=== PATIENT | female | born 1955 | race Hispanic/Latino ===

== ENCOUNTER 2017-07-15 12:34 | Emergency (ER) | payer MEDICARE ==
[~2017-07-15] VITALS: Ht 165.1 cm; Wt 73.5 kg
[~2017-07-15 12:34] MED LIST: ASPIR 8181 MG PO; CARVEDILOL12.5 MG PO; CARVEDILOL25 MG PO; CLINDAMYCIN HC150 MG; CLOPIDOGREL75 MG PO; GABAPENTIN300 MG PO; HYDRALAZINE HCL10 MG PO; LOSARTAN POTASS50 MG; NOVOLIN 70100 UNITS/; PRINIVIL20 MG PEG; PROMETHAZINE HC25 M1 PO; SYNTHROID100 MCG PO; TYLENOL WITH C1 EACH PO
--- OUTSIDE RECORDS SUMMARY | 2017-07-15 12:37 | XMS REPORT | Clinical Summary ---
Author Author JONATAN [facility] Address Unknown Phone Unavailable Care Team Providers Care Commission Sales Associate Name Role Phone PCP Unavailable Allergies Active Allergy Reactions Severity Noted Date Comments Atorvastatin 02/16/2017 Current Medications Not on file Active Problems Not on file Encounters Date Type Specialty Care Team Description 05/27/2017 Documentation Transplant Gela Rinaldi RN 04/26/2017 Telephone Transplant Lilian Ward Appointment 04/21/2017 Telephone Transplant Vandana Felton Appointment 02/16/2017 Orders Only Transplant Hepatology Brian Paulino MD ESRD (end stage renal disease) (HCC);Anemia of renal disease;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);Essential hypertension, malignant;Abnormal blood chemistry;Pre-operative cardiovascular examination;Breast cancer screening;Pure hypercholesterolemia;Athe rosclerosis of [place] coronary artery of [place] heart without angina pectoris;Impending cerebrovascular accident (HCC) 02/16/2017 Office Visit Transplant Brian Paulino MD ESRD ( end stage renal Marilou Huitron RN disease) (HCC) (Primary Dx);Anemia of renal disease;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);Essential hypertension, malignant;Abnormal blood chemistry;Pre-operative cardiovascular examination;Breast cancer screening;Pure hypercholesterolemia;Athe rosclerosis of [place] coronary artery of [place] heart without angina pectoris;Impending cerebrovascular accident (HCC) 02/16/2017 Orders Only Transplant Hepatology Sridhar Chan ESRD (end stage renal disease) (HCC);Anemia of renal disease;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);Essential hypertension, malignant;Abnormal blood chemistry;Pre-operative cardiovascular examination;Breast cancer screening;Pure hypercholesterolemia;Athe rosclerosis of [place] coronary artery of [place] heart without angina pectoris;Impending cerebrovascular accident (HCC) 01/12/2017 Telephone Transplant Sandie Charles [facility] Transplant Pre-evaluation 01/08/2017 Abstract Transplant Sandie Charles 01/04/2017 Abstract Transplant Sandie Charles after 07/14/2016 Social History Tobacco Use Types Packs/Day Years Used Date Never Assessed Sex Assigned at Date Recorded Not on file Last Filed Vital Signs Not on file Plan of Treatment Health Maintenance Due Date Last Done Comments INFLUENZA VACCINE 01/03/2018 Results * TRANSFUSION SERVICE REPORT - SCAN (02/17/2017 5:56 PM) * Type and Screen, Automated (02/16/2017 11:52 AM) Component Value Ref Range ABO/RH AUTOMATED (BEAKER) O POSITIVE Ab Scrn NEGATIVE Specimen Performing Laboratory Blood [facility] [address] [address] after 07/14/2016
[2017-07-15] MEDS ORDERED: ONDANSETRON HCL 4 MG ORAL DISINTEGRATING TAB PO ONE (13:30)
[2017-07-15] MEDS ORDERED: ONDANSETRON HCL 4 MG ORAL DISINTEGRATING TAB ONE (13:49)
== END 2017-07-15 14:05 | disposition home or self-care (01) ==
LOC: ER 12:34
DX: J02.9 Acute pharyngitis, unspecified (principal); H92.03 Otalgia, bilateral; I12.0 Hypertensive chronic kidney disease with stage 5 chronic kidney disease or end stage renal disease; N18.6 End stage renal disease; Z99.2 Dependence on renal dialysis; E78.5 Hyperlipidemia, unspecified
CPT/HCPCS: 99281

== ENCOUNTER → 2018-12-01 | Outpatient (CLI) | payer MEDICARE, OTHER ==
--- NOTE | 2018-12-01 16:22 | Diagnostic Imaging Report ---
Bone density study Clinical History: Osteoporosis Bone mineral density measurement Lumbar spine 1.061 gm/cm2 Femoral neck 0.759 gm/cm2 Standard deviation from young adult population (T-score) Lumbar spine 0.1 Femoral neck -1.0 Standard deviation for age adjusted population (Z-score) Lumbar spine 1.8 Femoral neck -0.2 Comments: The alignment of lumbar spine and femoral necks are satisfactory. There is osteopenia of the left femoral neck. No osteoporosis or osteopenia of the lumbar spine. Complete computer analysis will be sent shortly. Diagnostic criteria for osteoporosis BMD: Bone mineral density Normal: BMD measurement less than one standard deviation from young adult population Osteopenia: BMD measurement between 1 and 2.5 standard deviations Osteoporosis: BMD measurement greater than 2.5 standard deviations Severe osteoporosis: Osteoporosis and one or more fragility fractures Signed by: Dr. Donta Pratt MD on 12/01/2018 4:19 PM
--- NOTE | 2018-12-06 09:29 | Diagnostic Imaging Report ---
#[id number] - MGSCRBIL #BILATERAL DIGITAL SCREENING MAMMOGRAM WITH CAD: 12/01/2018 CLINICAL: Routine screening. Comparison is made to exam dated: 10/13/2016 mammogram - [facility]. Current study contains 4 films. There are scattered fibroglandular elements in both breasts. Current study was also evaluated with a Computer Aided Detection (CAD) system. There are benign vascular calcifications in both breasts. Benign appearing calcifications are noted bilaterally. No significant masses, calcifications, or other findings are seen in either breast. IMPRESSION: BENIGN There is no mammographic evidence of malignancy. A 1 year screening mammogram is recommended. The patient will be notified by letter of the results. LISSETTE GRIMM M.D. ct/penrad:12/02/2018 17:39:16 Cloud Engagement Partner: Mikayla SNYDER)(Margarita), [facility] letter sent: Normal Exam Mammogram BI-RADS: 2 Benign
== END ==
LOC: MAMMO 14:31
PROVIDERS: ATTEND Internal Medicine
DX: Z12.31 Encounter for screening mammogram for malignant neoplasm of breast (principal); M89.9 Disorder of bone, unspecified
CPT/HCPCS: 77067; 77080

== ENCOUNTER 2020-01-11 17:15 | Inpatient (IN) | payer MEDICARE, OTHER ==
[~2020-01-11] VITALS: Ht 165.1 cm; Wt 76.4 kg
[2020-01-11] MEDS ORDERED: ALBUTEROL/IPRATROPIUM 3 ML NEB NEB ONE (17:30)
[2020-01-11] MEDS ORDERED: ALBUTEROL/IPRATROPIUM 3 ML NEB ONE (17:38)
--- NOTE | 2020-01-11 18:01 | Diagnostic Imaging Report ---
EXAMINATION: CXR 1 VEW - HOPD INDICATION: Dyspnea. COMPARISON: None FINDINGS: TUBES and LINES: None. LUNGS: Normal lung volumes. There are prominent interstitial lung markings and hazy opacification of bilateral lung bases. No consolidations. PLEURA: No pleural effusion or pneumothorax. HEART AND MEDIASTINUM: The cardiomediastinal silhouette is mildly enlarged with atherosclerotic calcification of the thoracic aortic knob. BONES AND SOFT TISSUES: No acute osseous lesion. Soft tissues are unremarkable. UPPER ABDOMEN: No free air under the diaphragm. IMPRESSION: 1. Mild cardiomegaly with interstitial pulmonary edema. 2. Hazy opacification of the bilateral lung bases may represent atelectasis and/or multifocal pneumonia in the proper clinical context. Signed by: Baldev Hendrix MD on 01/11/2020 5:58 PM
--- OUTSIDE RECORDS SUMMARY | 2020-01-11 18:31 | XMS REPORT | Clinical Summary ---
Author Author JONATAN [facility] Address Unknown Phone Unavailable Care Team Providers [employer] Official Name Role Phone Sharpless PCP Allergies No Active Allergies Medications End Date Status Medication Sig Dispensed Refills Start Date Active gabapentin (NEURONTIN) 300 mg 3 0 300 MG capsule (three) times daily. Active lisinopril 40 mg 2 (two) 0 (PRINIVIL,ZESTRIL) 40 MG times daily. tablet Active levothyroxine (SYNTHROID, 100 mcg 0 11/04 LEVOTHROID) 100 MCG daily. 9 tablet Active atorvastatin (LIPITOR) 40 40 mg daily. 0 11/04 MG tablet 9 Active carvedilol (COREG) 25 MG 25 mg 2 (two) 0 tablet times daily. Active clopidogrel (PLAVIX) 75 75 mg daily. 0 mg tablet Active hydrALAZINE (APRESOLINE) 100 mg 2 0 11/24 100 MG tablet (two) times 9 daily. Active HUMULIN N NPH U-100 25 units in 3 INSULIN 100 unit/mL am and 15 9 injection units in pm. Active SORILUX 0.005 % Foam APPLY TO 5 AFFECTED AREA 9 DAILY FOR PSORIASIS. Active clobetasol (TEMOVATE) APPLY TO 2 11/25/19 1 0.05 % external solution AFFECTED AREA 9 2 TIMES A DAY TO RASH IN SCALP. Active DUOBRII 0.01-0.045 % Lotn APPLY TO 2 11/04 AFFECTED AREA 9 DAILY FOR PSORIASIS ON ARMS, LEGS AND BODY. Active lidocaine-prilocaine APPLY SMALL 6 (EMLA) 2.5-2.5 % cream AMOUNT TO 9 ACCESS SITE (AVF) 3 TIMES A WEEK 1 HOUR BEFORE DIALYSIS. COVER WITH OCCLUSIVE DRESSING (SARAN WRAP) Active Problems Not on file Encounters Care Team Description Date Type Specialty Star Cheryl 07/12/2019 Documentation Transplant CabralesAdriana morel Aston 07/10/2019 Documentation Transplant ProviderFidencio MD 02/10/2019 Orders Only Transplant Lilian Ward Follow-up 02/09/2019 Telephone Transplant Lilian Ward Follow-up 02/08/2019 Telephone Transplant Kianna Mi MD Finch, Jennifer L., MD Pre-transplant evaluation for chronic ki dney disease (Primary Dx) 02/02/2019 Evaluation Transplant Kianna Mi MD 02/02/2019 Evaluation Transplant Kianna Mi MD 02/02/2019 Hospital Radiology Encounter Kianna Mi MD ESRD (end stage renal disease) on dialys is (HCC); Pre-transplant evaluation for chronic kidney disease; 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, 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 residential insulin use (HCC); Abnormal laboratory test 02/02/2019 Hospital Radiology Encounter Kianna Mi MD ESRD (end stage renal disease) on dialys is (HCC); Pre-transplant evaluation for chronic kidney disease; 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, 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 long term acute care registered nurse insulin use (HCC); Abnormal laboratory test 02/02/2019 Hospital Cardiology Encounter Kianna Mi MD ESRD (end stage renal disease) on dialys is (HCC); Pre-transplant evaluation for chronic kidney disease; 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, 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 residential insulin use (HCC); Abnormal laboratory test 02/02/2019 Hospital Cardiology Encounter Kianna Mi MD ESRD (end stage renal disease) on dialys is (HCC); Pre-transplant evaluation for chronic kidney disease; 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, 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 long term acute care registered nurse insulin use (HCC); Abnormal laboratory test 02/02/2019 Orders Only Lab Kianna Mi MD ESRD (end stage renal disease) on dialys is (HCC); Pre-transplant evaluation for chronic kidney disease; 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, 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 long term acute care registered nurse insulin use (HCC); Abnormal laboratory test 02/02/2019 Orders Only Transplant after 01/10/2019 Family History Medical History Relation Name Comments Diabetes Brother Diabetes Brother Coronary artery disease Father Diabetes Father Alzheimer's disease Mother Coronary artery disease Mother Diabetes Mother Diabetes Sister Diabetes Sister Diabetes Sister Heart attack Sister age 39 Relation Name Status Comments Brother Brother Father Mother Sister Sister Sister Sister Social History Date Tobacco Use Types Packs/Day Years Used Never Assessed Sex Assigned at Date Recorded Not on file Industry Job Start Date Occupation Not on file Not on file Not on file Travel End Travel History Travel Start No recent travel history available. Last Filed Vital Signs Time Taken Vital Sign Reading 02/02/2019 2:15 PM CDT Blood Pressure 136/69 02/02/2019 2:15 PM CDT Pulse 73 02/02/2019 2:15 PM CDT Temperature 36.4 C (97.5 F) 02/02/2019 2:15 PM CDT Respiratory Rate 20 02/02/2019 9:00 AM CDT Oxygen Saturation 98% - Inhaled Oxygen - Concentration 02/02/2019 2:15 PM CDT Weight 85.7 kg (189 lb) 02/02/2019 2:15 PM CDT Height 165.1 cm (5' 5") 02/02/2019 2:15 PM CDT Body Mass Index 31.45 Plan of Treatment Health Maintenance Due Date Last Done Comments COLON CANCER SCREENING 1957 COLONOSCOPY PNEUMOCOCCAL VACCINE 2-64 12/30/1963 YEARS AT RISK (1 of 1 - PPSV23) DIABETIC EYE EXAM 12/30/1967 DIABETIC FOOT EXAM 12/30/1967 URINE MICROALBUMIN 12/30/1967 CERVICAL CANCER SCREENING 1978 PAP ONLY (Age 21-65) MEDICARE ANNUAL WELLNESS 01/15/2018 (YEAR 2 or FIRST YEAR if no IPPE) HEMOGLOBIN A1C 08/03/2019 02/02/2019 INFLUENZA VACCINE (#1) 2019 BREAST CANCER SCREENING 12/01/2020 12/01/2018 LIPID PANEL 02/02/2022 02/02/2019 Procedures Comments Procedure Name Priority Date/Time Associated Diag nosis TRANSFUSION SERVICE 02/03/2019 REPORT - SCAN 6:04 PM CDT ECHOCARDIOGRAM REPORT - 02/02/2019 SCAN 9:24 PM CDT PERIPHERAL VASCULAR 02/02/2019 REPORT - SCAN 9:23 PM CDT US ABDOMEN COMPLETE Routine 02/02/2019 ESRD (end stage renal 12:04 PM CDT disease) on dialysis ([facility]) Pre-transplant evaluation for chronic kidney disease 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, 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 residential insulin use ([facility]) Abnormal laboratory test XR CHEST 2 VIEWS Routine 02/02/2019 11:10 AM CDT STRESS ECHO Routine 02/02/2019 ESRD (end stage renal 9:01 AM CDT disease) on dialysis ([facility]) Pre-transplant evaluation for chronic kidney disease 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, 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 long term acute care registered nurse insulin use ([facility]) Abnormal laboratory test 2D ECHO W/ DOPPLER Routine 02/02/2019 ESRD (end s tage renal (CW/PW/COLOR) 8:16 AM CDT disease) on dialysi s ([facility]) Pre-transplant evaluation for chronic kidney disease 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, 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 residential insulin use ([facility]) Abnormal laboratory test ECG 12-LEAD Routine 02/02/2019 7:43 AM CDT Procedure Note - Interface, External Ris In - 02/02/2019 12:54 PM CDT Ventricula r Rate 70 BPM Atrial Rate 70 BPM P-R Interval 160 ms QRS Duration 88 ms Q-T Interval 434 ms QTC Calculatio n(Bazett) 468 ms P Vincent 69 degrees R Vincent 21 degrees T Vincent 101 degrees Normal sinus rhythm Nonspecifi c T wave abnormalit y Abnormal ECG No previous ECGs available ECG 12-LEAD Routine 02/02/2019 ESRD (end stage renal 7:43 AM CDT disease) on dialysis ([facility]) Pre-transplant evaluation for chronic kidney disease 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, 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 long term acute care registered nurse insulin use ([facility]) Abnormal laboratory test CBC W/PLT COUNT & AUTO Routine 02/02/2019 ESRD (e nd stage renal DIFFERENTIAL 7:04 AM CDT disease) on dialysi s ([facility]) Pre-transplant evaluation for chronic kidney disease 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, 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 long term acute care registered nurse insulin use ([facility]) Abnormal laboratory test AB SPECIFICITY CLASS I Routine 02/02/2019 ESRD (e nd stage renal 7:04 AM CDT disease) on dialysis ([facility]) Pre-transplant evaluation for chronic kidney disease 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, 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 long term acute care registered nurse insulin use ([facility]) Abnormal laboratory test FLOW PRA CLASS II WITH Routine 02/02/2019 ESRD (e nd stage renal REFLEX TO ANTIBODY 7:04 AM CDT disease) on dialys is SPECIFICITY ([facility]) Pre-transplant evaluation for chronic kidney disease 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, 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 residential insulin use ([facility]) Abnormal laboratory test FLOW PRA CLASS I WITH Routine 02/02/2019 ESRD (en d stage renal REFLEX TO ANTIBODY 7:04 AM CDT disease) on dialys is SPECIFICITY ([facility]) Pre-transplant evaluation for chronic kidney disease 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, 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 residential insulin use ([facility]) Abnormal laboratory test HEMOGLOBIN A1C Routine 02/02/2019 ESRD (end stage renal 7:04 AM CDT disease) on dialysis ([facility]) Pre-transplant evaluation for chronic kidney disease 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, 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 long term acute care registered nurse insulin use ([facility]) Abnormal laboratory test RPR Routine 02/02/2019 ESRD (end stage renal 7:04 AM CDT disease) on dialysis ([facility]) Pre-transplant evaluation for chronic kidney disease 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, 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 residential insulin use ([facility]) Abnormal laboratory test PT/APTT Routine 02/02/2019 ESRD (end stage renal 7:04 AM CDT disease) on dialysis ([facility]) Pre-transplant evaluation for chronic kidney disease 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, 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 long term acute care registered nurse insulin use ([facility]) Abnormal laboratory test EBV ANTIBODY, IGM Routine 02/02/2019 ESRD (end st age renal 7:04 AM CDT disease) on dialysis ([facility]) Pre-transplant evaluation for chronic kidney disease 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, 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 residential insulin use ([facility]) Abnormal laboratory test EBV ANTIBODY, IGG Routine 02/02/2019 ESRD (end st age renal 7:04 AM CDT disease) on dialysis ([facility]) Pre-transplant evaluation for chronic kidney disease 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, 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 residential insulin use ([facility]) Abnormal laboratory test CYTOMEGALOVIRUS ANTIBODY, Routine 02/02/2019 ESRD (end stage renal IGM 7:04 AM CDT disease) on dialysi s ([facility]) Pre-transplant evaluation for chronic kidney disease 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, 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 residential insulin use ([facility]) Abnormal laboratory test CYTOMEGALOVIRUS ANTIBODY, Routine 02/02/2019 ESRD (end stage renal IGG 7:04 AM CDT disease) on dialysi s ([facility]) Pre-transplant evaluation for chronic kidney disease 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, 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 residential insulin use ([facility]) Abnormal laboratory test CBC W/PLT COUNT & AUTO Routine 02/02/2019 ESRD (e nd stage renal DIFFERENTIAL 7:04 AM CDT disease) on dialysi s ([facility]) Pre-transplant evaluation for chronic kidney disease 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, 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 long term acute care registered nurse insulin use ([facility]) Abnormal laboratory test HLA TYPING CII Routine 02/02/2019 ESRD (end stage renal 7:03 AM CDT disease) on dialysis ([facility]) Pre-transplant evaluation for chronic kidney disease 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, 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 long term acute care registered nurse insulin use ([facility]) Abnormal laboratory test HLA TYPING CI Routine 02/02/2019 ESRD (end stage renal 7:03 AM CDT disease) on dialysis ([facility]) Pre-transplant evaluation for chronic kidney disease 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, 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 long term acute care registered nurse insulin use ([facility]) Abnormal laboratory test LIPID PANEL Routine 02/02/2019 ESRD (end stage renal 7:03 AM CDT disease) on dialysis ([facility]) Pre-transplant evaluation for chronic kidney disease 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, 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 long term acute care registered nurse insulin use ([facility]) Abnormal laboratory test VARICELLA ZOSTER Routine 02/02/2019 ESRD (end sta ge renal ANTIBODY, IGG 7:03 AM CDT disease) on dialysi s ([facility]) Pre-transplant evaluation for chronic kidney disease 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, 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 residential insulin use ([facility]) Abnormal laboratory test URIC ACID Routine 02/02/2019 ESRD (end stage renal 7:03 AM CDT disease) on dialysis ([facility]) Pre-transplant evaluation for chronic kidney disease 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, 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 long term acute care registered nurse insulin use ([facility]) Abnormal laboratory test T SPOT TB Routine 02/02/2019 ESRD (end stage renal 7:03 AM CDT disease) on dialysis ([facility]) Pre-transplant evaluation for chronic kidney disease 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, 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 long term acute care registered nurse insulin use ([facility]) Abnormal laboratory test PTH, INTACT Routine 02/02/2019 ESRD (end stage renal 7:03 AM CDT disease) on dialysis ([facility]) Pre-transplant evaluation for chronic kidney disease 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, 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 residential insulin use ([facility]) Abnormal laboratory test PHOSPHORUS Routine 02/02/2019 ESRD (end stage renal 7:03 AM CDT disease) on dialysis ([facility]) Pre-transplant evaluation for chronic kidney disease 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, 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 long term acute care registered nurse insulin use ([facility]) Abnormal laboratory test LACTATE DEHYDROGENASE Routine 02/02/2019 ESRD (en d stage renal (LDH) 7:03 AM CDT disease) on dialysi s ([facility]) Pre-transplant evaluation for chronic kidney disease 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, 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 long term acute care registered nurse insulin use ([facility]) Abnormal laboratory test HIV-1 ANTIGEN WITH Routine 02/02/2019 ESRD (end s tage renal HIV-1/2 ANTIBODY 7:03 AM CDT disease) on dialysi s (HCC) Pre-transplant evaluation for chronic kidney disease 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, 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 long term acute care registered nurse insulin use (HCC) Abnormal laboratory test HEPATITIS C ANTIBODY Routine 02/02/2019 ESRD (end stage renal 7:03 AM CDT disease) on dialysis (HCC) Pre-transplant evaluation for chronic kidney disease 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, 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 long term acute care registered nurse insulin use (HCC) Abnormal laboratory test HEPATITIS B CORE Routine 02/02/2019 ESRD (end sta ge renal ANTIBODY, IGM 7:03 AM CDT disease) on dialysi s (HCC) Pre-transplant evaluation for chronic kidney disease 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, 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 long term acute care registered nurse insulin use (HCC) Abnormal laboratory test HEPATITIS B SURFACE Routine 02/02/2019 ESRD (end stage renal ANTIGEN 7:03 AM CDT disease) on dialysi s (HCC) Pre-transplant evaluation for chronic kidney disease 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, 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 long term acute care registered nurse insulin use (HCC) Abnormal laboratory test HEPATITIS B SURFACE Routine 02/02/2019 ESRD (end stage renal ANTIBODY 7:03 AM CDT disease) on dialysi s (HCC) Pre-transplant evaluation for chronic kidney disease 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, 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 residential insulin use (HCC) Abnormal laboratory test GAMMA GLUTAMYL Routine 02/02/2019 ESRD (end stage renal TRANSFERASE (GGT) 7:03 AM CDT disease) on dialysi s (HCC) Pre-transplant evaluation for chronic kidney disease 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, 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 long term acute care registered nurse insulin use (HCC) Abnormal laboratory test COMPREHENSIVE METABOLIC Routine 02/02/2019 ESRD ( end stage renal PANEL 7:03 AM CDT disease) on dialysi s (HCC) Pre-transplant evaluation for chronic kidney disease 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, 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 long term acute care registered nurse insulin use (HCC) Abnormal laboratory test DIRECT AHG (PARAG)/DIRECT Routine 02/02/2019 ESRD ( end stage renal LUNA 7:00 AM CDT disease) on dialysi s (HCC) Pre-transplant evaluation for chronic kidney disease 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 * ECHOCARDIOGRAM REPORT - SCAN (02/02/2019 9:24 PM CDT) Narrative Performed At This result has an attachment that is n ot available. * PERIPHERAL VASCULAR REPORT - SCAN (02/02/2019 9:23 PM CDT) Narrative Performed At This result has an attachment that is n ot available. * US abdomen complete (02/02/2019 12:04 PM CDT) Specimen Narrative Performed At FINAL REPORT [employer] TECHNIQUE: Grayscale ultrasound of the abdomen. INDICATION: Kidney transplant evaluatio n; comment on number of renal cysts on each side to meet criteria for Acquired Cystic Kidney Disease. COMPARISON: None. FINDINGS: MIDLINE VASCULATURE: The visualized inf erior vena cava is unremarkable. Portal vein is patent. Th e maximum visualized aortic diameter is 1.9 cm. LIVER: Smooth liver contour. No focal l esions. The main portal vein measures 1.2 cm. BILIARY: Gallbladder: Multiple mobile structures in the gallbladder most consistent with stones and sludge. No g allbladder wall thickening, pericholecystic fluid, or distention. N egative sonographic Streeter sign. Common bile duct measures 0.4 cm, withi n normal limits. No intrahepatic biliary ductal dilatation. PANCREAS: Incompletely visualized due t o overlying bowel gas. Partially visualized pancreas body is u nremarkable. SPLEEN: No splenomegaly. The spleen alicia sures 10.3 cm. PERITONEUM: No free fluid. KIDNEYS: The kidneys are small with hyp erechoic cortices. No hydronephrosis. No sonographically evid ent solid mass lesion. Calcifications in the right upper pole are shadowing and measure 0.5 cm and 1.1 cm, most consistent with sto rayne. IMPRESSION: 1.Findings of chronic medical renal dis ease without renal cysts. 2.Stones and sludge in the gallbladder without acute cholecystitis. 3.Right upper pole renal stones measure up to 1.1 cm. Signed: Yuri Al MD Report Verified Date/Time: 17:13:31 Reading Location: [address] Radiolo gy Reading Room Procedure Note Interface, External Ris In - 02/02/2019 5:15 PM CDT FINAL REPORT TECHNIQUE: Grayscale ultrasound of the abdomen. INDICATION: Kidney transplant evaluation; comment on number of renal cysts on each side to meet criteria for Acquired Cystic Kidney Disease. COMPARISON: None. FINDINGS: MIDLINE VASCULATURE: The visualized inferior vena cava is unremarkable. Portal vein is patent. The maximum visualized aortic diameter is 1.9 cm. LIVER: Smooth liver contour. No focal lesions. The main portal vein measures 1.2 cm. BILIARY: Gallbladder: Multiple mobile structures in the gallbladder most consistent with stones and sludge. No gallbladder wall thickening, pericholecystic fluid, or distention. Negative sonographic Streeter sign. Common bile duct measures 0.4 cm, within normal limits. No intrahepatic biliary ductal dilatation. PANCREAS: Incompletely visualized due to overlying bowel gas. Partially visualized pancreas body is unremarkable. SPLEEN: No splenomegaly. The spleen measures 10.3 cm. PERITONEUM: No free fluid. KIDNEYS: The kidneys are small with hyperechoic cortices. No hydronephrosis. No sonographically evident solid mass lesion. Calcifications in the right upper pole are shadowing and measure 0.5 cm and 1.1 cm, most consistent with stones. IMPRESSION: 1.Findings of chronic medical renal dise ase without renal cysts. 2.Stones and sludge in the gallbladder w ithout acute cholecystitis. 3.Right upper pole renal stones measure up to 1.1 cm. Signed: Yuri Al MD Report Verified Date/Time: 02/02/2019 17:13:31 Reading Location: [address] Radiology Reading Room Performing Organization Address City/State/Zipcode Ph one Number [facility] * XR chest 2 views (02/02/2019 11:10 AM CDT) Specimen Narrative Performed At FINAL REPORT [facility] INDICATION: ESRD COMPARISON: None TECHNIQUE: Frontal and lateral views of the chest. FINDINGS: Lungs and pleura: Clear lungs. No effus ion. Heart and mediastinum: Normal heart siz e. Unremarkable mediastinal contours. Osseous structures: No acute abnormalit y. Additional findings: None. IMPRESSION: No acute intrathoracic abnormality. Signed: Karrie Lucas MD Report Verified Date/Time: 11:27:11 Reading Location: [facility] Radiolo gy Reading Room Procedure Note Interface, External Ris In - 02/02/2019 11:31 AM CDT FINAL REPORT INDICATION: ESRD COMPARISON: None TECHNIQUE: Frontal and lateral views of the chest. FINDINGS: Lungs and pleura: Clear lungs. No effusion. Heart and mediastinum: Normal heart size. Unremarkable mediastinal contours. Osseous structures: No acute abnormality. Additional findings: None. IMPRESSION: No acute intrathoracic abnormality. Signed: Karrie Lucas MD Report Verified Date/Time: 02/02/2019 11:27:11 Reading Location: [facility] Radiology Reading Room Performing Organization Address City/State/Zipcode Ph one Number GE RIS * Stress Echo With Tracing (02/02/2019 9:01 AM CDT) Ejection Fraction [facility]CHO [facility] Specimen Narrative Performed At Stress Echocardiography Report [facility]CHO [facility] Demographics [facility] Patient Name ANDIE BARTLETT Date of Study 02/02/2019 [place] [id number] GenderFemal e Visit Number [id number] RaceUnk nown [id number] Room Number OP Number Date of Birth1955 Referring Physician Kianna augustin Age63 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 Clinical History ESRD, DM, HTN, HLD HGB 12.1 HCT 38.1 % Contrast Medium: Definity. Height: 65 inches Weight: 86.18 kg (190 lbs) BSA: 1.94 m^2 BMI: 31.62 kg/m^2 HR: 65 bpm BP: 179/70 mmHg Rest ECG Stress echo indication: Pre-operative e valuation for organ transplant. Dobutamine stress peak infusion rate 20 mcg/kg/min. Atropine 0 mg IV. Hydralazine 20mg IV. Baseline ECG findings: Rhythm: regular sinus rhythm, with baseline non-specific ST segment and T-wave abno rmalities Stress Stress Type: Pharmacologic Peak HR: 110 bpm HR Response: Abnormal Peak BP: 252/88 mmHg BP Response: Normal Predicted HR: 159 bpm HR BP Product: 18943 % of predicted HR: 69 Max Infusion: 20 mcg/kg/min Test Duration: 32:00 min Reason for Termination: Hypertension Stress Interpretation Resting segmental wall motion analysis: all segments contract normally . Low dose Segmental wall motion analysis : augmented contractility, all segments . High dose and recovery phase not acquir ed due to premature termination of test. Results Global LVEF (rest): Normal (LVEF >50%) ECG 1mm flat-sloping ST segment depressions in inferolateral leads which improve in recovery. Arrhythmias Frequent PVCs, with intermittent bigemi ny and rare trigeminy during stress which resolve in recovery. Symptoms No symptoms during stress test. Summary This is a non-diagnostic stress test du e to early termination for severe and refractory hypertensive response to dobutamine, despite anti-hypertensive medication use. 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 Clinical History ESRD, DM, HTN, HLD HGB 12.1 HCT 38.1 % Contrast Medium: Definity. Height: 65 inches Weight: 86.18 kg (190 lbs) BSA: 1.94 m^2 BMI: 31.62 kg/m^2 HR: 65 bpm BP: 179/70 mmHg Rest ECG Stress echo indication: Pre-operative evaluation for organ transplant. Dobutamine stress peak infusion rate 20 mcg/kg/min. Atropine 0 mg IV. Hydralazine 20mg IV. Baseline ECG findings: Rhythm: regular sinus rhythm, with baseline non-specific ST segment and T-wave abnormalities Stress Stress Type: Pharmacologic Peak HR: 110 bpm HR Response: Abnormal Peak BP: 252/88 mmHg BP Response: Normal Predicted HR: 159 bpm HR BP Product: 34287 % of predicted HR: 69 Max Infusion: 20 mcg/kg/min Test Duration: 32:00 min Reason for Termination: Hypertension Stress Interpretation Resting segmental wall motion analysis: all segments contract normally . Low dose Segmental wall motion analysis: augmented contractility, all segments . High dose and recovery phase not acquired due to premature termination of test. Results Global LVEF (rest): Normal (LVEF >50%) ECG 1mm flat-sloping ST segment depressions in inferolateral leads which improve in recovery. Arrhythmias Frequent PVCs, with intermittent bigeminy and rare trigeminy during stress which resolve in recovery. Symptoms No symptoms during stress test. Summary This is a non-diagnostic stress test due to early termination for severe and refractory hypertensive response to dobutamine, despite anti-hypertensive medication use. Signature Performing Organization Address City/State/[facility] one Number [facility] ECHO HEARTLAB [employer] [facility] * 2D Echo W/Doppler(CW/PW/Color) (02/02/2019 8:16 AM CDT) Ejection Fraction [facility] ECHO HEART[facility] [employer] [facility] Specimen Narrative Performed At Transthoracic Echocardiography Report (TTE) [facility] ECH O HEARTLAB Demographics [employer] [facility] Patient Name ANDIE BARTLETT Date of Study 02/02/2019 [place] [id number] GenderFemal e Visit Number [id number] Maribel key [id number] Room Number OP Number Date of Birth1955 Referring Physician Kianna Mi Age63 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 Clinical History ESRD, DM, HLD, HTN HGB 12.1 HCT 38.1 % Contrast Medium: Definity. Height: 65 inches Weight: 86.18 kg (190 lbs) BSA: 1.94 m^2 BMI: 31.62 kg/m^2 HR: 65 bpm BP: 179/70 mmHg Summary 1. The left ventricle is chamber size ( by vol index) is normal. No evidence of LVH. All of the LV segments contract normally . LVEF by Perez's method of disk assessment is normal (55-60%). Grade 2 diastolic dysfunction (moderately increased LA pr essure). LA size is severely enlarged (>48 ml/m2). 2. The right ventricular chamber size a nd systolic function are within normal limits. RA size is normal. Estim ated peak systolic PA pressure is 45-50 mmHg. 3. Mild to moderate posterior mitral an nular calcification. Trace mitral regurgitation. 4. Mild tricuspid regurgitation. Previous Study No prior exam available for comparison. Signature Findings Rhythm/BPRe gular sinus rhythm during the exam. Left Ventricle The LV e ndocardium is adequately visualized. The left ventricle is chamber size (by vol index) is normal (female - LVED vol - 29-61ml/m2). No evidence of LVH. All of the LV segments contract normally . LVEF by Perez's method of disk assessment is normal (55-60%). Grade 2 diastolic dysfunction (moderately increased LA pressure). Left AtriumLA i s well visualized. LA size is severely enlarged (>48 ml/m2) . Right VentricleThe righ t ventricular chamber size and systolic function are within normal limits. Right Atrium RA siz e is normal. Atrial SeptumNormal interatrial septum by available views. Aortic Valve Normal AoV structure. There is no aortic stenosis. There is trace aortic regurgitation. Mitral Valve Mild-t o-moderate MV leaflet thickening. Mild thickening of the subvalvular apparatus of the mitral valve is visualized. Mild to moderate posterior mitral annular calcification. Trace mitral regurgitation. Tricuspid ValveTV struc ture is normal. Mild tricuspid regurgitation. Estimated peak systolic PA pressure is 45-50 mmHg . Pulmonic Valve Normal P V structure. A trace of pulmonary regurgitation. Aorta Aortic root size (SInus of Valsalva diameter) is normal . Aortic sinotubular junction normal . Proximal ascending aorta size is normal . PericardiumNo p ericardial effusion is visualized. IVC/SVC/PA/PV/PleuralThe inferior v eva cava size is normal and fully collapses with inspiration. The estimated RA pressure by IVC dynamics 0-5mmHg . Chambers/Structures Left Atrium LA Volume: 103.82 ml LA Area: 28.33 cm^2 LA Vol. Index: 54 ml/m^2 Left Ventricle LVIDd: 4.46 cm LVEDV:101.58 ml LVIDs: 3.21 cm LV Septum Diastolic: 1.02 cm LV PW Diastolic: 0.9 cm LV Length: 7.88 cm LVEDV Perez's:102.19 ml LV FS: 28 % LVESV Perez's:45.36 ml LVEF Perez's: 55.6 % LVEDVI: 53 ml/m^2 LVESVI: 23 ml/m^2 LVOT Diameter: 1.91 cm Right Atrium RA Area: 1 7.63 cm^2 Right Ventricle RV Diast Dim.: 3.45 cm TAPSE: 2.66 cm RVOT VTI: 19.97 cm Aorta Ao Root S of Mackenzie.: 3.13 cm Ascending Aorta: 2.[address] Junction: 2.43 cm Doppler/Quantitative Measurements Mitral Valve MV Peak E-Wave: 1.21 m/s MV Peak A-Wave: 0.88 m/s E/A Ratio: 1.38 Peak Gradient: 5.88 mmHg Deceleration Time: 201.1 msec MV Laron. Peak: Tissue Doppler E' Septal Velocity: 0.06 m/s E/E': 20.51 E' Lateral Velocity: 0.06 m/s Aortic Valve Peak Velocity: 1.32 m/s Mean Velocity: 0.99 m/s Peak Gradient: 7.02 mmHg Mean Gradient: 4.25 mmHg AV Area (continuity): 2.32 cm^2 AV VTI: 36.04 cm AV DVI: 0.81 LVOT Peak Velocity: 1.04 m/s Peak Gradient: 4.29 mmHg Mean Velocity: 0.73 m/s Mean Gradient: 2.41 mmHg LVOT Diameter: 1.91 cm LVOT VTI: 29.19 cm LVOT Area: 2.87 cm^2 LVOT SV:83.59 ml LVOT CO: 5.43 l/min LVOT CI: 2.8 l/min/m^2 Tricuspid Valve TR Velocity: 3.3 m/s TR Gradient: 43.65 mmHg Procedure Note Interface, External Ris In - 02/02/2019 11:25 AM CDT Transthoracic Echocardiography Report (TTE) Demographics Patient Name ANDIE BARTLETT Date of Study 02/02/2019 [place] Gender Female Visit Number [id number] Race Unknown Room Number OP Number Date of 1955 Referring Physician Kianna Mi 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 Clinical History ESRD, DM, HLD, HTN HGB 12.1 HCT 38.1 % Contrast Medium: Definity. Height: 65 inches Weight: 86.18 kg (190 lbs) BSA: 1.94 m^2 BMI: 31.62 kg/m^2 HR: 65 bpm BP: 179/70 mmHg Summary 1. The left ventricle is chamber size (by vol index) is normal. No evidence of LVH. All of the LV segments contract normally . LVEF by Perez's method of disk assessment is normal (55-60%). Grade 2 diastolic dysfunction (moderately increased LA pressure). LA size is severely enlarged (>48 ml/m2). 2. The right ventricular chamber size and systolic function are within normal limits. RA size is normal. Estimated peak systolic PA pressure is 45-50 mmHg. 3. Mild to moderate posterior mitral annular calcification. Trace mitral regurgitation. 4. Mild tricuspid regurgitation. Previous Study No prior exam available for comparison. Signature Findings Rhythm/BP Regular sinus rhythm during the exam. Left Ventricle The LV endocardium is adequately visualized. The left ventricle is chamber size (by vol index) is normal (female - LVED vol - 29-61ml/m2). No evidence of LVH. All of the LV segments contract normally . LVEF by Perez's method of disk assessment is normal (55-60%). Grade 2 diastolic dysfunction (moderately increased LA pressure). Left Atrium LA is well visualized. LA size is severely enlarged (>48 ml/m2) . Right Ventricle The right ventricular chamber size and systolic function are within normal limits. Right Atrium RA size is normal. Atrial Septum Normal interatrial septum by available views. Aortic Valve Normal AoV structure. There is no aortic stenosis. There is trace aortic regurgitation. Mitral Valve Qerr-ie-zwapxsom MV leaflet thickening. Mild thickening of the subvalvular apparatus of the mitral valve is visualized. Mild to moderate posterior mitral annular calcification. Trace mitral regurgitation. Tricuspid Valve TV structure is normal. Mild tricuspid regurgitation. Estimated peak systolic PA pressure is 45-50 mmHg . Pulmonic Valve Normal PV structure. A trace of pulmonary regurgitation. Aorta Aortic root size (SInus of Valsalva diameter) is normal . Aortic sinotubular junction normal . Proximal ascending aorta size is normal . Pericardium No pericardial effusion is visualized. IVC/SVC/PA/PV/Pleural The inferior vena cava size is normal and fully collapses with inspiration. The estimated RA pressure by IVC dynamics 0-5mmHg . Chambers/Structures Left Atrium LA Volume: 103.82 ml LA Area: 28.33 cm^2 LA Vol. Index: 54 ml/m^2 Left Ventricle LVIDd: 4.46 cm LVEDV:101.58 ml LVIDs: 3.21 cm LV Septum Diastolic: 1.02 cm LV PW Diastolic: 0.9 cm LV Length: 7.88 cm LVEDV Perez's:102.19 ml LV FS: 28 % LVESV Perez's:45.36 ml LVEF Perez's: 55.6 % LVEDVI: 53 ml/m^2 LVESVI: 23 ml/m^2 LVOT Diameter: 1.91 cm Right Atrium RA Area: 17.63 cm^2 Right Ventricle RV Diast Dim.: 3.45 cm TAPSE: 2.66 cm RVOT VTI: 19.97 cm Aorta Ao Root S of Mackenzie.: 3.13 cm Ascending Aorta: 2.[address] Junction: 2.43 cm Doppler/Quantitative Measurements Mitral Valve MV Peak E-Wave: 1.21 m/s MV Peak A-Wave: 0.88 m/s E/A Ratio: 1.38 Peak Gradient: 5.88 mmHg Deceleration Time: 201.1 msec MV Laron. Peak: Tissue Doppler E' Septal Velocity: 0.06 m/s E/E': 20.51 E' Lateral Velocity: 0.06 m/s Aortic Valve Peak Velocity: 1.32 m/s Mean Velocity: 0.99 m/s Peak Gradient: 7.02 mmHg Mean Gradient: 4.25 mmHg AV Area (continuity): 2.32 cm^2 AV VTI: 36.04 cm AV DVI: 0.81 LVOT Peak Velocity: 1.04 m/s Peak Gradient: 4.29 mmHg Mean Velocity: 0.73 m/s Mean Gradient: 2.41 mmHg LVOT Diameter: 1.91 cm LVOT VTI: 29.19 cm LVOT Area: 2.87 cm^2 LVOT SV:83.59 ml LVOT CO: 5.43 l/min LVOT CI: 2.8 l/min/m^2 Tricuspid Valve TR Velocity: 3.3 m/s TR Gradient: 43.65 mmHg Performing Organization Address City/[place]/[facility] Ph one Number [facility] ECHO [facility]ART[facility] [employer] [facility] * ECG 12 lead (02/02/2019 7:43 AM CDT) Specimen Narrative Performed At Ventricular Rate 70 BPM GE MUSE Atrial Rate 70 BPM P-R Interval 160 ms QRS Duration 88 ms Q-T Interval 434 ms QTC Calculation(Bazett) 468 ms P Vincent 69 degrees R Vincent 21 degrees T Vincent 101 degrees Normal sinus rhythm Nonspecific T wave abnormality Abnormal ECG No previous ECGs available Confirmed by MD Hankins Roberto ([id number]) on 02/02/2019 2:20:01 PM Procedure Note Interface, External Ris In - 02/02/2019 2:20 PM CDT Ventricular Rate 70 BPM Atrial Rate 70 BPM P-R Interval 160 ms QRS Duration 88 ms Q-T Interval 434 ms QTC Calculation(Bazett) 468 ms P Vincent 69 degrees R Vincent 21 degrees T Vincent 101 degrees Normal sinus rhythm Nonspecific T wave abnormality Abnormal ECG No previous ECGs available Confirmed by MD Hankins Roberto ([id number]) on 02/02/2019 2:20:01 PM Performing Organization Address [facility] one Number GE MUSE * FLOW PRA CLASS II WITH REFLEX TO ANTIBODY SPECIFICITY (02/02/2019 7:04 AM CDT) Flow Class II Percent 0 [facility] HLA TESTI NG Positive Specimen Blood Narrative Performed At Disclaimer: [facility] TEST[facility] This test was developed and its perform ance characteristics determined by the [facility]. It has not been cleared or approved by the U.S. Food and Drug Administration. The FDA has determined that such clearance or approval is not necessary. This test is used for clinic al purposes. It should not be regarded as investigational or for research. This l aboratory is certified under the Clinical Laboratory Improvement Amendments of 19 88 (CLIA-88) as qualified to perform high complexity clinical laboratory testing. Performing Organization Address [facility] one Number [facility] HLA TESTING ONE Joey Shira, MS: [id number], [place] [address] CLIA#[id number] CAP#[id number] UNOS#[id number] * FLOW PRA CLASS I WITH REFLEX TO ANTIBODY SPECIFICITY (02/02/2019 7:04 AM CDT) Flow Class I Percent 13 [facility] HLA TESTIN G Positive Specimen Blood Narrative Performed At Disclaimer: [facility] TEST[facility] This test was developed and its perform ance characteristics determined by the [facility]. It has not been cleared or approved by the U.S. Food and Drug Administration. The FDA has determined that such clearance or approval is not necessary. This test is used for clinic al purposes. It should not be regarded as investigational or for research. This l aboratory is certified under the Clinical Laboratory Improvement Amendments of 19 88 (CLIA-88) as qualified to perform high complexity clinical laboratory testing. Performing Organization Address [facility] one Number [facility] HLA TESTING ONE Joey Silva, MS: [id number], [place] [address] CLIA#[id number] CAP#[id number] UNOS#[id number] * AB SPECIFICITY CLASS I (02/02/2019 7:04 AM CDT) AB Specificity Class I NO CLASS I ANTIBODY DETECTED [facility] HLA TESTING WITH MFIs > 4000 Specimen Blood Narrative Performed At Disclaimer: [facility] TEST[facility] This test was developed and its perform ance characteristics determined by the [facility]. It has not been cleared or approved by the U.S. Food and Drug Administration. The FDA has determined that such clearance or approval is not necessary. This test is used for clinic al purposes. It should not be regarded as investigational or for research. This l aboratory is certified under the Clinical Laboratory Improvement Amendments of 19 88 (CLIA-88) as qualified to perform high complexity clinical laboratory testing. Performing Organization Address City/[facility] Ph one Number [facility] HLA TESTING ONE Joey Silva, MS: [id number], [place] [id number] CLIA#[id number] CAP#[id number] UNOS#[id number] * PT/aPTT (02/02/2019 7:04 AM CDT) Protime 13.4 11.9 - 14.2 seconds [facility] INR 1.1 <=5.9 [facility] PTT 37.7 (H) 22.5 - 36.0 seconds [facility] Specimen Blood Narrative Performed At Effective 08/31/2018: PT Reference Range Change [facility] New: 11.9-14.2Previous: 11.7-14.7 [facility] NTER RECOMMENDED COUMADIN/WARFARIN INR THERA PY RANGES STANDARD DOSE: 2.0-3.0Includes: PRO PHYLAXIS for venous thrombosis, systemic embolization; TREATMENT for venous thro mbosis and/or pulmonary embolus. HIGH RISK: Target INR is 2.5-3.5 for pa tients wiht mechanical heart valves. Performing Organization Address City/[facility] Ph one Number [address] [facility] * CBC with platelet count + automated diff (02/02/2019 7:04 AM CDT) WBC 7.1 3.5 - 10.5 K/L [facility] RBC 3.89 (L) 3.93 - 5.22 M/L [facility] Hemoglobin 12.1 11.2 - 15.7 GM/DL [facility] Hematocrit 38.3 34.1 - 44.9 % [facility] MCV 98.5 (H) 79.4 - 94.8 fL [facility] MCH 31.1 25.6 - 32.2 pg [facility] MCHC 31.6 (L) 32.2 - 35.5 GM/DL [facility] RDW 14.1 11.7 - 14.4 % [facility] Platelets 192 150 - 450 K/CU MM [facility] MPV 10.1 9.4 - 12.3 fL [facility] nRBC 0 0 - 0 /100 WBC [facility] % Neutros 64 % [facility] % Lymphs 25 % [facility] % Monos 9 % [facility] % Eos 2 % [facility] % Baso 1 % [facility] # Neutros 4.54 1.56 - 6.13 K/L [facility] # Lymphs 1.73 1.18 - 3.74 K/L [facility] # Monos 0.60 (H) 0.24 - 0.36 K/L [facility] # Eos 0.14 0.04 - 0.36 K/L [facility] # Baso 0.04 0.01 - 0.08 K/L [facility] Immature 0 0 - 1 % [facility] Granulocytes-Relative [facility] Specimen Blood Performing Organization Address City/[facility] Ph one Number [place] [phone] [place] [address] * Cytomegalovirus antibody, IgM (02/02/2019 7:04 AM CDT) CMV IGM Negative Negative, Equivocal [facility] Specimen Blood Narrative Performed At CMV IgM Result Interpretation: [facility] </= 0.8 Al Negative [facility] 0.9-1.0 Al Equivocal >/= 1.1 Al Positive Performing Organization Address [facility] one Number [place] [phone] [place] [address] * EBV-VCA antibody, IgM (02/02/2019 7:04 AM CDT) PILAR DICKENS VIRAL CAPSID Negative Negative, Equivocal [facility] ANTIGEN IGM [facility] Specimen Blood Narrative Performed At Pilar Dickens Viral Capsid Antigen IgM Result Interpre tation: [facility] </= 0.8 Al Negative [facility] 0.9-1.0 Al Equivocal >/= 1.1 Al Positive Performing Organization Address City/[facility] one Number [place] [phone] [place] [address] * EBV-VCA antibody, IgG (02/02/2019 7:04 AM CDT) PILAR DICKENS VIRAL CAPSID Positive (A) Negative, Equivocal [facility] ANTIGEN IGG [facility] Specimen Blood Narrative Performed At Pilar Dickens Viral Capsid Antigen IgG Result Interpre tation: [facility] </= 0.8 Al Negative [facility] 0.9-1.0 Al Equivocal >/= 1.1 Al Positive Performing Organization Address City/[facility] one Number [place] [address] [facility] * RPR (02/02/2019 7:04 AM CDT) RPR Nonreactive Nonreactive [facility] Specimen Blood Performing Organization Address [facility] Ph one Number [address] 0 [phone] [place] [address] * Cytomegalovirus antibody, IgG (02/02/2019 7:04 AM CDT) CYTOMEGALOVIRUS, IGG Positive (A) Negative, Equivocal [facility] Specimen Blood Narrative Performed At CMV IgG Result Interpretation: [facility] </= 0.8 Al Negative [facility] 0.9-1.0 Al Equivocal >/=1.1 AlPositive Performing Organization Address [facility] one Number [address] 0 [phone] [place] [address] * Hemoglobin A1c (02/02/2019 7:04 AM CDT) Hemoglobin A1C 6.7 (H) 4.3 - 6.1 % [facility] Specimen Blood Performing Organization Address City/[facility] Ph one Number [address] [facility] * HLA TYPING CII (02/02/2019 7:03 AM CDT) HLA-DR AG1 14 [facility] HLA TESTING HLA-DR AG2 8 [facility] HLA-DR AG3-1 52 [facility] HLA-DQA1 AG 1-1 05 [facility] TEST[facility] HLA-DQA1 AG 1-2 04 [facility] TEST[facility] HLA-DQB1 AG 1-1 7 [facility] HLA TEST[facility] HLA-DQB1 AG 1-2 4 [facility] TEST[facility] HLA-DPA1 AG 1-1 01 [facility] TEST[facility] HLA-DPA1 AG 1-2 01 [facility] TEST[facility] HLA-DPB1 AG 1-1 04:02 [facility] HLA-DPB1 AG 1-2 03:01 [facility] Specimen Blood Narrative Performed At Disclaimer: [facility] TEST[facility] This test was developed and its perform ance characteristics determined by the [facility]. It has not been cleared or approved by the U.S. Food and Drug Administration. The FDA has determined that such clearance or approval is not necessary. This test is used for clinic al purposes. It should not be regarded as investigational or for research. This l aboratory is certified under the Clinical Laboratory Improvement Amendments of 19 88 (CLIA-88) as qualified to perform high complexity clinical laboratory testing. Performing Organization Address City/State/[facility] Ph one Number [facility] HLA TESTING ONE Joey Silva, MS: [id number], [place] [address] CLIA#[id number] CAP#[id number] UNOS#[id number] * HLA TYPING CI (02/02/2019 7:03 AM CDT) HLA-A AG1 2 [facility] TEST[facility] HLA-A AG2 2 [facility] TEST[facility] HLA-B AG1 52 [facility] HLA TESTING HLA-B AG2 61 [facility] HLA TESTING HLA-C AG1 9 [facility] HLA TESTING HLA-C AG2 10 [facility] HLA TESTING HLA-B BW1 4 [facility] HLA TESTING HLA-B BW2 6 [facility] Specimen Blood Narrative Performed At Disclaimer: [facility] HLA TESTING This test was developed and its perform ance characteristics determined by the [facility]. It has not been cleared or approved by the U.S. Food and Drug Administration. The FDA has determined that such clearance or approval is not necessary. This test is used for clinic al purposes. It should not be regarded as investigational or for research. This l aboratory is certified under the Clinical Laboratory Improvement Amendments of 19 88 (CLIA-88) as qualified to perform high complexity clinical laboratory testing. Performing Organization Address City/[facility] Ph one Number [facility] HLA TESTING ONE Joey Silva, MS: [id number], [place] [address] CLIA#[id number] CAP#[id number] UNOS#[id number] * T Spot TB (02/02/2019 7:03 AM CDT) T-Spot TB Negative [facility] Neg Ctrl Spot Count 0 [facility] Panel A Spot 0 [facility] Panel B Spot 0 [facility] Pos Ctrl Spot Ct 0 [facility] Scan Result [facility] Specimen Blood Narrative Performed At This result has an attachment that is n ot available. Performing Organization Address City/State/[facility] Ph one Number [facility], [address] * HIV-1 Antigen with HIV-1/2 Antibody (02/02/2019 7:03 AM CDT) HIV-1 Antigen with HIV Nonreactive Nonreactive [facility] 1&2 Antibody [facility] Specimen Blood Performing Organization Address City/[facility] Ph one [address] [facility] * Hepatitis C Antibody (02/02/2019 7:03 AM CDT) Hepatitis C Ab Nonreactive Nonreactive [facility] Specimen Blood Performing Organization Address [facility] Ph one [address] [facility] * Hepatitis B core antibody, IgM (02/02/2019 7:03 AM CDT) Hep B C IgM Nonreactive Nonreactive [facility] Specimen Blood Performing Organization Address [facility] Ph one [address] [facility] * Hepatitis B surface antibody (02/02/2019 7:03 AM CDT) Hep B S Ab 31.7 (H) <8.0 mIU/mL [facility] Specimen Blood Performing Organization Address City/[facility] Ph one [address] [facility] * Hepatitis B surface antigen (02/02/2019 7:03 AM CDT) HBsAg Screen Nonreactive Nonreactive [facility] Specimen Blood Performing Organization Address [facility] Ph one [address] [facility] * Varicella Zoster Antibody, IgG (02/02/2019 7:03 AM CDT) Varicella IgG 4.0 [facility] Specimen Blood Narrative Performed At VARICELLA ZOSTER RESULT INTERPRETATIONS: [facility] <=0.8 AlNo nreactive:Presumed non-immune to VZV [facility] 0.9-1.0 AlEqui vocal >=1.1 AlRe active:Presumed immune to VZV Performing Organization Address [facility] one Number [address] [facility] * Uric Acid (02/02/2019 7:03 AM CDT) Uric Acid 3.1 2.6 - 7.2 mg/dL [facility] Specimen Blood Performing Organization Address [facility] one Number [address] [facility] * Phosphorus (02/02/2019 7:03 AM CDT) Phosphorus 4.8 (H) 2.3 - 4.7 mg/dL [facility] Specimen Blood Performing Organization Address [facility] one Number [address] [facility] * PTH, Intact (02/02/2019 7:03 AM CDT) PTH 422.7 (H) 8.5 - 72.5 pg/mL [facility] Specimen Blood Performing Organization Address [facility] one Number [address] [facility] * Lactate Dehydrogenase (LDH) (02/02/2019 7:03 AM CDT) LDH 237 (H) 125 - 220 U/L [facility] Specimen Blood Performing Organization Address [facility] one Number [address] [facility] * Gamma Glutamyl Transferase (GGT) (02/02/2019 7:03 AM CDT) GGT 19 9 - 64 U/L [facility] Specimen Blood Performing Organization Address [facility] one Number [address] 0 [phone] [place] [address] * Lipid panel (02/02/2019 7:03 AM CDT) Triglycerides 68 mg/dL [facility] Cholesterol 143 mg/dL [facility] HDL 51 mg/dL [facility] LDL Calculated 78 mg/dL [facility] Specimen Blood Narrative Performed At Triglyceride Reference Range: [facility] Low Risk <150 [facility] [id number] High Risk 200-499 Very High Risk>=500 Cholesterol Reference Range: Low Risk <200 [id number] High Risk>240 HDL Cholesterol Reference Range: Low Risk >=60 High Risk <40 LDL Cholesterol Reference Range: Optimal<100 Near [id number] Very High >=190 Performing Organization Address [facility] one Number [place] [address] [address] [phone] [place] [address] * Comprehensive metabolic panel (02/02/2019 7:03 AM CDT) Protein, Total 7.4 6.0 - 8.3 gm/dL [facility] Albumin 4.0 3.5 - 5.0 g/dL [facility] Alkaline Phosphatase 78 40 - 150 U/L [facility] Total Bilirubin 0.5 0.2 - 1.2 mg/dL [facility] Sodium 135 (L) 136 - 145 meq/L [facility] Potassium 4.1 3.5 - 5.1 meq/L [facility] Chloride 95 (L) 98 - 107 meq/L [facility] CO2 34 (H) 22 - 29 meq/L [facility] BUN 23 (H) 7 - 21 mg/dL [facility] Creatinine 4.25 (H) 0.57 - 1.25 mg/dL [facility] Glucose 148 (H) 70 - 105 mg/dL [facility] Calcium 9.4 8.4 - 10.2 mg/dL [facility] AST 14 5 - 34 U/L [facility] ALT 12 6 - 55 U/L [facility] EGFR 11Comment: ESTIMATED GFR IS mL/min/1.73 sq m [facility] NOT ACCURATE CREATININE [facility] CLEARANCE IN PREDICTING GLOMERULAR FILTRATION RATE. ESTIMATED GFR IS NOT APPLICABLE FOR DIALYSIS PATIENTS. Specimen Blood Performing Organization Address [facility] one [address] [facility] * Direct AHG (PARAG)/Direct Luna (02/02/2019 7:00 AM CDT) Direct AHG-IGG NEGATIVEComment: saline [facility] control-negative [facility] Direct AHG-C3B, C3D NEGATVIE [facility] Specimen Blood Performing Organization Address [facility] one [address] [address] [facility] * Blood typing, automated (02/02/2019 6:35 AM CDT) ABO/RH AUTOMATED (BEAKER) O POSITIVE [facility] Specimen Blood Performing Organization Address [facility] one [address] [address] [facility] after 01/10/2019 Insurance Payer Benefit Subscriber ID Type Phone Address Plan / Group [employer] [facility] xxxxxxxxx [facility] [place] RESOURCES [employer] xxxxxxxxx Trans plant MEDICARE MGD CARE [facility] ONLY [facility] REPL MEDICAID [place]ICAID xxxxxxxxx [place] [id number]
--- OUTSIDE RECORDS SUMMARY | 2020-01-11 18:31 | XMS REPORT | Clinical Summary ---
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 Hyperlipidemia Active ASPIRIN EC (ASPIR-LOW) 81 Take 1 tablet 30 tablet 6 mg delayed release by mouth 3 tabletIndications: daily. Diabetes mellitus type II Active mupirocin (BACTROBAN) 2 % Apply a small 66 g 0 ointmentIndications: amount to 5 Diabetic Foot Ulcers wound daily and cover with gauze, needs appointment prior to next refill. Active triamcinolone (KENALOG) Apply to 454 g 2 0.025 % topical affected 5 creamIndications: areas on body Psoriasis, only 2 times Lipodermatosclerosis a day; not for face, axillae, groin. Active albuterol (PROVENTIL HFA) Inhale 2 6.7 g 0 90 mcg/actuation Puffs by 5 inhalerIndications: mouth 4 times Community acquired daily as pneumonia needed for Wheezing. Active ergocalciferol (VITAMIN Take 1 8 capsule 0 D2) 50,000 unit capsule by 5 capsuleIndications: mouth weekly. Vitamin D deficiency Active Wheel Chair by 1 Device 0 DeviIndications: Pain in Misc.(Non-Dany 6 both lower extremities g; Combo Route) route. Active atorvastatin (LIPITOR) 40 Take 1 tablet 90 tablet 1 mg tabletIndications: PVD by mouth at 6 (peripheral vascular bedtime disease) nightly. Active clopidogrel (PLAVIX) 75 Take 1 tablet 90 tablet 1 mg tabletIndications: PVD by mouth 6 (peripheral vascular daily. disease) Active gabapentin (NEURONTIN) Take 1 30 capsule 1 300 mg capsule by 6 capsuleIndications: mouth every Polyneuropathy in other day At diabetes(357.2), Leg bedtime. pain, bilateral Active carvedilol (COREG) 25 mg Take 1 tablet 180 tablet 1 tabletIndications: by mouth 2 6 Essential hypertension, times daily benign (with meals). Active blood glucose (PRECISION Use as 100 Each 6 0 XTRA TEST STRIPS) test directed to 6 stripsIndications: Type 2 check blood diabetes mellitus with sugars 2 complication times daily.. Active levothyroxine (SYNTHROID) Take 1 tablet 90 tablet 1 100 mcg by mouth 6 tabletIndications: every morning Hypothyroidism (before breakfast). Active zinc oxide 20 % Apply to 56.7 g ointmentIndications: affected area 6 Sacral ulcer, with see unspecified severity administratio n instruction. Active insulin NPH (NOVOLIN N) Inject 25 40 mL 100 unit/mL injection units under 6 the skin every morning and 15 units every evening. Active hydrALAZINE (APRESOLINE) Take 1 tablet 270 tablet 1 10 mg tabletIndications: by mouth 3 6 Essential hypertension, times daily. benign Active acetaminophen-codeine Take 1 tablet 90 tablet 1 (TYLENOL/CODEINE #3) by mouth 3 6 300-30 mg per times daily tabletIndications: as needed for Chronic pain of both Pain. lower extremities Active ammonium lactate (AL12) Apply to 225 mL 12 % lotionIndications: affected area 6 Xerosis cutis 2 times daily. Active INSULIN SYRINGE 0.5mL Use to inject 100 Each 30GX5/16" (ULTRA COMFORT) medication 2 6 syringe-needleIndications times a day. : Type II diabetes Use a new mellitus syringe each time. Active lancets 28 Check blood 100 Each 0 gaugeIndications: sugar 3 times 6 Diabetes mellitus a day. Active ammonium lactate Apply to 225 g 2 (LAC-HYDRIN) 12 % lotion affected area 6 2 times daily. Active clobetasol propionate Apply to 120 g 5 10/ (TEMOVATE E) 0.05 % areas of 6 emollient psoriasis creamIndications: only, not Psoriasis normal skin, 2 times per day Wednesday through Wednesday. Do not apply to face, underarms, or groin.. Active fluocinonide (LIDEX) 0.05 Apply to 60 mL 5 % external scalp 2 times 6 solutionIndications: a day; do not Psoriasis apply to face, axillae, groin. Active hydrocortisone 2.5 % Apply to 80 g 5 01/23 topical creamIndications: face, 6 Psoriasis axillae, groin 2 times a day as needed. Active calcipotriene (DOVONEX) Apply to 120 g 5 0.005 % topical psoriasis 6 creamIndications: twice daily Psoriasis Wednesday and Wednesday.. Active ketoconazole (NIZORAL) 2 Wash scalp 120 mL 5 1 % shampooIndications: 3times per 6 Psoriasis week; leave on 5 minutes before rinsing. Active adalimumab (HUMIRA PEN) Day 1: inject 4 Each 1 40 mg/0.8 mL pen kit 2 syringes 6 injectionIndications: (80mg). Day Psoriasis vulgaris 8: Then 1 syringe (40mg) SC q2wk. inshannonet sent to 03/03/16 for fcc (dermatology) Active Problems Problem Noted Date Osteomyelitis of right foot 12/03/2015 Psoriasis 12/03/2015 Sacral ulcer 07/26/2015 ESRD (end stage renal disease) on dialysis - Mo/We/Fr i 07/02/2015 Hypotension, unspecified 06/18/2015 CAD in red devil artery- s/p PCI and LUIS CARLOS to LAD 05/21 ba yshore 06/03/2015 PVD (peripheral vascular disease)- right SFA athrecto myand angioplasty and 06/03/2015 stent placment Overview: Aly Anemia of chronic kidney failure 01/29/2015 Diabetes mellitus- nephropathy; neuropathy, prof diab retinopathy, NPH 25 02/09/2013 units bid Statin myopathy- restarted lipitor 40mg as pt had cad and s/p PCI 04/24/2012 Overview: On lipitor and fenofibrate at the time of myopathy Diabetic foot ulcer 10/17/2010 Diabetic neuropathy- gabapentin 10/17/2010 Hyperlipidemia Microalbuminuria Hypothyroidism- synthroid 100mcg Vitamin D insufficiency Immunizations Name Administration Dates Next Due Lidocaine 1% 5ml Inj 10/25/2013 ARANESP 60 MCG/0.3 ML INJ 04/08/2015, 03/11/2015, Influenza Vaccine 01/09/2015, 01/09/2014, 10/2012, 03/03/2012, 01/02/2011, 01/10/2010 PPV 23 Pneumococcal 11/26/2009 Polysaccaride Tdap Tetanus, diphtheria, 11/25/2009 acellular pertussis Vaccine Tropicamide 0.5% Eye-Jane 08/15/2015 15ml Family History Medical History Relation Name Comments Heart Mother PR Glaucoma Sister Relation Name Status Comments Mother Sister Social History Date Tobacco Use Types Packs/Day Years Used Never Smoker Smokeless Tobacco: Never Used Tobacco Cessation: Counseling Given: No Comments: Non Smoker Drinks/Week oz/Week Comments Alcohol Use No Sex Assigned at Date Recorded Not on file Industry Job Start Date Occupation Not on file Not on file Not on file Travel End Travel History Travel Start No recent travel history available. Last Filed Vital Signs Not on file Plan of Treatment Health Maintenance Due Date Last Done Comments DM Foot Exam (Yearly) 02/09/2014 02/09/2013, 12/08/2011, 04/14/2011 Colorectal Cancer Scrn 12/09/2015 12/08/2014 Annual (FIT/FOBT) Age 50 to 75 DM HGBA1C (Yearly) 06/24/2016 06/25/2015, 12/12/2014, 06/27/2014, Additional history exists Breast Cancer Scrn 08/13/2016 08/14/2015, (Yearly) 01/12/2014, 05/27/2012, Additional history exists DM Retinal Exam (Yearly) 11/21/2016 11/22/2015, 08/15/2015, 01/24/2014, Additional history exists DM Microalbumin Urine 04/16/2017 04/16/2016, Scrn (Yearly) 01/24/2016, 01/24/2016, Additional history exists Results Not on fileafter 01/10/2019 Insurance Type Payer Benefit Subscriber ID Effective Phone Address Plan / Dates Group [facility] xxxxxxxxx 2015-P [phone] [address] MEDICARE MEDICARE resent [id number] [place] [address] [facility] xxxxxxxxx 2015-P [phone] [address] [employer] resent [id number] [place] [address] Advance Directives Date Inactivated Comments Code Status Date Activated 07/26/2015 6:21 PM Full Code 07/24/2015 4:56 PM 06/16/2012 5:12 PM Full Code 06/13/2012 10:31 PM
--- OUTSIDE RECORDS SUMMARY | 2020-01-11 18:32 | XMS REPORT | Continuity of Care Document ---
Author Author [facility] t Organization [facility] Address [address] [place] [address] Phone Unavailable Care Team Providers Care Calculation Reviewer Name Role Phone EVELYN CRUZ MD PCP SERINA MCKINNON Attphys Unavailable Cheryl Graves Attphys Unavailable Aston Cabrales Attphys Unavailable Provider , Fidencio Attphys Clarence Ward Attphys Unavailable Terence Mi MD Attphys Annie Ren MD Attphys Terence MI Attphys Unavailable EVELYN CRUZ Attphyjoey Unavailable Payers Payer Name Policy Type Policy Number Effective Date Expiration Date S ourjp [facility] - [facility] CAREUNITED HEALTHCARExxxxxxxxx xxx xxxxxx [facility] UNITED RESOURCES NETWK - MEDICARE MGD [place] REOPTUM UNITED ONLY MCR REPLxxxxxxxxxTransplants xxxxxxxxx [facility] MED[place]icaid xxxxxxxxx [facility] Care Improvement Plus [id number] 2016 00:00:00 [facility] [id number] 2015 00:00 :00 [facility] [id number] [facility] Problems Condition Name Condition Details Condition Category Status Onset Date Resolution Date Last Treatment Date Treating Clinician Comments Source Osteomyelitis of right foot Osteomyelitis of right foot Disease Active 2015-12-03 00:00:00 [facility] Psoriasis Psoriasis Disease Active 2015-12-03 00:00:00 [facility] End-stage renal disease on hemodialysis ESRD on hemodialysis Proble m Active 2015-09-10 00:00:00 [facility] Local infection of wound Infected wound Problem Active 2015-09-10 00:00 :00 [facility] Screening for diabetes mellitus DM (diabetes mellitus screen) Probl em Active 2015-09-10 00:00:00 [facility] Sacral ulcer Sacral ulcer Disease Active 2015-07-26 00:00:00 [facility] ESRD (end stage renal disease) on dialysis - Mo/We/Fri ESRD (end stage renal disease) on dialysis - Mo/We/Fri Disease Active 2015-07-02 00:00:00 [facility] Hypotension, unspecified Hypotension, unspecified Disease Acti ve 2015-06-18 00:00:00 [facility] CAD in [place] artery- s/p PCI and LUIS CARLOS to LAD 05/21 shell CAD in [place] artery- s/p PCI and LUIS CARLOS to LAD 05/21 care [facility] at [facility] Disease Active 2015-06-03 00:00:00 [facility] PVD (peripheral vascular disease)- right SFA athrectomyand angioplasty and stent placment PVD (peripheral vascular disease)- right SFA athrectomyand angioplasty and stent placment Disease Active 2015-06-03 00:00:00 [place]: [facility] Anemia of chronic kidney failure Anemia of chronic kidney failur e Disease Active 2015-01-29 [facility] Diabetes mellitus- nephropathy; neuropat hy, prof diab retinopathy, NPH 25 units bid Diabetes mellitus- nephropathy; neuropat hy, prof diab retinopathy, NPH 25 units bid Disease Active 2013-02-09 00:00:00 [facility] Statin myopathy- restarted lipitor 40mg as pt had cad and s/p PCI Statin myopathy- restarted lipitor 40mg as pt had cad and s/p PCI Disease Active 2012-04-24 00:00:00 Overview: On lipitor and fenofibrate at the time of myopathy [facility] Diabetic foot ulcer Diabetic foot ulcer Disease Active 2010-10-17 00:00 :00 [facility] Diabetic neuropathy- gabapentin Diabetic neuropathy- gabapentin Di sease Active 2010-10-17 00:00:00 [facility] Hyperlipidemia Hyperlipidemia Disease Active [facility] Microalbuminuria Microalbuminuria Disease Active [facility] Hypothyroidism- synthroid 100mcg Hypothyroidism- synthroid 100mc g Disease Active [facility] Vitamin D insufficiency Vitamin D insufficiency Disease Active [facility] Allergies, Adverse Reactions, Alerts Allergy Name Allergy Type Status Severity Reaction(s) Onset Date Inacti ve Date Treating Clinician Comments Source atorvastatin DA Active 2019-04-27 00:00:00 [facility] atorvastatin DA Active [place] 2017-05-27 00:00:00 [facility] insulin regular DA Active [place] 2017-05-27 00:00:00 [facility] pioglitazone DA Active [place] 2017-05-27 00:00:00 [facility] insulin regular Allergy to Substance Active SEVERE CHIN 2016-05-06 3 00:00:00 [facility] Atorvastatin Propensity to adverse reactions to drug Active 2015-07-24 00:00:00 numbness [facility] Family History Family Member Diagnosis Comments Start Date Stop Date Source Natural mother Heart [facility] Natural mother Alzheimer's disease [facility] Natural mother Coronary artery disease [facility] Natural mother Diabetes [facility] Natural sister Glaucoma [facility] Natural sister Diabetes [facility] Natural sister Heart attack [facility] Natural brother Diabetes [facility] Natural father Coronary artery disease [facility] Natural father Diabetes [facility] Social History Social Habit Start Date Stop Date Quantity Comments Source Tobacco Comment Non Smoker [facility] Sex Assigned At [facility] Alcohol intake 2016-03-03 00:00:00 2016-03-03 00:00:00 Current non-drinker of alcohol (finding) [facility] Smoking Status Start Date Stop Date Source Never smoker [facility] Medications Ordered Medication Name Filled Medication Name Start Date Stop Da te Current Medication? Ordering Clinician Indication Dosage Frequency Signature (SIG) Comments Components Source carvedilol (COREG) 25 MG tablet 2019-02-02 15:44:58 Yes 25mg Q.5D 25 mg 2 (two) times daily. [facility] clopidogrel (PLAVIX) 75 mg tablet 2019-02-02 15:44:58 Yes 75mg QD 75 mg daily. [facility] gabapentin (NEURONTIN) 300 MG capsule 2019-02-02 15:44:57 Yes 300mg [id number] 300 mg 3 (three) times daily. [facility] lisinopril (PRINIVIL,ZESTRIL) 40 MG tablet 2019-02-02 15:44:57 Yes 40mg Q.5D 40 mg 2 (two) times daily. [facility] lidocaine-prilocaine (EMLA) 2.5-2.5 % cream 2019-01-18 00:00:00 Yes APPLY SMALL AMOUNT TO ACCESS SITE (AVF) 3 TIMES A WEEK 1 HOUR BEFORE DIALYSIS. COVER WITH OCCLUSIVE DRESSING (SARAN WRAP) [facility] levothyroxine (SYNTHROID, LEVOTHROID) 100 MCG tablet 2 00:00:00 Yes 100ug QD 100 mcg daily. [facility] atorvastatin (LIPITOR) 40 MG tablet 2018-11-24 00:00:00 Yes 40mg QD 40 mg daily. [facility] hydrALAZINE (APRESOLINE) 100 MG tablet 2018-11-24 00:00:00 Yes 100mg Q.5D 100 mg 2 (two) times daily. [facility] HUMULIN N NPH U-100 INSULIN 100 unit/mL injection 2018-11-24 00:00:00 Yes 25 units in am and 15 units in pm. [facility] SORILUX 0.005 % Foam 2018-11-24 00:00:00 Yes APPLY TO AFFECTED AREA DAILY FOR PSORIASIS. [facility] clobetasol (TEMOVATE) 0.05 % external solution 2018-11-24 00:00: 00 Yes APPLY TO AFFECTED AREA 2 TIMES A DAY TO RASH IN SCALP. [facility] DUOBRII 0.01-0.045 % Lotn 2018-11-24 00:00:00 Yes APPLY TO AFFECTED AREA DAILY FOR PSORIASIS ON ARMS, LEGS AND BODY. [facility] adalimumab (HUMIRA PEN) 40 mg/0.8 mL pen kit injection 2016-03-03 00:00:00 Yes Psoriasis vulgaris Day 1: in ject 2 syringes (80mg). Day 8: Then 1 syringe (40mg) SC q2wk. inbasket sent to 03/03/16 for [facility]cc (dermatology) [facility] clobetasol propionate (TEMOVATE E) 0.05 % emollient cream 2016-01-24 00:00:00 Yes Psoriasis Apply to areas of psoriasis only, not normal skin, 2 times per day Wednesday through Wednesday. Do not apply to face, underarms, or groin.. [facility] fluocinonide (LIDEX) 0.05 % external solution 2016-01-24 00: 00:00 Yes Psoriasis Apply to scalp 2 katt es a day; do not apply to face, axillae, groin. [facility] hydrocortisone 2.5 % topical cream 2016-01-24 00:00:00 Yes Psoriasis Apply to face, axillae, groin 2 times a day as needed. [facility] calcipotriene (DOVONEX) 0.005 % topical cream 2016-01-24 00: 00:00 Yes Psoriasis Apply to psoriasis twice daily Wednesday and Wed.. [facility] ketoconazole (NIZORAL) 2 % shampoo 2016-01-24 00:00:00 Yes Psoriasis Wash scalp 3times per week; leave on 5 minutes before rinsing. [facility] ammonium lactate (LAC-HYDRIN) 12 % lotion 2016-01-17 00:00:00 Yes Q.5D Apply to affected area 2 times daily. [facility] lancets 28 gauge 2015-11-15 00:00:00 Yes Diabetes mellitus Check blood sugar 3 times a day. [facility] ammonium lactate (AL12) 12 % lotion 2015-11-14 00:00:00 Yes Xerosis cutis Q.5D Apply to affected area 2 times daily. [facility] INSULIN SYRINGE 0.5mL 30GX5/16" (ULTRA COMFORT) syringe-need le 2015-11-14 00:00:00 Yes Type II diabetes mellitus Use to inject medication 2 times a day. Use a new syringe each time. [facility] hydrALAZINE (APRESOLINE) 10 mg tablet 2015-07-31 00:00:00 Yes Essential hypertension, benign 10mg Take 1 tablet by mouth 3 times daily. [facility] acetaminophen-codeine (TYLENOL/CODEINE #3) 300-30 mg per tab let 2015-07-31 00:00:00 Yes Chronic pain of both lower extremities 1 {tbl} Take 1 tablet by mouth 3 times daily as needed for Pain. [facility] zinc oxide 20 % ointment 2015-07-26 00:00:00 Yes Sacral ulcer, with unspecified severity Apply to affected area see administration instruction. [facility] insulin NPH (NOVOLIN N) 100 unit/mL injection 2015-07-26 00:00:0 0 Yes Inject 25 units under the skin every morning and 15 units every evening. [facility] levothyroxine (SYNTHROID) 100 mcg tablet 2015-07-12 00:00:00 Yes Hypothyroidism 100ug QD Take 1 tablet by jovi th every morning (before breakfast). [facility] blood glucose (PRECISION XTRA TEST STRIPS) test strips 2015-07-10 00:00:00 Yes Type 2 diabetes mellitus with complication Use as directed to check blood sugars 2 times daily.. [facility] atorvastatin (LIPITOR) 40 mg tablet 2015-07-02 00:00:00 Yes PVD (peripheral vascular disease) 40mg Take 1 tablet by m outh at bedtime nightly. [facility] clopidogrel (PLAVIX) 75 mg tablet 2015-07-02 00:00:00 Yes PVD (peripheral vascular disease) 75mg QD Take 1 tablet by mouth daily. [facility] gabapentin (NEURONTIN) 300 mg capsule 2015-07-02 00:00:00 Yes Leg pain, bilateral 300mg Take 1 capsule by mouth every other day At bedt teo. [facility] carvedilol (COREG) 25 mg tablet 2015-07-02 00:00:00 Yes Essential hypertension, benign 25mg Take 1 tablet by mouth 2 ti mes daily (with meals). [facility] Wheel Chair Dolores 2015-05-09 00:00:00 Yes Mahamed n in both lower extremities by Misc.(Non-Drug; Combo Route) route. [facility] ergocalciferol (VITAMIN D2) 50,000 unit capsule 2015-04-02 0 0:00:00 Yes Vitamin D deficiency [id number] Take 1 capsule by mouth weekly. [facility] albuterol (PROVENTIL HFA) 90 mcg/actuation inhaler 2015-01 00:00:00 Yes Community acquired pneumonia 2{puff} Inh trinity 2 Puffs by mouth 4 times daily as needed for Wheezing. [facility] triamcinolone (KENALOG) 0.025 % topical cream 2014-11-07 00: 00:00 Yes Lipodermatosclerosis Apply to affected a reas on body only 2 times a day; not for face, axillae, groin. [facility] mupirocin (BACTROBAN) 2 % ointment 2014-07-30 00:00:00 Yes Diabetic Foot Ulcers Apply a small amount to wound daily and cover with gauze, needs appointment prior to next refill. [facility] ASPIRIN EC (ASPIR-LOW) 81 mg delayed release tablet 09-05 00:00:00 Yes Diabetes mellitus type II 81mg QD Take 1 tablet by mouth smii mathew. [facility] Tjohv-7-NOO-EPA-Fish Oil 1,000 (120-180) mg cap 2012-06-17 0 0:00:00 Yes Hyperlipidemia 1000mg QD Take 1,000 mg by mouth daily. [facility] Aspirin (Aspir 81) 81 Mg Tablet. Aspirin (Aspir 81) 81 Mg Tablet. Yes 81 Daily [facility] Carvedilol 25 Mg Tablet Carvedilol 25 Mg Tablet Yes 25 Twice A Day [facility] Clopidogrel Bisulfate (Clopidogrel) 75 Mg Tablet Clopi dogrel Bisulfate (Clopidogrel) 75 Mg Tablet Yes 75 Daily [facility] Gabapentin 300 Mg Capsule Gabapentin 300 Mg Capsule Yes 300 Qodhs [facility] Levothyroxine Sodium (Synthroid) 100 Mcg Tab Levothyro xine Sodium (Synthroid) 100 Mcg Tab Yes 100 Daily [facility] Lisinopril (Prinivil) 20 Mg Tablet Lisinopril (Prinivil) 20 Mg Tablet Yes 20 Bedtime [facility] Acetaminophen With Codeine (Tylenol With Codeine #3 Tablet) 1 Each Tablet, 300 Mg Oral Acetaminophen With Codeine (Tylenol With Codeine #3 Tablet) 1 Each Tablet, 300 Mg Oral 2016-05-18 00:00:00 No 300 Three Times A Day as needed for Pain [facility] Carvedilol 12.5 Mg Tablet, 12.5 Mg Oral Carvedilol 12.5 Mg T ablet, 12.5 Mg Oral 2016-05-18 00:00:00 No 12.5 Twice A Day [facility] Clindamycin Hcl 150 Mg Capsule, 300 Clindamycin Hcl 150 Mg Capsu le, 300 2016-05-18 00:00:00 No 300 Three Times A Day [facility] Hydralazine Hcl 10 Mg Tablet, 10 Mg Oral Hydralazine H cl 10 Mg Tablet, 10 Mg Oral 2016-05-18 00:00:00 No 10 Three Times A Day [facility] Insulin Human Isophan/Regular (Novolin 7 0-30 100 Unit/Ml Vial) 100 Units/Ml Ml, 30 Units Insulin Human Isophan/Regular (Novolin 7 0-30 100 Unit/Ml Vial) 100 Units/Ml Ml, 30 Units 2016-05-18 00:00:00 No 30 Be fore Breakfast [facility] Insulin Human Isophan/Regular (Novolin 7 0-30 100 Unit/Ml Vial) 100 Units/Ml Ml, 15 Insulin Human Isophan/Regular (Novolin 7 0-30 100 Unit/Ml Vial) 100 Units/Ml Ml, 15 2016-05-18 00:00:00 No 15 Bedtime [facility] Losartan Potassium 50 Mg Tablet, Losartan Potassium 50 Mg Tablet , 2016-05-18 00:00:00 No Daily [facility] Promethazine Hcl 25 Mg Tablet, 25 Mg Oral Promethazine Hcl 25 Mg Tablet, 25 Mg Oral 2016-05-18 00:00:00 No 25 Every 8 Hours as n eeded for Nausea [facility] Immunizations Ordered Immunization Name Filled Immunization Name Date Status Comments Source Tropicamide 0.5% Eye-Jane 15ml 2015-08-15 00:00:00 Complete d [facility] ARANESP 60 MCG/0.3 ML INJ 2015-04-08 00:00:00 Completed [facility] ARANESP 60 MCG/0.3 ML INJ 2015-03-11 00:00:00 Completed [facility] ARANESP 60 MCG/0.3 ML INJ 2015-02-11 00:00:00 Completed [facility] Influenza Vaccine 2015-01-09 00:00:00 Completed [facility] Influenza Vaccine 2014-01-09 00:00:00 Completed [facility] Lidocaine 1% 5ml Inj 2013-10-25 00:00:00 Completed [facility] Influenza Vaccine 2013-01-09 00:00:00 Completed [facility] Influenza Vaccine 2012-03-03 00:00:00 Completed [facility] Influenza Vaccine 2011-01-02 00:00:00 Completed [facility] Influenza Vaccine 2010-01-10 00:00:00 Completed [facility] PPV 23 Pneumococcal Polysaccaride 2009-11-26 00:00:00 Comp leted [facility] Tdap Tetanus, diphtheria, acellular pertussis Vaccine 2009-11-25 00:00:00 Completed [facility] Vital Signs Vital Name Observation Time Observation Value Comments Source Systolic blood pressure 2019-02-02 14:15:00 136 mm[Hg] [facility] Diastolic blood pressure 2019-02-02 14:15:00 69 mm[Hg] [facility] Heart rate 2019-02-02 14:15:00 73 /min [facility] Body temperature 2019-02-02 14:15:00 36.39 Neha [facility] Respiratory rate 2019-02-02 14:15:00 20 /min [facility] Body height 2019-02-02 14:15:00 165.1 cm [facility] Body weight Measured 2019-02-02 14:15:00 85.73 kg [facility] BMI 2019-02-02 14:15:00 31.45 kg/m2 [facility] Oxygen saturation in Arterial blood by Pulse oximetry 2018-04 09:00:00 98 /min [facility] r Procedures Procedure Date / Time Performed Performing Clinician [facility] e TRANSFUSION SERVICE REPORT - SCAN 2019-02-03 18:04:19 Provid er, Default Scanning [facility] ECHOCARDIOGRAM REPORT - SCAN 2019-02-02 21:24:02 ProviderAlesia lt [facility]anning [facility] PERIPHERAL VASCULAR REPORT - SCAN 2019-02-02 21:23:56 Provid er, Default Scanning [facility] US ABDOMEN COMPLETE 2019-02-02 12:04:00 Kianna Mi CH I [facility] XR CHEST 2 VIEWS 2019-02-02 11:10:00 Kianna Mi [facility] STRESS ECHO 2019-02-02 09:01:58 Kianna Mi [facility] 2D ECHO W/ DOPPLER (CW/PW/COLOR) 2019-02-02 08:16:28 Parminder Mi [facility] ECG 12-LEAD 2019-02-02 07:43:34 Unknown, Hl7 Doctor [facility] CYTOMEGALOVIRUS ANTIBODY, IGG 2019-02-02 07:04:00 [facility] CYTOMEGALOVIRUS ANTIBODY, IGM 2019-02-02 07:04:00 Nery Mi [facility] EBV ANTIBODY, IGM 2019-02-02 07:04:00 [facility] 2019-02-02 07:04:00 [facility] RPR 2019-02-02 07:04:00 [facility] HEMOGLOBIN A1C 2019-02-02 07:04:00 [facility] FLOW PRA CLASS I WITH REFLEX TO ANTIBODY SPECIFICITY 2019-01 07:04:00 [facility] FLOW PRA CLASS II WITH REFLEX TO ANTIBODY SPECIFICITY 2018-04 07:04:00 Kianna Mi [facility] AB SPECIFICITY CLASS I 2019-02-02 07:04:00 [facility] W/PLT COUNT & AUTO DIFFERENTIAL 2019-02-02 07:04:00 Kianna Mi [facility] COMPREHENSIVE METABOLIC PANEL 2019-02-02 07:03:00 TimminNery cook [facility] GAMMA GLUTAMYL TRANSFERASE (GGT) 2019-02-02 07:03:00 [facility] HEPATITIS B SURFACE ANTIBODY 2019-02-02 07:03:00 [facility] HEPATITIS B SURFACE ANTIGEN 2019-02-02 07:03:00 TimminRosalina cook [facility] HEPATITIS B CORE ANTIBODY, IGM 2019-02-02 07:03:00 Timmins, Page astorga [facility] HEPATITIS C ANTIBODY 2019-02-02 07:03:00 TimminKianna cook [facility] HIV-1 ANTIGEN WITH HIV-1/2 ANTIBODY 2019-02-02 07:03:00 TimKianna montoya [facility] LACTATE DEHYDROGENASE (LDH) 2019-02-02 07:03:00 TimRosalina montoya [facility] PHOSPHORUS 2019-02-02 07:03:00 [facility], [facility]TACT 2019-02-02 07:03:00 Kianna Mi [facility] T SPOT TB 2019-02-02 07:03:00 Kianna Mi [facility] URIC ACID 2019-02-02 07:03:00 Kianna Mi [facility] VARICELLA ZOSTER ANTIBODY, IGG 2019-02-02 07:03:00 TimminPage cook [facility] LIPID PANEL 2019-02-02 07:03:00 Kianna Mi [facility] HLA TYPING CI 2019-02-02 07:03:00 TimKianna montoya [facility] HLA TYPING CII 2019-02-02 07:03:00 [facility] AHG (PARAG)/DIRECT ALECIA 2019-02-02 07:00:00 Page Mi [facility] BLOOD TYPING, AUTOMATED 2019-02-02 06:35:00 Kianna Mi [facility] Plan of Care Planned Activity Planned Date Details Comments Source Future Scheduled Test 2022-02-02 00:00:00 Lipid panel (proce dure) [code = 43321509] [facility] Scheduled Test 2020-12-01 00:00:00 Screening for estefani gnant neoplasm of breast (procedure) [code = 935624379] [facility] Future Scheduled Test 2019-12-05 00:00:00 INFLUENZA VACCINE (#1) [code = INFLUENZA VACCINE (#1)] [facility] Scheduled Test 2019-08-03 00:00:00 Hemoglobin A1c alicia surement (procedure) [code = 97197278] [facility] Scheduled Test 2018-01-15 00:00:00 MEDICARE ANNUAL WE LLNESS (YEAR 2 or FIRST YEAR if no IPPE) [code = MEDICARE ANNUAL WELLNESS (YEAR 2 or FIRST YEAR if no IPPE)] [facility] Scheduled Test 2017-04-16 00:00:00 Urine screening fo r protein (procedure) [code = 438245750] [facility] [place] 2016-11-21 00:00:00 DM Retinal Exam (Y early) [code = DM Retinal Exam (Yearly)] [facility] [place]uled Test 2016-08-13 00:00:00 Breast Cancer Scrn (Yearly) [code = Breast Cancer Scrn (Yearly)] [facility] [place]uled Test 2016-06-24 00:00:00 Hemoglobin A1c alicia surement (procedure) [code = 76225948] [facility] [place] Test 2015-12-09 00:00:00 Screening for estefani gnant neoplasm of colon (procedure) [code = 386392303] [facility] [place] Test 2014-02-09 00:00:00 DM Foot Exam (Year ly) [code = DM Foot Exam (Yearly)] [facility] [place] Test 1978 00:00:00 Screening for estefani gnant neoplasm of cervix (procedure) [code = 725156937] [facility] Future Scheduled Test 1967-12-30 00:00:00 DIABETIC EYE EXAM [code = DIABETIC EYE EXAM] [facility] Test 1967-12-30 00:00:00 Diabetic foot exam ination (regime/therapy) [code = 077208552] [facility] Future Scheduled Test 1967-12-30 00:00:00 Urine screening fo r protein (procedure) [code = 793270592] [facility] Future Scheduled Test 1963-12-30 00:00:00 PNEUMOCOCCAL VACCI NE 2-64 YEARS AT RISK (1 of 1 - PPSV23) [code = PNEUMOCOCCAL VACCINE 2-64 YEARS AT RISK (1 of 1 - PPSV23)] [facility] r Future Scheduled Test 1957 00:00:00 Screening for estefani gnant neoplasm of colon (procedure) [code = 052960323] [facility] Encounters Start Date/Time End Date/Time Encounter Type Admission Type [facility] Care Department Encounter ID Source 2019-04-20 13:46:00 2019-04-20 14:30:00 Departed Emergency Room [facility] [id number] [facility] 2018-12-01 14:31:00 2018-12-01 14:31:00 Registered Clinic 3 EVELYN CRUZ [facility] [id number] [facility] 2017-07-15 12:34:00 2017-07-15 14:05:00 Departed Emergency Room [facility] [id number] [facility] 2016-10-13 10:37:00 2016-10-13 10:37:00 Registered Clinic EL NANCY EVELYN [facility] [id number] [facility] Results Test Description Test Time Test Comments Results Result Comments Source CXR 1 VEW - HOPD 2020-01-11 17:57:00 [place] [address] Patient Name: ANDIE ZABALA MR #: [id number] : 1955 Age/Sex: 64/F Req #: [id number] [facility] Physician: Ordered by: SERINA MCKINNON MD Report #: [id number] Location: [facility] Room/Bed: Procedure: [id number] HOPD/CXR 1 VEW - HOPD Exam Date: 01/11/20 Exam Time: 1738 REPORT STATUS: Signed EXAMINATION: CXR 1 VEW - HOPD INDICATION: Dyspnea. COMPARISON: None FINDINGS: TUBES and LINES: None. LUNGS: Normal lung volumes. There are prominent interstitial lung markings and hazy opacification of bilateral lung bases. No consolidations. PLEURA: No pleural effusion or pneumothorax. HEART AND MEDIASTINUM: The cardiomediastinal silhouette is mildly enlarged with atherosclerotic calcification of the thoracic aortic knob. BONES AND SOFT TISSUES: No acute osseous lesion. Soft tissues are unremarkable. UPPER ABDOMEN: No free air under the diaphragm. IMPRESSION: 1. Mild cardiomegaly with interstitial pulmonary edema. 2. Hazy opacification of the bilateral lung bases may represent atelectasis and/or multifocal pneumonia in the proper clinical context. Signed by: Baldev Moon MD on 01/11/2020 5:58 PM Dictated By: BALDEV MOON MD 59 Transcribed By: MICHAEL on 01/11/201757 COPY TO: SERINA MCKINNON MD GLUBED 2020-01-09 11:17:00 Test Item GLUBED (test code = GLUBED) 116 MG/DL 70-110 H Performed by certified swing type lathe operator at [facility] [id number] 05:50:00* Test Item Value Reference Range Interpretation Comments GLUBED (test code = GLUBED) 92 MG/DL 70-110 N Performed by certified swing type lathe operator at [facility] [id number] 20:14:00* Test Item Value Reference Range Interpretation Comments GLUBED (test code = GLUBED) 127 MG/DL 70-110 H Performed by certified swing type lathe operator at [facility] [id number] 18:04:00* Test Item Value Reference Range Interpretation Comments GLUBED (test code = GLUBED) 151 MG/DL 70-110 H Performed by certified swing type lathe operator at [facility] [id number] 18:04:00* Test Item Value Reference Range Interpretation Comments GLUBED (test code = GLUBED) 149 MG/DL 70-110 H Performed by certified swing type lathe operator at [facility] [id number] 11:06:00* Test Item Value Reference Range Interpretation Comments GLUBED (test code = GLUBED) 130 MG/DL 70-110 H Performed by certified swing type lathe operator at [facility] [id number] 05:47:00* Test Item Value Reference Range Interpretation Comments GLUBED (test code = GLUBED) 97 MG/DL 70-110 N Performed by certified swing type lathe operator at [facility] [id number] 19:47:00* Test Item Value Reference Range Interpretation Comments GLUBED (test code = GLUBED) 136 MG/DL 70-110 H Performed by certified swing type lathe operator at [facility] [id number] 16:57:00* Test Item Value Reference Range Interpretation Comments GLUBED (test code = GLUBED) 114 MG/DL 70-110 H Performed by certified swing type lathe operator at [facility] [id number] 11:35:00* Test Item Value Reference Range Interpretation Comments GLUBED (test code = GLUBED) 169 MG/DL 70-110 H Performed by certified swing type lathe operator at [facility] [id number] 20:58:00* Test Item Value Reference Range Interpretation Comments GLUBED (test code = GLUBED) 105 MG/DL 70-110 N Performed by certified swing type lathe operator at [facility] [id number] 16:35:00* Test Item Value Reference Range Interpretation Comments GLUBED (test code = GLUBED) 104 MG/DL 70-110 N Performed by certified swing type lathe operator at [facility] [id number] 11:04:00* Test Item Value Reference Range Interpretation Comments GLUBED (test code = GLUBED) 184 MG/DL 70-110 H Performed by certified swing type lathe operator at [facility] [id number] 05:50:00* Test Item Value Reference Range Interpretation Comments GLUBED (test code = GLUBED) 98 MG/DL 70-110 N Performed by certified swing type lathe operator at [facility] [id number] 20:42:00* Test Item Value Reference Range Interpretation Comments GLUBED (test code = GLUBED) 113 MG/DL 70-110 H Performed by certified swing type lathe operator at [facility] [id number] 19:24:00* Test Item Value Reference Range Interpretation Comments GLUBED (test code = GLUBED) 131 MG/DL 70-110 H Performed by certified swing type lathe operator at [facility] RENAL FUNCTION [id number] 13:54:00* Test Item Value Reference Range Interpretation Comments SODIUM (test code = NA) 129 mEq/L 134-147 L POTASSIUM (test code = K) 4.8 mEq/L 3.4-5.0 N CHLORIDE (test code = CL) 95 mEq/L 100-108 L CARBON DIOXIDE (test code = CO2) 28 mEq/L 21-33 N ANION GAP (test code = GAP) 11 0-20 N GLUCOSE (test code = GLU) 160 mg/dL 70-110 H BLOOD UREA NITROGEN (test code = BUN) 29 mg/dL 7-18 H GLOMERULAR FILTRATION RATE (test code = GFR) 7.2 80-90 L Units of measure = ml/min/1.73 m2 CREATININE (test code = CREAT) 5.9 mg/dL 0.6-1.3 H ALBUMIN (test code = ALB) 2.60 g/dL 3.4-5.0 L CALCIUM (test code = CA) 9.4 mg/dL 8.0-10.5 N PHOSPHOROUS (test code = PHOS) 5.0 MG/DL 2.5-4.9 H CBC W/AUTO [id number] 13:42:00* Test Item Value Reference Range Interpretation Comments WHITE BLOOD CELL (test code = WBC) 4.67 x10 3/uL 4.5-11.0 N RED BLOOD CELL (test code = RBC) 2.83 x10 6/uL 3.54-5.02 L HEMOGLOBIN (test code = HGB) 8.6 g/dL 11.0-15.0 L HEMATOCRIT (test code = HCT) 28.5 % 33.0-45.0 L MEAN CELL VOLUME (test code = MCV) 100.7 fL 81.0-99.0 H MEAN CELL HGB (test code = MCH) 30.4 pg 27.0-33.0 N MEAN CELL HGB CONCETRATION (test code = MCHC) 30.2 g/dL 33.0-37. 0 L RED CELL DISTRIBUTION WIDTH CV (test code = RDW) 15.4 % 11.5- 14.5 H RED CELL DISTRIBUTION WIDTH SD (test code = RDW-SD) 57.0 fL 37 .0-54.0 H PLATELET COUNT (test code = PLT) 222 x10 3/uL 150-400 N MEAN PLATELET VOLUME (test code = MPV) 9.0 fL 7.0-9.0 N NEUTROPHIL % (test code = NT%) 59.5 % 56.0-77.0 N IMMATURE GRANULOCYTE % (test code = IG%) 0.2 % 0.0-2.0 N LYMPHOCYTE % (test code = LY%) 21.8 % 14.0-32.0 N MONOCYTE % (test code = MO%) 8.6 % 4.8-9.0 N EOSINOPHIL % (test code = EO%) 9.0 % 0.3-3.7 H BASOPHIL % (test code = BA%) 0.9 % 0.0-2.0 N NUCLEATED RBC % (test code = NRBC%) 0.0 % 0-0 N NEUTROPHIL # (test code = NT#) 2.78 x10 3/uL 2.0-7.6 N IMMATURE GRANULOCYTE # (test code = IG#) 0.01 x10 3/uL 0.00-0.03 N LYMPHOCYTE # (test code = LY#) 1.02 x10 3/uL 1.0-3.8 N MONOCYTE # (test code = MO#) 0.40 x10 3/uL 0.1-0.8 N EOSINOPHIL # (test code = EO#) 0.42 x10 3/uL 0.0-0.2 H BASOPHIL # (test code = BA#) 0.04 x10 3/uL 0.0-0.2 N NUCLEATED RBC # (test code = NRBC#) 0.00 x10 3/uL 0.0-0.1 N MANUAL DIFF REQUIRED (test code = MDIFF) NO [id number] 11:50:00* Test Item Value Reference Range Interpretation Comments GLUBED (test code = GLUBED) 108 MG/DL 70-110 N Performed by certified swing type lathe operator at [facility] [id number] 06:03:00* Test Item Value Reference Range Interpretation Comments GLUBED (test code = GLUBED) 91 MG/DL 70-110 N Performed by certified swing type lathe operator at [facility] [id number] 20:12:00* Test Item Value Reference Range Interpretation Comments GLUBED (test code = GLUBED) 183 MG/DL 70-110 H Performed by certified swing type lathe operator at [facility] [id number] 16:32:00* Test Item Value Reference Range Interpretation Comments GLUBED (test code = GLUBED) 144 MG/DL 70-110 H Performed by certified swing type lathe operator at [facility] [id number] 11:21:00* Test Item Value Reference Range Interpretation Comments GLUBED (test code = GLUBED) 128 MG/DL 70-110 H Performed by certified swing type lathe operator at [facility] [id number] 06:13:00* Test Item Value Reference Range Interpretation Comments GLUBED (test code = GLUBED) 90 MG/DL 70-110 N Performed by certified swing type lathe operator at [facility] [id number] 20:08:00* Test Item Value Reference Range Interpretation Comments GLUBED (test code = GLUBED) 125 MG/DL 70-110 H Performed by certified swing type lathe operator at [facility] [id number] 16:34:00* Test Item Value Reference Range Interpretation Comments GLUBED (test code = GLUBED) 155 MG/DL 70-110 H Performed by certified swing type lathe operator at [facility] RENAL FUNCTION [id number] 14:10:00* Test Item Value Reference Range Interpretation Comments SODIUM (test code = NA) 129 mEq/L 134-147 L POTASSIUM (test code = K) 5.2 mEq/L 3.4-5.0 H CHLORIDE (test code = CL) 95 mEq/L 100-108 L CARBON DIOXIDE (test code = CO2) 30 mEq/L 21-33 N ANION GAP (test code = GAP) 9 0-20 N GLUCOSE (test code = GLU) 140 mg/dL 70-110 H BLOOD UREA NITROGEN (test code = BUN) 26 mg/dL 7-18 H GLOMERULAR FILTRATION RATE (test code = GFR) 7.2 80-90 L Units of measure = ml/min/1.73 m2 CREATININE (test code = CREAT) 5.9 mg/dL 0.6-1.3 H ALBUMIN (test code = ALB) 2.60 g/dL 3.4-5.0 L CALCIUM (test code = CA) 9.3 mg/dL 8.0-10.5 N PHOSPHOROUS (test code = PHOS) 5.4 MG/DL 2.5-4.9 H [id number] 11:23:00* Test Item Value Reference Range Interpretation Comments GLUBED (test code = GLUBED) 141 MG/DL 70-110 H Performed by certified swing type lathe operator at [facility] [id number] 06:23:00* Test Item Value Reference Range Interpretation Comments GLUBED (test code = GLUBED) 100 MG/DL 70-110 N Performed by certified swing type lathe operator at [facility] [id number] 20:17:00* Test Item Value Reference Range Interpretation Comments GLUBED (test code = GLUBED) 161 MG/DL 70-110 H Performed by certified swing type lathe operator at [facility] [id number] 16:56:00* Test Item Value Reference Range Interpretation Comments GLUBED (test code = GLUBED) 116 MG/DL 70-110 H Performed by certified swing type lathe operator at [facility] [id number] 11:14:00* Test Item Value Reference Range Interpretation Comments GLUBED (test code = GLUBED) 127 MG/DL 70-110 H Performed by certified swing type lathe operator at [facility] [id number] 11:04:00* Test Item Value Reference Range Interpretation Comments GLUBED (test code = GLUBED) 128 MG/DL 70-110 H Performed by certified swing type lathe operator at [facility] [id number] 05:52:00* Test Item Value Reference Range Interpretation Comments GLUBED (test code = GLUBED) 98 MG/DL 70-110 N Performed by certified swing type lathe operator at [facility] RENAL FUNCTION [id number] 16:52:00* Test Item Value Reference Range Interpretation Comments SODIUM (test code = NA) 124 mEq/L 134-147 LL POTASSIUM (test code = K) 5.9 mEq/L 3.4-5.0 HH CHLORIDE (test code = CL) 93 mEq/L 100-108 L CARBON DIOXIDE (test code = CO2) 28 mEq/L 21-33 N ANION GAP (test code = GAP) 9 0-20 N GLUCOSE (test code = GLU) 106 mg/dL 70-110 N BLOOD UREA NITROGEN (test code = BUN) 33 mg/dL 7-18 H GLOMERULAR FILTRATION RATE (test code = GFR) 6.3 80-90 L Units of measure = ml/min/1.73 m2 CREATININE (test code = CREAT) 6.7 mg/dL 0.6-1.3 H ALBUMIN (test code = ALB) 2.60 g/dL 3.4-5.0 L CALCIUM (test code = CA) 8.8 mg/dL 8.0-10.5 N PHOSPHOROUS (test code = PHOS) 6.6 MG/DL 2.5-4.9 H CBC W/AUTO [id number] 16:35:00* Test Item Value Reference Range Interpretation Comments WHITE BLOOD CELL (test code = WBC) 5.06 x10 3/uL 4.5-11.0 N RED BLOOD CELL (test code = RBC) 2.56 x10 6/uL 3.54-5.02 L HEMOGLOBIN (test code = HGB) 7.9 g/dL 11.0-15.0 L HEMATOCRIT (test code = HCT) 26.0 % 33.0-45.0 L MEAN CELL VOLUME (test code = MCV) 101.6 fL 81.0-99.0 H MEAN CELL HGB (test code = MCH) 30.9 pg 27.0-33.0 N MEAN CELL HGB CONCETRATION (test code = MCHC) 30.4 g/dL 33.0-37. 0 L RED CELL DISTRIBUTION WIDTH CV (test code = RDW) 15.1 % 11.5- 14.5 H RED CELL DISTRIBUTION WIDTH SD (test code = RDW-SD) 56.7 fL 37 .0-54.0 H PLATELET COUNT (test code = PLT) 239 x10 3/uL 150-400 N MEAN PLATELET VOLUME (test code = MPV) 8.7 fL 7.0-9.0 N NEUTROPHIL % (test code = NT%) 48.2 % 56.0-77.0 L IMMATURE GRANULOCYTE % (test code = IG%) 0.2 % 0.0-2.0 N LYMPHOCYTE % (test code = LY%) 33.6 % 14.0-32.0 H MONOCYTE % (test code = MO%) 10.7 % 4.8-9.0 H EOSINOPHIL % (test code = EO%) 6.5 % 0.3-3.7 H BASOPHIL % (test code = BA%) 0.8 % 0.0-2.0 N NUCLEATED RBC % (test code = NRBC%) 0.0 % 0-0 N NEUTROPHIL # (test code = NT#) 2.44 x10 3/uL 2.0-7.6 N IMMATURE GRANULOCYTE # (test code = IG#) 0.01 x10 3/uL 0.00-0.03 N LYMPHOCYTE # (test code = LY#) 1.70 x10 3/uL 1.0-3.8 N MONOCYTE # (test code = MO#) 0.54 x10 3/uL 0.1-0.8 N EOSINOPHIL # (test code = EO#) 0.33 x10 3/uL 0.0-0.2 H BASOPHIL # (test code = BA#) 0.04 x10 3/uL 0.0-0.2 N NUCLEATED RBC # (test code = NRBC#) 0.00 x10 3/uL 0.0-0.1 N MANUAL DIFF REQUIRED (test code = MDIFF) NO [id number] 12:11:00* Test Item Value Reference Range Interpretation Comments GLUBED (test code = GLUBED) 117 MG/DL 70-110 H Performed by certified swing type lathe operator at [facility] [id number] 06:33:00* Test Item Value Reference Range Interpretation Comments GLUBED (test code = GLUBED) 85 MG/DL 70-110 N Performed by certified swing type lathe operator at [facility] [id number] 20:57:00* Test Item Value Reference Range Interpretation Comments GLUBED (test code = GLUBED) 134 MG/DL 70-110 H Performed by certified swing type lathe operator at [facility] [id number] 16:48:00* Test Item Value Reference Range Interpretation Comments GLUBED (test code = GLUBED) 118 MG/DL 70-110 H Performed by certified swing type lathe operator at [facility] [id number] 11:59:00* Test Item Value Reference Range Interpretation Comments GLUBED (test code = GLUBED) 138 MG/DL 70-110 H Performed by certified swing type lathe operator at [facility] [id number] 05:51:00* Test Item Value Reference Range Interpretation Comments GLUBED (test code = GLUBED) 81 MG/DL 70-110 N Performed by certified swing type lathe operator at [facility] [id number] 20:38:00* Test Item Value Reference Range Interpretation Comments GLUBED (test code = GLUBED) 117 MG/DL 70-110 H Performed by certified swing type lathe operator at [facility] [id number] 16:39:00* Test Item Value Reference Range Interpretation Comments GLUBED (test code = GLUBED) 129 MG/DL 70-110 H Performed by certified swing type lathe operator at [facility] [id number] 11:44:00* Test Item Value Reference Range Interpretation Comments GLUBED (test code = GLUBED) 144 MG/DL 70-110 H Performed by certified swing type lathe operator at [facility] [id number] 06:48:00* Test Item Value Reference Range Interpretation Comments GLUBED (test code = GLUBED) 170 MG/DL 70-110 H Performed by certified swing type lathe operator at [facility] [id number] 06:00:00* Test Item Value Reference Range Interpretation Comments GLUBED (test code = GLUBED) 127 MG/DL 70-110 H Performed by certified swing type lathe operator at [facility] [id number] 19:27:00* Test Item Value Reference Range Interpretation Comments GLUBED (test code = GLUBED) 186 MG/DL 70-110 H Performed by certified swing type lathe operator at [facility] BASIC METABOLIC [id number] 15:10:00* Test Item Value Reference Range Interpretation Comments SODIUM (test code = NA) 126 mEq/L 134-147 L POTASSIUM (test code = K) 5.0 mEq/L 3.4-5.0 N CHLORIDE (test code = CL) 92 mEq/L 100-108 L CARBON DIOXIDE (test code = CO2) 30 mEq/L 21-33 N ANION GAP (test code = GAP) 9 0-20 N GLUCOSE (test code = GLU) 198 mg/dL 70-110 H BLOOD UREA NITROGEN (test code = BUN) 23 mg/dL 7-18 H GLOMERULAR FILTRATION RATE (test code = GFR) 8.2 80-90 L Units of measure = ml/min/1.73 m2 CREATININE (test code = CREAT) 5.3 mg/dL 0.6-1.3 H CALCIUM (test code = CA) 9.0 mg/dL 8.0-10.5 N CBC W/AUTO [id number] 14:49:00* Test Item Value Reference Range Interpretation Comments WHITE BLOOD CELL (test code = WBC) 5.16 x10 3/uL 4.5-11.0 N RED BLOOD CELL (test code = RBC) 2.55 x10 6/uL 3.54-5.02 L HEMOGLOBIN (test code = HGB) 8.0 g/dL 11.0-15.0 L HEMATOCRIT (test code = HCT) 26.3 % 33.0-45.0 L MEAN CELL VOLUME (test code = MCV) 103.1 fL 81.0-99.0 H MEAN CELL HGB (test code = MCH) 31.4 pg 27.0-33.0 N MEAN CELL HGB CONCETRATION (test code = MCHC) 30.4 g/dL 33.0-37. 0 L RED CELL DISTRIBUTION WIDTH CV (test code = RDW) 15.1 % 11.5- 14.5 H RED CELL DISTRIBUTION WIDTH SD (test code = RDW-SD) 56.8 fL 37 .0-54.0 H PLATELET COUNT (test code = PLT) 284 x10 3/uL 150-400 N MEAN PLATELET VOLUME (test code = MPV) 8.8 fL 7.0-9.0 N NEUTROPHIL % (test code = NT%) 61.5 % 56.0-77.0 N IMMATURE GRANULOCYTE % (test code = IG%) 0.2 % 0.0-2.0 N LYMPHOCYTE % (test code = LY%) 24.4 % 14.0-32.0 N MONOCYTE % (test code = MO%) 11.6 % 4.8-9.0 H EOSINOPHIL % (test code = EO%) 1.7 % 0.3-3.7 N BASOPHIL % (test code = BA%) 0.6 % 0.0-2.0 N NUCLEATED RBC % (test code = NRBC%) 0.0 % 0-0 N NEUTROPHIL # (test code = NT#) 3.17 x10 3/uL 2.0-7.6 N IMMATURE GRANULOCYTE # (test code = IG#) 0.01 x10 3/uL 0.00-0.03 N LYMPHOCYTE # (test code = LY#) 1.26 x10 3/uL 1.0-3.8 N MONOCYTE # (test code = MO#) 0.60 x10 3/uL 0.1-0.8 N EOSINOPHIL # (test code = EO#) 0.09 x10 3/uL 0.0-0.2 N BASOPHIL # (test code = BA#) 0.03 x10 3/uL 0.0-0.2 N NUCLEATED RBC # (test code = NRBC#) 0.00 x10 3/uL 0.0-0.1 N MANUAL DIFF REQUIRED (test code = MDIFF) NO [id number] 12:01:00* Test Item Value Reference Range Interpretation Comments GLUBED (test code = GLUBED) 130 MG/DL 70-110 H Performed by certified swing type lathe operator at [facility] [id number] 06:24:00* Test Item Value Reference Range Interpretation Comments GLUBED (test code = GLUBED) 92 MG/DL 70-110 N Performed by certified swing type lathe operator at [facility] [id number] 20:49:00* Test Item Value Reference Range Interpretation Comments GLUBED (test code = GLUBED) 112 MG/DL 70-110 H Performed by certified swing type lathe operator at [facility] [id number] 16:51:00* Test Item Value Reference Range Interpretation Comments GLUBED (test code = GLUBED) 121 MG/DL 70-110 H Performed by certified swing type lathe operator at [facility] [id number] 12:15:00* Test Item Value Reference Range Interpretation Comments GLUBED (test code = GLUBED) 125 MG/DL 70-110 H Performed by certified swing type lathe operator at [facility] [id number] 05:54:00* Test Item Value Reference Range Interpretation Comments GLUBED (test code = GLUBED) 86 MG/DL 70-110 N Performed by certified swing type lathe operator at [facility] [id number] 19:43:00* Test Item Value Reference Range Interpretation Comments GLUBED (test code = GLUBED) 130 MG/DL 70-110 H Performed by certified swing type lathe operator at [facility] [id number] 16:41:00* Test Item Value Reference Range Interpretation Comments GLUBED (test code = GLUBED) 147 MG/DL 70-110 H Performed by certified swing type lathe operator at [facility] SERUM [id number] 13:57:00* Test Item Value Reference Range Interpretation Comments SERUM IRON (test code = IRON) 27 mcg/dL 35-150 L COMMENTS: TO BE DRAWN IN DIALYSIS COMMENTS: TO BE DRAWN IN DIALYSISVITAMIN B12 2019-12-27 13:57:00* Test Item Value Reference Range Interpretation Comments VITAMIN B12 (test code = VITB12) 814 pg/mL 193-986 N COMMENTS: TO BE DRAWN IN DIALYSIS COMMENTS: TO BE DRAWN IN DIALYSISFOLIC ACID 2019-12-27 13:57:00* Test Item Value Reference Range Interpretation Comments FOLIC ACID (test code = FOL) 3.6 ng/mL 3.1-17.5 N COMMENTS: TO BE DRAWN IN DIALYSIS COMMENTS: TO BE DRAWN IN DIALYSISFERRITIN 2019-12-27 13:57:00* Test Item Value Reference Range Interpretation Comments FERRITIN (test code = SANDRO) 1879.1 ng/mL 11.0-306.8 H COMMENTS: TO BE DRAWN IN DIALYSIS COMMENTS: TO BE DRAWN IN DIALYSISBASIC METABOLIC [id number] 13:34:00* Test Item Value Reference Range Interpretation Comments SODIUM (test code = NA) 124 mEq/L 134-147 LL POTASSIUM (test code = K) 5.9 mEq/L 3.4-5.0 HH CHLORIDE (test code = CL) 90 mEq/L 100-108 L CARBON DIOXIDE (test code = CO2) 30 mEq/L 21-33 N ANION GAP (test code = GAP) 10 0-20 N GLUCOSE (test code = GLU) 93 mg/dL 70-110 N BLOOD UREA NITROGEN (test code = BUN) 19 mg/dL 7-18 H GLOMERULAR FILTRATION RATE (test code = GFR) 8.2 80-90 L Units of measure = ml/min/1.73 m2 CREATININE (test code = CREAT) 5.3 mg/dL 0.6-1.3 H CALCIUM (test code = CA) 9.2 mg/dL 8.0-10.5 N [id number] 13:34:00* Test Item Value Reference Range Interpretation Comments PHOSPHOROUS (test code = PHOS) 6.7 MG/DL 2.5-4.9 H CBC W/AUTO [id number] 13:16:00* Test Item Value Reference Range Interpretation Comments WHITE BLOOD CELL (test code = WBC) 6.33 x10 3/uL 4.5-11.0 N RED BLOOD CELL (test code = RBC) 2.90 x10 6/uL 3.54-5.02 L HEMOGLOBIN (test code = HGB) 9.0 g/dL 11.0-15.0 L HEMATOCRIT (test code = HCT) 28.9 % 33.0-45.0 L MEAN CELL VOLUME (test code = MCV) 99.7 fL 81.0-99.0 H MEAN CELL HGB (test code = MCH) 31.0 pg 27.0-33.0 N MEAN CELL HGB CONCETRATION (test code = MCHC) 31.1 g/dL 33.0-37. 0 L RED CELL DISTRIBUTION WIDTH CV (test code = RDW) 15.3 % 11.5- 14.5 H RED CELL DISTRIBUTION WIDTH SD (test code = RDW-SD) 55.8 fL 37 .0-54.0 H PLATELET COUNT (test code = PLT) 344 x10 3/uL 150-400 N MEAN PLATELET VOLUME (test code = MPV) 8.8 fL 7.0-9.0 N NEUTROPHIL % (test code = NT%) 61.6 % 56.0-77.0 N IMMATURE GRANULOCYTE % (test code = IG%) 0.3 % 0.0-2.0 N LYMPHOCYTE % (test code = LY%) 23.1 % 14.0-32.0 N MONOCYTE % (test code = MO%) 13.6 % 4.8-9.0 H EOSINOPHIL % (test code = EO%) 0.8 % 0.3-3.7 N BASOPHIL % (test code = BA%) 0.6 % 0.0-2.0 N NUCLEATED RBC % (test code = NRBC%) 0.0 % 0-0 N NEUTROPHIL # (test code = NT#) 3.90 x10 3/uL 2.0-7.6 N IMMATURE GRANULOCYTE # (test code = IG#) 0.02 x10 3/uL 0.00-0.03 N LYMPHOCYTE # (test code = LY#) 1.46 x10 3/uL 1.0-3.8 N MONOCYTE # (test code = MO#) 0.86 x10 3/uL 0.1-0.8 H EOSINOPHIL # (test code = EO#) 0.05 x10 3/uL 0.0-0.2 N BASOPHIL # (test code = BA#) 0.04 x10 3/uL 0.0-0.2 N NUCLEATED RBC # (test code = NRBC#) 0.00 x10 3/uL 0.0-0.1 N MANUAL DIFF REQUIRED (test code = MDIFF) NO [id number] 11:39:00* Test Item Value Reference Range Interpretation Comments GLUBED (test code = GLUBED) 88 MG/DL 70-110 N Performed by certified swing type lathe operator at [facility] [id number] 11:39:00* Test Item Value Reference Range Interpretation Comments GLUBED (test code = GLUBED) 105 MG/DL 70-110 N Performed by certified swing type lathe operator at [facility] [id number] 05:41:00* Test Item Value Reference Range Interpretation Comments GLUBED (test code = GLUBED) 48 MG/DL 70-110 L Performed by certified swing type lathe operator at [facility] [id number] 20:45:00* Test Item Value Reference Range Interpretation Comments GLUBED (test code = GLUBED) 139 MG/DL 70-110 H Performed by certified swing type lathe operator at [facility] [id number] 19:42:00* Test Item Value Reference Range Interpretation Comments GLUBED (test code = GLUBED) 68 MG/DL 70-110 L Performed by certified swing type lathe operator at [facility] [id number] 16:43:00* Test Item Value Reference Range Interpretation Comments GLUBED (test code = GLUBED) 78 MG/DL 70-110 N Performed by certified swing type lathe operator at [facility] [id number] 12:45:00* Test Item Value Reference Range Interpretation Comments GLUBED (test code = GLUBED) 129 MG/DL 70-110 H Performed by certified swing type lathe operator at [facility] [id number] 12:09:00* Test Item Value Reference Range Interpretation Comments GLUBED (test code = GLUBED) 99 MG/DL 70-110 N Performed by certified swing type lathe operator at [facility] [id number] 10:30:00* Test Item Value Reference Range Interpretation Comments GLUBED (test code = GLUBED) 120 MG/DL 70-110 H Performed by certified swing type lathe operator at [facility] [id number] 06:04:00* Test Item Value Reference Range Interpretation Comments GLUBED (test code = GLUBED) 69 MG/DL 70-110 L Performed by certified swing type lathe operator at [facility] [id number] 06:04:00* Test Item Value Reference Range Interpretation Comments GLUBED (test code = GLUBED) 51 MG/DL 70-110 L Performed by certified swing type lathe operator at [facility] [id number] 19:59:00* Test Item Value Reference Range Interpretation Comments GLUBED (test code = GLUBED) 94 MG/DL 70-110 N Performed by certified swing type lathe operator at [facility] BASIC METABOLIC [id number] 13:51:00* Test Item Value Reference Range Interpretation Comments SODIUM (test code = NA) 124 mEq/L 134-147 LL POTASSIUM (test code = K) 6.3 mEq/L 3.4-5.0 HH CHLORIDE (test code = CL) 92 mEq/L 100-108 L CARBON DIOXIDE (test code = CO2) 27 mEq/L 21-33 N ANION GAP (test code = GAP) 11 0-20 N GLUCOSE (test code = GLU) 80 mg/dL 70-110 N BLOOD UREA NITROGEN (test code = BUN) 33 mg/dL 7-18 H GLOMERULAR FILTRATION RATE (test code = GFR) 6.4 80-90 L Units of measure = ml/min/1.73 m2 CREATININE (test code = CREAT) 6.6 mg/dL 0.6-1.3 H CALCIUM (test code = CA) 8.6 mg/dL 8.0-10.5 N [id number] 13:51:00* Test Item Value Reference Range Interpretation Comments PHOSPHOROUS (test code = PHOS) 8.1 MG/DL 2.5-4.9 H CBC W/AUTO [id number] 13:36:00* Test Item Value Reference Range Interpretation Comments WHITE BLOOD CELL (test code = WBC) 7.56 x10 3/uL 4.5-11.0 RED BLOOD CELL (test code = RBC) 2.88 x10 6/uL 3.54-5.02 L HEMOGLOBIN (test code = HGB) 9.0 g/dL 11.0-15.0 L HEMATOCRIT (test code = HCT) 28.6 % 33.0-45.0 L MEAN CELL VOLUME (test code = MCV) 99.3 fL 81.0-99.0 H MEAN CELL HGB (test code = MCH) 31.3 pg 27.0-33.0 N MEAN CELL HGB CONCETRATION (test code = MCHC) 31.5 g/dL 33.0-37. 0 L RED CELL DISTRIBUTION WIDTH CV (test code = RDW) 15.4 % 11.5- 14.5 H RED CELL DISTRIBUTION WIDTH SD (test code = RDW-SD) 55.8 fL 37 .0-54.0 H PLATELET COUNT (test code = PLT) 377 x10 3/uL 150-400 N MEAN PLATELET VOLUME (test code = MPV) 8.9 fL 7.0-9.0 N NEUTROPHIL % (test code = NT%) 68.6 % 56.0-77.0 N IMMATURE GRANULOCYTE % (test code = IG%) 0.4 % 0.0-2.0 N LYMPHOCYTE % (test code = LY%) 17.9 % 14.0-32.0 N MONOCYTE % (test code = MO%) 12.0 % 4.8-9.0 H EOSINOPHIL % (test code = EO%) 0.4 % 0.3-3.7 N BASOPHIL % (test code = BA%) 0.7 % 0.0-2.0 N NUCLEATED RBC % (test code = NRBC%) 0.0 % 0-0 N NEUTROPHIL # (test code = NT#) 5.19 x10 3/uL 2.0-7.6 N IMMATURE GRANULOCYTE # (test code = IG#) 0.03 x10 3/uL 0.00-0.03 N LYMPHOCYTE # (test code = LY#) 1.35 x10 3/uL 1.0-3.8 N MONOCYTE # (test code = MO#) 0.91 x10 3/uL 0.1-0.8 H EOSINOPHIL # (test code = EO#) 0.03 x10 3/uL 0.0-0.2 N BASOPHIL # (test code = BA#) 0.05 x10 3/uL 0.0-0.2 N NUCLEATED RBC # (test code = NRBC#) 0.00 x10 3/uL 0.0-0.1 N MANUAL DIFF REQUIRED (test code = MDIFF) NO [id number] 11:23:00* Test Item Value Reference Range Interpretation Comments GLUBED (test code = GLUBED) 141 MG/DL 70-110 H Performed by certified swing type lathe operator at [facility] [id number] 07:37:00* Test Item Value Reference Range Interpretation Comments GLUBED (test code = GLUBED) 75 MG/DL 70-110 N Performed by certified swing type lathe operator at [facility] [id number] 06:37:00* Test Item Value Reference Range Interpretation Comments GLUBED (test code = GLUBED) 38 MG/DL 70-110 L Performed by certified swing type lathe operator at [facility] [id number] 22:25:00* Test Item Value Reference Range Interpretation Comments GLUBED (test code = GLUBED) 145 MG/DL 70-110 H Performed by certified swing type lathe operator at [facility] [id number] 16:54:00* Test Item Value Reference Range Interpretation Comments GLUBED (test code = GLUBED) 75 MG/DL 70-110 N Performed by certified swing type lathe operator at [facility] [id number] 16:35:00* Test Item Value Reference Range Interpretation Comments GLUBED (test code = GLUBED) 57 MG/DL 70-110 L Performed by certified swing type lathe operator at [facility] [id number] 11:37:00* Test Item Value Reference Range Interpretation Comments GLUBED (test code = GLUBED) 90 MG/DL 70-110 N Performed by certified swing type lathe operator at [facility] [id number] 05:59:00* Test Item Value Reference Range Interpretation Comments GLUBED (test code = GLUBED) 83 MG/DL 70-110 N Performed by certified swing type lathe operator at [facility] [id number] 20:25:00* Test Item Value Reference Range Interpretation Comments GLUBED (test code = GLUBED) 197 MG/DL 70-110 H Performed by certified swing type lathe operator at [facility] [id number] 17:01:00* Test Item Value Reference Range Interpretation Comments GLUBED (test code = GLUBED) 125 MG/DL 70-110 H Performed by certified swing type lathe operator at [facility] [id number] 11:21:00* Test Item Value Reference Range Interpretation Comments GLUBED (test code = GLUBED) 129 MG/DL 70-110 H Performed by certified swing type lathe operator at [facility] VITAMIN [id number] 08:19:00* Test Item Value Reference Range Interpretation Comments VITAMIN B12 (test code = VITB12) 635 pg/mL 193-986 N Indication for Test: Osteopenia/Bone Dis RiskFOLIC [id number] 08:19:00* Test Item Value Reference Range Interpretation Comments FOLIC ACID (test code = FOL) 5.1 ng/mL 3.1-17.5 N Indication for Test: Osteopenia/Bone Dis RiskTHYROID STIMULATING HORMONE 2019-12-23 08:19:00* Test Item Value Reference Range Interpretation Comments THYROID STIMULATING HORMONE (test code = TSH) 5.43 0.42-5.4 7 N Results in dianne- International Units/mL Indication for Test: Osteopenia/Bone Dis RiskVITAMIN D [id number] 08:19:00* Test Item Value Reference Range Interpretation Comments VITAMIN D 25-HYDROXY (test code = VITD25) 20.4 ng/mL 30-100 L Indication for Test: Osteopenia/Bone Dis [id number] 06:26:00* Test Item Value Reference Range Interpretation Comments GLUBED (test code = GLUBED) 90 MG/DL 70-110 N Performed by certified swing type lathe operator at [facility] [id number] 20:28:00* Test Item Value Reference Range Interpretation Comments GLUBED (test code = GLUBED) 91 MG/DL 70-110 N Performed by certified swing type lathe operator at [facility] [id number] 16:11:00* Test Item Value Reference Range Interpretation Comments GLUBED (test code = GLUBED) 215 MG/DL 70-110 H Performed by certified swing type lathe operator at [facility] HGB [id number] 13:25:00* Test Item Value Reference Range Interpretation Comments HEMOGLOBIN (test code = HGB) 8.3 g/dL 11.0-15.0 L HEMATOCRIT (test code = HCT) 26.9 % 33.0-45.0 L CBC W/AUTO [id number] 12:18:00* Test Item Value Reference Range Interpretation Comments WHITE BLOOD CELL (test code = WBC) 5.11 x10 3/uL 4.5-11.0 RED BLOOD CELL (test code = RBC) 1.77 x10 6/uL 3.54-5.02 L HEMOGLOBIN (test code = HGB) 5.6 g/dL 11.0-15.0 LL HEMATOCRIT (test code = HCT) 18.3 % 33.0-45.0 L MEAN CELL VOLUME (test code = MCV) 103.4 fL 81.0-99.0 H MEAN CELL HGB (test code = MCH) 31.6 pg 27.0-33.0 N MEAN CELL HGB CONCETRATION (test code = MCHC) 30.6 g/dL 33.0-37. 0 L RED CELL DISTRIBUTION WIDTH CV (test code = RDW) 15.7 % 11.5- 14.5 H RED CELL DISTRIBUTION WIDTH SD (test code = RDW-SD) 58.8 fL 37 .0-54.0 H PLATELET COUNT (test code = PLT) 278 x10 3/uL 150-400 N MEAN PLATELET VOLUME (test code = MPV) 9.5 fL 7.0-9.0 H NEUTROPHIL % (test code = NT%) 67.9 % 56.0-77.0 N IMMATURE GRANULOCYTE % (test code = IG%) 2.5 % 0.0-2.0 H LYMPHOCYTE % (test code = LY%) 19.4 % 14.0-32.0 N MONOCYTE % (test code = MO%) 9.6 % 4.8-9.0 H EOSINOPHIL % (test code = EO%) 0.2 % 0.3-3.7 L BASOPHIL % (test code = BA%) 0.4 % 0.0-2.0 N NUCLEATED RBC % (test code = NRBC%) 0.0 % 0-0 N NEUTROPHIL # (test code = NT#) 3.47 x10 3/uL 2.0-7.6 N IMMATURE GRANULOCYTE # (test code = IG#) 0.13 x10 3/uL 0.00-0.03 H LYMPHOCYTE # (test code = LY#) 0.99 x10 3/uL 1.0-3.8 L MONOCYTE # (test code = MO#) 0.49 x10 3/uL 0.1-0.8 N EOSINOPHIL # (test code = EO#) 0.01 x10 3/uL 0.0-0.2 N BASOPHIL # (test code = BA#) 0.02 x10 3/uL 0.0-0.2 N NUCLEATED RBC # (test code = NRBC#) 0.00 x10 3/uL 0.0-0.1 N MANUAL DIFF REQUIRED (test code = MDIFF) NO [id number] 08:41:00* Test Item Value Reference Range Interpretation Comments GLUBED (test code = GLUBED) 97 MG/DL 70-110 N Performed by certified swing type lathe operator at [facility] [id number] 20:40:00* Test Item Value Reference Range Interpretation Comments GLUBED (test code = GLUBED) 214 MG/DL 70-110 H Performed by certified swing type lathe operator at [facility] [id number] 18:14:00* Test Item Value Reference Range Interpretation Comments GLUBED (test code = GLUBED) 127 MG/DL 70-110 H Performed by certified swing type lathe operator at [facility] [id number] 13:32:00* Test Item Value Reference Range Interpretation Comments GLUBED (test code = GLUBED) 175 MG/DL 70-110 H Performed by certified swing type lathe operator at [facility] CBC W/AUTO [id number] 11:10:00* Test Item Value Reference Range Interpretation Comments WHITE BLOOD CELL (test code = WBC) 9.62 x10 3/uL 4.5-11.0 N RED BLOOD CELL (test code = RBC) 2.42 x10 6/uL 3.54-5.02 L HEMOGLOBIN (test code = HGB) 7.5 g/dL 11.0-15.0 L HEMATOCRIT (test code = HCT) 26.2 % 33.0-45.0 L MEAN CELL VOLUME (test code = MCV) 108.3 fL 81.0-99.0 H MEAN CELL HGB (test code = MCH) 31.0 pg 27.0-33.0 N MEAN CELL HGB CONCETRATION (test code = MCHC) 28.6 g/dL 33.0-37. 0 L RED CELL DISTRIBUTION WIDTH CV (test code = RDW) 15.3 % 11.5- 14.5 H RED CELL DISTRIBUTION WIDTH SD (test code = RDW-SD) 60.4 fL 37 .0-54.0 H PLATELET COUNT (test code = PLT) 356 x10 3/uL 150-400 N MEAN PLATELET VOLUME (test code = MPV) 9.9 fL 7.0-9.0 H NEUTROPHIL % (test code = NT%) 60.4 % 56.0-77.0 N LYMPHOCYTE % (test code = LY%) 27.0 % 14.0-32.0 N MONOCYTE % (test code = MO%) 8.1 % 4.8-9.0 N EOSINOPHIL % (test code = EO%) 0.0 % 0.3-3.7 L BASOPHIL % (test code = BA%) 0.5 % 0.0-2.0 N NUCLEATED RBC % (test code = NRBC%) 0.0 % 0-0 N NEUTROPHIL # (test code = NT#) 5.81 x10 3/uL 2.0-7.6 N LYMPHOCYTE # (test code = LY#) 2.60 x10 3/uL 1.0-3.8 N MONOCYTE # (test code = MO#) 0.78 x10 3/uL 0.1-0.8 N EOSINOPHIL # (test code = EO#) 0.00 x10 3/uL 0.0-0.2 N BASOPHIL # (test code = BA#) 0.05 x10 3/uL 0.0-0.2 N NUCLEATED RBC # (test code = NRBC#) 0.00 x10 3/uL 0.0-0.1 N MANUAL DIFF REQUIRED (test code = MDIFF) NO RBC [id number] 11:10:00* Test Item Value Reference Range Interpretation Comments ANISOCYTOSIS (test code = ANISO) CBC W/AUTO [id number] 11:10:00* Test Item Value Reference Range Interpretation Comments WHITE BLOOD CELL (test code = WBC) 9.62 x10 3/uL 4.5-11.0 N RED BLOOD CELL (test code = RBC) 2.42 x10 6/uL 3.54-5.02 L HEMOGLOBIN (test code = HGB) 7.5 g/dL 11.0-15.0 L HEMATOCRIT (test code = HCT) 26.2 % 33.0-45.0 L MEAN CELL VOLUME (test code = MCV) 108.3 fL 81.0-99.0 H MEAN CELL HGB (test code = MCH) 31.0 pg 27.0-33.0 N MEAN CELL HGB CONCETRATION (test code = MCHC) 28.6 g/dL 33.0-37. 0 L RED CELL DISTRIBUTION WIDTH CV (test code = RDW) 15.3 % 11.5- 14.5 H RED CELL DISTRIBUTION WIDTH SD (test code = RDW-SD) 60.4 fL 37 .0-54.0 H PLATELET COUNT (test code = PLT) 356 x10 3/uL 150-400 N MEAN PLATELET VOLUME (test code = MPV) 9.9 fL 7.0-9.0 H NEUTROPHIL % (test code = NT%) 60.4 % 56.0-77.0 N LYMPHOCYTE % (test code = LY%) 27.0 % 14.0-32.0 N MONOCYTE % (test code = MO%) 8.1 % 4.8-9.0 N EOSINOPHIL % (test code = EO%) 0.0 % 0.3-3.7 L BASOPHIL % (test code = BA%) 0.5 % 0.0-2.0 N NUCLEATED RBC % (test code = NRBC%) 0.0 % 0-0 N NEUTROPHIL # (test code = NT#) 5.81 x10 3/uL 2.0-7.6 N LYMPHOCYTE # (test code = LY#) 2.60 x10 3/uL 1.0-3.8 N MONOCYTE # (test code = MO#) 0.78 x10 3/uL 0.1-0.8 N EOSINOPHIL # (test code = EO#) 0.00 x10 3/uL 0.0-0.2 N BASOPHIL # (test code = BA#) 0.05 x10 3/uL 0.0-0.2 N NUCLEATED RBC # (test code = NRBC#) 0.00 x10 3/uL 0.0-0.1 N MANUAL DIFF REQUIRED (test code = MDIFF) NO RBC [id number] 11:10:00* Test Item Value Reference Range Interpretation Comments ANISOCYTOSIS (test code = ANISO) 2+ MACROCYTOSIS (test code = MACR) 2+ [id number] 08:49:00* Test Item Value Reference Range Interpretation Comments GLUBED (test code = GLUBED) 134 MG/DL 70-110 H Performed by certified swing type lathe operator at [facility] CBC W/AUTO [id number] 06:11:00* Test Item Value Reference Range Interpretation Comments WHITE BLOOD CELL (test code = WBC) 9.62 x10 3/uL 4.5-11.0 N RED BLOOD CELL (test code = RBC) 2.42 x10 6/uL 3.54-5.02 L HEMOGLOBIN (test code = HGB) 7.5 g/dL 11.0-15.0 L HEMATOCRIT (test code = HCT) 26.2 % 33.0-45.0 L MEAN CELL VOLUME (test code = MCV) 108.3 fL 81.0-99.0 H MEAN CELL HGB (test code = MCH) 31.0 pg 27.0-33.0 N MEAN CELL HGB CONCETRATION (test code = MCHC) 28.6 g/dL 33.0-37. 0 L RED CELL DISTRIBUTION WIDTH CV (test code = RDW) 15.3 % 11.5- 14.5 H RED CELL DISTRIBUTION WIDTH SD (test code = RDW-SD) 60.4 fL 37 .0-54.0 H PLATELET COUNT (test code = PLT) 356 x10 3/uL 150-400 N MEAN PLATELET VOLUME (test code = MPV) 9.9 fL 7.0-9.0 H NEUTROPHIL % (test code = NT%) % 56.0-77.0 LYMPHOCYTE % (test code = LY%) % 14.0-32.0 NEUTROPHIL # (test code = NT#) x10 3/uL 2.0-7.6 LYMPHOCYTE # (test code = LY#) x10 3/uL 1.0-3.8 MANUAL DIFF REQUIRED (test code = MDIFF) NO RBC [id number] 06:11:00* Test Item Value Reference Range Interpretation Comments ANISOCYTOSIS (test code = ANISO) CBC W/AUTO [id number] 06:11:00* Test Item Value Reference Range Interpretation Comments WHITE BLOOD CELL (test code = WBC) 9.62 x10 3/uL 4.5-11.0 N RED BLOOD CELL (test code = RBC) 2.42 x10 6/uL 3.54-5.02 L HEMOGLOBIN (test code = HGB) 7.5 g/dL 11.0-15.0 L HEMATOCRIT (test code = HCT) 26.2 % 33.0-45.0 L MEAN CELL VOLUME (test code = MCV) 108.3 fL 81.0-99.0 H MEAN CELL HGB (test code = MCH) 31.0 pg 27.0-33.0 N MEAN CELL HGB CONCETRATION (test code = MCHC) 28.6 g/dL 33.0-37. 0 L RED CELL DISTRIBUTION WIDTH CV (test code = RDW) 15.3 % 11.5- 14.5 H RED CELL DISTRIBUTION WIDTH SD (test code = RDW-SD) 60.4 fL 37 .0-54.0 H PLATELET COUNT (test code = PLT) 356 x10 3/uL 150-400 N MEAN PLATELET VOLUME (test code = MPV) 9.9 fL 7.0-9.0 H NEUTROPHIL % (test code = NT%) % 56.0-77.0 LYMPHOCYTE % (test code = LY%) % 14.0-32.0 NEUTROPHIL # (test code = NT#) x10 3/uL 2.0-7.6 LYMPHOCYTE # (test code = LY#) x10 3/uL 1.0-3.8 MANUAL DIFF REQUIRED (test code = MDIFF) NO RBC [id number] 06:11:00* Test Item Value Reference Range Interpretation Comments ANISOCYTOSIS (test code = ANISO) [id number] 21:56:00* Test Item Value Reference Range Interpretation Comments GLUBED (test code = GLUBED) 193 MG/DL 70-110 H Performed by certified swing type lathe operator at [facility] [id number] 17:01:00* Test Item Value Reference Range Interpretation Comments GLUBED (test code = GLUBED) 192 MG/DL 70-110 H Performed by certified swing type lathe operator at [facility] SURGICAL PATH [id number] 15:10:00 RUN DATE: 12/20/19 [facility] *LIVE* PAGE 1 RUN TIME: 1510 Specimen Inqui ry RUN USER: INTERFACE PATIENT: ANDIE ZABALA ACCT #: [id number] LOC: DavidCVN1 U #: [id number] AGE/SX: 63/F [place] [facility] [place]12[facility]12[facility]19REG DR: Leo Fung MD : 57 BED: 1 DIS: STATUS: ADM IN TLOC: SPEC #: [id number] RECD: 12/18/19 STATUS: JEWELL REQ #: [id number] TOMMIE: 12/18/[address]: Leo Fung MD ENTERED: 12/20/19 SP TYPE: SURG SPEC OTHR DR: Xiomara hernández or Family Physician Self Referred Abr suzanne,Xiang Alonzo MD, MD, D ebbie G MD Reyhani, Se an A DPM Rosenblatt, Michael MD Boccardo- Sabaini,Evelyn E MDORDERED: [id number] CODES: [id number] - EXTREMITY, NOS COPIES TO: No Primary or Family Physician Self Referred Jadon Simpson MD [address] [place] [address] Xiang Lord MD [address] [place] [address] Gisselle Roche MD [address] [place] [address] Marcus Rivers DPM [address] [facility] [address] [place] [address] [email or web address] [email or web address] Kearns MD [address] [place] [address] CONTINUED ON NEXT PAGE ---- --------RUN DATE: 12/20/19 [facility] *LIVE* PAGE 2 RUN TIME: 1510 Specimen Inquiry RUN USER: INTERFACE SPEC #: [id number] PATIENT: ANDIE ZABALA #[id number] (Continued) COPIES TO: (Continued) Leo Fung MD [address] [place] [address] Evelyn Belcher MD [address] [place] [address] PROCEDURES: GM L4 [id number] (Incomplete) TISSUES: 1. EXTREM ITY, NOS - Extremity, right below knee, amputation FINAL DIAGNOSIS Extremity, right below knee, amputation: Gangrenous necrosis; severe athero sclerosis; skin and soft tissue at resection margin appear viable. GROSS AN D MICROSCOPIC GROSS DESCRIPTION: Received fresh designated right below the kn ee is a segment of leg measuring 32 cm from the bone resection margin to the heel, 15.5 cm from the skin and soft tissue resection margin to the heel, and 21.4 cm to the tip of the second toe from the heel to the tip of the second toe. The great toe is missing. The forefoot shows gangrenous necrosis. Foreign Correspondent sections are submitted as (A)-skin and soft tissue at resection margin; (B)-distal gangrenous necrosis edge; (C)-(D)-anterior and posterior tibial arteries. LW:desiree Avila ICROSCOPIC EXAMINATION: Sections reveal necrosis and acute and chronic inf lammation. The skin and soft tissue at resection margin appear viable. Secti ons of the arteries reveal severe atherosclerosis. PO ST-OP DIAGNOSIS None given PRE-OP DIAGNOSIS Peripheral vascular di aleida Signed SIGNATURE ON FILE Reed Vinson 12/20/19 2430 END OF REPORT CBC W/AUTO [id number] 14:38:00* Test Item Value Reference Range Interpretation Comments WHITE BLOOD CELL (test code = WBC) 12.13 x10 3/uL 4.5-11.0 H RED BLOOD CELL (test code = RBC) 2.28 x10 6/uL 3.54-5.02 L HEMOGLOBIN (test code = HGB) 7.1 g/dL 11.0-15.0 L HEMATOCRIT (test code = HCT) 22.9 % 33.0-45.0 L MEAN CELL VOLUME (test code = MCV) 100.4 fL 81.0-99.0 H MEAN CELL HGB (test code = MCH) 31.1 pg 27.0-33.0 N MEAN CELL HGB CONCETRATION (test code = MCHC) 31.0 g/dL 33.0-37. 0 L RED CELL DISTRIBUTION WIDTH CV (test code = RDW) 15.2 % 11.5- 14.5 H RED CELL DISTRIBUTION WIDTH SD (test code = RDW-SD) 55.8 fL 37 .0-54.0 H PLATELET COUNT (test code = PLT) 332 x10 3/uL 150-400 N MEAN PLATELET VOLUME (test code = MPV) 9.9 fL 7.0-9.0 H NEUTROPHIL % (test code = NT%) 76.3 % 56.0-77.0 N IMMATURE GRANULOCYTE % (test code = IG%) 3.6 % 0.0-2.0 H LYMPHOCYTE % (test code = LY%) 14.7 % 14.0-32.0 N MONOCYTE % (test code = MO%) 5.1 % 4.8-9.0 N EOSINOPHIL % (test code = EO%) 0.1 % 0.3-3.7 L BASOPHIL % (test code = BA%) 0.2 % 0.0-2.0 N NUCLEATED RBC % (test code = NRBC%) 0.0 % 0-0 N NEUTROPHIL # (test code = NT#) 9.26 x10 3/uL 2.0-7.6 H IMMATURE GRANULOCYTE # (test code = IG#) 0.44 x10 3/uL 0.00-0.03 H LYMPHOCYTE # (test code = LY#) 1.78 x10 3/uL 1.0-3.8 N MONOCYTE # (test code = MO#) 0.62 x10 3/uL 0.1-0.8 N EOSINOPHIL # (test code = EO#) 0.01 x10 3/uL 0.0-0.2 N BASOPHIL # (test code = BA#) 0.02 x10 3/uL 0.0-0.2 N NUCLEATED RBC # (test code = NRBC#) 0.00 x10 3/uL 0.0-0.1 N MANUAL DIFF REQUIRED (test code = MDIFF) NO SLIDE REVIEWED, CONSISTENT WITH AUTO DIFF. RENAL FUNCTION [id number] 14:35:00* Test Item Value Reference Range Interpretation Comments SODIUM (test code = NA) 127 mEq/L 134-147 L POTASSIUM (test code = K) 4.4 mEq/L 3.4-5.0 N CHLORIDE (test code = CL) 93 mEq/L 100-108 L CARBON DIOXIDE (test code = CO2) 27 mEq/L 21-33 N ANION GAP (test code = GAP) 11 0-20 N GLUCOSE (test code = GLU) 229 mg/dL 70-110 H BLOOD UREA NITROGEN (test code = BUN) 37 mg/dL 7-18 H GLOMERULAR FILTRATION RATE (test code = GFR) 9.0 80-90 L Units of measure = ml/min/1.73 m2 CREATININE (test code = CREAT) 4.9 mg/dL 0.6-1.3 H ALBUMIN (test code = ALB) 2.00 g/dL 3.4-5.0 L CALCIUM (test code = CA) 7.8 mg/dL 8.0-10.5 L PHOSPHOROUS (test code = PHOS) 3.3 MG/DL 2.5-4.9 N CBC W/AUTO [id number] 14:15:00* Test Item Value Reference Range Interpretation Comments WHITE BLOOD CELL (test code = WBC) 12.13 x10 3/uL 4.5-11.0 H RED BLOOD CELL (test code = RBC) 2.28 x10 6/uL 3.54-5.02 L HEMOGLOBIN (test code = HGB) 7.1 g/dL 11.0-15.0 L HEMATOCRIT (test code = HCT) 22.9 % 33.0-45.0 L MEAN CELL VOLUME (test code = MCV) 100.4 fL 81.0-99.0 H MEAN CELL HGB (test code = MCH) 31.1 pg 27.0-33.0 N MEAN CELL HGB CONCETRATION (test code = MCHC) 31.0 g/dL 33.0-37. 0 L RED CELL DISTRIBUTION WIDTH CV (test code = RDW) 15.2 % 11.5- 14.5 H RED CELL DISTRIBUTION WIDTH SD (test code = RDW-SD) 55.8 fL 37 .0-54.0 H PLATELET COUNT (test code = PLT) 332 x10 3/uL 150-400 N MEAN PLATELET VOLUME (test code = MPV) 9.9 fL 7.0-9.0 H NEUTROPHIL % (test code = NT%) % 56.0-77.0 LYMPHOCYTE % (test code = LY%) % 14.0-32.0 NEUTROPHIL # (test code = NT#) x10 3/uL 2.0-7.6 LYMPHOCYTE # (test code = LY#) x10 3/uL 1.0-3.8 MANUAL DIFF REQUIRED (test code = MDIFF) [id number] 12:16:00* Test Item Value Reference Range Interpretation Comments GLUBED (test code = GLUBED) 146 MG/DL 70-110 H Performed by certified swing type lathe operator at [facility] [id number] 08:14:00* Test Item Value Reference Range Interpretation Comments GLUBED (test code = GLUBED) 71 MG/DL 70-110 N Performed by certified swing type lathe operator at [facility] [id number] 20:32:00* Test Item Value Reference Range Interpretation Comments GLUBED (test code = GLUBED) 183 MG/DL 70-110 H Performed by certified swing type lathe operator at [facility] [id number] 17:38:00* Test Item Value Reference Range Interpretation Comments GLUBED (test code = GLUBED) 198 MG/DL 70-110 H Performed by certified swing type lathe operator at [facility] CBC W/AUTO [id number] 11:53:00* Test Item Value Reference Range Interpretation Comments WHITE BLOOD CELL (test code = WBC) 8.86 x10 3/uL 4.5-11.0 N RED BLOOD CELL (test code = RBC) 2.51 x10 6/uL 3.54-5.02 L HEMOGLOBIN (test code = HGB) 7.8 g/dL 11.0-15.0 L HEMATOCRIT (test code = HCT) 26.3 % 33.0-45.0 L MEAN CELL VOLUME (test code = MCV) 104.8 fL 81.0-99.0 H MEAN CELL HGB (test code = MCH) 31.1 pg 27.0-33.0 N MEAN CELL HGB CONCETRATION (test code = MCHC) 29.7 g/dL 33.0-37. 0 L RED CELL DISTRIBUTION WIDTH CV (test code = RDW) 15.2 % 11.5- 14.5 H RED CELL DISTRIBUTION WIDTH SD (test code = RDW-SD) 58.8 fL 37 .0-54.0 H PLATELET COUNT (test code = PLT) 297 x10 3/uL 150-400 N MEAN PLATELET VOLUME (test code = MPV) 10.4 fL 7.0-9.0 H MANUAL DIFF REQUIRED (test code = MDIFF) YES COMMENTS: Daily while on HeparinWBC [id number] 11:53:00* Test Item Value Reference Range Interpretation Comments SEGMENTED NEUTROPHILS (test code = SEG) 75.5 % 37-69 H BAND NEUTROPHIL (test code = BAND) 0.0 % 0.0-10.0 N LYMPHOCYTE (test code = LYMPH) 13.6 % 23-55 L MONOCYTE (test code = MON) 4.6 % 0-10 N EOSINOPHIL (test code = EOS) 0.9 % 0.0-4.0 N BASOPHIL (test code = BASO) 2.7 % 0.0-2.0 H METAMYELOCYTE (test code = META) 1.8 % 0.0-0.0 H MYELOCYTE (test code = MYELO) 0.9 % 0.0-0.0 H POLYCHROMASIA (test code = POLC) 1+ HYPOCHROMIA (test code = HYPO) 1+ ANISOCYTOSIS (test code = ANISO) 1+ MACROCYTOSIS (test code = MACR) 1+ PLATELET ESTIMATE (test code = PLTEST) Adequate THOUSAND ADEQUATE PLATELET MORPHOLOGY (test code = PLTMORPH) AGGREGATES GIANT PLTS COMMENTS: Daily while on [id number] 08:17:00* Test Item Value Reference Range Interpretation Comments GLUBED (test code = GLUBED) 159 MG/DL 70-110 H Performed by certified swing type lathe operator at [facility] CBC W/AUTO [id number] 08:00:00* Test Item Value Reference Range Interpretation Comments WHITE BLOOD CELL (test code = WBC) 8.86 x10 3/uL 4.5-11.0 N RED BLOOD CELL (test code = RBC) 2.51 x10 6/uL 3.54-5.02 L HEMOGLOBIN (test code = HGB) 7.8 g/dL 11.0-15.0 L HEMATOCRIT (test code = HCT) 26.3 % 33.0-45.0 L MEAN CELL VOLUME (test code = MCV) 104.8 fL 81.0-99.0 H MEAN CELL HGB (test code = MCH) 31.1 pg 27.0-33.0 N MEAN CELL HGB CONCETRATION (test code = MCHC) 29.7 g/dL 33.0-37. 0 L RED CELL DISTRIBUTION WIDTH CV (test code = RDW) 15.2 % 11.5- 14.5 H RED CELL DISTRIBUTION WIDTH SD (test code = RDW-SD) 58.8 fL 37 .0-54.0 H PLATELET COUNT (test code = PLT) 297 x10 3/uL 150-400 N MEAN PLATELET VOLUME (test code = MPV) 10.4 fL 7.0-9.0 H MANUAL DIFF REQUIRED (test code = MDIFF) YES COMMENTS: Daily while on HeparinWBC [id number] 08:00:00* Test Item Value Reference Range Interpretation Comments BAND NEUTROPHIL (test code = BAND) % 0.0-10.0 ANISOCYTOSIS (test code = ANISO) PLATELET ESTIMATE (test code = PLTEST) THOUSAND ADEQUATE COMMENTS: Daily while on HeparinCBC W/AUTO [id number] 08:00:00* Test Item Value Reference Range Interpretation Comments WHITE BLOOD CELL (test code = WBC) 8.86 x10 3/uL 4.5-11.0 N RED BLOOD CELL (test code = RBC) 2.51 x10 6/uL 3.54-5.02 L HEMOGLOBIN (test code = HGB) 7.8 g/dL 11.0-15.0 L HEMATOCRIT (test code = HCT) 26.3 % 33.0-45.0 L MEAN CELL VOLUME (test code = MCV) 104.8 fL 81.0-99.0 H MEAN CELL HGB (test code = MCH) 31.1 pg 27.0-33.0 N MEAN CELL HGB CONCETRATION (test code = MCHC) 29.7 g/dL 33.0-37. 0 L RED CELL DISTRIBUTION WIDTH CV (test code = RDW) 15.2 % 11.5- 14.5 H RED CELL DISTRIBUTION WIDTH SD (test code = RDW-SD) 58.8 fL 37 .0-54.0 H PLATELET COUNT (test code = PLT) 297 x10 3/uL 150-400 N MEAN PLATELET VOLUME (test code = MPV) 10.4 fL 7.0-9.0 H MANUAL DIFF REQUIRED (test code = MDIFF) YES COMMENTS: Daily while on HeparinWBC [id number] 08:00:00* Test Item Value Reference Range Interpretation Comments BAND NEUTROPHIL (test code = BAND) % 0.0-10.0 ANISOCYTOSIS (test code = ANISO) PLATELET ESTIMATE (test code = PLTEST) THOUSAND ADEQUATE COMMENTS: Daily while on [id number] 21:16:00* Test Item Value Reference Range Interpretation Comments GLUBED (test code = GLUBED) 206 MG/DL 70-110 H Performed by certified swing type lathe operator at [facility] [id number] 19:59:00* Test Item Value Reference Range Interpretation Comments GLUBED (test code = GLUBED) 184 MG/DL 70-110 H Performed by certified swing type lathe operator at [facility] [id number] 12:55:00* Test Item Value Reference Range Interpretation Comments GLUBED (test code = GLUBED) 192 MG/DL 70-110 H Performed by certified swing type lathe operator at [facility] [id number] 09:53:00* Test Item Value Reference Range Interpretation Comments GLUBED (test code = GLUBED) 147 MG/DL 70-110 H Performed by certified swing type lathe operator at [facility] CBC W/AUTO [id number] 04:18:00* Test Item Value Reference Range Interpretation Comments WHITE BLOOD CELL (test code = WBC) 11.02 x10 3/uL 4.5-11.0 H RED BLOOD CELL (test code = RBC) 2.71 x10 6/uL 3.54-5.02 L HEMOGLOBIN (test code = HGB) 8.2 g/dL 11.0-15.0 L HEMATOCRIT (test code = HCT) 27.6 % 33.0-45.0 L MEAN CELL VOLUME (test code = MCV) 101.8 fL 81.0-99.0 H MEAN CELL HGB (test code = MCH) 30.3 pg 27.0-33.0 N MEAN CELL HGB CONCETRATION (test code = MCHC) 29.7 g/dL 33.0-37. 0 L RED CELL DISTRIBUTION WIDTH CV (test code = RDW) 15.2 % 11.5- 14.5 H RED CELL DISTRIBUTION WIDTH SD (test code = RDW-SD) 56.4 fL 37 .0-54.0 H PLATELET COUNT (test code = PLT) 322 x10 3/uL 150-400 N MEAN PLATELET VOLUME (test code = MPV) 10.2 fL 7.0-9.0 H NEUTROPHIL % (test code = NT%) 75.9 % 56.0-77.0 N IMMATURE GRANULOCYTE % (test code = IG%) 1.6 % 0.0-2.0 N LYMPHOCYTE % (test code = LY%) 15.4 % 14.0-32.0 N MONOCYTE % (test code = MO%) 6.7 % 4.8-9.0 N EOSINOPHIL % (test code = EO%) 0.1 % 0.3-3.7 L BASOPHIL % (test code = BA%) 0.3 % 0.0-2.0 N NUCLEATED RBC % (test code = NRBC%) 0.0 % 0-0 N NEUTROPHIL # (test code = NT#) 8.36 x10 3/uL 2.0-7.6 H IMMATURE GRANULOCYTE # (test code = IG#) 0.18 x10 3/uL 0.00-0.03 H LYMPHOCYTE # (test code = LY#) 1.70 x10 3/uL 1.0-3.8 N MONOCYTE # (test code = MO#) 0.74 x10 3/uL 0.1-0.8 N EOSINOPHIL # (test code = EO#) 0.01 x10 3/uL 0.0-0.2 N BASOPHIL # (test code = BA#) 0.03 x10 3/uL 0.0-0.2 N NUCLEATED RBC # (test code = NRBC#) 0.00 x10 3/uL 0.0-0.1 N MANUAL DIFF REQUIRED (test code = MDIFF) NO COMMENTS: Daily while on [id number] 21:26:00* Test Item Value Reference Range Interpretation Comments GLUBED (test code = GLUBED) 177 MG/DL 70-110 H Performed by certified swing type lathe operator at [facility] [id number] 17:58:00* Test Item Value Reference Range Interpretation Comments GLUBED (test code = GLUBED) 259 MG/DL 70-110 H Performed by certified swing type lathe operator at [facility] [id number] 12:48:00* Test Item Value Reference Range Interpretation Comments GLUBED (test code = GLUBED) 302 MG/DL 70-110 H Performed by certified swing type lathe operator at [facility] [id number] 08:43:00* Test Item Value Reference Range Interpretation Comments GLUBED (test code = GLUBED) 295 MG/DL 70-110 H Performed by certified swing type lathe operator at [facility] CBC W/AUTO [id number] 08:36:00* Test Item Value Reference Range Interpretation Comments WHITE BLOOD CELL (test code = WBC) 13.37 x10 3/uL 4.5-11.0 H RED BLOOD CELL (test code = RBC) 2.45 x10 6/uL 3.54-5.02 L HEMOGLOBIN (test code = HGB) 7.5 g/dL 11.0-15.0 L HEMATOCRIT (test code = HCT) 25.3 % 33.0-45.0 L MEAN CELL VOLUME (test code = MCV) 103.3 fL 81.0-99.0 H MEAN CELL HGB (test code = MCH) 30.6 pg 27.0-33.0 N MEAN CELL HGB CONCETRATION (test code = MCHC) 29.6 g/dL 33.0-37. 0 L RED CELL DISTRIBUTION WIDTH CV (test code = RDW) 15.2 % 11.5- 14.5 H RED CELL DISTRIBUTION WIDTH SD (test code = RDW-SD) 57.3 fL 37 .0-54.0 H PLATELET COUNT (test code = PLT) 288 x10 3/uL 150-400 N MEAN PLATELET VOLUME (test code = MPV) 10.7 fL 7.0-9.0 H NEUTROPHIL % (test code = NT%) 85.1 % 56.0-77.0 H IMMATURE GRANULOCYTE % (test code = IG%) 1.2 % 0.0-2.0 N LYMPHOCYTE % (test code = LY%) 7.6 % 14.0-32.0 L MONOCYTE % (test code = MO%) 5.9 % 4.8-9.0 N EOSINOPHIL % (test code = EO%) 0.1 % 0.3-3.7 L BASOPHIL % (test code = BA%) 0.1 % 0.0-2.0 N NUCLEATED RBC % (test code = NRBC%) 0.0 % 0-0 N NEUTROPHIL # (test code = NT#) 11.38 x10 3/uL 2.0-7.6 H IMMATURE GRANULOCYTE # (test code = IG#) 0.16 x10 3/uL 0.00-0.03 H LYMPHOCYTE # (test code = LY#) 1.01 x10 3/uL 1.0-3.8 N MONOCYTE # (test code = MO#) 0.79 x10 3/uL 0.1-0.8 N EOSINOPHIL # (test code = EO#) 0.01 x10 3/uL 0.0-0.2 N BASOPHIL # (test code = BA#) 0.02 x10 3/uL 0.0-0.2 N NUCLEATED RBC # (test code = NRBC#) 0.00 x10 3/uL 0.0-0.1 N MANUAL DIFF REQUIRED (test code = MDIFF) NO COMMENTS: Daily while on HeparinBASIC METABOLIC [id number] 08:34:00* Test Item Value Reference Range Interpretation Comments SODIUM (test code = NA) 127 mEq/L 134-147 L POTASSIUM (test code = K) 4.4 mEq/L 3.4-5.0 N CHLORIDE (test code = CL) 88 mEq/L 100-108 L CARBON DIOXIDE (test code = CO2) 28 mEq/L 21-33 N ANION GAP (test code = GAP) 16 0-20 N GLUCOSE (test code = GLU) 354 mg/dL 70-110 H BLOOD UREA NITROGEN (test code = BUN) 45 mg/dL 7-18 H GLOMERULAR FILTRATION RATE (test code = GFR) 9.9 80-90 L Units of measure = ml/min/1.73 m2 CREATININE (test code = CREAT) 4.5 mg/dL 0.6-1.3 H CALCIUM (test code = CA) 9.1 mg/dL 8.0-10.5 N [id number] 19:34:00* Test Item Value Reference Range Interpretation Comments GLUBED (test code = GLUBED) 415 MG/DL 70-110 H Performed by certified swing type lathe operator at [facility] [id number] 11:47:00* Test Item Value Reference Range Interpretation Comments GLUBED (test code = GLUBED) 265 MG/DL 70-110 H Performed by certified swing type lathe operator at [facility] BASIC METABOLIC [id number] 05:00:00* Test Item Value Reference Range Interpretation Comments SODIUM (test code = NA) 130 mEq/L 134-147 L POTASSIUM (test code = K) 3.8 mEq/L 3.4-5.0 N CHLORIDE (test code = CL) 94 mEq/L 100-108 L CARBON DIOXIDE (test code = CO2) 28 mEq/L 21-33 N ANION GAP (test code = GAP) 13 0-20 N GLUCOSE (test code = GLU) 269 mg/dL 70-110 H BLOOD UREA NITROGEN (test code = BUN) 28 mg/dL 7-18 H GLOMERULAR FILTRATION RATE (test code = GFR) 13.3 80-90 L Units of measure = ml/min/1.73 m2 CREATININE (test code = CREAT) 3.5 mg/dL 0.6-1.3 H CALCIUM (test code = CA) 8.7 mg/dL 8.0-10.5 N CBC W/AUTO [id number] 04:46:00* Test Item Value Reference Range Interpretation Comments WHITE BLOOD CELL (test code = WBC) 14.17 x10 3/uL 4.5-11.0 H RED BLOOD CELL (test code = RBC) 2.53 x10 6/uL 3.54-5.02 L HEMOGLOBIN (test code = HGB) 7.6 g/dL 11.0-15.0 L HEMATOCRIT (test code = HCT) 26.3 % 33.0-45.0 L MEAN CELL VOLUME (test code = MCV) 104.0 fL 81.0-99.0 H MEAN CELL HGB (test code = MCH) 30.0 pg 27.0-33.0 N MEAN CELL HGB CONCETRATION (test code = MCHC) 28.9 g/dL 33.0-37. 0 L RED CELL DISTRIBUTION WIDTH CV (test code = RDW) 15.0 % 11.5- 14.5 H RED CELL DISTRIBUTION WIDTH SD (test code = RDW-SD) 57.8 fL 37 .0-54.0 H PLATELET COUNT (test code = PLT) 270 x10 3/uL 150-400 N MEAN PLATELET VOLUME (test code = MPV) 10.4 fL 7.0-9.0 H NEUTROPHIL % (test code = NT%) 90.7 % 56.0-77.0 H IMMATURE GRANULOCYTE % (test code = IG%) 1.3 % 0.0-2.0 N LYMPHOCYTE % (test code = LY%) 3.9 % 14.0-32.0 L MONOCYTE % (test code = MO%) 4.0 % 4.8-9.0 L EOSINOPHIL % (test code = EO%) 0.0 % 0.3-3.7 L BASOPHIL % (test code = BA%) 0.1 % 0.0-2.0 N NUCLEATED RBC % (test code = NRBC%) 0.0 % 0-0 N NEUTROPHIL # (test code = NT#) 12.86 x10 3/uL 2.0-7.6 H IMMATURE GRANULOCYTE # (test code = IG#) 0.18 x10 3/uL 0.00-0.03 H LYMPHOCYTE # (test code = LY#) 0.55 x10 3/uL 1.0-3.8 L MONOCYTE # (test code = MO#) 0.56 x10 3/uL 0.1-0.8 N EOSINOPHIL # (test code = EO#) 0.00 x10 3/uL 0.0-0.2 N BASOPHIL # (test code = BA#) 0.02 x10 3/uL 0.0-0.2 N NUCLEATED RBC # (test code = NRBC#) 0.00 x10 3/uL 0.0-0.1 N MANUAL DIFF REQUIRED (test code = MDIFF) NO COMMENTS: Daily while on [id number] 21:06:00* Test Item Value Reference Range Interpretation Comments GLUBED (test code = GLUBED) 223 MG/DL 70-110 H Performed by certified swing type lathe operator at [facility] [id number] 17:41:00* Test Item Value Reference Range Interpretation Comments GLUBED (test code = GLUBED) 164 MG/DL 70-110 H Performed by certified swing type lathe operator at [facility] [id number] 12:22:00* Test Item Value Reference Range Interpretation Comments GLUBED (test code = GLUBED) 168 MG/DL 70-110 H Performed by certified swing type lathe operator at [facility] CBC W/AUTO [id number] 08:12:00* Test Item Value Reference Range Interpretation Comments WHITE BLOOD CELL (test code = WBC) 17.10 x10 3/uL 4.5-11.0 H RED BLOOD CELL (test code = RBC) 2.44 x10 6/uL 3.54-5.02 L HEMOGLOBIN (test code = HGB) 7.5 g/dL 11.0-15.0 L HEMATOCRIT (test code = HCT) 26.1 % 33.0-45.0 L MEAN CELL VOLUME (test code = MCV) 107.0 fL 81.0-99.0 H MEAN CELL HGB (test code = MCH) 30.7 pg 27.0-33.0 N MEAN CELL HGB CONCETRATION (test code = MCHC) 28.7 g/dL 33.0-37. 0 L RED CELL DISTRIBUTION WIDTH CV (test code = RDW) 15.1 % 11.5- 14.5 H RED CELL DISTRIBUTION WIDTH SD (test code = RDW-SD) 59.4 fL 37 .0-54.0 H PLATELET COUNT (test code = PLT) 237 x10 3/uL 150-400 N MEAN PLATELET VOLUME (test code = MPV) 11.0 fL 7.0-9.0 H NEUTROPHIL % (test code = NT%) 81.7 % 56.0-77.0 H IMMATURE GRANULOCYTE % (test code = IG%) 0.9 % 0.0-2.0 N LYMPHOCYTE % (test code = LY%) 9.2 % 14.0-32.0 L MONOCYTE % (test code = MO%) 6.8 % 4.8-9.0 N EOSINOPHIL % (test code = EO%) 1.0 % 0.3-3.7 N BASOPHIL % (test code = BA%) 0.4 % 0.0-2.0 N NUCLEATED RBC % (test code = NRBC%) 0.0 % 0-0 N NEUTROPHIL # (test code = NT#) 13.98 x10 3/uL 2.0-7.6 H IMMATURE GRANULOCYTE # (test code = IG#) 0.16 x10 3/uL 0.00-0.03 H LYMPHOCYTE # (test code = LY#) 1.57 x10 3/uL 1.0-3.8 N MONOCYTE # (test code = MO#) 1.16 x10 3/uL 0.1-0.8 H EOSINOPHIL # (test code = EO#) 0.17 x10 3/uL 0.0-0.2 N BASOPHIL # (test code = BA#) 0.06 x10 3/uL 0.0-0.2 N NUCLEATED RBC # (test code = NRBC#) 0.00 x10 3/uL 0.0-0.1 N MANUAL DIFF REQUIRED (test code = MDIFF) NO COMMENTS: Daily while on [id number] 08:01:00* Test Item Value Reference Range Interpretation Comments GLUBED (test code = GLUBED) 137 MG/DL 70-110 H Performed by certified swing type lathe operator at [facility] BASIC METABOLIC [id number] 07:30:00* Test Item Value Reference Range Interpretation Comments SODIUM (test code = NA) 124 mEq/L 134-147 LL POTASSIUM (test code = K) 3.9 mEq/L 3.4-5.0 N CHLORIDE (test code = CL) 87 mEq/L 100-108 L CARBON DIOXIDE (test code = CO2) 25 mEq/L 21-33 N ANION GAP (test code = GAP) 16 0-20 N GLUCOSE (test code = GLU) 139 mg/dL 70-110 H BLOOD UREA NITROGEN (test code = BUN) 31 mg/dL 7-18 H GLOMERULAR FILTRATION RATE (test code = GFR) 7.9 80-90 L Units of measure = ml/min/1.73 m2 CREATININE (test code = CREAT) 5.5 mg/dL 0.6-1.3 H CALCIUM (test code = CA) 9.1 mg/dL 8.0-10.5 N [id number] 07:30:00* Test Item Value Reference Range Interpretation Comments PHOSPHOROUS (test code = PHOS) 2.9 MG/DL 2.5-4.9 N ACUTE HEPATITIS [id number] 07:15:00* Test Item Value Reference Range Interpretation Comments AB HEPATITIS A IGM (test code = HAVMAB) NON REACTIVE INDEX NON REAC T. AG HEPATITIS B SURFACE (test code = HBSAG) NON REACTIVE INDEX NonRe active AB HEPATITIS B CORE IGM (test code = HBCMAB) NON REACTIVE INDEX NON REACT. AB HEPATITIS C (test code = HCVAB) NON REACTIVE INDEX NON REACT. COMMENTS: At start of hemodialysisAB HEPATITIS B [id number] 07:15:00* Test Item Value Reference Range Interpretation Comments AB HEPATITIS B SURFACE (test code = HBSAB) < 3.1 mIU/mL Immunity>9. 9 L Status of Immunity Anti-HBs Level Inconsistent with Immunity 0.0 - 9.9Consistent with Immunity >9.9Performed At: [facility] [id number] Kyle L MD Ph:[phone] COMMENTS: At start of hemodialysisTHROMBOPLASTIN TIME [id number] 06:55:00 * Test Item Value Reference Range Interpretation Comments THROMBOPLASTIN TIME PARTIAL (test code = PTT) 52.1 Seconds 25.0-39. 5 H Therapeutic Range: 50.4 - 88.3 Seconds Effective 07/19/2018 THROMBOPLASTIN TIME [id number] 01:29:00* Test Item Value Reference Range Interpretation Comments THROMBOPLASTIN TIME PARTIAL (test code = PTT) 56.3 Seconds 25.0-39. 5 H Therapeutic Range: 50.4 - 88.3 Seconds Effective 07/19/2018 [id number] 21:11:00* Test Item Value Reference Range Interpretation Comments GLUBED (test code = GLUBED) 164 MG/DL 70-110 H Performed by certified swing type lathe operator at [facility] COVID 19 Asymptomatic IH [id number] 18:43:00* Test Item Value Reference Range Interpretation Comments COVID 19 Asymptomatic IH AG (test code = COVNONPUIAG) Negative Negative A negative result is presumptive and should be confirmedwith an FDA authorized molecular assay, if necessary forpatient management.A positive result does not rule out co-infections withother pathogens.This test detects both viable (live) and non-viable,SARS-CoV, and SARS-CoV-2. Test performance depends on theamount of virus (antigen) in the sample.This test has not been FDA cleared or approved; the test hasbeen authorized by FDA under an Emergency Use Authorization(EUA) for use by laboratories certified under the CLIA thatmeet the requirements to perform moderate, high or waivedcomplexity tests. THROMBOPLASTIN TIME [id number] 18:16:00* Test Item Value Reference Range Interpretation Comments THROMBOPLASTIN TIME PARTIAL (test code = PTT) 46.9 Seconds 25.0-39. 5 H Therapeutic Range: 50.4 - 88.3 Seconds Effective 07/19/2018 [id number] 17:36:00* Test Item Value Reference Range Interpretation Comments GLUBED (test code = GLUBED) 205 MG/DL 70-110 H Performed by certified swing type lathe operator at [facility] [id number] 12:39:00* Test Item Value Reference Range Interpretation Comments GLUBED (test code = GLUBED) 177 MG/DL 70-110 H Performed by certified swing type lathe operator at [facility] THROMBOPLASTIN TIME [id number] 10:02:00* Test Item Value Reference Range Interpretation Comments THROMBOPLASTIN TIME PARTIAL (test code = PTT) 52.2 Seconds 25.0-39. 5 H Therapeutic Range: 50.4 - 88.3 Seconds Effective 07/19/2018 CBC W/AUTO [id number] 08:56:00* Test Item Value Reference Range Interpretation Comments WHITE BLOOD CELL (test code = WBC) 17.39 x10 3/uL 4.5-11.0 H RED BLOOD CELL (test code = RBC) 2.69 x10 6/uL 3.54-5.02 L HEMOGLOBIN (test code = HGB) 8.2 g/dL 11.0-15.0 L HEMATOCRIT (test code = HCT) 28.1 % 33.0-45.0 L MEAN CELL VOLUME (test code = MCV) 104.5 fL 81.0-99.0 H MEAN CELL HGB (test code = MCH) 30.5 pg 27.0-33.0 N MEAN CELL HGB CONCETRATION (test code = MCHC) 29.2 g/dL 33.0-37. 0 L RED CELL DISTRIBUTION WIDTH CV (test code = RDW) 14.8 % 11.5- 14.5 H RED CELL DISTRIBUTION WIDTH SD (test code = RDW-SD) 56.7 fL 37 .0-54.0 H PLATELET COUNT (test code = PLT) 231 x10 3/uL 150-400 N MEAN PLATELET VOLUME (test code = MPV) 10.8 fL 7.0-9.0 H NEUTROPHIL % (test code = NT%) 84.5 % 56.0-77.0 H IMMATURE GRANULOCYTE % (test code = IG%) 1.1 % 0.0-2.0 N LYMPHOCYTE % (test code = LY%) 6.3 % 14.0-32.0 L MONOCYTE % (test code = MO%) 7.2 % 4.8-9.0 N EOSINOPHIL % (test code = EO%) 0.7 % 0.3-3.7 N BASOPHIL % (test code = BA%) 0.2 % 0.0-2.0 N NUCLEATED RBC % (test code = NRBC%) 0.0 % 0-0 N NEUTROPHIL # (test code = NT#) 14.68 x10 3/uL 2.0-7.6 H IMMATURE GRANULOCYTE # (test code = IG#) 0.19 x10 3/uL 0.00-0.03 H LYMPHOCYTE # (test code = LY#) 1.09 x10 3/uL 1.0-3.8 N MONOCYTE # (test code = MO#) 1.26 x10 3/uL 0.1-0.8 H EOSINOPHIL # (test code = EO#) 0.13 x10 3/uL 0.0-0.2 N BASOPHIL # (test code = BA#) 0.04 x10 3/uL 0.0-0.2 N NUCLEATED RBC # (test code = NRBC#) 0.00 x10 3/uL 0.0-0.1 N MANUAL DIFF REQUIRED (test code = MDIFF) NO COMMENTS: Daily while on [id number] 08:19:00* Test Item Value Reference Range Interpretation Comments GLUBED (test code = GLUBED) 129 MG/DL 70-110 H Performed by certified swing type lathe operator at [facility] BASIC METABOLIC [id number] 07:51:00* Test Item Value Reference Range Interpretation Comments SODIUM (test code = NA) 130 mEq/L 134-147 L POTASSIUM (test code = K) 3.8 mEq/L 3.4-5.0 N CHLORIDE (test code = CL) 91 mEq/L 100-108 L CARBON DIOXIDE (test code = CO2) 30 mEq/L 21-33 N ANION GAP (test code = GAP) 13 0-20 N GLUCOSE (test code = GLU) 145 mg/dL 70-110 H BLOOD UREA NITROGEN (test code = BUN) 23 mg/dL 7-18 H GLOMERULAR FILTRATION RATE (test code = GFR) 12.9 80-90 L Units of measure = ml/min/1.73 m2 CREATININE (test code = CREAT) 3.6 mg/dL 0.6-1.3 H CALCIUM (test code = CA) 9.0 mg/dL 8.0-10.5 N THROMBOPLASTIN TIME [id number] 01:37:00* Test Item Value Reference Range Interpretation Comments THROMBOPLASTIN TIME PARTIAL (test code = PTT) 47.9 Seconds 25.0-39. 5 H Therapeutic Range: 50.4 - 88.3 Seconds Effective 07/19/2018 [id number] 22:51:00* Test Item Value Reference Range Interpretation Comments GLUBED (test code = GLUBED) 241 MG/DL 70-110 H Performed by certified swing type lathe operator at [facility] THROMBOPLASTIN TIME [id number] 18:40:00* Test Item Value Reference Range Interpretation Comments THROMBOPLASTIN TIME PARTIAL (test code = PTT) 41.1 Seconds 25.0-39. 5 H Therapeutic Range: 50.4 - 88.3 Seconds Effective 07/19/2018 [id number] 16:20:00* Test Item Value Reference Range Interpretation Comments GLUBED (test code = GLUBED) 167 MG/DL 70-110 H Performed by certified swing type lathe operator at [facility] ACUTE HEPATITIS [id number] 14:22:00* Test Item Value Reference Range Interpretation Comments AB HEPATITIS A IGM (test code = HAVMAB) NON REACTIVE INDEX NON REAC T. AG HEPATITIS B SURFACE (test code = HBSAG) NON REACTIVE INDEX NonRe active AB HEPATITIS B CORE IGM (test code = HBCMAB) NON REACTIVE INDEX NON REACT. AB HEPATITIS C (test code = HCVAB) NON REACTIVE INDEX NON REACT. COMMENTS: At start of hemodialysisAB HEPATITIS B [id number] 14:22:00* Test Item Value Reference Range Interpretation Comments AB HEPATITIS B SURFACE (test code = HBSAB) COMMENTS: At start of [id number] 12:41:00* Test Item Value Reference Range Interpretation Comments GLUBED (test code = GLUBED) 156 MG/DL 70-110 H Performed by certified swing type lathe operator at [facility] [id number] 11:36:00* Test Item Value Reference Range Interpretation Comments TROPONIN-I (test code = TROPI) 0.557 ng/mL 0.000-0.045 H Negative: <= 0.045 Positive: >= 0.046 Correlation with serial results, other cardiac markers andclinical findings is necessary to determine the clinicalsignificance of this result. Results using different methodologies should not be comparedto one another as quantitative results may vary by method. CBC W/AUTO [id number] 09:18:00* Test Item Value Reference Range Interpretation Comments WHITE BLOOD CELL (test code = WBC) 19.36 x10 3/uL 4.5-11.0 H RED BLOOD CELL (test code = RBC) 2.77 x10 6/uL 3.54-5.02 L HEMOGLOBIN (test code = HGB) 8.6 g/dL 11.0-15.0 L HEMATOCRIT (test code = HCT) 31.2 % 33.0-45.0 L MEAN CELL VOLUME (test code = MCV) 112.6 fL 81.0-99.0 H MEAN CELL HGB (test code = MCH) 31.0 pg 27.0-33.0 N MEAN CELL HGB CONCETRATION (test code = MCHC) 27.6 g/dL 33.0-37. 0 L RED CELL DISTRIBUTION WIDTH CV (test code = RDW) 15.3 % 11.5- 14.5 H RED CELL DISTRIBUTION WIDTH SD (test code = RDW-SD) 63.6 fL 37 .0-54.0 H PLATELET COUNT (test code = PLT) 203 x10 3/uL 150-400 N MEAN PLATELET VOLUME (test code = MPV) 10.9 fL 7.0-9.0 H NEUTROPHIL % (test code = NT%) 84.1 % 56.0-77.0 H IMMATURE GRANULOCYTE % (test code = IG%) 0.5 % 0.0-2.0 N LYMPHOCYTE % (test code = LY%) 7.6 % 14.0-32.0 L MONOCYTE % (test code = MO%) 6.8 % 4.8-9.0 N EOSINOPHIL % (test code = EO%) 0.7 % 0.3-3.7 N BASOPHIL % (test code = BA%) 0.3 % 0.0-2.0 N NUCLEATED RBC % (test code = NRBC%) 0.0 % 0-0 N NEUTROPHIL # (test code = NT#) 16.30 x10 3/uL 2.0-7.6 H IMMATURE GRANULOCYTE # (test code = IG#) 0.09 x10 3/uL 0.00-0.03 H LYMPHOCYTE # (test code = LY#) 1.47 x10 3/uL 1.0-3.8 N MONOCYTE # (test code = MO#) 1.32 x10 3/uL 0.1-0.8 H EOSINOPHIL # (test code = EO#) 0.13 x10 3/uL 0.0-0.2 N BASOPHIL # (test code = BA#) 0.05 x10 3/uL 0.0-0.2 N NUCLEATED RBC # (test code = NRBC#) 0.00 x10 3/uL 0.0-0.1 N MANUAL DIFF REQUIRED (test code = MDIFF) NO COMMENTS: Daily while on HeparinRBC [id number] 09:18:00* Test Item Value Reference Range Interpretation Comments POLYCHROMASIA (test code = POLC) SLIGHT POIKILOCYTOSIS (test code = POIK) SLIGHT ANISOCYTOSIS (test code = ANISO) 1+ MACROCYTOSIS (test code = MACR) 1+ TARGET CELLS (test code = TGT) SEEN OVALOCYTES (test code = OVAL) FEW COMMENTS: Daily while on HeparinBASIC METABOLIC [id number] 08:29:00* Test Item Value Reference Range Interpretation Comments SODIUM (test code = NA) 126 mEq/L 134-147 L POTASSIUM (test code = K) 3.4 mEq/L 3.4-5.0 N CHLORIDE (test code = CL) 86 mEq/L 100-108 L CARBON DIOXIDE (test code = CO2) 32 mEq/L 21-33 N ANION GAP (test code = GAP) 11 0-20 N GLUCOSE (test code = GLU) 159 mg/dL 70-110 H BLOOD UREA NITROGEN (test code = BUN) 43 mg/dL 7-18 H GLOMERULAR FILTRATION RATE (test code = GFR) 7.6 80-90 L Units of measure = ml/min/1.73 m2 CREATININE (test code = CREAT) 5.7 mg/dL 0.6-1.3 H CALCIUM (test code = CA) 9.0 mg/dL 8.0-10.5 N [id number] 08:29:00* Test Item Value Reference Range Interpretation Comments PHOSPHOROUS (test code = PHOS) 3.6 MG/DL 2.5-4.9 N [id number] 08:29:00* Test Item Value Reference Range Interpretation Comments MAGNESIUM (test code = MAG) 2.14 mg/dL 1.8-2.4 N [id number] 08:24:00* Test Item Value Reference Range Interpretation Comments GLUBED (test code = GLUBED) 130 MG/DL 70-110 H Performed by certified swing type lathe operator at [facility] CBC W/AUTO [id number] 07:50:00* Test Item Value Reference Range Interpretation Comments WHITE BLOOD CELL (test code = WBC) 19.36 x10 3/uL 4.5-11.0 H RED BLOOD CELL (test code = RBC) 2.77 x10 6/uL 3.54-5.02 L HEMOGLOBIN (test code = HGB) 8.6 g/dL 11.0-15.0 L HEMATOCRIT (test code = HCT) 31.2 % 33.0-45.0 L MEAN CELL VOLUME (test code = MCV) 112.6 fL 81.0-99.0 H MEAN CELL HGB (test code = MCH) 31.0 pg 27.0-33.0 N MEAN CELL HGB CONCETRATION (test code = MCHC) 27.6 g/dL 33.0-37. 0 L RED CELL DISTRIBUTION WIDTH CV (test code = RDW) 15.3 % 11.5- 14.5 H RED CELL DISTRIBUTION WIDTH SD (test code = RDW-SD) 63.6 fL 37 .0-54.0 H PLATELET COUNT (test code = PLT) 203 x10 3/uL 150-400 N MEAN PLATELET VOLUME (test code = MPV) 10.9 fL 7.0-9.0 H NEUTROPHIL % (test code = NT%) 84.1 % 56.0-77.0 H IMMATURE GRANULOCYTE % (test code = IG%) 0.5 % 0.0-2.0 N LYMPHOCYTE % (test code = LY%) 7.6 % 14.0-32.0 L MONOCYTE % (test code = MO%) 6.8 % 4.8-9.0 N EOSINOPHIL % (test code = EO%) 0.7 % 0.3-3.7 N BASOPHIL % (test code = BA%) 0.3 % 0.0-2.0 N NUCLEATED RBC % (test code = NRBC%) 0.0 % 0-0 N NEUTROPHIL # (test code = NT#) 16.30 x10 3/uL 2.0-7.6 H IMMATURE GRANULOCYTE # (test code = IG#) 0.09 x10 3/uL 0.00-0.03 H LYMPHOCYTE # (test code = LY#) 1.47 x10 3/uL 1.0-3.8 N MONOCYTE # (test code = MO#) 1.32 x10 3/uL 0.1-0.8 H EOSINOPHIL # (test code = EO#) 0.13 x10 3/uL 0.0-0.2 N BASOPHIL # (test code = BA#) 0.05 x10 3/uL 0.0-0.2 N NUCLEATED RBC # (test code = NRBC#) 0.00 x10 3/uL 0.0-0.1 N MANUAL DIFF REQUIRED (test code = MDIFF) NO COMMENTS: Daily while on HeparinRBC [id number] 07:50:00* Test Item Value Reference Range Interpretation Comments ANISOCYTOSIS (test code = ANISO) COMMENTS: Daily while on HeparinCBC W/AUTO [id number] 07:50:00* Test Item Value Reference Range Interpretation Comments WHITE BLOOD CELL (test code = WBC) 19.36 x10 3/uL 4.5-11.0 H RED BLOOD CELL (test code = RBC) 2.77 x10 6/uL 3.54-5.02 L HEMOGLOBIN (test code = HGB) 8.6 g/dL 11.0-15.0 L HEMATOCRIT (test code = HCT) 31.2 % 33.0-45.0 L MEAN CELL VOLUME (test code = MCV) 112.6 fL 81.0-99.0 H MEAN CELL HGB (test code = MCH) 31.0 pg 27.0-33.0 N MEAN CELL HGB CONCETRATION (test code = MCHC) 27.6 g/dL 33.0-37. 0 L RED CELL DISTRIBUTION WIDTH CV (test code = RDW) 15.3 % 11.5- 14.5 H RED CELL DISTRIBUTION WIDTH SD (test code = RDW-SD) 63.6 fL 37 .0-54.0 H PLATELET COUNT (test code = PLT) 203 x10 3/uL 150-400 N MEAN PLATELET VOLUME (test code = MPV) 10.9 fL 7.0-9.0 H NEUTROPHIL % (test code = NT%) 84.1 % 56.0-77.0 H IMMATURE GRANULOCYTE % (test code = IG%) 0.5 % 0.0-2.0 N LYMPHOCYTE % (test code = LY%) 7.6 % 14.0-32.0 L MONOCYTE % (test code = MO%) 6.8 % 4.8-9.0 N EOSINOPHIL % (test code = EO%) 0.7 % 0.3-3.7 N BASOPHIL % (test code = BA%) 0.3 % 0.0-2.0 N NUCLEATED RBC % (test code = NRBC%) 0.0 % 0-0 N NEUTROPHIL # (test code = NT#) 16.30 x10 3/uL 2.0-7.6 H IMMATURE GRANULOCYTE # (test code = IG#) 0.09 x10 3/uL 0.00-0.03 H LYMPHOCYTE # (test code = LY#) 1.47 x10 3/uL 1.0-3.8 N MONOCYTE # (test code = MO#) 1.32 x10 3/uL 0.1-0.8 H EOSINOPHIL # (test code = EO#) 0.13 x10 3/uL 0.0-0.2 N BASOPHIL # (test code = BA#) 0.05 x10 3/uL 0.0-0.2 N NUCLEATED RBC # (test code = NRBC#) 0.00 x10 3/uL 0.0-0.1 N MANUAL DIFF REQUIRED (test code = MDIFF) NO COMMENTS: Daily while on HeparinRBC [id number] 07:50:00* Test Item Value Reference Range Interpretation Comments ANISOCYTOSIS (test code = ANISO) COMMENTS: Daily while on HeparinTHROMBOPLASTIN TIME [id number] 06:49:00* Test Item Value Reference Range Interpretation Comments THROMBOPLASTIN TIME PARTIAL (test code = PTT) 31.7 Seconds 25.0-39. 5 Therapeutic Range: 50.4 - 88.3 Seconds Effective 07/19/2018 THROMBOPLASTIN TIME [id number] 20:50:00* Test Item Value Reference Range Interpretation Comments THROMBOPLASTIN TIME PARTIAL (test code = PTT) 23.7 Seconds 25.0-39. 5 L Therapeutic Range: 50.4 - 88.3 Seconds Effective 07/19/2018 COMMENTS: DRAW PTT 6 HOURS AFTER INITIATION OF HEPARIN- DUP LE ART UNI/LTD 2019-12-12 16:51:00 Name: ANDIE ZABALA [facility] : 1955 Age/S: 63 / F [address] [place] [address] Unit #: [id number] Loc: [place] [address] Phys: Gela Robles SUGAR BOILER Acct: [id number] Dis Date: Status: ADM IN PHONE #: [phone] Exam Date: 12/12/2019 1640 FAX #: [phone] Reason: recent toe amputatiomn increased foot pain, EXAMS: CPT CODE: [id number] DUP LE ART UNI/LTD 15006 Clinical Indication: Recent right toe amputation. Increased foot pain Comparison: 04/29/2019. TECHNIQUE: Right lower extremity arterial Doppler evaluation without ABIs was performed with winters scale, color scale and Doppler waveforms evaluation. FINDINGS: RIGHT LOWER EXTREMITY: TRUCKLOAD CHECKER: Patent, triphasic waveform, PSV 127 cm/s. SFA: Patent, severely dampened parvus tardus waveform, PSV 23 cm/s. Popliteal: Patent, severely dampened parvus tardus waveform, PSV 28 cm/s. Posterior tibial: Patent, severely dampened parvus tardus waveform, PSV 17 cm/s. Dorsalis pedis: Patent, severely dampened parvus tardus waveform, PSV 16 cm/s.. IMPRESSION: 1. Proximal SFA stenosis with severely dampened monophasic waveforms within the SFA, popliteal, posterior tibial, and dorsalis pedis arteries. SL: [id number] at 1651 Reported and signed by: Alice Doran M.D. CC: Gela Robles NP; Evelyn Belcher MD Technologist: [facility] Byrne [facility] Date/Time: 12/12/2019 (1650) [email or web address] Orig Print D/T: S: 12/12/2019 (782) Probe: PAGE 1 Signed Report [id number] 16:31:00* Test Item Value Reference Range Interpretation Comments GLUBED (test code = GLUBED) 143 MG/DL 70-110 H Performed by certified swing type lathe operator at [facility] BASIC METABOLIC [id number] 14:17:00* Test Item Value Reference Range Interpretation Comments SODIUM (test code = NA) 126 mEq/L 134-147 L POTASSIUM (test code = K) 3.0 mEq/L 3.4-5.0 L CHLORIDE (test code = CL) 86 mEq/L 100-108 L CARBON DIOXIDE (test code = CO2) 33 mEq/L 21-33 N ANION GAP (test code = GAP) 10 0-20 N GLUCOSE (test code = GLU) 140 mg/dL 70-110 H BLOOD UREA NITROGEN (test code = BUN) 24 mg/dL 7-18 H GLOMERULAR FILTRATION RATE (test code = GFR) 9.9 80-90 L Units of measure = ml/min/1.73 m2 CREATININE (test code = CREAT) 4.5 mg/dL 0.6-1.3 H CALCIUM (test code = CA) 9.3 mg/dL 8.0-10.5 N HEPATIC FUNCTION [id number] 14:17:00* Test Item Value Reference Range Interpretation Comments TOTAL PROTEIN (test code = PROT) 7.4 g/dL 6.4-8.2 N ALBUMIN (test code = ALB) 3.10 g/dL 3.4-5.0 L BILIRUBIN TOTAL (test code = BILT) 0.80 mg/dL 0.0-1.0 N BILIRUBIN DIRECT (test code = BILD) 0.50 MG/DL 0.0-0.30 H BILIRUBIN INDIRECT (test code = BILIND) 0.30 MG/DL SGOT/AST (test code = AST) 22 IUnit/L 15-37 N SGPT/ALT (test code = ALT) 15 IUnit/L 30-65 L ALKALINE PHOSPHATASE TOTAL (test code = ALKP) 69 IUnit/L 20-125 N [id number] 14:17:00* Test Item Value Reference Range Interpretation Comments TROPONIN-I (test code = TROPI) 1.177 ng/mL 0.000-0.045 HH Negative: <= 0.045 Positive: >= 0.046 Correlation with serial results, other cardiac markers andclinical findings is necessary to determine the clinicalsignificance of this result. Results using different methodologies should not be comparedto one another as quantitative results may vary by method. LACTIC [id number] 14:12:00* Test Item Value Reference Range Interpretation Comments LACTIC ACID (test code = LACT) 1.1 mmol/L 0.4-1.9 N - XR FOOT 2 VIEWS [id number] 13:54:00 FAX: Gela Robles NP [place]: St: PRE FAX: Dary Hughes [phone] Name: ANDIE ZABALA [facility] [place] : 1955 Age/S: 63/F [address] [place] [address] Unit #: [id number] Loc: [place] [address] Phys: Gela Robles NEFTALY Acct: [id number] Dis Date: Status: PRE ER PHONE #: [phone] Exam Date: 12/12/2019 1344 FAX #: [phone] Reason: recent toe amputation increased pain EXAMS: CPT CODE: [id number] [place] FO[place] [address] [place] [id number] - XR FOOT 2 VIEWS RT, 12/12/2019 1:31 PM HISTORY: recent toe amputation increased pain COMPARISON: Previous MRI FINDINGS: Status post amputation great toe at the 1st MTP joint. 1st metatarsal head is intact. There is chronic erosions at the before meals the 5th proximal phalanx and 5th metatarsal head. There is either previous resection osteolyses of the 2nd middle and distal phalanges. Soft tissue swelling noted. IMPRESSION: 1. Status post amputation of the great toe at the MTP joint. 2. 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 Correlate for signs of infection. If clinically indicated this can be further as sessed with follow-up MRI. Location: [facility] at 7544 Re ported and signed by: Denis Valenzuela M.D. CC: Gela Hines on SUGAR BOILER; Evelyn Belcher MD Technologist: Angely Jackson, RT(R) Trnscrd Date/Time/By: 12/12/2019 (2774) : By: Steff [id number] Orig Print D/T: S: 12/12/2019 (5585) CEZAR CARRION 1 Signed Report CBC W/AUTO [id number] 13:47:00* Test Item Value Reference Range Interpretation Comments WHITE BLOOD CELL (test code = WBC) 17.83 x10 3/uL 4.5-11.0 H RED BLOOD CELL (test code = RBC) 3.14 x10 6/uL 3.54-5.02 L HEMOGLOBIN (test code = HGB) 9.7 g/dL 11.0-15.0 L HEMATOCRIT (test code = HCT) 31.6 % 33.0-45.0 L MEAN CELL VOLUME (test code = MCV) 100.6 fL 81.0-99.0 H MEAN CELL HGB (test code = MCH) 30.9 pg 27.0-33.0 N MEAN CELL HGB CONCETRATION (test code = MCHC) 30.7 g/dL 33.0-37. 0 L RED CELL DISTRIBUTION WIDTH CV (test code = RDW) 14.7 % 11.5- 14.5 H RED CELL DISTRIBUTION WIDTH SD (test code = RDW-SD) 54.7 fL 37 .0-54.0 H PLATELET COUNT (test code = PLT) 211 x10 3/uL 150-400 N MEAN PLATELET VOLUME (test code = MPV) 10.0 fL 7.0-9.0 H NEUTROPHIL % (test code = NT%) 86.4 % 56.0-77.0 H IMMATURE GRANULOCYTE % (test code = IG%) 1.5 % 0.0-2.0 N LYMPHOCYTE % (test code = LY%) 6.7 % 14.0-32.0 L MONOCYTE % (test code = MO%) 5.1 % 4.8-9.0 N EOSINOPHIL % (test code = EO%) 0.2 % 0.3-3.7 L BASOPHIL % (test code = BA%) 0.1 % 0.0-2.0 N NUCLEATED RBC % (test code = NRBC%) 0.0 % 0-0 N NEUTROPHIL # (test code = NT#) 15.42 x10 3/uL 2.0-7.6 H IMMATURE GRANULOCYTE # (test code = IG#) 0.26 x10 3/uL 0.00-0.03 H LYMPHOCYTE # (test code = LY#) 1.19 x10 3/uL 1.0-3.8 N MONOCYTE # (test code = MO#) 0.91 x10 3/uL 0.1-0.8 H EOSINOPHIL # (test code = EO#) 0.03 x10 3/uL 0.0-0.2 N BASOPHIL # (test code = BA#) 0.02 x10 3/uL 0.0-0.2 N NUCLEATED RBC # (test code = NRBC#) 0.00 x10 3/uL 0.0-0.1 N MANUAL DIFF REQUIRED (test code = MDIFF) NO SURGICAL PATH [id number] 09:47:00 RUN DATE: 12/12/19 [facility] *LIVE* PAGE 1 RUN TIME: 946 Specimen Inqui ry RUN USER: INTERFACE PATIENT: ANDIE ZABALA ACCT #: G [id number] LOC: [facility] U #: [id number] AGE/SX: 63/F ROOM: RE12/05/19REG DR: Luke Boykin DPM : 59 BED: DIS: STATUS: [facility] TLOC: SPEC #: [id number] RECD: 12/06/19 STATUS: JEWELL GR #: [id number] TOMMIE: 12/06/[address]: Luke Boykin DPM ENTERED: 12/11/19 SP TYPE: SURG SPEC OTHR DR: No Candi edgar or Family Physician Evelyn Belcher MDORDERED: GROSS AND MICRO CODES: [id number] - EXTREMITY, NOS STICK WELDER IES TO: No Primary or Family Physician Luke Boykin DPM [address] [place] [address] [email or web address] Evelyn Craig MD [address] [place] [address] [phone] PROCEDURES: GROSS AND MICRO (Incomplete) TISSUES: 1. EXTREMITY, NO S - Extremity, right great toe, amputation FINAL DIAGNOSIS Extremi ty, right great toe, amputation: Acute osteomyelitis; ulcer and necrosis, wi th acute inflammation extending to the soft tissue resection margin. ANGELIC SS AND MICROSCOPIC GROSS EXAMINATION: Received in formalin labeled right grea t toe is a disarticulated digit (3.5 x 3 x 0.5 cm) with a necrotic ulce r at the tip (3.2 x 2 cm) extending to the soft tissue resection margin foc ally (inked black). Foreign Correspondent sections submitted: (A) soft tissue kathie n, perpendicular; (B) longitudinal section of the bone for decal. MICROSCOPIC EXAMINATION: A microscopic examination was performed to a rrive at the diagnostic conclusion reported. CONTINUED ON NEXT PAGE R UN DATE: 12/12/19 [facility] *LIVE* PAGE 2 RUN TIME: 946 Specimen Inquiry RUN USER: INTERFACE SPEC #: [id number] PATIENT: ANDIE ZABALA #[id number] (Continued) POST-OP DIAGNOSIS None gi florencio PRE-OP DIAGNOSIS Osteo Signed SIGNATURE ON FILE Souleymane Vinson 12/12/19 0947 END OF REPORT Novel Coronavirus 15:28:00* Test Item Value Reference Range Interpretation Comments Novel Coronavirus 2018 nCoV (test code = COVID19) Not Detected Not Detected Testing was performed using the Aptima SARS-CoV-2 assay.This nucleic acid amplification test was developed and itsperfomance characteristics determined by [facility]. Nucleic acid amplification tests include PCRand TMA. This test has not been FDA cleared or approved.This test has been authorized by FDA under an Emergency UseAuthorization (EUA). This test is only authorized forthe duration of time the declaration that circumstancesexist justifying the authorization of the emergency use ofin vitro diagnostic tests for detection of SARS-CoV-2 virusand/or diagnosis of COVID-19 infection under xnyhjju846(b)(1) of the Act, 21 U.S.C. 360bbb-3(b) (1), unless theauthorization is terminated or revoked sooner.When diagnostic testing is negative, the possibility of afalse negative result should be considered in the contextof a patient's recent exposures and the presence ofclinical signs and symptoms consistent with COVID- 19. Anindividual without symptoms of COVID-19 and who is notshedding SARS-CoV-2 virus would expect to have a negative(not detected) result in this assay.Performed At: [address] [id number] Lima MD Ph:[phone] Novel Coronavirus 14:10:00* Test Item Value Reference Range Interpretation Comments Novel Coronavirus 2019 nCoV (test code = COVID19) Not Detected Not Detected Testing was performed using the Aptima SARS-CoV-2 assay.This nucleic acid amplification test was developed and itsperfomance characteristics determined by [facility]. Nucleic acid amplification tests include PCRand TMA. This test has not been FDA cleared or approved.This test has been authorized by FDA under an Emergency UseAuthorization (EUA). This test is only authorized forthe duration of time the declaration that circumstancesexist justifying the authorization of the emergency use ofin vitro diagnostic tests for detection of SARS-CoV-2 virusand/or diagnosis of COVID-19 infection under yolkegd589(b)(1) of the Act, 21 U.S.C. 360bbb-3(b) (1), unless theauthorization is terminated or revoked sooner.When diagnostic testing is negative, the possibility of afalse negative result should be considered in the contextof a patient's recent exposures and the presence ofclinical signs and symptoms consistent with COVID- 19. Anindividual without symptoms of COVID-19 and who is notshedding SARS-CoV-2 virus would expect to have a negative(not detected) result in this assay.Performed At: [facility] [place], [place] [id number] Lima MD Ph:[phone] [facility] (test code = LCAIP) [id number] 18:27:00* Test Item Value Reference Range Interpretation Comments GLUBED (test code = GLUBED) 96 MG/DL 70-110 N Performed by certified swing type lathe operator at [facility] BASIC METABOLIC [id number] 13:35:00* Test Item Value Reference Range Interpretation Comments SODIUM (test code = NA) 133 mEq/L 134-147 L POTASSIUM (test code = K) 3.9 mEq/L 3.4-5.0 N CHLORIDE (test code = CL) 97 mEq/L 100-108 L CARBON DIOXIDE (test code = CO2) 32 mEq/L 21-33 N ANION GAP (test code = GAP) 8 0-20 N GLUCOSE (test code = GLU) 157 mg/dL 70-110 H BLOOD UREA NITROGEN (test code = BUN) 19 mg/dL 7-18 H GLOMERULAR FILTRATION RATE (test code = GFR) 9.7 80-90 L Units of measure = ml/min/1.73 m2 CREATININE (test code = CREAT) 4.6 mg/dL 0.6-1.3 H CALCIUM (test code = CA) 9.6 mg/dL 8.0-10.5 N [id number] 13:28:00* Test Item Value Reference Range Interpretation Comments GLUBED (test code = GLUBED) 159 MG/DL 70-110 H Performed by certified swing type lathe operator at [facility] CBC W/AUTO [id number] 13:23:00* Test Item Value Reference Range Interpretation Comments WHITE BLOOD CELL (test code = WBC) 5.57 x10 3/uL 4.5-11.0 N RED BLOOD CELL (test code = RBC) 3.60 x10 6/uL 3.54-5.02 N HEMOGLOBIN (test code = HGB) 11.2 g/dL 11.0-15.0 N HEMATOCRIT (test code = HCT) 37.1 % 33.0-45.0 N MEAN CELL VOLUME (test code = MCV) 103.1 fL 81.0-99.0 H MEAN CELL HGB (test code = MCH) 31.1 pg 27.0-33.0 N MEAN CELL HGB CONCETRATION (test code = MCHC) 30.2 g/dL 33.0-37. 0 L RED CELL DISTRIBUTION WIDTH CV (test code = RDW) 14.5 % 11.5- 14.5 N RED CELL DISTRIBUTION WIDTH SD (test code = RDW-SD) 55.0 fL 37 .0-54.0 H PLATELET COUNT (test code = PLT) 230 x10 3/uL 150-400 N MEAN PLATELET VOLUME (test code = MPV) 9.5 fL 7.0-9.0 H NEUTROPHIL % (test code = NT%) 62.4 % 56.0-77.0 N IMMATURE GRANULOCYTE % (test code = IG%) 0.2 % 0.0-2.0 N LYMPHOCYTE % (test code = LY%) 25.7 % 14.0-32.0 N MONOCYTE % (test code = MO%) 9.3 % 4.8-9.0 H EOSINOPHIL % (test code = EO%) 2.0 % 0.3-3.7 N BASOPHIL % (test code = BA%) 0.4 % 0.0-2.0 N NUCLEATED RBC % (test code = NRBC%) 0.0 % 0-0 N NEUTROPHIL # (test code = NT#) 3.48 x10 3/uL 2.0-7.6 N IMMATURE GRANULOCYTE # (test code = IG#) 0.01 x10 3/uL 0.00-0.03 N LYMPHOCYTE # (test code = LY#) 1.43 x10 3/uL 1.0-3.8 N MONOCYTE # (test code = MO#) 0.52 x10 3/uL 0.1-0.8 N EOSINOPHIL # (test code = EO#) 0.11 x10 3/uL 0.0-0.2 N BASOPHIL # (test code = BA#) 0.02 x10 3/uL 0.0-0.2 N NUCLEATED RBC # (test code = NRBC#) 0.00 x10 3/uL 0.0-0.1 N MANUAL DIFF REQUIRED (test code = MDIFF) NO Novel Coronavirus 2019 [id number] 01:53:00* Test Item Value Reference Range Interpretation Comments Novel Coronavirus 2019 Inhouse (test code = COVNONPUI) Negative Negative BASIC METABOLIC [id number] 13:58:00* Test Item Value Reference Range Interpretation Comments SODIUM (test code = NA) 135 mEq/L 134-147 N POTASSIUM (test code = K) 4.3 mEq/L 3.4-5.0 N CHLORIDE (test code = CL) 96 mEq/L 100-108 L CARBON DIOXIDE (test code = CO2) 30 mEq/L 21-33 N ANION GAP (test code = GAP) 14 0-20 N GLUCOSE (test code = GLU) 115 mg/dL 70-110 H BLOOD UREA NITROGEN (test code = BUN) 33 mg/dL 7-18 H GLOMERULAR FILTRATION RATE (test code = GFR) 8.6 80-90 L Units of measure = ml/min/1.73 m2 CREATININE (test code = CREAT) 5.1 mg/dL 0.6-1.3 H CALCIUM (test code = CA) 8.7 mg/dL 8.0-10.5 N - XR CHEST 2 [id number] 13:54:00 FAX: Luke Hernandez [facility] [phone] [place]: St: PRE [facility]: [facility] [phone] FAX: Cheryl Mack N Name: ANDIE ZABALA [facility] : 1955 Age/S: 63/F [address] [place] [address] Unit #: [id number] Loc: [place] [address] Phys: Cheryl Mack NP Acct: [id number] Dis Date: Status: PRE SDC PH ONE #: [phone] Exam Date: 11/28/2019 1315 FAX #: [phone] Reason: PREOP EXAMS: CPT CODE: [id number] XR CHEST 2 V 38519 Study: - XR C HEST 2 V 11/28/2019 11:36 AM Patient Name: ANDIE ZABALA MR: G [id number] : 1955; Age: 63 years y/o Female Ordering Physici an: Cheryl Mack NP Clinical Indication: PREOP Comparison: May 05, 2019 x-ray FINDINGS LUNGS: The lungs are clear of consolidation, pleural effusion, and pneumothorax. HEART AND MEDIASTINUM: Normal size heart. Aortic calcifications are present. LINES: None. OSSEOUS STRUCTURES: No fracture, dislocation, or suspicious focal osseous lesion. OTHER: Vascular stent in the left subclavian region.. IM PRESSION: No acute abnormality as above discussed. SL: [id number] at 6486 Reported and si gned by: Manish Elizabeth M.D. CC: Luke Boykin DPM; Evelyn mccray MD; Cheryl Mack NP Technologist: RT Mari(Jos) Trnscrd Date/Time/By: 11/28/2019 (4764) : By: ArielleAP24 Orig Print D/ T: S: 11/28/2019 (9836) PAGE 1 Si gned Report CBC W/AUTO [id number] 13:09:00* Test Item Value Reference Range Interpretation Comments WHITE BLOOD CELL (test code = WBC) 6.70 x10 3/uL 4.5-11.0 N RED BLOOD CELL (test code = RBC) 3.23 x10 6/uL 3.54-5.02 L HEMOGLOBIN (test code = HGB) 10.0 g/dL 11.0-15.0 L HEMATOCRIT (test code = HCT) 33.9 % 33.0-45.0 N MEAN CELL VOLUME (test code = MCV) 105.0 fL 81.0-99.0 H MEAN CELL HGB (test code = MCH) 31.0 pg 27.0-33.0 N MEAN CELL HGB CONCETRATION (test code = MCHC) 29.5 g/dL 33.0-37. 0 L RED CELL DISTRIBUTION WIDTH CV (test code = RDW) 14.6 % 11.5- 14.5 H RED CELL DISTRIBUTION WIDTH SD (test code = RDW-SD) 56.2 fL 37 .0-54.0 H PLATELET COUNT (test code = PLT) 252 x10 3/uL 150-400 N MEAN PLATELET VOLUME (test code = MPV) 9.6 fL 7.0-9.0 H NEUTROPHIL % (test code = NT%) 66.9 % 56.0-77.0 N IMMATURE GRANULOCYTE % (test code = IG%) 0.3 % 0.0-2.0 N LYMPHOCYTE % (test code = LY%) 22.8 % 14.0-32.0 N MONOCYTE % (test code = MO%) 7.8 % 4.8-9.0 N EOSINOPHIL % (test code = EO%) 1.8 % 0.3-3.7 N BASOPHIL % (test code = BA%) 0.4 % 0.0-2.0 N NUCLEATED RBC % (test code = NRBC%) 0.0 % 0-0 N NEUTROPHIL # (test code = NT#) 4.48 x10 3/uL 2.0-7.6 N IMMATURE GRANULOCYTE # (test code = IG#) 0.02 x10 3/uL 0.00-0.03 N LYMPHOCYTE # (test code = LY#) 1.53 x10 3/uL 1.0-3.8 N MONOCYTE # (test code = MO#) 0.52 x10 3/uL 0.1-0.8 N EOSINOPHIL # (test code = EO#) 0.12 x10 3/uL 0.0-0.2 N BASOPHIL # (test code = BA#) 0.03 x10 3/uL 0.0-0.2 N NUCLEATED RBC # (test code = NRBC#) 0.00 x10 3/uL 0.0-0.1 N MANUAL DIFF REQUIRED (test code = MDIFF) NO [id number] 18:26:00* Test Item Value Reference Range Interpretation Comments GLUBED (test code = GLUBED) 102 MG/DL 70-110 N Performed by certified swing type lathe operator at [facility] [id number] 13:05:00* Test Item Value Reference Range Interpretation Comments GLUBED (test code = GLUBED) 110 MG/DL 70-110 N Performed by certified swing type lathe operator at [facility] [id number] 09:27:00* Test Item Value Reference Range Interpretation Comments GLUBED (test code = GLUBED) 90 MG/DL 70-110 N Performed by certified swing type lathe operator at [facility] [id number] 07:27:00* Test Item Value Reference Range Interpretation Comments GLUBED (test code = GLUBED) 93 MG/DL 70-110 N Performed by certified swing type lathe operator at [facility] [id number] 07:27:00* Test Item Value Reference Range Interpretation Comments GLUBED (test code = GLUBED) 47 MG/DL 70-110 L Performed by certified swing type lathe operator at [facility] [id number] 17:16:00* Test Item Value Reference Range Interpretation Comments GLUBED (test code = GLUBED) 102 MG/DL 70-110 N Performed by certified swing type lathe operator at [facility] [id number] 12:29:00* Test Item Value Reference Range Interpretation Comments GLUBED (test code = GLUBED) 158 MG/DL 70-110 H Performed by certified swing type lathe operator at [facility] [id number] 09:31:00* Test Item Value Reference Range Interpretation Comments GLUBED (test code = GLUBED) 92 MG/DL 70-110 N Performed by certified swing type lathe operator at [facility] CBC W/AUTO [id number] 08:59:00* Test Item Value Reference Range Interpretation Comments WHITE BLOOD CELL (test code = WBC) 8.10 x10 3/uL 4.5-11.0 N RED BLOOD CELL (test code = RBC) 2.95 x10 6/uL 3.54-5.02 L HEMOGLOBIN (test code = HGB) 9.1 g/dL 11.0-15.0 L HEMATOCRIT (test code = HCT) 30.8 % 33.0-45.0 L MEAN CELL VOLUME (test code = MCV) 104.4 fL 81.0-99.0 H MEAN CELL HGB (test code = MCH) 30.8 pg 27.0-33.0 N MEAN CELL HGB CONCETRATION (test code = MCHC) 29.5 g/dL 33.0-37. 0 L RED CELL DISTRIBUTION WIDTH CV (test code = RDW) 14.6 % 11.5- 14.5 H RED CELL DISTRIBUTION WIDTH SD (test code = RDW-SD) 56.5 fL 37 .0-54.0 H PLATELET COUNT (test code = PLT) 256 x10 3/uL 150-400 N MEAN PLATELET VOLUME (test code = MPV) 9.7 fL 7.0-9.0 H NEUTROPHIL % (test code = NT%) 65.1 % 56.0-77.0 N IMMATURE GRANULOCYTE % (test code = IG%) 0.5 % 0.0-2.0 N LYMPHOCYTE % (test code = LY%) 18.5 % 14.0-32.0 N MONOCYTE % (test code = MO%) 8.9 % 4.8-9.0 N EOSINOPHIL % (test code = EO%) 6.3 % 0.3-3.7 H BASOPHIL % (test code = BA%) 0.7 % 0.0-2.0 N NUCLEATED RBC % (test code = NRBC%) 0.0 % 0-0 N NEUTROPHIL # (test code = NT#) 5.27 x10 3/uL 2.0-7.6 N IMMATURE GRANULOCYTE # (test code = IG#) 0.04 x10 3/uL 0.00-0.03 H LYMPHOCYTE # (test code = LY#) 1.50 x10 3/uL 1.0-3.8 N MONOCYTE # (test code = MO#) 0.72 x10 3/uL 0.1-0.8 N EOSINOPHIL # (test code = EO#) 0.51 x10 3/uL 0.0-0.2 H BASOPHIL # (test code = BA#) 0.06 x10 3/uL 0.0-0.2 N NUCLEATED RBC # (test code = NRBC#) 0.00 x10 3/uL 0.0-0.1 N MANUAL DIFF REQUIRED (test code = MDIFF) NO BASIC METABOLIC [id number] 08:09:00* Test Item Value Reference Range Interpretation Comments SODIUM (test code = NA) 133 mEq/L 134-147 L POTASSIUM (test code = K) 5.0 mEq/L 3.4-5.0 N CHLORIDE (test code = CL) 96 mEq/L 100-108 L CARBON DIOXIDE (test code = CO2) 27 mEq/L 21-33 N ANION GAP (test code = GAP) 15 0-20 N GLUCOSE (test code = GLU) 118 mg/dL 70-110 H BLOOD UREA NITROGEN (test code = BUN) 40 mg/dL 7-18 H GLOMERULAR FILTRATION RATE (test code = GFR) 5.5 80-90 L Units of measure = ml/min/1.73 m2 CREATININE (test code = CREAT) 7.5 mg/dL 0.6-1.3 H CALCIUM (test code = CA) 9.1 mg/dL 8.0-10.5 N [id number] 08:09:00* Test Item Value Reference Range Interpretation Comments PHOSPHOROUS (test code = PHOS) 6.0 MG/DL 2.5-4.9 H [id number] 20:44:00* Test Item Value Reference Range Interpretation Comments GLUBED (test code = GLUBED) 162 MG/DL 70-110 H Performed by certified swing type lathe operator at [facility] [id number] 18:08:00* Test Item Value Reference Range Interpretation Comments GLUBED (test code = GLUBED) 106 MG/DL 70-110 N Performed by certified swing type lathe operator at [facility] [id number] 13:04:00* Test Item Value Reference Range Interpretation Comments GLUBED (test code = GLUBED) 99 MG/DL 70-110 N Performed by certified swing type lathe operator at [facility] [id number] 08:04:00* Test Item Value Reference Range Interpretation Comments GLUBED (test code = GLUBED) 167 MG/DL 70-110 H Performed by certified swing type lathe operator at [facility] [id number] 21:31:00* Test Item Value Reference Range Interpretation Comments GLUBED (test code = GLUBED) 183 MG/DL 70-110 H Performed by certified swing type lathe operator at [facility] [id number] 18:26:00* Test Item Value Reference Range Interpretation Comments GLUBED (test code = GLUBED) 142 MG/DL 70-110 H Performed by certified swing type lathe operator at [facility] [id number] 15:40:00* Test Item Value Reference Range Interpretation Comments GLUBED (test code = GLUBED) 162 MG/DL 70-110 H Performed by certified swing type lathe operator at [facility] [id number] 08:46:00* Test Item Value Reference Range Interpretation Comments GLUBED (test code = GLUBED) 74 MG/DL 70-110 N Performed by certified swing type lathe operator at [facility] CBC W/AUTO [id number] 08:12:00* Test Item Value Reference Range Interpretation Comments WHITE BLOOD CELL (test code = WBC) 6.73 x10 3/uL 4.5-11.0 N RED BLOOD CELL (test code = RBC) 3.61 x10 6/uL 3.54-5.02 N HEMOGLOBIN (test code = HGB) 11.2 g/dL 11.0-15.0 N HEMATOCRIT (test code = HCT) 36.5 % 33.0-45.0 N MEAN CELL VOLUME (test code = MCV) 101.1 fL 81.0-99.0 H MEAN CELL HGB (test code = MCH) 31.0 pg 27.0-33.0 N MEAN CELL HGB CONCETRATION (test code = MCHC) 30.7 g/dL 33.0-37. 0 L RED CELL DISTRIBUTION WIDTH CV (test code = RDW) 14.6 % 11.5- 14.5 H RED CELL DISTRIBUTION WIDTH SD (test code = RDW-SD) 54.5 fL 37 .0-54.0 H PLATELET COUNT (test code = PLT) 227 x10 3/uL 150-400 N MEAN PLATELET VOLUME (test code = MPV) 10.1 fL 7.0-9.0 H NEUTROPHIL % (test code = NT%) 59.0 % 56.0-77.0 N IMMATURE GRANULOCYTE % (test code = IG%) 0.1 % 0.0-2.0 N LYMPHOCYTE % (test code = LY%) 26.2 % 14.0-32.0 N MONOCYTE % (test code = MO%) 8.5 % 4.8-9.0 N EOSINOPHIL % (test code = EO%) 5.5 % 0.3-3.7 H BASOPHIL % (test code = BA%) 0.7 % 0.0-2.0 N NUCLEATED RBC % (test code = NRBC%) 0.0 % 0-0 N NEUTROPHIL # (test code = NT#) 3.97 x10 3/uL 2.0-7.6 N IMMATURE GRANULOCYTE # (test code = IG#) 0.01 x10 3/uL 0.00-0.03 N LYMPHOCYTE # (test code = LY#) 1.76 x10 3/uL 1.0-3.8 N MONOCYTE # (test code = MO#) 0.57 x10 3/uL 0.1-0.8 N EOSINOPHIL # (test code = EO#) 0.37 x10 3/uL 0.0-0.2 H BASOPHIL # (test code = BA#) 0.05 x10 3/uL 0.0-0.2 N NUCLEATED RBC # (test code = NRBC#) 0.00 x10 3/uL 0.0-0.1 N MANUAL DIFF REQUIRED (test code = MDIFF) NO BASIC METABOLIC [id number] 07:43:00* Test Item Value Reference Range Interpretation Comments SODIUM (test code = NA) 131 mEq/L 134-147 L POTASSIUM (test code = K) 5.2 mEq/L 3.4-5.0 H CHLORIDE (test code = CL) 95 mEq/L 100-108 L CARBON DIOXIDE (test code = CO2) 25 mEq/L 21-33 N ANION GAP (test code = GAP) 16 0-20 N GLUCOSE (test code = GLU) 60 mg/dL 70-110 L BLOOD UREA NITROGEN (test code = BUN) 43 mg/dL 7-18 H GLOMERULAR FILTRATION RATE (test code = GFR) 5.0 80-90 L Units of measure = ml/min/1.73 m2 CREATININE (test code = CREAT) 8.2 mg/dL 0.6-1.3 H CALCIUM (test code = CA) 9.0 mg/dL 8.0-10.5 N [id number] 07:43:00* Test Item Value Reference Range Interpretation Comments PHOSPHOROUS (test code = PHOS) 6.8 MG/DL 2.5-4.9 H [id number] 07:08:00* Test Item Value Reference Range Interpretation Comments GLUBED (test code = GLUBED) 184 MG/DL 70-110 H Performed by certified swing type lathe operator at [facility] [id number] 20:58:00* Test Item Value Reference Range Interpretation Comments GLUBED (test code = GLUBED) 166 MG/DL 70-110 H Performed by certified swing type lathe operator at [facility] [id number] 18:14:00* Test Item Value Reference Range Interpretation Comments GLUBED (test code = GLUBED) 119 MG/DL 70-110 H Performed by certified swing type lathe operator at [facility] [id number] 12:22:00* Test Item Value Reference Range Interpretation Comments GLUBED (test code = GLUBED) 192 MG/DL 70-110 H Performed by certified swing type lathe operator at [facility] [id number] 08:42:00* Test Item Value Reference Range Interpretation Comments GLUBED (test code = GLUBED) 58 MG/DL 70-110 L Performed by certified swing type lathe operator at [facility] [id number] 06:18:00* Test Item Value Reference Range Interpretation Comments VANCOMYCIN (test code = VANCO) 22.1 mcg/mL [id number] 17:46:00* Test Item Value Reference Range Interpretation Comments GLUBED (test code = GLUBED) 188 MG/DL 70-110 H Performed by certified swing type lathe operator at [facility] [id number] 12:50:00* Test Item Value Reference Range Interpretation Comments GLUBED (test code = GLUBED) 140 MG/DL 70-110 H Performed by certified swing type lathe operator at [facility] [id number] 08:36:00* Test Item Value Reference Range Interpretation Comments GLUBED (test code = GLUBED) 111 MG/DL 70-110 H Performed by certified swing type lathe operator at [facility] [id number] 20:11:00* Test Item Value Reference Range Interpretation Comments GLUBED (test code = GLUBED) 225 MG/DL 70-110 H Performed by certified swing type lathe operator at [facility] [id number] 18:13:00* Test Item Value Reference Range Interpretation Comments GLUBED (test code = GLUBED) 112 MG/DL 70-110 H Performed by certified swing type lathe operator at [facility] [id number] 13:51:00* Test Item Value Reference Range Interpretation Comments GLUBED (test code = GLUBED) 165 MG/DL 70-110 H Performed by certified swing type lathe operator at [facility] [id number] 10:06:00* Test Item Value Reference Range Interpretation Comments VANCOMYCIN (test code = VANCO) 31.3 mcg/mL BASIC METABOLIC [id number] 10:05:00* Test Item Value Reference Range Interpretation Comments SODIUM (test code = NA) 132 mEq/L 134-147 L POTASSIUM (test code = K) 5.0 mEq/L 3.4-5.0 N CHLORIDE (test code = CL) 97 mEq/L 100-108 L CARBON DIOXIDE (test code = CO2) 27 mEq/L 21-33 N ANION GAP (test code = GAP) 13 0-20 N GLUCOSE (test code = GLU) 225 mg/dL 70-110 H BLOOD UREA NITROGEN (test code = BUN) 42 mg/dL 7-18 H GLOMERULAR FILTRATION RATE (test code = GFR) 5.2 80-90 L Units of measure = ml/min/1.73 m2 CREATININE (test code = CREAT) 7.9 mg/dL 0.6-1.3 H CALCIUM (test code = CA) 9.1 mg/dL 8.0-10.5 N [id number] 10:05:00* Test Item Value Reference Range Interpretation Comments PHOSPHOROUS (test code = PHOS) 6.7 MG/DL 2.5-4.9 H CBC W/AUTO [id number] 09:51:00* Test Item Value Reference Range Interpretation Comments WHITE BLOOD CELL (test code = WBC) 8.10 x10 3/uL 4.5-11.0 N RED BLOOD CELL (test code = RBC) 3.01 x10 6/uL 3.54-5.02 L HEMOGLOBIN (test code = HGB) 9.7 g/dL 11.0-15.0 L HEMATOCRIT (test code = HCT) 30.6 % 33.0-45.0 L MEAN CELL VOLUME (test code = MCV) 101.7 fL 81.0-99.0 H MEAN CELL HGB (test code = MCH) 32.2 pg 27.0-33.0 N MEAN CELL HGB CONCETRATION (test code = MCHC) 31.7 g/dL 33.0-37. 0 L RED CELL DISTRIBUTION WIDTH CV (test code = RDW) 15.4 % 11.5- 14.5 H RED CELL DISTRIBUTION WIDTH SD (test code = RDW-SD) 56.8 fL 37 .0-54.0 H PLATELET COUNT (test code = PLT) 253 x10 3/uL 150-400 N MEAN PLATELET VOLUME (test code = MPV) 10.0 fL 7.0-9.0 H NEUTROPHIL % (test code = NT%) 64.3 % 56.0-77.0 N IMMATURE GRANULOCYTE % (test code = IG%) 0.2 % 0.0-2.0 N LYMPHOCYTE % (test code = LY%) 21.6 % 14.0-32.0 N MONOCYTE % (test code = MO%) 9.0 % 4.8-9.0 N EOSINOPHIL % (test code = EO%) 4.4 % 0.3-3.7 H BASOPHIL % (test code = BA%) 0.5 % 0.0-2.0 N NUCLEATED RBC % (test code = NRBC%) 0.0 % 0-0 N NEUTROPHIL # (test code = NT#) 5.20 x10 3/uL 2.0-7.6 N IMMATURE GRANULOCYTE # (test code = IG#) 0.02 x10 3/uL 0.00-0.03 N LYMPHOCYTE # (test code = LY#) 1.75 x10 3/uL 1.0-3.8 N MONOCYTE # (test code = MO#) 0.73 x10 3/uL 0.1-0.8 N EOSINOPHIL # (test code = EO#) 0.36 x10 3/uL 0.0-0.2 H BASOPHIL # (test code = BA#) 0.04 x10 3/uL 0.0-0.2 N NUCLEATED RBC # (test code = NRBC#) 0.00 x10 3/uL 0.0-0.1 N MANUAL DIFF REQUIRED (test code = MDIFF) NO [id number] 08:28:00* Test Item Value Reference Range Interpretation Comments GLUBED (test code = GLUBED) 104 MG/DL 70-110 N Performed by certified swing type lathe operator at [facility] [id number] 20:07:00* Test Item Value Reference Range Interpretation Comments GLUBED (test code = GLUBED) 142 MG/DL 70-110 H Performed by certified swing type lathe operator at [facility] - XR CHEST 1 [id number] 18:51:00 FAX: Raleigh Wong MD [phone] [place]: St: ADM FAX: Camelia Morgan [phone] Name: ANDIE ZABALA [facility] : 1955 Age/S: 63/F [address] [place] [address] Unit #: [id number] Loc: [place] [id number] Phys: Raleigh Marshall MD Acct: [id number] Dis Date: Status: ADM IN PHONE #: [phone] Exam Date: 05/05/20191915 FAX #: [phone] Reason: line EXAMS: CPT CODE: [id number] XR CHEST 1 V 61805 Chest, single view dated 05/05/2019. HISTORY: Line placement. Comparison is made to a prior study dated 04/30/2019. Since the prior study there has been interval placement of a left jugular central venous line whose tip projects in the right atrium. A pneumothorax is not identified. The heart appears enlarged. The cardiomediastinal shadow is stable. The lungs demonstrate increasing pulmonary vascular congestion. No acute pleural space abnormalities are identified. An expandable vascular stent is again noted in the left axilla. IMPRESSION: 1. Left jugular central line placement. No pneumothorax. 2. Cardiomegaly with increasing pulmonary vascular congestion. SL: 131 at 185 Reported and signed by: Chaparro Littlejohn M.D. CC: Raleigh Marshall MD; Neha Morgan MD Technologist: Ann rCowell, RT(R)(M) Trnscrd Date/Time/By: 05/05/2019 (1850) : By: Erika Orig Print D/T: S: 05/05/2019 (1915) PAGE 1 Signed Report [id number] 16:40:00* Test Item Value Reference Range Interpretation Comments GLUBED (test code = GLUBED) 87 MG/DL 70-110 N Performed by certified swing type lathe operator at [facility] [id number] 12:02:00* Test Item Value Reference Range Interpretation Comments GLUBED (test code = GLUBED) 91 MG/DL 70-110 N Performed by certified swing type lathe operator at [facility] CBC W/AUTO [id number] 10:29:00* Test Item Value Reference Range Interpretation Comments WHITE BLOOD CELL (test code = WBC) 8.05 x10 3/uL 4.5-11.0 N RED BLOOD CELL (test code = RBC) 3.35 x10 6/uL 3.54-5.02 L HEMOGLOBIN (test code = HGB) 10.3 g/dL 11.0-15.0 L HEMATOCRIT (test code = HCT) 34.2 % 33.0-45.0 N MEAN CELL VOLUME (test code = MCV) 102.1 fL 81.0-99.0 H MEAN CELL HGB (test code = MCH) 30.7 pg 27.0-33.0 N MEAN CELL HGB CONCETRATION (test code = MCHC) 30.1 g/dL 33.0-37. 0 L RED CELL DISTRIBUTION WIDTH CV (test code = RDW) 15.1 % 11.5- 14.5 H RED CELL DISTRIBUTION WIDTH SD (test code = RDW-SD) 57.0 fL 37 .0-54.0 H PLATELET COUNT (test code = PLT) 278 x10 3/uL 150-400 N MEAN PLATELET VOLUME (test code = MPV) 10.3 fL 7.0-9.0 H NEUTROPHIL % (test code = NT%) 63.9 % 56.0-77.0 N IMMATURE GRANULOCYTE % (test code = IG%) 0.4 % 0.0-2.0 N LYMPHOCYTE % (test code = LY%) 22.2 % 14.0-32.0 N MONOCYTE % (test code = MO%) 10.2 % 4.8-9.0 H EOSINOPHIL % (test code = EO%) 2.7 % 0.3-3.7 N BASOPHIL % (test code = BA%) 0.6 % 0.0-2.0 N NUCLEATED RBC % (test code = NRBC%) 0.0 % 0-0 N NEUTROPHIL # (test code = NT#) 5.14 x10 3/uL 2.0-7.6 N IMMATURE GRANULOCYTE # (test code = IG#) 0.03 x10 3/uL 0.00-0.03 N LYMPHOCYTE # (test code = LY#) 1.79 x10 3/uL 1.0-3.8 N MONOCYTE # (test code = MO#) 0.82 x10 3/uL 0.1-0.8 H EOSINOPHIL # (test code = EO#) 0.22 x10 3/uL 0.0-0.2 H BASOPHIL # (test code = BA#) 0.05 x10 3/uL 0.0-0.2 N NUCLEATED RBC # (test code = NRBC#) 0.00 x10 3/uL 0.0-0.1 N MANUAL DIFF REQUIRED (test code = MDIFF) NO BASIC METABOLIC [id number] 10:23:00* Test Item Value Reference Range Interpretation Comments SODIUM (test code = NA) 134 mEq/L 134-147 N POTASSIUM (test code = K) 5.0 mEq/L 3.4-5.0 N CHLORIDE (test code = CL) 97 mEq/L 100-108 L CARBON DIOXIDE (test code = CO2) 29 mEq/L 21-33 N ANION GAP (test code = GAP) 13 0-20 N GLUCOSE (test code = GLU) 99 mg/dL 70-110 N BLOOD UREA NITROGEN (test code = BUN) 29 mg/dL 7-18 H GLOMERULAR FILTRATION RATE (test code = GFR) 7.0 80-90 L Units of measure = ml/min/1.73 m2 CREATININE (test code = CREAT) 6.1 mg/dL 0.6-1.3 H CALCIUM (test code = CA) 9.5 mg/dL 8.0-10.5 N [id number] 08:39:00* Test Item Value Reference Range Interpretation Comments GLUBED (test code = GLUBED) 103 MG/DL 70-110 N Performed by certified swing type lathe operator at [facility] [id number] 00:23:00* Test Item Value Reference Range Interpretation Comments GLUBED (test code = GLUBED) 170 MG/DL 70-110 H Performed by certified swing type lathe operator at [facility] [id number] 17:49:00* Test Item Value Reference Range Interpretation Comments GLUBED (test code = GLUBED) 140 MG/DL 70-110 H Performed by certified swing type lathe operator at [facility] [id number] 16:38:00* Test Item Value Reference Range Interpretation Comments GLUBED (test code = GLUBED) 177 MG/DL 70-110 H Performed by certified swing type lathe operator at [facility] [id number] 07:52:00* Test Item Value Reference Range Interpretation Comments GLUBED (test code = GLUBED) 76 MG/DL 70-110 N Performed by certified swing type lathe operator at [facility] BASIC METABOLIC [id number] 04:56:00* Test Item Value Reference Range Interpretation Comments SODIUM (test code = NA) 134 mEq/L 134-147 N POTASSIUM (test code = K) 5.3 mEq/L 3.4-5.0 H CHLORIDE (test code = CL) 100 mEq/L 100-108 N CARBON DIOXIDE (test code = CO2) 25 mEq/L 21-33 N ANION GAP (test code = GAP) 14 0-20 N GLUCOSE (test code = GLU) 112 mg/dL 70-110 H BLOOD UREA NITROGEN (test code = BUN) 42 mg/dL 7-18 H GLOMERULAR FILTRATION RATE (test code = GFR) 5.3 80-90 L Units of measure = ml/min/1.73 m2 CREATININE (test code = CREAT) 7.7 mg/dL 0.6-1.3 H CALCIUM (test code = CA) 9.1 mg/dL 8.0-10.5 N [id number] 20:23:00* Test Item Value Reference Range Interpretation Comments GLUBED (test code = GLUBED) 134 MG/DL 70-110 H Performed by certified swing type lathe operator at [facility] [id number] 17:15:00* Test Item Value Reference Range Interpretation Comments GLUBED (test code = GLUBED) 98 MG/DL 70-110 N Performed by certified swing type lathe operator at [facility] [id number] 12:27:00* Test Item Value Reference Range Interpretation Comments GLUBED (test code = GLUBED) 189 MG/DL 70-110 H Performed by certified swing type lathe operator at [facility] [id number] 10:19:00* Test Item Value Reference Range Interpretation Comments GLUBED (test code = GLUBED) 90 MG/DL 70-110 N Performed by certified swing type lathe operator at [facility] [id number] 20:38:00* Test Item Value Reference Range Interpretation Comments GLUBED (test code = GLUBED) 147 MG/DL 70-110 H Performed by certified swing type lathe operator at [facility] [id number] 16:14:00* Test Item Value Reference Range Interpretation Comments GLUBED (test code = GLUBED) 154 MG/DL 70-110 H Performed by certified swing type lathe operator at [facility] [id number] 13:03:00* Test Item Value Reference Range Interpretation Comments GLUBED (test code = GLUBED) 178 MG/DL 70-110 H Performed by certified swing type lathe operator at [facility] [id number] 10:06:00* Test Item Value Reference Range Interpretation Comments GLUBED (test code = GLUBED) 82 MG/DL 70-110 N Performed by certified swing type lathe operator at [facility] CBC W/AUTO [id number] 08:44:00* Test Item Value Reference Range Interpretation Comments WHITE BLOOD CELL (test code = WBC) 7.68 x10 3/uL 4.5-11.0 N RED BLOOD CELL (test code = RBC) 3.14 x10 6/uL 3.54-5.02 L HEMOGLOBIN (test code = HGB) 9.7 g/dL 11.0-15.0 L HEMATOCRIT (test code = HCT) 32.5 % 33.0-45.0 L MEAN CELL VOLUME (test code = MCV) 103.5 fL 81.0-99.0 H MEAN CELL HGB (test code = MCH) 30.9 pg 27.0-33.0 N MEAN CELL HGB CONCETRATION (test code = MCHC) 29.8 g/dL 33.0-37. 0 L RED CELL DISTRIBUTION WIDTH CV (test code = RDW) 15.4 % 11.5- 14.5 H RED CELL DISTRIBUTION WIDTH SD (test code = RDW-SD) 58.4 fL 37 .0-54.0 H PLATELET COUNT (test code = PLT) 248 x10 3/uL 150-400 N MEAN PLATELET VOLUME (test code = MPV) 10.4 fL 7.0-9.0 H NEUTROPHIL % (test code = NT%) 68.3 % 56.0-77.0 N IMMATURE GRANULOCYTE % (test code = IG%) 0.1 % 0.0-2.0 N LYMPHOCYTE % (test code = LY%) 16.8 % 14.0-32.0 N MONOCYTE % (test code = MO%) 10.7 % 4.8-9.0 H EOSINOPHIL % (test code = EO%) 3.3 % 0.3-3.7 N BASOPHIL % (test code = BA%) 0.8 % 0.0-2.0 N NUCLEATED RBC % (test code = NRBC%) 0.0 % 0-0 N NEUTROPHIL # (test code = NT#) 5.25 x10 3/uL 2.0-7.6 N IMMATURE GRANULOCYTE # (test code = IG#) 0.01 x10 3/uL 0.00-0.03 N LYMPHOCYTE # (test code = LY#) 1.29 x10 3/uL 1.0-3.8 N MONOCYTE # (test code = MO#) 0.82 x10 3/uL 0.1-0.8 H EOSINOPHIL # (test code = EO#) 0.25 x10 3/uL 0.0-0.2 H BASOPHIL # (test code = BA#) 0.06 x10 3/uL 0.0-0.2 N NUCLEATED RBC # (test code = NRBC#) 0.00 x10 3/uL 0.0-0.1 N MANUAL DIFF REQUIRED (test code = MDIFF) NO BASIC METABOLIC [id number] 08:44:00* Test Item Value Reference Range Interpretation Comments SODIUM (test code = NA) 134 mEq/L 134-147 N POTASSIUM (test code = K) 5.1 mEq/L 3.4-5.0 H CHLORIDE (test code = CL) 100 mEq/L 100-108 N CARBON DIOXIDE (test code = CO2) 24 mEq/L 21-33 N ANION GAP (test code = GAP) 15 0-20 N GLUCOSE (test code = GLU) 78 mg/dL 70-110 N BLOOD UREA NITROGEN (test code = BUN) 59 mg/dL 7-18 H GLOMERULAR FILTRATION RATE (test code = GFR) 4.3 80-90 L Units of measure = ml/min/1.73 m2 CREATININE (test code = CREAT) 9.3 mg/dL 0.6-1.3 H CALCIUM (test code = CA) 8.6 mg/dL 8.0-10.5 N [id number] 08:44:00* Test Item Value Reference Range Interpretation Comments PHOSPHOROUS (test code = PHOS) 7.4 MG/DL 2.5-4.9 H [id number] 23:42:00* Test Item Value Reference Range Interpretation Comments GLUBED (test code = GLUBED) 218 MG/DL 70-110 H Performed by certified swing type lathe operator at [facility] [id number] 15:00:00* Test Item Value Reference Range Interpretation Comments GLUBED (test code = GLUBED) 107 MG/DL 70-110 N Performed by certified swing type lathe operator at [facility] [id number] 12:26:00* Test Item Value Reference Range Interpretation Comments GLUBED (test code = GLUBED) 103 MG/DL 70-110 N Performed by certified swing type lathe operator at [facility] [id number] 10:31:00* Test Item Value Reference Range Interpretation Comments GLUBED (test code = GLUBED) 107 MG/DL 70-110 N Performed by certified swing type lathe operator at [facility] [id number] 10:31:00* Test Item Value Reference Range Interpretation Comments GLUBED (test code = GLUBED) 211 MG/DL 70-110 H Performed by certified swing type lathe operator at [facility] BASIC METABOLIC [id number] 08:46:00* Test Item Value Reference Range Interpretation Comments SODIUM (test code = NA) 136 mEq/L 134-147 N POTASSIUM (test code = K) 4.9 mEq/L 3.4-5.0 N CHLORIDE (test code = CL) 100 mEq/L 100-108 N CARBON DIOXIDE (test code = CO2) 25 mEq/L 21-33 N ANION GAP (test code = GAP) 16 0-20 N GLUCOSE (test code = GLU) 100 mg/dL 70-110 BLOOD UREA NITROGEN (test code = BUN) 46 mg/dL 7-18 H GLOMERULAR FILTRATION RATE (test code = GFR) 5.1 80-90 L Units of measure = ml/min/1.73 m2 CREATININE (test code = CREAT) 8.0 mg/dL 0.6-1.3 H CALCIUM (test code = CA) 8.8 mg/dL 8.0-10.5 N [id number] 08:28:00* Test Item Value Reference Range Interpretation Comments GLUBED (test code = GLUBED) 125 MG/DL 70-110 H Performed by certified swing type lathe operator at [facility] PROTHROMBIN [id number] 07:17:00* Test Item Value Reference Range Interpretation Comments PROTHROMBIN TIME PATIENT (test code = PTP) 12.6 SECONDS 9.3-12.9 N INTERNATIONAL NORMAL RATIO (test code = INR) 1.2 0.8-1.2 N TARGET INR BY INDICATION Indication INR1. Prophylaxis of venous thrombosis 2.0 - 3.0 (orthopedic surgery), Prophylaxis of venous thrombosis (other than high-risk surgery), Treatment of Deep Vein Thrombosis/Pulmonary Embolism, Prevention of systemic embolism - Tissue heart valves, Acute Myocardial Infarction (to prevent systemic embolism), Valvular heart disease, Atrial Fibrillation, Bileaflet mechanical valve in aortic position.2. Mechanical prosthetic valves (high risk), 2.5 - 3.5 Presence of Lupus Anticoagulant or Antiphospholipid Antibodies, Prevention of systemic embolism - Acute Myocardial Infarction (to prevent recurrent infarct). THROMBOPLASTIN TIME [id number] 07:17:00* Test Item Value Reference Range Interpretation Comments THROMBOPLASTIN TIME PARTIAL (test code = PTT) 31.0 Seconds 25.0-39. 5 N Therapeutic Range: 50.4 - 88.3 Seconds Effective 07/19/2018 CBC W/AUTO [id number] 07:16:00* Test Item Value Reference Range Interpretation Comments WHITE BLOOD CELL (test code = WBC) 8.71 x10 3/uL 4.5-11.0 N RED BLOOD CELL (test code = RBC) 3.14 x10 6/uL 3.54-5.02 L HEMOGLOBIN (test code = HGB) 9.7 g/dL 11.0-15.0 L HEMATOCRIT (test code = HCT) 32.6 % 33.0-45.0 L MEAN CELL VOLUME (test code = MCV) 103.8 fL 81.0-99.0 H MEAN CELL HGB (test code = MCH) 30.9 pg 27.0-33.0 N MEAN CELL HGB CONCETRATION (test code = MCHC) 29.8 g/dL 33.0-37. 0 L RED CELL DISTRIBUTION WIDTH CV (test code = RDW) 15.6 % 11.5- 14.5 H RED CELL DISTRIBUTION WIDTH SD (test code = RDW-SD) 59.7 fL 37 .0-54.0 H PLATELET COUNT (test code = PLT) 248 x10 3/uL 150-400 N MEAN PLATELET VOLUME (test code = MPV) 10.3 fL 7.0-9.0 H NEUTROPHIL % (test code = NT%) 64.5 % 56.0-77.0 N IMMATURE GRANULOCYTE % (test code = IG%) 0.2 % 0.0-2.0 N LYMPHOCYTE % (test code = LY%) 24.1 % 14.0-32.0 N MONOCYTE % (test code = MO%) 7.7 % 4.8-9.0 N EOSINOPHIL % (test code = EO%) 3.0 % 0.3-3.7 N BASOPHIL % (test code = BA%) 0.5 % 0.0-2.0 N NUCLEATED RBC % (test code = NRBC%) 0.0 % 0-0 N NEUTROPHIL # (test code = NT#) 5.62 x10 3/uL 2.0-7.6 N IMMATURE GRANULOCYTE # (test code = IG#) 0.02 x10 3/uL 0.00-0.03 N LYMPHOCYTE # (test code = LY#) 2.10 x10 3/uL 1.0-3.8 N MONOCYTE # (test code = MO#) 0.67 x10 3/uL 0.1-0.8 N EOSINOPHIL # (test code = EO#) 0.26 x10 3/uL 0.0-0.2 H BASOPHIL # (test code = BA#) 0.04 x10 3/uL 0.0-0.2 N NUCLEATED RBC # (test code = NRBC#) 0.00 x10 3/uL 0.0-0.1 N MANUAL DIFF REQUIRED (test code = MDIFF) NO BASIC METABOLIC [id number] 20:56:00* Test Item Value Reference Range Interpretation Comments SODIUM (test code = NA) 133 mEq/L 134-147 L POTASSIUM (test code = K) 4.5 mEq/L 3.4-5.0 N CHLORIDE (test code = CL) 98 mEq/L 100-108 L CARBON DIOXIDE (test code = CO2) 29 mEq/L 21-33 N ANION GAP (test code = GAP) 11 0-20 N GLUCOSE (test code = GLU) 169 mg/dL 70-110 H BLOOD UREA NITROGEN (test code = BUN) 42 mg/dL 7-18 H GLOMERULAR FILTRATION RATE (test code = GFR) 5.4 80-90 L Units of measure = ml/min/1.73 m2 CREATININE (test code = CREAT) 7.6 mg/dL 0.6-1.3 H CALCIUM (test code = CA) 9.2 mg/dL 8.0-10.5 N PROTHROMBIN [id number] 20:54:00* Test Item Value Reference Range Interpretation Comments PROTHROMBIN TIME PATIENT (test code = PTP) 12.4 SECONDS 9.3-12.9 N INTERNATIONAL NORMAL RATIO (test code = INR) 1.1 0.8-1.2 N TARGET INR BY INDICATION Indication INR1. Prophylaxis of venous thrombosis 2.0 - 3.0 (orthopedic surgery), Prophylaxis of venous thrombosis (other than high-risk surgery), Treatment of Deep Vein Thrombosis/Pulmonary Embolism, Prevention of systemic embolism - Tissue heart valves, Acute Myocardial Infarction (to prevent systemic embolism), Valvular heart disease, Atrial Fibrillation, Bileaflet mechanical valve in aortic position.2. Mechanical prosthetic valves (high risk), 2.5 - 3.5 Presence of Lupus Anticoagulant or Antiphospholipid Antibodies, Prevention of systemic embolism - Acute Myocardial Infarction (to prevent recurrent infarct). THROMBOPLASTIN TIME [id number] 20:54:00* Test Item Value Reference Range Interpretation Comments THROMBOPLASTIN TIME PARTIAL (test code = PTT) 34.4 Seconds 25.0-39. 5 N Therapeutic Range: 50.4 - 88.3 Seconds Effective 07/19/2018 BASIC METABOLIC [id number] 20:46:00* Test Item Value Reference Range Interpretation Comments SODIUM (test code = NA) 133 mEq/L 134-147 L POTASSIUM (test code = K) 4.5 mEq/L 3.4-5.0 N CHLORIDE (test code = CL) 98 mEq/L 100-108 L CARBON DIOXIDE (test code = CO2) 29 mEq/L 21-33 N ANION GAP (test code = GAP) 11 0-20 N GLUCOSE (test code = GLU) 169 mg/dL 70-110 H BLOOD UREA NITROGEN (test code = BUN) 42 mg/dL 7-18 H GLOMERULAR FILTRATION RATE (test code = GFR) 80-90 CREATININE (test code = CREAT) mg/dL 0.6-1.3 CALCIUM (test code = CA) 9.2 mg/dL 8.0-10.5 N CBC W/AUTO [id number] 20:38:00* Test Item Value Reference Range Interpretation Comments WHITE BLOOD CELL (test code = WBC) 8.87 x10 3/uL 4.5-11.0 N RED BLOOD CELL (test code = RBC) 3.50 x10 6/uL 3.54-5.02 L HEMOGLOBIN (test code = HGB) 10.9 g/dL 11.0-15.0 L HEMATOCRIT (test code = HCT) 36.5 % 33.0-45.0 N MEAN CELL VOLUME (test code = MCV) 104.3 fL 81.0-99.0 H MEAN CELL HGB (test code = MCH) 31.1 pg 27.0-33.0 N MEAN CELL HGB CONCETRATION (test code = MCHC) 29.9 g/dL 33.0-37. 0 L RED CELL DISTRIBUTION WIDTH CV (test code = RDW) 15.4 % 11.5- 14.5 H RED CELL DISTRIBUTION WIDTH SD (test code = RDW-SD) 59.0 fL 37 .0-54.0 H PLATELET COUNT (test code = PLT) 259 x10 3/uL 150-400 N MEAN PLATELET VOLUME (test code = MPV) 9.5 fL 7.0-9.0 H NEUTROPHIL % (test code = NT%) 74.0 % 56.0-77.0 N IMMATURE GRANULOCYTE % (test code = IG%) 0.5 % 0.0-2.0 N LYMPHOCYTE % (test code = LY%) 15.4 % 14.0-32.0 N MONOCYTE % (test code = MO%) 7.0 % 4.8-9.0 N EOSINOPHIL % (test code = EO%) 2.5 % 0.3-3.7 N BASOPHIL % (test code = BA%) 0.6 % 0.0-2.0 N NUCLEATED RBC % (test code = NRBC%) 0.0 % 0-0 N NEUTROPHIL # (test code = NT#) 6.57 x10 3/uL 2.0-7.6 N IMMATURE GRANULOCYTE # (test code = IG#) 0.04 x10 3/uL 0.00-0.03 H LYMPHOCYTE # (test code = LY#) 1.37 x10 3/uL 1.0-3.8 N MONOCYTE # (test code = MO#) 0.62 x10 3/uL 0.1-0.8 N EOSINOPHIL # (test code = EO#) 0.22 x10 3/uL 0.0-0.2 H BASOPHIL # (test code = BA#) 0.05 x10 3/uL 0.0-0.2 N NUCLEATED RBC # (test code = NRBC#) 0.00 x10 3/uL 0.0-0.1 N MANUAL DIFF REQUIRED (test code = MDIFF) NO [id number] 17:32:00* Test Item Value Reference Range Interpretation Comments GLUBED (test code = GLUBED) 138 MG/DL 70-110 H Performed by certified swing type lathe operator at [facility] [id number] 12:17:00* Test Item Value Reference Range Interpretation Comments GLUBED (test code = GLUBED) 117 MG/DL 70-110 H Performed by certified swing type lathe operator at [facility] - XR CHEST 1 [id number] 11:47:00 FAX: Taylor Childers [phone] [place]: St: [facility] FAX: Camelia Morgan [phone] Name: ANDIE ZABALA [facility] : 1955 Age/S: 63/F [address] [place] [address] Unit #: [id number] Loc: [address] [address] Phys: Taylor Childers CRNA Acct: [id number] Dis Date: Status: ADM IN PHONE #: [phone] Exam Date: 04/30/2019 1104 FAX #: [phone] Reason: PREOP EXAMS: CPT CODE: [id number] XR CHEST 1 V 30298 CLINICAL HISTORY:PREOP COMPARISON:NONE Frontal film of the chest performed at 1054 on April 30, 2019 demonstrates stent in left axillary region. Cardiac silhouette is borderline enlarged with prominent left ventricular contour. This is at least in part related to AP projection and degree of inspiration. Lung martins are clear. There is no evidence of pneumonia or congestive failure. IMPRESSION: Borderline cardiomegaly without pneumonia or congestive failure. at 1144 Reported and signed by: Phong Lemus M.D. CC: Taylor Childers ALLOCATIONS CLERK; Neha Morgan MD Technologist: Claudia Suarez RT(R) Trnscrd Date/Time/By: 04/30/2019 (3004) : By: Vadim Orig Print D/T: S: 04/30/2019 (1417) PAGE 1 Signed Report - XR CHEST 1 [id number] 11:47:00 FAX: Taylor Childers [phone] [place]: St: ADM FAX: Camelia Morgan [phone] Name: SAGRARIOANDIE CASAS [facility] : 1955 Age/S: 63/F [address] [place] [address] Unit #: [id number] Loc: G.[address] [facility] [address] Phys: Taylor Childers CRNA Acct: [id number] Dis Date: Status: ADM IN PHONE #: [phone] Exam Date: 04/30/2019 1104 FAX #: [phone] Reason: PREOP EXAMS: CPT CODE: [id number] XR CHEST 1 V 00543 CLINICAL HISTORY:PREOP COMPARISON:NONE Frontal film of the chest performed at 1054 on April 30, 2019 demons trates stent in left axillary region. Cardiac silhouette is border line enlarged with prominent left ventricular contour. This is at least i n part related to AP projection and degree of inspiration. L philippe martins are clear. There is no evidence of pneumonia or congestive tamara lure. IMPRESSION: Borderline cardiomegaly without pneumonia or c ongestive failure. at 1147 Reported and signed by: Phong blanton M.D. CC: Taylor Childers CRNA; Neha Morgan MD Technologist: Claudia Suarez RT(R) Trnscrd Date/Time/By: 04/30/2019 (9996) : By: Vadim Orig Print D/T : S: 04/30/2019 (3522) PAGE 1 Sig yaneth Report [id number] 08:34:00* Test Item Value Reference Range Interpretation Comments GLUBED (test code = GLUBED) 79 MG/DL 70-110 N Performed by certified swing type lathe operator at [facility] [id number] 08:31:00* Test Item Value Reference Range Interpretation Comments GLUBED (test code = GLUBED) 59 MG/DL 70-110 L Performed by certified swing type lathe operator at [facility] [id number] 20:37:00* Test Item Value Reference Range Interpretation Comments GLUBED (test code = GLUBED) 160 MG/DL 70-110 H Performed by certified swing type lathe operator at [facility] - DUP LE ART [id number] 12:15:00 Name: ANDIE ZABALA [facility] : 1955 Age/S: 63 / F [address] [place] [address] Unit #: [id number] Loc: [place] [address] Phys: Luke Boykin DPM Acct: [id number] Dis Date: Status: ADM IN PHONE #: [phone] Exam Date: 04/29/2019 1037 FAX #: [phone] Reason: ULCERS EXAMS: CPT CODE: [id number] DUP LE ART JASPAL [address] PROCEDURE: BILATERAL LOWER EXTREMITY ARTERIAL DOPPLER INDICATION: Right foot ulcer nonhealing. Diabetes. Peripheral vascular disease with previous vascular surgery and stent placement, unknown location. COMPARISON: None. TECHNIQUE: Duplex imaging of the bilateral lower extremity arteries was performed. FINDINGS: RIGHT: PRESSURES: Not obtained ZEHRA: Right common femoral artery demonstrating atherosclerosis. Multiphasic waveform. Right femoral artery demonstrating atherosclerosis. Monophasic waveform. Right popliteal artery stranding atherosclerosis. Monophasic severely dampened waveform. Right posterior tibial artery demonstrating atherosclerosis with monophasic dampened waveform. Right dorsalis pedis artery demonstrating at herosclerosis with monophasic dampened waveform. LEFT: PRESSURES: Not obtained ZEHRA: Left common femoral artery demonstrating atherosclerosis. Monophasic waveform. Left femoral artery demonstrating atherosclerosis. Monophasic waveform. Left pop liteal artery demonstrating atherosclerosis. Monophasic waveform. L eft posterior tibial artery demonstrate atherosclerosis. Monophasic wavef orm. Left dorsalis pedis artery demonstrating atherosclerosis. Monophasic waveform. IMPRESSION: PAGE 1 Signed Report (CONTINUED) Name: ANDIE ZABALA [facility] : 1955 Age/S: 63 / F [address] [place], [place] [address] Unit #: [id number] Loc: [facility] JAYME [address] Phys: Luke Boykin DPM Acct: [id number] Dis Date: Status: ADM IN PHONE #: [phone] Exam Date: 04/29/2019 1037 FAX #: [phone] Reason: ULCERS EXAMS: CPT CODE: [id number] DUP LE ART JASPAL 10009 <Continued> 1. Limited arterial Doppler demonstrating peripheral vascular disease. 2. On the right, evidence for hemodynamically significant femoral disease with dampened distal waveforms. Two-vessel runoff is preserved. 3. On the left, evidence for hemodynamically significant inflow disease with possible hemodynamically significant femoral disease. Two-vessel runoff is preserved. SL: KL-H at 1215 Reported and signed by: Ronal Alatorre M.D. CC: Neha Morgan MD; Luke Boykin DPM Technologist: Eleanor Roberts RDMS(Juve)(BR) Trnscb Date/Time: 04/29/2019 (121) tNABEEL Orig Print D/T: S: 04/29/2019 (121) Probe: PAGE 2 Signed Report - DUP LE ART [id number] 12:15:00 Name: ANDIE ZABALA [facility] : 1955 Age/S: 63 / F [address] [place], [place] [address] Unit #: [id number] Loc: [place] [address] Phys: Luke Boykin [facility] Acct: [id number] Dis Date: Status: ADM IN PHONE #: [phone] Exam Date: 04/29/2019 1037 FAX #: [phone] Reason: ULCERS EXAMS: CPT CODE: [id number] DUP LE ART JASPAL [address] PROCEDURE: BILATERAL LOWER EXTREMITY ARTERIAL DOPPLER INDICATION: Right foot ulcer nonhealing. Diabetes. Peripheral vascular disease with previous vascular surgery and stent placement, unknown location. COMPARISON: None. TECHNIQUE: Duplex imaging of the bilateral lower extremity arteries was performed. FINDINGS: RIGHT: PRESSURES: Not obtained ZEHRA: Right common femoral artery demonstrating atherosclerosis. Multiphasic waveform. Right femoral artery demonstrating atherosclerosis. Monophasic waveform. Right popliteal artery stranding atherosclerosis. Monophasic severely dampened waveform. Right posterior tibial artery demonstrating atherosclerosis with monophasic dampened waveform. Right dorsalis pedis artery demonstrating atherosclerosis with monophasic dampened waveform. LEFT: PRESSURES: Not obtained ZEHRA: Left common femoral artery demonstrating atherosclerosis. Monophasic waveform. Left femoral artery demonstrating atherosclerosis. Monophasic waveform. Left popliteal artery demonstrating atherosclerosis. Monophasic waveform. Left posterior tibial artery demonstrate atherosclerosis. Monophasic waveform. Left dorsalis pedis artery demonstrating atherosclerosis. Monophasic waveform. IMPRESSION: PAGE 1 Signed Report (CONTINUED) Name: ANDIE ZABALA [facility] : 1955 Age/S: 63 / F [address] [place] [address] Unit #: [id number] Loc: [place] [address] Phys: Luke Boykin [facility] Acct: [id number] Dis Date: Status: ADM IN PHONE #: [phone] Exam Date: 04/29/2019 1037 FAX #: [phone] Reason: ULCERS EXAMS: CPT CODE: [id number] DUP LE ART JASPAL [address] <Continued> 1. Limited arterial Doppler demonstrating peripheral vascular disease. 2. On the right, evidence for hemodynamically significant femoral disease with dampened distal waveforms. Two-vessel runoff is preserved. 3. On the left, evidence for hemodynamically significant inflow disease with possible hemodynamically significant femoral disease. Two-vessel runoff is preserved. SL: [place] at 1215 Reported and signed by: Ronal Alatorre M.D. CC: Neha Morgan MD; Luke Boykin DPM Technologist: Eleanor Roberts RDMS(Juve)(BR) Trnscb Date/Time: 04/29/2019 (1215) Reg Orig Print D/T: S: 04/29/2019 (3178) Probe: PAGE 2 Signed Report GLUBED 2019-04-29 08:27:00* Test Item Value Reference Range Interpretation Comments GLUBED (test code = GLUBED) 97 MG/DL 70-110 N Performed by certified swing type lathe operator at [facility] [id number] 08:27:00* Test Item Value Reference Range Interpretation Comments GLUBED (test code = GLUBED) 167 MG/DL 70-110 H Performed by certified swing type lathe operator at [facility] [id number] 08:27:00* Test Item Value Reference Range Interpretation Comments GLUBED (test code = GLUBED) 139 MG/DL 70-110 H Performed by certified swing type lathe operator at [facility] ACUTE HEPATITIS [id number] 08:10:00* Test Item Value Reference Range Interpretation Comments AB HEPATITIS A IGM (test code = HAVMAB) NON REACTIVE INDEX NON REAC T. AG HEPATITIS B SURFACE (test code = HBSAG) NON REACTIVE INDEX NonRe active AB HEPATITIS B CORE IGM (test code = HBCMAB) NON REACTIVE INDEX NON REACT. AB HEPATITIS C (test code = HCVAB) NON REACTIVE INDEX NON REACT. COMMENTS: At start of hemodialysisAB HEPATITIS B [id number] 08:10:00* Test Item Value Reference Range Interpretation Comments AB HEPATITIS B SURFACE (test code = HBSAB) 6.6 mIU/mL Immunity>9. 9 L Status of Immunity Anti-HBs Level Inconsistent with Immunity 0.0 - 9.9Consistent with Immunity >9.9Performed At: [facility] [address] [id number] Lima MD Ph:[phone] COMMENTS: At start of hemodialysis- MRI LOW EXT W/O CONT [id number] 21:04:00 FAX: Camelia Morgan [phone] [place]: St: ADM FAX: Juanpablo Mooney MD [phone] Name: ANDIE ZABALA [facility] : 1955 Age/S: 63/F [address] [place] [address] Unit #: [id number] Loc: G.[address] [place] [address] Phys: Juanpablo Bearden MD Acct: [id number] Dis Date: Status: ADM IN PHONE #: [phone] Exam Date: 04/28/20191945 FAX #: [phone] Reason: osteomyelitis EXAMS: CPT CODE: [id number] MRI LOW EXT W/[place] [address] MRI right foot without contrast INDICATION: Right foot osteomyelitis. Right hallux, right lateral heel, and right posterior heel wounds. COMPARISON: 04/28/2019 foot radiographs. TECHNIQUE: MRI of the foot is performed with triplanar T1 and fluid sens itive sequences. No contrast. FINDINGS: T2 hyperintense T1 hypointense marrow signal seen in the first distal phalanx. Lateral mid to hindfoot and posterior heel soft tissue wounds are present with mild underlying T1 hypointense T2 hyperintense soft tissue changes. T he underlying calcaneus demonstrates mild subcortical T2 hyperintense T1 h ypointense signal. No organized fluid collections in the foot. No joint effusions or dislocations. Old fracture fourth of the distal fifth metatarsal bone is present. No acute fracture is seen. Dis lobo Achilles tendon is markedly thickened and mildly heterogeneous. No te ar. Mild peroneus longus tendinopathy with intermediate signal adj acent the peroneal tubercle. Visualized flexor and extensor tendons are intact. Distal tibiofibular syndesmosis and anterior and post erior talofibular ligaments are intact. Deltoid ligament is intact. Medial band plantar fascia is thickened up to 7 mm without adjacent soft tissue edema. Plantar calcaneal spur is present. Mild to moderate degenerative changes in the midfoot and tarsometatarsal joints present. Subtalar joints and sinus tarsi are intact. IMPRESSION: 1. Findings consistent with osteomyelitis of the first distal phalanx. 2. Lateral and posterior hindfoot wounds with subtle subcortical changes consistent with mild osteomyelitis of the calcaneus. 3. No a bscess. PAGE 1 Signed Report (CONT INUED) FAX: Camelia Morgan [phone] [place]: St: ADM FA X: Juanpablo Mooney MD [phone] Name: ANDIE ZABALA [facility] : 1955 Age/S: 63/F [address] [place] [address] Unit #: [id number] Loc: [address] [address] Phys: Juanpablo Bearden MD Acct: [id number] Dis Date: Status: ADM IN PHONE #: [phone] Exam Date: 04/06 FAX #: [phone] Reason: osteomyelitis EXAMS: CPT CODE: [id number] MRI LOW EXT W/O CONT RT 73 718 <Continued> 4. Moderate to severe Achilles tendinopathy. No tear. 5. Mild peroneus longus tendinopathy. 6. Plantar calcaneal spur with chronic thickening of the medial band of the plantar fascia. 7. Old fracture deformity of the distal fifth metatarsal bone. 8. Moderate degenerative changes in the midfoot. SL: SG-H at 2104 Reported and signed by: Romaine Nieves M.D. CC: Neha Morgan MD; Juanpablo Bearden MD Technologist: Laith Cobb RT(R)(CT) Trnscrd Date/Time/By: 04/28/2019 (2103) : By: [email or web address] Orig Print D/T: S: 04/28/2019 (2107) PAGE 2 Signed Report - MRI LOW EXT W/O CONT [id number] 21:04:00 FAX: Camelia Morgan [phone] [place]: St: ADM FAX: Juanpablo Mooney MD [phone] Name: ANDIE ZABALA [facility] : 1955 Age/S: 63/F [address] [place] [address] Unit #: [id number] Loc: G.44[address] [place] [address] Phys: Juanpablo Bearden MD Acct: [id number] Dis Date: Status: ADM IN PHONE #: [phone] Exam Date: 04/28/20191945 FAX #: [phone] Reason: osteomyelitis EXAMS: CPT CODE: [id number] MRI LOW EXT W/[place] [address] MRI right foot without contrast INDICATION: Right foot osteomyelitis. Right hallux, right lateral heel, and right posterior heel wounds. COMPARISON: 04/28/2019 foot radiographs. TECHNIQUE: MRI of the foot is performed with triplanar T1 and fluid sensitive sequences. No contrast. FINDINGS: T2 hyperintense T1 hypointense marrow signal seen in the first distal phalanx. Lateral mid to hindfoot and posterior heel soft tissue wounds are present with mild underlying T1 hypointense T2 hyperintense soft tissue changes. The underlying calcaneus demonstrates mild subcortical T2 hyperintense T1 h ypointense signal. No organized fluid collections in the foot. No joint effusions or dislocations. Old fracture fourth of the distal fifth metatarsal bone is present. No acute fracture is seen. Dis lobo Achilles tendon is markedly thickened and mildly heterogeneous. No te ar. Mild peroneus longus tendinopathy with intermediate signal adj acent the peroneal tubercle. Visualized flexor and extensor tendons are intact. Distal tibiofibular syndesmosis and anterior and post erior talofibular ligaments are intact. Deltoid ligament is intact. Medial band plantar fascia is thickened up to 7 mm without adjacent soft tissue edema. Plantar calcaneal spur is present. Mild to moderate degenerative changes in the midfoot and tarsometatarsal joints present. Subtalar joints and sinus tarsi are intact. IMPRESSION: 1. Findings consistent with osteomyelitis of the first distal phalanx. 2. Lateral and posterior hindfoot wounds with subtle subcortical changes consistent with mild osteomyelitis of the calcaneus. 3. No a bscess. PAGE 1 Signed Report (CONT INUED) FAX: Jus Morganyovany [phone] [place]: St: ADM FA X: Juanpablo Mooney MD [phone] Name: ANDIE ZABALA [facility] : 1955 Age/S: 63/F [address] [place] [address] Unit #: [id number] Loc: G.[address] [place] [address] Phys: Juanpablo Bearden MD Acct: [id number] Dis Date: Status: ADM IN PHONE #: [phone] Exam Date: 04/06 FAX #: [phone] Reason: osteomyelitis EXAMS: CPT CODE: [id number] MRI LOW EXT W/O CONT RT 73 718 <Continued> 4. Moderate to severe Achilles tendinopathy. No tear. 5. Mild peroneus longus tendinopathy. 6. Plantar calcaneal spur with chronic thickening of the medial band of the plantar fascia. 7. Old fracture deformity of the distal fifth metatarsal bone. 8. Moderate degenerative changes in the midfoot. SL: SG-H at 2103 Reported and signed by: Romaine Nieves M.D. CC: Neha Morgan MD; Juanpablo Bearden MD Technologist: Laith Cobb RT(R)(CT) Trnscrd Date/Time/By: 04/28/2019 (2103) : By: [email or web address] Orig Print D/T: S: 04/28/2019 (2107) PAGE 2 Signed Report [id number] 16:34:00* Test Item Value Reference Range Interpretation Comments GLUBED (test code = GLUBED) 151 MG/DL 70-110 H Performed by certified swing type lathe operator at [facility] ACUTE HEPATITIS [id number] 14:09:00* Test Item Value Reference Range Interpretation Comments AB HEPATITIS A IGM (test code = HAVMAB) NON REACTIVE INDEX NON REAC T. AG HEPATITIS B SURFACE (test code = HBSAG) NON REACTIVE INDEX NonRe active AB HEPATITIS B CORE IGM (test code = HBCMAB) NON REACTIVE INDEX NON REACT. AB HEPATITIS C (test code = HCVAB) NON REACTIVE INDEX NON REACT. COMMENTS: At start of hemodialysisAB HEPATITIS B [id number] 14:09:00* Test Item Value Reference Range Interpretation Comments AB HEPATITIS B SURFACE (test code = HBSAB) COMMENTS: At start of hemodialysisACUTE HEPATITIS [id number] 13:37:00* Test Item Value Reference Range Interpretation Comments AB HEPATITIS A IGM (test code = HAVMAB) INDEX NON REACT. AG HEPATITIS B SURFACE (test code = HBSAG) NON REACTIVE INDEX NonRe active AB HEPATITIS B CORE IGM (test code = HBCMAB) INDEX NON REACT . AB HEPATITIS C (test code = HCVAB) INDEX NON REACT. COMMENTS: At start of hemodialysisAB HEPATITIS B [id number] 13:37:00* Test Item Value Reference Range Interpretation Comments AB HEPATITIS B SURFACE (test code = HBSAB) COMMENTS: At start of hemodialysis- XR FOOT 3 + V [id number] 12:13:00 FAX: Camelia Morgan [phone] [place]: GC St: ADM FAX: Y Luke Boykin DPM [phone] Name: ANDIE ZABALA [facility] : 1955 Age/S: 63/F [address] [place] [address] Unit #: [id number] Loc: [address] [place] [address] Phys: Luke Boykin DPM Acct: [id number] Dis Date: Status: ADM IN PHONE #: [phone] Exam Date: 04/28/2019920 FAX #: [phone] Reason: ULCERS EXAMS: CPT CODE: [id number] XR FOOT 3 + V RT [address]102 Study: - XR FOOT 3 + V RT 04/28/2019 8:27 AM Patient Name: ANDIE ZABALA MR: [id number] : 1955; Age: 63 years y/o Female Ordering Physician: Luke Boykin DPM Clinical Indica tion: ULCERS Comparison: None RIGHT FOOT, 3 views: Deformity of the distal 5th metatarsal, which may be postsurgical in nature. Irregularity at the 5th proximal phalanx base. Moderate m idfoot osteoporosis. Moderate calcaneal enthesophytes. Scattered vas cular calcifications are seen bilaterally. Mild irregularity of the dorsa l foot soft tissues. IMPRESSION: Irregularity of the distal 5th metatarsal and 5th proximal phalanx base, which may be postoperative in nature. Underlying osteomyelitis is not excluded. MRI may be performed for further evaluation. SL: [id number] Electronically Signed by Katie Elizabeth on 04/06 at 1213 Reported and signed by: Oly Cannon CC: Neha Morgan MD; Luke Boykin DPM Technolo gist: Ifrah Holt, RT(R), RTT Trnscrd Date/Time/B y: 04/28/2019 (1213) : By: [email or web address] Orig Print D/T: S: 04/28/2019 (12 16) PAGE 1 Signed Report - XR FOOT 3 + V [id number] 12:13:00 FAX: Camelia Morgan [phone] [place]: St: ADM FAX: Luke Hernandez DPM [phone] Name: ANDIE ZABALA [facility] : 1955 Age/S: 63/F [address] [place] [address] Unit #: [id number] Loc: G.4430 [facility] [address] Phys: Luke Boykin DPM Acct: [id number] Dis Date: Status: ADM IN PHONE #: [phone] Exam Date: 04/28/2019920 FAX #: [phone] Reason: ULCERS EXAMS: CPT CODE: [id number] XR FOOT 3 + V RT [address]287 Study: - XR FOOT 3 + V RT 04/28/2019 8:27 AM Patient Name: ANDIE ZABALA MR: [id number] : 1955; Age: 63 years y/o Female Ordering Physician: Luke Boykin DPM Clinical Indica tion: ULCERS Comparison: None RIGHT FOOT, 3 views: Deformity of the distal 5th metatarsal, which may be postsurgical in nature. Irregularity at the 5th proximal phalanx base. Moderate m idfoot osteoporosis. Moderate calcaneal enthesophytes. Scattered vas cular calcifications are seen bilaterally. Mild irregularity of the dorsa l foot soft tissues. IMPRESSION: Irregularity of the distal 5th metatarsal and 5th proximal phalanx base, which may be postoperative in nature. Underlying osteomyelitis is not excluded. MRI may be performed for further evaluation. SL: [id number] Electronically Signed by Katie Elizabeth on 04/06 at 1213 Reported and signed by: Oly Cannon CC: Neha Morgan MD; Luke Boykin DPM Technolo gist: Ifrah Holt, RT(R), RTT Trnscrd Date/Time/B y: 04/28/2019 (1213) : By: [email or web address] Orig Print D/T: S: 04/28/2019 (12 16) PAGE 1 Signed Report [id number] 12:01:00* Test Item Value Reference Range Interpretation Comments GLUBED (test code = GLUBED) 105 MG/DL 70-110 N Performed by certified swing type lathe operator at [facility] BASIC METABOLIC [id number] 01:38:00* Test Item Value Reference Range Interpretation Comments SODIUM (test code = NA) 136 mEq/L 134-147 N POTASSIUM (test code = K) 3.4 mEq/L 3.4-5.0 N CHLORIDE (test code = CL) 96 mEq/L 100-108 L CARBON DIOXIDE (test code = CO2) 33 mEq/L 21-33 N ANION GAP (test code = GAP) 10 0-20 N GLUCOSE (test code = GLU) 208 mg/dL 70-110 H BLOOD UREA NITROGEN (test code = BUN) 22 mg/dL 7-18 H GLOMERULAR FILTRATION RATE (test code = GFR) 7.4 80-90 L Units of measure = ml/min/1.73 m2 CREATININE (test code = CREAT) 5.8 mg/dL 0.6-1.3 H CALCIUM (test code = CA) 9.4 mg/dL 8.0-10.5 N HEPATIC FUNCTION [id number] 01:38:00* Test Item Value Reference Range Interpretation Comments TOTAL PROTEIN (test code = PROT) 8.1 g/dL 6.4-8.2 N ALBUMIN (test code = ALB) 3.20 g/dL 3.4-5.0 L BILIRUBIN TOTAL (test code = BILT) 0.4 MG/DL <1.5 N BILIRUBIN DIRECT (test code = BILD) 0.10 MG/DL 0.0-0.30 N BILIRUBIN INDIRECT (test code = BILIND) 0.30 MG/DL SGOT/AST (test code = AST) 15 IUnit/L 15-37 N SGPT/ALT (test code = ALT) 15 IUnit/L 15-65 N ALKALINE PHOSPHATASE TOTAL (test code = ALKP) 66 IUnit/L 20-125 N BASIC METABOLIC [id number] 01:31:00* Test Item Value Reference Range Interpretation Comments SODIUM (test code = NA) 136 mEq/L 134-147 N POTASSIUM (test code = K) 3.4 mEq/L 3.4-5.0 N CHLORIDE (test code = CL) 96 mEq/L 100-108 L CARBON DIOXIDE (test code = CO2) 33 mEq/L 21-33 N ANION GAP (test code = GAP) 10 0-20 N GLUCOSE (test code = GLU) 208 mg/dL 70-110 H BLOOD UREA NITROGEN (test code = BUN) 22 mg/dL 7-18 H GLOMERULAR FILTRATION RATE (test code = GFR) 80-90 CREATININE (test code = CREAT) mg/dL 0.6-1.3 CALCIUM (test code = CA) 9.4 mg/dL 8.0-10.5 N HEPATIC FUNCTION [id number] 01:31:00* Test Item Value Reference Range Interpretation Comments TOTAL PROTEIN (test code = PROT) g/dL 6.4-8.2 ALBUMIN (test code = ALB) g/dL 3.4-5.0 BILIRUBIN TOTAL (test code = BILT) MG/DL <1.5 BILIRUBIN DIRECT (test code = BILD) MG/DL 0.0-0.30 SGOT/AST (test code = AST) IUnit/L 15-37 SGPT/ALT (test code = ALT) IUnit/L 15-65 ALKALINE PHOSPHATASE TOTAL (test code = ALKP) IUnit/L 20-125 CBC W/AUTO [id number] 01:29:00* Test Item Value Reference Range Interpretation Comments WHITE BLOOD CELL (test code = WBC) 8.47 x10 3/uL 4.5-11.0 N RED BLOOD CELL (test code = RBC) 3.51 x10 6/uL 3.54-5.02 L HEMOGLOBIN (test code = HGB) 11.1 g/dL 11.0-15.0 N HEMATOCRIT (test code = HCT) 36.3 % 33.0-45.0 N MEAN CELL VOLUME (test code = MCV) 103.4 fL 81.0-99.0 H MEAN CELL HGB (test code = MCH) 31.6 pg 27.0-33.0 N MEAN CELL HGB CONCETRATION (test code = MCHC) 30.6 g/dL 33.0-37. 0 L RED CELL DISTRIBUTION WIDTH CV (test code = RDW) 15.5 % 11.5- 14.5 H RED CELL DISTRIBUTION WIDTH SD (test code = RDW-SD) 58.1 fL 37 .0-54.0 H PLATELET COUNT (test code = PLT) 299 x10 3/uL 150-400 N MEAN PLATELET VOLUME (test code = MPV) 9.7 fL 7.0-9.0 H NEUTROPHIL % (test code = NT%) 70.7 % 56.0-77.0 N IMMATURE GRANULOCYTE % (test code = IG%) 0.4 % 0.0-2.0 N LYMPHOCYTE % (test code = LY%) 18.7 % 14.0-32.0 N MONOCYTE % (test code = MO%) 7.7 % 4.8-9.0 N EOSINOPHIL % (test code = EO%) 2.1 % 0.3-3.7 N BASOPHIL % (test code = BA%) 0.4 % 0.0-2.0 N NUCLEATED RBC % (test code = NRBC%) 0.0 % 0-0 N NEUTROPHIL # (test code = NT#) 6.00 x10 3/uL 2.0-7.6 N IMMATURE GRANULOCYTE # (test code = IG#) 0.03 x10 3/uL 0.00-0.03 N LYMPHOCYTE # (test code = LY#) 1.58 x10 3/uL 1.0-3.8 N MONOCYTE # (test code = MO#) 0.65 x10 3/uL 0.1-0.8 N EOSINOPHIL # (test code = EO#) 0.18 x10 3/uL 0.0-0.2 N BASOPHIL # (test code = BA#) 0.03 x10 3/uL 0.0-0.2 N NUCLEATED RBC # (test code = NRBC#) 0.00 x10 3/uL 0.0-0.1 N MANUAL DIFF REQUIRED (test code = MDIFF) NO [id number] 00:19:00* Test Item Value Reference Range Interpretation Comments GLUBED (test code = GLUBED) 199 MG/DL 70-110 H Performed by certified swing type lathe operator at [facility] HLA TYPING [id number] 23:21:00* Test Item Value Reference Range Interpretation Comments HLA-A AG1 (test code = 3466) 2 HLA-A AG2 (test code = 3467) 2 HLA-B AG1 (test code = 3468) 52 HLA-B AG2 (test code = 3469) 61 HLA-C AG1 (test code = 3470) 9 HLA-C AG2 (test code = 3471) 10 HLA-B BW1 (test code = 3234) 4 HLA-B BW2 (test code = 3235) 6 BLANCHE (test code = BLANCHE) Disclaimer: This test was de veloped and its performance characteristics determined by the [facility]. It has not been cleared or approved by the U.S. Food and Drug Administration. The FDA has determined that such clearance or approval is not necessary. This test is used for clinical purposes. It should not be regarded as investigational or for research. This laboratory is certified under the Clinical Laboratory Improvement Amendments of 1988 (CLIA-88) as qualified to perform high complexity clinical laboratory testing. [facility] HospitalH[facility] [id number] 23:21:00* Test Item Value Reference Range Interpretation Comments HLA-DR AG1 (test code = 3465) 14 HLA-DR AG2 (test code = 3472) 8 HLA-DR AG3-1 (test code = 3238) 52 HLA-DQA1 AG 1-1 (test code = 3463) 5 HLA-DQA1 AG 1-2 (test code = 3464) 4 HLA-DQB1 AG 1-1 (test code = 3244) 7 HLA-DQB1 AG 1-2 (test code = 3245) 4 HLA-DPA1 AG 1-1 (test code = 3246) 1 HLA-DPA1 AG 1-2 (test code = 3247) 1 HLA-DPB1 AG 1-1 (test code = 3248) 04:02 HLA-DPB1 AG 1-2 (test code = 3249) 03:01 BLANCHE (test code = BLANCHE) Disclaimer: This test was de veloped and its performance characteristics determined by the [facility]. It has not been cleared or approved by the U.S. Food and Drug Administration. The FDA has determined that such clearance or approval is not necessary. This test is used for clinical purposes. It should not be regarded as investigational or for research. This laboratory is certified under the Clinical Laboratory Improvement Amendments of 1988 (CLIA-88) as qualified to perform high complexity clinical laboratory testing. [facility] HospitalAB SPECIFICITY CLASS [id number] 15:54:00* Test Item Value Reference Range Interpretation Comments AB Specificity Class I (test code = 3457) NO CLASS I A NTIBODY DETECTED WITH MFIs > 4000 BLANCHE (test code = BLANCHE) Disclaimer: This test was de veloped and its performance characteristics determined by the [facility]. It has not been cleared or approved by the U.S. Food and Drug Administration. The FDA has determined that such clearance or approval is not necessary. This test is used for clinical purposes. It should not be regarded as investigational or for research. This laboratory is certified under the Clinical Laboratory Improvement Amendments of 1988 (CLIA-88) as qualified to perform high complexity clinical laboratory testing. [facility] HospitalT Spot [id number] 18:22:00* Test Item Value Reference Range Interpretation Comments T-Spot TB (test code = 46748-5) Negative Neg Ctrl Spot Count (test code = 35165-5) 0 Panel A Spot (test code = 34681-1) 0 Panel B Spot (test code = 58970-9) [address] (test code = 95819-4) 0 Scan Result (test code = 8846897) [facility] HospitalFLOW PRA CLASS I WITH REFLEX TO ANTIBODY [id number] 11:34:00* Test Item Value Reference Range Interpretation Comments Flow Class I Percent Positive (test code = 3229) 13 BLANCHE (test code = BLANCHE) Disclaimer: This test was de veloped and its performance characteristics determined by the [facility]. It has not been cleared or approved by the U.S. Food and Drug Administration. The FDA has determined that such clearance or approval is not necessary. This test is used for clinical purposes. It should not be regarded as investigational or for research. This laboratory is certified under the Clinical Laboratory Improvement Amendments of 1988 (CLIA-88) as qualified to perform high complexity clinical laboratory testing. [facility] HospitalFLOW PRA CLASS II WITH REFLEX TO ANTIBODY [id number] 11:34:00* Test Item Value Reference Range Interpretation Comments Flow Class II Percent Positive (test code = 3231) 0 BLANCHE (test code = BLANCHE) Disclaimer: This test was de veloped and its performance characteristics determined by the [facility]. It has not been cleared or approved by the U.S. Food and Drug Administration. The FDA has determined that such clearance or approval is not necessary. This test is used for clinical purposes. It should not be regarded as investigational or for research. This laboratory is certified under the Clinical Laboratory Improvement Amendments of 1988 (CLIA-88) as qualified to perform high complexity clinical laboratory testing. [facility] HospitalU/S, ABDOMINAL, [id number] 17:13:00Reason for Exam:->Kidney transplant evaluation; comment on number of renal cysts on each side to meet criteria for Acquired Cystic Kidney DiseaseFINAL REPORT TECHNIQUE: Grayscale ultrasound of the abdomen. INDICATION: Kidney transplant evaluation; comment on number of renal cysts on each side to meet criteria for Acquired Cystic Kidney Disease. COMPARISON: None. FINDINGS: MIDLINE VASCULATURE: The visualized inferior vena cava is unremark able. Portal vein is patent. The maximum visualized aortic diameter is 1.9 cm. L IVER: Smooth liver contour. No focal lesions. The main portal vein measures 1.2 cm. BILIARY:Gallbladder: Multiple mobile structures in the gallbladder most cons istent with stones and sludge. No gallbladder wall thickening, pericholecystic f luid, or distention. Negative sonographic Streeter sign.Common bile duct measures 0.4 cm, within normal limits. No intrahepatic biliary ductal dilatation. PANCREA S: Incompletely visualized due to overlying bowel gas. Partially visualized panc reas body is unremarkable. SPLEEN: No splenomegaly. The spleen measures 10.3 cm. PERITONEUM: No free fluid. KIDNEYS: The kidneys are small with hyperechoic linda ices. No hydronephrosis. No sonographically evident solid mass lesion. Calcifica tions in the right upper pole are shadowing and measure 0.5 cm and 1.1 cm, most consistent with stones. IMPRESSION: 1.Findings of chronic medical renal disease without renal cysts. 2.Stones and sludge in the gallbladder without acute jemma cystitis. 3.Right upper pole renal stones measure up to 1.1 cm. Signed: Sukh Alvarado MDReport Verified Date/Time: 02/02/2019 17:13:31 Reading Location: [address] Radiology Reading Room abdomen [id number] 17:13:00Interface, External Ris In - 02/02/2019 5:15 PM CDTFINAL REPORT TECHNIQUE: Grayscale ultrasound of the abdomen. [...] The main portal vein measures 1.2 cm. BILIARY:Gallbladder: Mul tiple mobile structures in the gallbladder most consistent with stones and sludg e. No gallbladder wall thickening, pericholecystic fluid, or distention. Negativ e sonographic Streeter sign.Common bile duct measures 0.4 cm, within normal limits . No intrahepatic biliary ductal dilatation. PANCREAS: Incompletely visualized d ue to overlying bowel gas. Partially visualized pancreas body is unremarkable. S PLEEN: No splenomegaly. The spleen measures 10.3 cm. PERITONEUM: No free fluid. KIDNEYS: The kidneys are small with hyperechoic cortices. No hydronephrosis. No sonographically evident solid mass lesion. Calcifications in the right upper agustina e are shadowing and measure 0.5 cm and 1.1 cm, most consistent with stones. IMP RESSION: 1.Findings of chronic medical renal disease without renal cysts. 2.Ston es and sludge in the gallbladder without acute cholecystitis. 3.Right upper pole renal stones measure up to 1.1 cm. Signed: Ever Alvaradoort Verified Date/Ti me: 02/02/2019 17:13:31 Reading Location: [address] Radiology Reading Room [facility] 12 [id number] 14:20:07Interface, External Ris In - 02/02/2019 2:20 PM CDTVentricular Rate 70 BPMAtrial Rate 70 BPMP-R Interval 160 msQRS Duration 88 msQ-T Interval 434 msQTC Calculation(Bazett) 468 msP [place] 69 degreesR [place] 21 degreesT [place] 101 degreesNormal sinus rhythmNonspecific T wave abnormalityAbnormal ECGNo previous ECGs availableConfirmed by MD Hankins Roberto ([id number]) on 02/02/2019 2:20:01 PMCH[facility] 2019-02-02 12:00:00* Test Item Value Reference Range Interpretation Comments RPR (test code = 02421-8) Nonreactive Nonreactive Lab Interpretation (test code = 21883-4) Normal [facility]2019-10-[facility] 12:00:00* Test Item Value Reference Range Interpretation Comments RPR SCREEN (BEAKER) (test code = 420) Nonreactive Nonreactive RAD, CHEST, 2 [id number] 11:27:00Pre-transplant evaluation for chronic kidney diseaseFINAL REPORT INDICATION: ESRD COMPARISON: None TECHNIQUE: Frontal and lateral views of the chest. FINDINGS: Lungs and pleura: Clear lungs. No effusion.Heart and mediastinum: Normal heart size. Unremarkable mediastinal contours.Osseous structures: No acute abnormality.Additional findings: None. IMPRESSION: No acute intrathoracic abnormality. Signed: Jammie Pham Verified Date/Time: 02/02/2019 11:27:11 Reading Location: [facility] Radiology Reading Room chest 2 views 2019-02-02 11:27:00Interface, External Ris In - 02/02/2019 11:31 AM CDTFINAL REPORT INDICATION: ESRD COMPARISON: None TECHNIQUE: Frontal and lateral views of the chest. FINDINGS: Lungs and pleura: Clear lungs. No effusion.Heart and mediastinum: Normal heart size. Unremarkable mediastinal contours.Osseous structures: No acute abnormality.Additional findings: None. IMPRESSION: No acute intrathoracic abnormality. 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 Signature [facility] W/Doppler(CW/PW/Color)2019-02-02 11:25:01Ejection [facility]SST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 [...] comparison. Signature Findings Rhythm/BP Regular sinus rhythm duri ng the exam. Left Ventricle The LV endocardium is adequately visualized . The left ventricle is chamber size (by vol index) is normal (female - LVED vol - 29-61ml/m2). No evidence of LVH. All of the LV segments contract normally . LVEF by Perez's method of disk assessment is normal (55-60%). Grade 2 diastolic dysfunction (moderate ly increased LA pressure). Left Atrium LA is well visualized. LA size is severely enlarged (>48 ml/m2) . Right Ventricle The right ventricular chamber size and systolic function are within normal limits. Right Atrium RA size is normal. Atrial Septum Normal interatrial septum by available views. Aortic Valve Normal AoV structure. There is no aortic stenosis. There is trace aortic regurgitation. Mitral Valve Udeg-xz-ycbxmurs MV leaflet thickening. Mild thickening of the [...] normal and fully collapses with inspiration. The estima janes RA pressure by IVC dynamics 0-5mmHg . Chambers/Struct ures Left Atrium LA Volume: 103.82 ml LA Area: 28.33 cm^2 LA Vol. Index: 54 ml/m^2 Left Ventricle LVIDd: 4.46 cm LVEDV:101.58 ml LVIDs: 3.21 cm LV Septum Diastolic: 1.02 cm LV PW Diastol ic: 0.9 cm LV Length: 7.88 cm LVEDV [...] 2.[address] Junction: 2.43 cm Doppl er/Quantitative Measurements Mitral Valve MV Peak E-Wave: 1.21 m/s MV Peak A-Wave: 0.88 m/s E/A Ratio: 1.38 Peak Gradient: 5.88 mmHg Deceleration Time: 201.1 msec MV Laron. Peak: Tissue Doppler E' Septal Velocity: 0.06 m/s E/E': 20.51 E' Lateral Velocity: 0.06 m/s Aortic Valve Peak Velocity: 1.32 m/s Mean Velocity: 0.99 m/s Peak Gradient: 7.02 mmHg Mean Gradient: 4.25 mmHg AV Area (co ntinuity): 2.32 cm^2 AV VTI: 36.04 cm AV DVI: 0.81 LVOT Peak Velocity: 1.04 m /s Peak Gradient: 4.29 mmHg Mean Velocity: 0.73 m/s Mean Gradient: 2.41 mmHg LVOT Diameter: 1.91 cm LVOT VTI: 29.19 cm LVOT Area: 2.87 cm^2 LVOT SV:83.59 ml LVOT CO: 5.43 l/min LVOT CI: 2.8 l/min/m^2 Tricuspid Valve TR Velocity: 3.3 m/s TR Gradient: 43.65 mmHg [facility] HospitalVaricella Zoster Antibody, [id number] 11:02:00* Test Item Value Reference Range Interpretation Comments Varicella IgG (test code = 12138-2) 4.0 BLANCHE (test code = BLANCHE) VARICELLA ZOSTER RESULT INTE RPRETATIONS: <=0.8 Al Nonreactive: Presumed non-immune to VZV 0.9-1.0 Al Equivocal >=1.1 Al Reactive: Presumed immune to VZV [facility] HospitalCytomegalovirus antibody, [id number] 11:02:00* Test Item Value Reference Range Interpretation Comments CYTOMEGALOVIRUS, IGG (test code = 3429) Positive Negative, Equi vocal A BLANCHE (test code = BLANCHE) CMV IgG Result Interpretatio n: </= 0.8 Al Negative 0.9- 1.0 Al Equivocal >/=1.1 Al Positive Lab Interpretation (test code = 93583-2) Abnormal [facility] HospitalEBV-VCA antibody, [id number] 11:02:00* Test Item Value Reference Range Interpretation Comments PILAR VASQUEZ VIRAL CAPSID ANTIGEN IGG (test code = 3415) Pos itive Negative, Equivocal A BLANCHE (test code = BLANCHE) Pilar Vasquez Viral Capsid An tigen IgG Result Interpretation: </= 0.8 Al Negative 0.9-1.0 Al Equivocal >/= 1.1 Al Positive Lab Interpretation (test code = 93098-8) Abnormal [facility] HospitalEBV-VCA antibody, [id number] 11:02:00* Test Item Value Reference Range Interpretation Comments PILAR VASQUEZ VIRAL CAPSID ANTIGEN IGM (test code = 3418) Neg ative Negative, Equivocal BLANCHE (test code = BLANCHE) Pilar Vasquez Viral Capsid An tigen IgM Result Interpretation: </= 0.8 Al Negative 0.9-1.0 Al Equivocal >/= 1.1 Al Positive Lab Interpretation (test code = 59250-8) Normal [facility] HospitalCytomegalovirus antibody, [id number] 11:02:00* Test Item Value Reference Range Interpretation Comments CMV IGM (test code = 3437) Negative Negative, Equivocal BLANCHE (test code = BLANCHE) CMV IgM Result Interpretatio n: </= 0.8 Al Negative 0.9-1.0 Al Equivocal >/= 1.1 Al Positive Lab Interpretation (test code = 00009-9) Normal [facility] HospitalCYTOMEGALOVIRUS ANTIBODY, [id number] 11:02:00* Test Item Value Reference Range Interpretation Comments CYTOMEGALOVIRUS, IGG (BEAKER) (test code = 3429) Positive Negat vidal, Equivocal A CMV IgG Result Interpretation: </= 0.8 Al Negative 0.9-1.0 Al Equivocal > /=1.1 Al PositiveCYTOMEGALOVIRUS ANTIBODY, [id number] 11:02:00* Test Item Value Reference Range Interpretation Comments CYTOMEGALOVIRUS IGM ANTIBODY (BEAKER) (test code = 3437) Neg ative Negative, Equivocal CMV IgM Result Interpretation: </= 0.8 Al Negative 0.9-1.0 Al Equivocal > /= 1.1 Al PositiveEBV ANTIBODY, [id number] 11:02:00* Test Item Value Reference Range Interpretation Comments PILAR VASQUEZ VIRAL CAPSID ANTIGEN IGG (BEAKER) (test code = 3415) Positive Negative, Equivocal A Pilar Vasquez Viral Capsid Antigen IgG Result Interpretation: </= 0.8 Al Negative 0.9-1.0 Al Equivocal >/= 1.1 Al PositiveEBV ANTIBODY, [id number] 11:02:00* Test Item Value Reference Range Interpretation Comments PILAR VASQUEZ VIRAL CAPSID ANTIGEN IGM (BEAKER) (test code = 3418) Negative Negative, Equivocal Pilar Vasquez Viral Capsid Antigen IgM Result Interpretation: </= 0.8 Al Negative 0.9-1.0 Al Equivocal >/= 1.1 Al PositiveVARICELLA ZOSTER ANTIBODY, [id number] 11:02:00* Test Item Value Reference Range Interpretation Comments VARICELLA ZOSTER IGG (AL) (BEAKER) (test code = 3197) 4.0 VARICELLA ZOSTER RESULT INTERPRETATIONS: <=0.8 Al Nonreactive: Presumed non-immune to VZV 0.9-1.0 Al Equivocal >=1.1 Al Reactive: Presumed immune to VZVHemoglobin [id number] 08:38:00* Test Item Value Reference Range Interpretation Comments Hemoglobin A1C (test code = 4548-4) 6.7 % 4.3-6.1 H Lab Interpretation (test code = 92202-4) Abnormal [facility] HospitalHEMOGLOBIN [id number] 08:38:00* Test Item Value Reference Range Interpretation Comments HEMOGLOBIN A1C (BEAKER) (test code = 368) 6.7 % 4.3-6.1 H Direct AHG (PARAG)/Direct [id number] 08:33:00* Test Item Value Reference Range Interpretation Comments Direct AHG-IGG (test code = 1006-6) NEGATIVE saline control-negative Direct AHG-C3B, C3D (test code = 1003-3) NEGATVIE [facility] HospitalLactate Dehydrogenase (LDH)2019-02-02 08:15:00* Test Item Value Reference Range Interpretation Comments LDH (test code = 2532-0) 237 U/L 125-220 H Lab Interpretation (test code = 44473-4) Abnormal [facility] HospitalLACTATE DEHYDROGENASE (LDH)2019-02-02 08:15:00* Test Item Value Reference Range Interpretation Comments LACTATE DEHYDROGENASE (BEAKER) (test code = 635) 237 U/L 125-2 20 H Hepatitis B surface [id number] 08:06:00* Test Item Value Reference Range Interpretation Comments HBsAg Screen (test code = 5195-3) Nonreactive Nonreactive Lab Interpretation (test code = 66338-5) Normal [facility] HospitalHepatitis B surface [id number] 08:06:00* Test Item Value Reference Range Interpretation Comments Hep B S Ab (test code = 00893-4) 31.7 <8.0 mIU/mL H Lab Interpretation (test code = 16746-6) Abnormal [facility] HospitalHepatitis B core antibody, [id number] 08:06:00* Test Item Value Reference Range Interpretation Comments Hep B C IgM (test code = 89319-6) Nonreactive Nonreactive Lab Interpretation (test code = 70333-8) Normal [facility] HospitalHepatitis C [id number] 08:06:00* Test Item Value Reference Range Interpretation Comments Hepatitis C Ab (test code = 70132-5) Nonreactive Nonreactive Lab Interpretation (test code = 05124-6) Normal [facility] HospitalHIV-1 Antigen with HIV-1/2 [id number] 08:06:00* Test Item Value Reference Range Interpretation Comments HIV-1 Antigen with HIV 1&2 Antibody (test code = 85490-7) No nreactive Nonreactive Lab Interpretation (test code = 60720-4) Normal [facility] HospitalHEPATITIS B SURFACE [id number] 08:06:00* Test Item Value Reference Range Interpretation Comments HEPATITIS B SURFACE ANTIGEN (2) (BEAKER) (test code = 2585) Nonreactive Nonreactive HEPATITIS B SURFACE [id number] 08:06:00* Test Item Value Reference Range Interpretation Comments HEPATITIS B SURFACE ANTIBODY (BEAKER) (test code = 647) 31.7 mIU/mL <8.0 H HEPATITIS B CORE ANTIBODY, [id number] 08:06:00* Test Item Value Reference Range Interpretation Comments HEPATITIS B CORE IGM ANTIBODY (BEAKER) (test code = 645) Non reactive Nonreactive HEPATITIS C [id number] 08:06:00* Test Item Value Reference Range Interpretation Comments HEPATITIS C ANTIBODY (BEAKER) (test code = 367) Nonreactive Nonrea ctive HIV-1 ANTIGEN WITH HIV-1/2 [id number] 08:06:00* Test Item Value Reference Range Interpretation Comments HIV-1 ANTIGEN WITH HIV 1\\T\\2 ANTIBODY (2) (BEAKER) (te st code = 2586) Nonreactive Nonreactive Blood typing, [id number] 08:03:00* Test Item Value Reference Range Interpretation Comments ABO/RH AUTOMATED (BEAKER) (test code = 2260) O POSITIVE [facility], [id number] 07:50:00* Test Item Value Reference Range Interpretation Comments PTH (test code = 2731-8) 422.7 pg/mL 8.5-72.5 H Lab Interpretation (test code = 63125-3) Abnormal [facility], [id number] 07:50:00* Test Item Value Reference Range Interpretation Comments PARATHYROID HORMONE INTACT (BEAKER) (test code = 577) 422.7 pg/mL 8.5-72.5 H Comprehensive metabolic [id number] 07:47:00* Test Item Value Reference Range Interpretation Comments Protein, Total (test code = 2885-2) 7.4 6.0- 8.3 gm/dL Albumin (test code = 35391-1) 4.0 g/dL 3.5-5 Alkaline Phosphatase (test code = 6768-6) 78 U/L 40-150 Total Bilirubin (test code = 1975-2) 0.5 mg/dL 0.2-1.2 Sodium (test code = 2951-2) 135 meq/L 136-145 L Potassium (test code = 2823-3) 4.1 meq/L 3.5-5.1 Chloride (test code = 5-0) 95 meq/L 98-107 L CO2 (test code = 2027-9) 34 meq/L 22-29 H BUN (test code = 3094-0) 23 mg/dL 7-21 H Creatinine (test code = 2160-0) 4.25 mg/dL 0.57-1.25 H Glucose (test code = 2345-7) 148 mg/dL 70-105 H Calcium (test code = 56772-6) 9.4 mg/dL 8.4-10.2 AST (test code = 1920-8) 14 U/L 5-34 ALT (test code = 1742-6) 12 U/L 6-55 EGFR (test code = 34240-8) 11 mL/min/1.73 sq m ESTIMATED GFR IS NOT ACCURATE CREATININE CLEARANCE IN PREDICTING GLOMERULAR FILTRATION RATE. ESTIMATED GFR IS NOT APPLICABLE FOR DIALYSIS PATIENTS. Lab Interpretation (test code = 94368-5) [facility] [id number] 07:47:00* Test Item Value Reference Range Interpretation Comments TOTAL PROTEIN (BEAKER) (test code = 770) 7.4 gm/dL 6.0-8.3 ALBUMIN (BEAKER) (test code = 1145) 4.0 g/dL 3.5-5.0 ALKALINE PHOSPHATASE (BEAKER) (test code = 346) 78 U/L 40-150 BILIRUBIN TOTAL (BEAKER) (test code = 377) 0.5 mg/dL 0.2-1.2 SODIUM (BEAKER) (test code = 381) 135 meq/L 136-145 L POTASSIUM (BEAKER) (test code = 379) 4.1 meq/L 3.5-5.1 CHLORIDE (BEAKER) (test code = 382) 95 meq/L 98-107 L CO2 (BEAKER) (test code = 355) 34 meq/L 22-29 H BLOOD UREA NITROGEN (BEAKER) (test code = 354) 23 mg/dL 7-21 H CREATININE (BEAKER) (test code = 358) 4.25 mg/dL 0.57-1.25 H GLUCOSE RANDOM (BEAKER) (test code = 652) 148 mg/dL 70-105 H CALCIUM (BEAKER) (test code = 697) 9.4 mg/dL 8.4-10.2 AST (SGOT) (BEAKER) (test code = 353) 14 U/L 5-34 ALT (SGPT) (BEAKER) (test code = 347) 12 U/L 6-55 EGFR (BEAKER) (test code = 1092) 11 mL/min/1.73 sq m ESTIMATED GFR IS NOT ACCURATE CREATININE CLEARANCE IN PREDICTING GLOMERULAR FILTRATION RATE. ESTIMATED GFR IS NOT APPLICABLE FOR DIALYSIS PATIENTS. Lipid [id number] 07:46:00* Test Item Value Reference Range Interpretation Comments Triglycerides (test code = 2571-8) 68 mg/dL Cholesterol (test code = 2093-3) 143 mg/dL HDL (test code = 2085-9) 51 mg/dL LDL Calculated (test code = 88470-8) 78 mg/dL BLANCHE (test code = BLANCHE) Triglyceride Reference Range : Low Risk <150 Borderline 150-199 High Risk 200-499 Very High Risk >=500 Cholesterol Reference Range: Low Risk <200 Borderline 200-239 High Risk >240 HDL Cholesterol Reference Range: Low Risk >=60 High Risk <40 LDL Cholesterol Reference Range: Optimal <100 Near Optimal 100-129 Borderline 130-159 High 160-189 Very High >=190 [facility]2019-02-02 07:46:00 * Test Item Value Reference Range Interpretation Comments GGT (test code = 2324-2) 19 U/L 9-64 Lab Interpretation (test code = 80284-6) Normal [facility] 07:46:00* Test Item Value Reference Range Interpretation Comments Phosphorus (test code = 2777-1) 4.8 mg/dL 2.3-4.7 H Lab Interpretation (test code = 33208-3) Abnormal [facility] [id number] 07:46:00* Test Item Value Reference Range Interpretation Comments Uric Acid (test code = 3084-1) 3.1 mg/dL 2.6-7.2 Lab Interpretation (test code = 06122-9) Normal [facility] [id number] 07:46:00* Test Item Value Reference Range Interpretation Comments URIC ACID (BEAKER) (test code = 773) 3.1 mg/dL 2.6-7.2 [id number] 07:46:00* Test Item Value Reference Range Interpretation Comments PHOSPHORUS (BEAKER) (test code = 604) 4.8 mg/dL 2.3-4.7 H LIPID [id number] 07:46:00* Test Item Value Reference Range Interpretation Comments TRIGLYCERIDES (BEAKER) (test code = 540) 68 mg/dL CHOLESTEROL (BEAKER) (test code = 631) 143 mg/dL HDL CHOLESTEROL (BEAKER) (test code = 976) 51 mg/dL LDL CHOLESTEROL CALCULATED (BEAKER) (test code = 633) 78 mg/dL Triglyceride Reference Range: Low Risk <150 Borderline 150-199 High Risk 200-499 Very High Risk >=500Cholesterol Reference Range: Low Risk <200 Borderline 200-239 High Risk >240HDL Cholesterol Reference Range: Low Risk >=60 High Risk <40LDL Cholesterol Reference Range: Optimal <100 Near Optimal 100-129 Borderline 130-159 High 160-189 Very High >=190 GAMMA GLUTAMYL TRANSFERASE (GGT)2019-02-02 07:46:00* Test Item Value Reference Range Interpretation Comments GAMMA GLUTAMYL TRANSFERASE (BEAKER) (test code = 364) 19 U/L 9-64 PT/[id number] 07:35:00* Test Item Value Reference Range Interpretation Comments Protime (test code = 5902-2) 13.4 11.9- 14.2 seconds INR (test code = 6301-6) 1.1 <=5.9 PTT (test code = 34262-2) 37.7 22.5- 36.0 seconds H BLANCHE (test code = BLANCHE) Effective 08/31/2018: PT Refe rence Range ChangeNew: 11.9- 14.2 Previous: 11.7-14.7 RECOMMENDED COUMADIN/WARFARIN INR THERAPY RANGESSTANDARD DOSE: 2.0-3.0 Includes: PROPHYLAXIS for venous thrombosis, sys temic embolization; TREATMENT for venous thrombosis and/or pulmonary embolus.HIGH RISK: Target INR is 2.5-3.5 for patients wiht mechanical heart valves. Lab Interpretation (test code = 35439-8) Abnormal [facility][id number] 07:35:00* Test Item Value Reference Range Interpretation Comments PROTIME (BEAKER) (test code = 759) 13.4 seconds 11.9-14.2 INR (BEAKER) (test code = 370) 1.1 <=5.9 PARTIAL THROMBOPLASTIN TIME (BEAKER) (test code = 760) 37.7 seconds 22.5-36.0 H Effective 08/31/2018: PT Reference Range ChangeNew: 11.9-14.2 Previous: 11.7-14. 7RECOMMENDED COUMADIN/WARFARIN INR THERAPY RANGESSTANDARD DOSE: 2.0-3.0 Include s: PROPHYLAXIS for venous thrombosis, systemic embolization; TREATMENT for venou s thrombosis and/or pulmonary embolus.HIGH RISK: Target INR is 2.5-3.5 for patie nts wiht mechanical heart valves.CBC with platelet count + automated diff 2019-02-02 07:28:00* Test Item Value Reference Range Interpretation Comments WBC (test code = 6690-2) 7.1 3.5- 10.5 K/L RBC (test code = 789-8) 3.89 3.93- 5.22 M/L L MCHC (test code = 786-4) 31.6 32.2- 35.5 GM/DL L Hematocrit (test code = 4544-3) 38.3 % 34.1-44.9 MCV (test code = 787-2) 98.5 fL 79.4-94.8 H MCH (test code = 785-6) 31.1 pg 25.6-32.2 RDW (test code = 788-0) 14.1 % 11.7-14.4 Platelets (test code = 777-3) 192 150- 450 K/CU MM MPV (test code = 16540-5) 10.1 fL 9.4-12.3 nRBC (test code = 413) 0 0- 0 /100 WBC % Neutros (test code = 429) 64 % % Lymphs (test code = 430) 25 % % Monos (test code = 431) 9 % % Eos (test code = 432) 2 % % Baso (test code = 437) 1 % # Neutros (test code = 670) 4.54 1.56- 6.13 K/L # Lymphs (test code = 414) 1.73 1.18- 3.74 K/L # Monos (test code = 415) 0.60 0.24- 0.36 K/L H # Eos (test code = 416) 0.14 0.04- 0.36 K/L # Baso (test code = 417) 0.04 0.01- 0.08 K/L Immature Granulocytes-Relative (test code = 2801) 0 % 0-1 Lab Interpretation (test code = 60951-4) Abnormal [facility] W/PLT COUNT & AUTO [id number] 07:28:00* Test Item Value Reference Range Interpretation Comments WHITE BLOOD CELL COUNT (BEAKER) (test code = 775) 7.1 K/ L 3.5- 10.5 RED BLOOD CELL COUNT (BEAKER) (test code = 761) 3.89 M/ L 3.93-5 .22 L HEMOGLOBIN (BEAKER) (test code = 410) 12.1 GM/DL 11.2-15.7 HEMATOCRIT (BEAKER) (test code = 411) 38.3 % 34.1-44.9 MEAN CORPUSCULAR VOLUME (BEAKER) (test code = 753) 98.5 fL 79. 4-94.8 H MEAN CORPUSCULAR HEMOGLOBIN (BEAKER) (test code = 751) 31.1 pg 25.6-32.2 MEAN CORPUSCULAR HEMOGLOBIN CONC (BEAKER) (test code = 752) 31.6 GM/DL 32.2-35.5 L RED CELL DISTRIBUTION WIDTH (BEAKER) (test code = 412) 14.1 % 11.7-14.4 PLATELET COUNT (BEAKER) (test code = 756) 192 K/CU MM 150-450 MEAN PLATELET VOLUME (BEAKER) (test code = 754) 10.1 fL 9.4-12 .3 NUCLEATED RED BLOOD CELLS (BEAKER) (test code = 413) 0 /100 WBC 0 -0 NEUTROPHILS RELATIVE PERCENT (BEAKER) (test code = 429) 64 % LYMPHOCYTES RELATIVE PERCENT (BEAKER) (test code = 430) 25 % MONOCYTES RELATIVE PERCENT (BEAKER) (test code = 431) 9 % EOSINOPHILS RELATIVE PERCENT (BEAKER) (test code = 432) 2 % BASOPHILS RELATIVE PERCENT (BEAKER) (test code = 437) 1 % NEUTROPHILS ABSOLUTE COUNT (BEAKER) (test code = 670) 4.54 K/ L 1.56-6.13 LYMPHOCYTES ABSOLUTE COUNT (BEAKER) (test code = 414) 1.73 K/ L 1.18-3.74 MONOCYTES ABSOLUTE COUNT (BEAKER) (test code = 415) 0.60 K/ L 0. 24-0.36 H EOSINOPHILS ABSOLUTE COUNT (BEAKER) (test code = 416) 0.14 K/ L 0.04-0.36 BASOPHILS ABSOLUTE COUNT (BEAKER) (test code = 417) 0.04 K/ L 0. 01-0.08 IMMATURE GRANULOCYTES-RELATIVE PERCENT (BEAKER) (test code = 2801) 0 % 0-1 BONE DXA DUAL [id number] 16:16:00 [place] [address] Patient Name: ANDIE ZABALA MR #: [id number] : 1955 Age/Sex: 62/F Req #: [id number] Adm Physician: Ordered by: EVELYN CRUZ MD Report #: [id number] Location: [facility] Room/Bed: Procedure: [id number] DX/ BONE DXA DUAL ENERGY Exam Date: Exam Time: REPORT STATUS: Signed Bone density study Clinical History: Osteoporosis Bone mineral density measurement Lumbar spine 1.061 gm/cm2 Femoral neck 0.759 gm/cm2 Standard deviation from young adult population (T-score) Lumbar spine 0.1 Fem oral neck -1.0 Standard deviation for age adjusted population (Z-sc ore) Lumbar spine 1.8 Femoral neck -0.2 Comments: The ali gnment of lumbar spine and femoral necks are satisfactory. There is osteopeni a of the left femoral neck. No osteoporosis or osteopenia of the lumbar spine. Complete computer analysis will be sent shortly. Diagnostic criteria f or osteoporosis BMD: Bone mineral density Normal: BMD measurement less janette n one standard deviation from young adult population Osteopenia: BMD measure ment between 1 and 2.5 standard deviations Osteoporosis: BMD measurement great er than 2.5 standard deviations Severe osteoporosis: Osteoporosis and one or m ore fragility fractures Signed by: Dr. Donta Pratt MD on 12/01/2018 4:19 PM Dictated By: KAREN PRATT MD 18 Transcribed By: MICHAEL on 12/01/181618 COPY TO: EVELYN CRUZ MD MAMMOGRAPHY DIGITAL SCR [id number] 15:32:00 [place] [address] Patient Name: ANDIE ZABALA MR #: [id number] : 1955 Age/Sex: 62/F Req #: [id number] Adm Physician: Ordered by: EVELYN CRUZ MD Report #: [id number] Location: MAMMO Room/Bed: Procedure: [id number] MG/ MAMMOGRAPHY DIGITAL SCR BILAT Exam Date: 12/01/18 Ex am Time: 1453 REPORT STATUS: Signed #[id number] - MGSCRBIL #BILATERAL DIGITAL SCREENING MAMMOGRAM WITH C AD: 12/01/2018 CLINICAL: Routine screening. Comparison is made to exam d ated: 10/13/2016 mammogram - [facility]. Current tesfaye dy contains 4 films. There are scattered fibroglandular elements in both king asts. Current study was also evaluated with a Computer Aided Detection (CAD) system. There are benign vascular calcifications in both breasts. Benign a ppearing calcifications are noted bilaterally. No significant masses, clayton cifications, or other findings are seen in either breast. IMPRESSION: BALA IGN There is no mammographic evidence of malignancy. A 1 year screening mammo gram is recommended. The patient will be notified by letter of the results. LISSETTE GRIMM M.D. ct/gloria:12/02/2018 17:39:16 Imag ing Technologist: Mikayla Robles RT(R)(M), [facility] letter sent: Normal Exam Mammogram BI-RADS: 2 Benign Dictated By: BRITTANI GRIMM MD 38 Transcr ibed By: GLORIA on 12/02/181738 COPY TO: EVELYN CRUZ MD MAMMOGRAPHY DIGITAL SCR BILAT [place] [address] Patient Name: ANDIE ZABALA MR #: [id number] : 1955 Age/Sex: 61/F Req #: [id number] Adm Physician: Ordered by: EVELYN CRUZ MD Report #: [id number] Location: MAMMO Room/Bed: Procedure: [id number] MG/MAMMOGRAPHY DIGITAL SCR BILAT Exam Date: 10/13/16 Exam Time: 1100 REPO RT STATUS: Signed THIS REPORT HAS BEEN AMENDED. #[id number] - MGSCRBIL #BILATERAL DIGITAL SCREENING MAMMOGRAM WITH CAD: 10/13/2016 CLINICAL: Routine screening. No prior exams were available for comparison. Current study contains 4 films. There are scattered fibroglandular elements in both breas ts. Current study was also evaluated with a Computer Aided Detection (CAD) s ystem. There are benign vascular calcifications and calcifications in both b reasts. No significant masses, calcifications, or other findings are seen in either breast. IMPRESSION: BENIGN There is no mammographic evidence of malignancy. A 1 year screening mammogram is recommended. The patient will be notified by letter of the results. Sera davila/gloria:10/27/2016 09:13:50 [employer]: Mikayla Robles RT(R) (M), [facility] letter sent: Normal Exam Mammogram BI-RADS: 2 Benign AMENDMENT: 07/20/2017 Sera Palmer Jr., D.O. Comparison to outside mammograms dated 08/14/2015 from [facility] is now possible as they have become available. The dialysis catheter has been rem connor. There is no evidence of malignancy. Amended BI-RADS: [address] sent: Compared to Prior B9 Dictated By: SERA Mehta Signed By: SERA PALMER DO on 10/27/16 0913 Transcribed By: GLORIA on 07/04 10/20 1326 COPY TO: EVELYN CRUZ MD
[2020-01-11] MEDS ORDERED: SODIUM CHLORIDE FLUSH 10 ML SYR INJ PRN (18:45)
--- NOTE | 2020-01-11 18:50 | NUR ---
[facility] NOTIFIED OF NEED FOR TRANSFER TO [facility]
--- NOTE | 2020-01-11 18:53 | Emergency Department Note ---
History of Present Illnes History of Present Illness Chief Complaint: Respiratory History of Present Illness This is a 64 year old female Chief Complaint Comment PT STATES FOR LA ST FEW DAYS SHE IS HAVING sob, DENIES PAIN, PT JUST RELEASED FROM [facility] FOR A BKA OF RIGHT LEG . Historian: Patient Arrival Mode: Car Onset (how long ago): day(s) (2) Radiation: Reports non-radiation Severity: moderate Onset quality: gradual Duration (how long): day(s) (2) Timing of current episode: constant Progression: worsening Chronicity: new Context: Denies recent illness, Denies recent surgery, Denies recent immobilization, Denies recent travel, Denies trauma/injury, Denies new medications, Denies hx of DVT/PE, Denies non-compliance w/ medications, Denies other Relieving factors: none Exacerbating factors: none Associated symptoms: Reports shortness of breath; Denies denies other symptoms, Denies confusion, Denies chest pain, Denies cough, Denies diaphoresis, Denies fever/chills, Denies headaches, Denies loss of appetite, Denies malaise, Denies nausea/vomiting, Denies rash, Denies seizure, Denies syncope, Denies weakness, Denies other Treatments prior to arrival: none Past Medical/Family History Physician Review I have reviewed the patient's past medical and family history. Any updates have been documented here. Past Medical History Recent Fever: No Clinical Suspicion of Infectio: No New/Unexplained Change in Ment: No Past Medical History: Hypertension, Diabetes, CAD, Hyperlipedemia Other Medical History: hyperlipidemia, neuropathy DIALYSIS M,W,F Other Surgery: stent placement RIGHT BKA LEFT FISTULA Social History Smoking Cessation: Never Smoker Counseling Performed: No Alcohol Use: None Any Illegal Drug Use: No Physically hurt or threatened: No Other Last Tetanus: UTD Any Pre-Existing Lines (PICC,: Yes (LEFT FISTULA FOR DIALYSIS) Review of Systems Review of Systems Constitutional: Reports no symptoms EENTM: Reports no symptoms Cardiovascular: Reports no symptoms Respiratory: Reports as per HPI Gastrointestinal: Reports no symptoms Genitourinary: Reports no symptoms Musculoskeletal: Reports no symptoms Integumentary: Reports no symptoms Neurological: Reports no symptoms Psychological: Reports no symptoms Endocrine: Reports no symptoms Hematological/Lymphatic: Reports no symptoms Physical Exam Related Data Allergies: Coded Allergies: insulin regular (Verified Allergy, Unknown, SEVERE CHIN, 05/18/16) Triage Vital Signs Vital Signs Date Time Temp Pulse Resp B/P (MAP) Pulse Ox O2 Delivery O2 Flow Rate FiO2 01/11/20 17:15 98.9 80 18 175/82 96 Vital signs reviewed: Yes Physical Exam CONSTITUTIONAL Constitutional: Present well-developed, Present well-nourished; Absent obese, Absent morbidly obese, Absent cachectic, Absent diaphoretic, Absent distressed, Absent ill appearing, Absent other HENT HENT: Present normocephalic, Present atraumatic, Present oropharynx clear/moist, Present nose normal; Absent oropharynx normal, Absent mucosae dry, Absent nasal discharge, Absent nasal congestion, Absent rhinorrhea, Absent oropharyngeal exudate, Absent tonsillar excudate, Absent pharynx abnormal, Absent erythema, Absent dentition normal, Absent dental caries, Absent other HENT L/R: Present left ext ear normal, Present right ext ear normal; Absent left TM normal, Absent right TM normal, Absent left canal normal, Absent right canal normal, Absent left impacted cerumen, Absent right impacted cerumen, Absent left bulging TM, Absent right bulging TM, Absent other EYES Eyes: Reports PERRL, Reports conjunctivae normal NECK Neck: Present ROM normal; Absent supple, Absent thyromegaly, Absent tracheal deviation, Absent stridor, Absent JVD, Absent cervical adenopathy, Absent carotid bruit, Absent other PULMONARY Pulmonary: Present effort normal, Present rales CARDIOVASCULAR Cardiovascular: Present regular rhythm, Present capillary refill normal, Present normal rate, Present murmur GASTROINTESTINAL Abdominal: Present soft, Present nontender, Present bowel sounds normal; Absent distension, Absent tender, Absent guarding, Absent mass, Absent rebound, Absent hernia, Absent left CVA tenderness, Absent right CVA tenderness, Absent other GENITOURINARY Genitourinary: Present exam deferred SKIN Skin: Present warm, Present dry; Absent erythema, Absent pale, Absent rash, Absent jaundiced, Absent bruising, Absent lesion, Absent other MUSCULOSKELETAL Musculoskeletal: Present ROM normal, Present other (BKA RIGHT) NEUROLOGICAL Neurological: Present alert, Present oriented x 3, Present no gross motor or sensory deficits PSYCHOLOGICAL Psychological: Present mood/affect normal, Present judgement normal Results Laboratory Lab results reviewed: Yes Imaging Imaging results reviewed: Yes Critical Care Time Total Critical Care Time (min): 45 Critical care time exclusive o: separately billable procedures Critcal care necessary due to: cardiac failure Critcal care time spent by me: examination of patient, obtaining hx from patient/surrogate, order/perform tx or interventions, order/review laboratory studies Assessment & Plan Medical Decision Making MDM CHF PNEUMONIA Reassessment Reassessment time: 18:52 Reassessment BETTER Assessment & Plan Final Impression: (1) CHF (congestive heart failure) (2) CRF (chronic renal failure) (3) ESRD on hemodialysis (4) DM (diabetes mellitus screen) Last Vital Signs Date Time Temp Pulse Resp B/P (MAP) Pulse Ox O2 Delivery O2 Flow Rate FiO2 01/11/20 17:57 75 17 99 01/11/20 17:15 98.9 175/82 Home Meds Reported Medications Lisinopril (PRINIVIL) 20 Mg Tablet, 20 MG PEG HS 05/18/16 Clopidogrel Bisulfate (CLOPIDOGREL) 75 Mg Tablet, 75 MG PO DAILY, #30 TAB 05/18/16 Aspirin (ASPIR 81) 81 Mg Tablet.dr, 81 MG PO DAILY 05/18/16 Carvedilol (CARVEDILOL) 25 Mg Tablet, 25 MG PO BID 05/18/16 Levothyroxine Sodium (SYNTHROID) 100 Mcg Tab, 100 MCG PO DAILY, #30 TAB 05/18/16 Gabapentin (GABAPENTIN) 300 Mg Capsule, 300 MG PO QODHS, #60 CAP 09/10/15 Medications in the ED Albuterol/ Ipratropium 3 ml ONCE ONCE NEB Last administered on 01/11/20at 17:57; Admin Dose 3 ML; Start 01/11/20 at 17:30; Stop 01/11/20 at 17:31; Status DC Albuterol/ Ipratropium 3 ml STK-MED ONCE .ROUTE ; Start 01/11/20 at 17:38; Stop 01/11/20 at 17:35; Status DC Furosemide 80 mg DAILY IV ; Start 01/12/20 at 09:00; Stop 02/11/20 at 08:59 Sodium Chloride 10 ml PRN PRN INJ IV SITE FLUSH; Start 01/11/20 at 18:45; Stop 02/10/20 at 18:44; Status UNV Furosemide 80 mg Q12HR IV ; Start 01/11/20 at 21:00; Stop 02/10/20 at 20:59; Status UNV KOTORRES,TAREK MD Jan 11, 2020 18:53
--- OUTSIDE RECORDS SUMMARY | 2020-01-11 18:59 | XMS REPORT | Clinical Summary ---
Author Author [facility] Organization [facility] Address Unknown Phone Unavailable Care Team Providers Care Drug Abuse Treatment Specialist Name Role Phone PCP Unavailable Allergies Comments Active Allergy Reactions Severity Noted Date numbness Atorvastatin 07/24/2015 Medications End Date Status Medication Sig Dispensed Refills Start Date Active Jrpxv-8-FKK-EPA-Fish Oil Take 1,000 mg 60 capsule 0 [...] i 07/02/2015 Hypotension, unspecified 06/18/2015 CAD in [place] artery- s/p PCI and LUIS CARLOS to [...] Medical History Relation Name Comments Heart Mother [place] Glaucoma Sister Relation Name Status Comments Mother [...] Effective Phone Address Plan / Dates Group [facility] xxxxxxxxx 2015-P [phone] [address] MEDICARE MEDICARE resent [phone] [place] [address] [facility] xxxxxxxxx 2015-P [phone] [address] [employer] resent [id number] [place] [address] Advance Directives Date Inactivated Comments Code Status Date Activated 07/26/2015 6:21 PM Full Code 07/24/2015 4:56 PM 06/16/2012 5:12 PM Full Code 06/13/2012 10:31 PM
--- OUTSIDE RECORDS SUMMARY | 2020-01-11 18:59 | XMS REPORT | Clinical Summary ---
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 (HCC); Abnormal laboratory test 02/02/2019 Hospital Cardiology Encounter Kianna Mi MD ESRD (end stage renal disease) on dialys is (HCC); Pre-transplant evaluation for chronic kidney disease; 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, 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 skilled nursing insulin use (HCC); Abnormal laboratory test 02/02/2019 Hospital Cardiology Encounter Kianna Mi MD ESRD (end stage renal disease) on dialys is (HCC); Pre-transplant evaluation for chronic kidney disease; 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, 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 (HCC); Abnormal laboratory test 02/02/2019 Orders Only Lab Kianna Mi MD ESRD (end stage renal disease) on dialys is (HCC); Pre-transplant evaluation for chronic kidney disease; 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, 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 (HCC); Abnormal laboratory test 02/02/2019 [...] PM CDT disease) on dialysis ([facility]) Pre-transplant evaluation for chronic kidney disease 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, 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 skilled nursing insulin use ([facility]) Abnormal laboratory test XR CHEST 2 VIEWS Routine 02/02/2019 11:10 AM CDT STRESS ECHO Routine 02/02/2019 ESRD (end stage renal 9:01 AM CDT disease) on dialysis ([facility]) Pre-transplant evaluation for chronic kidney disease 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, 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 ([facility]) Abnormal laboratory test 2D ECHO W/ DOPPLER Routine 02/02/2019 ESRD (end s tage renal (CW/PW/COLOR) 8:16 AM CDT disease) on dialysi s ([facility]) Pre-transplant evaluation for chronic kidney disease 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, 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 skilled nursing insulin use ([facility]) Abnormal laboratory test ECG 12-LEAD Routine 02/02/2019 7:43 AM CDT Procedure Note - Interface, External Ris In - 02/02/2019 12:54 PM CDT Ventricula r Rate 70 BPM Atrial Rate 70 BPM P-R Interval 160 ms QRS Duration 88 ms Q-T Interval 434 ms QTC Calculatio n(Bazett) 468 ms P [place] 69 degrees R [place] 21 degrees T [place] 101 degrees Normal sinus rhythm Nonspecifi c T wave abnormalit y Abnormal ECG No previous ECGs available ECG 12-LEAD Routine 02/02/2019 ESRD (end stage renal 7:43 AM CDT disease) on dialysis ([facility]) Pre-transplant evaluation for chronic kidney disease 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, 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 ([facility]) Abnormal laboratory test CBC W/PLT COUNT & AUTO Routine 02/02/2019 ESRD (e nd stage renal DIFFERENTIAL 7:04 AM CDT disease) on dialysi s ([facility]) Pre-transplant evaluation for chronic kidney disease 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, 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 ([facility]) Abnormal laboratory test AB SPECIFICITY CLASS I Routine 02/02/2019 ESRD (e nd stage renal 7:04 AM CDT disease) on dialysis ([facility]) Pre-transplant evaluation for chronic kidney disease 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, 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 ([facility]) Abnormal laboratory test FLOW PRA CLASS II WITH Routine 02/02/2019 ESRD (e nd stage renal REFLEX TO ANTIBODY 7:04 AM CDT disease) on dialys is SPECIFICITY ([facility]) Pre-transplant evaluation for chronic kidney disease 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, 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 skilled nursing insulin use ([facility]) Abnormal laboratory test FLOW PRA CLASS I WITH Routine 02/02/2019 ESRD (en d stage renal REFLEX TO ANTIBODY 7:04 AM CDT disease) on dialys is SPECIFICITY ([facility]) Pre-transplant evaluation for chronic kidney disease 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, 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 skilled nursing insulin use ([facility]) Abnormal laboratory test HEMOGLOBIN A1C Routine 02/02/2019 ESRD (end stage renal 7:04 AM CDT disease) on dialysis ([facility]) Pre-transplant evaluation for chronic kidney disease 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, 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 ([facility]) Abnormal laboratory test RPR Routine 02/02/2019 ESRD (end stage renal 7:04 AM CDT disease) on dialysis ([facility]) Pre-transplant evaluation for chronic kidney disease 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, 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 skilled nursing insulin use ([facility]) Abnormal laboratory test PT/APTT Routine 02/02/2019 ESRD (end stage renal 7:04 AM CDT disease) on dialysis ([facility]) Pre-transplant evaluation for chronic kidney disease 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, 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 ([facility]) Abnormal laboratory test EBV ANTIBODY, IGM Routine 02/02/2019 ESRD (end st age renal 7:04 AM CDT disease) on dialysis ([facility]) Pre-transplant evaluation for chronic kidney disease 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, 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 skilled nursing insulin use ([facility]) Abnormal laboratory test EBV ANTIBODY, IGG Routine 02/02/2019 ESRD (end st age renal 7:04 AM CDT disease) on dialysis ([facility]) Pre-transplant evaluation for chronic kidney disease 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, 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 skilled nursing insulin use ([facility]) Abnormal laboratory test CYTOMEGALOVIRUS ANTIBODY, Routine 02/02/2019 ESRD (end stage renal IGM 7:04 AM CDT disease) on dialysi s ([facility]) Pre-transplant evaluation for chronic kidney disease 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, 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 skilled nursing insulin use ([facility]) Abnormal laboratory test CYTOMEGALOVIRUS ANTIBODY, Routine 02/02/2019 ESRD (end stage renal IGG 7:04 AM CDT disease) on dialysi s ([facility]) Pre-transplant evaluation for chronic kidney disease 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, 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 skilled nursing insulin use ([facility]) Abnormal laboratory test CBC W/PLT COUNT & AUTO Routine 02/02/2019 ESRD (e nd stage renal DIFFERENTIAL 7:04 AM CDT disease) on dialysi s ([facility]) Pre-transplant evaluation for chronic kidney disease 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, 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 ([facility]) Abnormal laboratory test HLA TYPING CII Routine 02/02/2019 ESRD (end stage renal 7:03 AM CDT disease) on dialysis ([facility]) Pre-transplant evaluation for chronic kidney disease 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, 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 ([facility]) Abnormal laboratory test HLA TYPING CI Routine 02/02/2019 ESRD (end stage renal 7:03 AM CDT disease) on dialysis ([facility]) Pre-transplant evaluation for chronic kidney disease 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, 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 ([facility]) Abnormal laboratory test LIPID PANEL Routine 02/02/2019 ESRD (end stage renal 7:03 AM CDT disease) on dialysis ([facility]) Pre-transplant evaluation for chronic kidney disease 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, 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 ([facility]) Abnormal laboratory test VARICELLA ZOSTER Routine 02/02/2019 ESRD (end sta ge renal ANTIBODY, IGG 7:03 AM CDT disease) on dialysi s ([facility]) Pre-transplant evaluation for chronic kidney disease 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, 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 skilled nursing insulin use ([facility]) Abnormal laboratory test URIC ACID Routine 02/02/2019 ESRD (end stage renal 7:03 AM CDT disease) on dialysis ([facility]) Pre-transplant evaluation for chronic kidney disease 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, 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 ([facility]) Abnormal laboratory test T SPOT TB Routine 02/02/2019 ESRD (end stage renal 7:03 AM CDT disease) on dialysis ([facility]) Pre-transplant evaluation for chronic kidney disease 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, 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 ([facility]) Abnormal laboratory test PTH, INTACT Routine 02/02/2019 ESRD (end stage renal 7:03 AM CDT disease) on dialysis ([facility]) Pre-transplant evaluation for chronic kidney disease 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, 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 skilled nursing insulin use ([facility]) Abnormal laboratory test PHOSPHORUS Routine 02/02/2019 ESRD (end stage renal 7:03 AM CDT disease) on dialysis ([facility]) Pre-transplant evaluation for chronic kidney disease 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, 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 ([facility]) Abnormal laboratory test LACTATE DEHYDROGENASE Routine 02/02/2019 ESRD (en d stage renal (LDH) 7:03 AM CDT disease) on dialysi s ([facility]) Pre-transplant evaluation for chronic kidney disease 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, 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 ([facility]) Abnormal laboratory test HIV-1 ANTIGEN WITH Routine 02/02/2019 ESRD (end s tage renal HIV-1/2 ANTIBODY 7:03 AM CDT disease) on dialysi s (HCC) Pre-transplant evaluation for chronic kidney disease 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, 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 (HCC) Abnormal laboratory test HEPATITIS C ANTIBODY Routine 02/02/2019 ESRD (end stage renal 7:03 AM CDT disease) on dialysis (HCC) Pre-transplant evaluation for chronic kidney disease 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, 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 (HCC) Abnormal laboratory test HEPATITIS B CORE Routine 02/02/2019 ESRD (end sta ge renal ANTIBODY, IGM 7:03 AM CDT disease) on dialysi s (HCC) Pre-transplant evaluation for chronic kidney disease 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, 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 (HCC) Abnormal laboratory test HEPATITIS B SURFACE Routine 02/02/2019 ESRD (end stage renal ANTIGEN 7:03 AM CDT disease) on dialysi s (HCC) Pre-transplant evaluation for chronic kidney disease 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, 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 (HCC) Abnormal laboratory test HEPATITIS B SURFACE Routine 02/02/2019 ESRD (end stage renal ANTIBODY 7:03 AM CDT disease) on dialysi s (HCC) Pre-transplant evaluation for chronic kidney disease 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, 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 skilled nursing insulin use (HCC) Abnormal laboratory test GAMMA GLUTAMYL Routine 02/02/2019 ESRD (end stage renal TRANSFERASE (GGT) 7:03 AM CDT disease) on dialysi s (HCC) Pre-transplant evaluation for chronic kidney disease 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, 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 (HCC) Abnormal laboratory test COMPREHENSIVE METABOLIC Routine 02/02/2019 ESRD ( end stage renal PANEL 7:03 AM CDT disease) on dialysi s (HCC) Pre-transplant evaluation for chronic kidney disease 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, 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 (HCC) Abnormal laboratory test DIRECT AHG (PARAG)/DIRECT Routine 02/02/2019 ESRD ( end stage renal LUNA 7:00 AM CDT disease) on dialysi s (HCC) Pre-transplant evaluation for chronic kidney disease 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 INDICATION: [...] MD Report Verified Date/Time: 17:13:31 Reading Location: [address] Radiolo gy Reading Room Procedure Note [...] Report Verified Date/Time: 02/02/2019 17:13:31 Reading Location: [address] Radiology Reading Room Performing Organization Address [...] MD Report Verified Date/Time: 11:27:11 Reading Location: [facility] Radiolo gy Reading Room Procedure Note Interface, [...] Report Verified Date/Time: 02/02/2019 11:27:11 Reading Location: [facility] Radiology Reading Room Performing Organization Address City/State/Zipcode Ph one Number GE RIS * Stress Echo With Tracing (02/02/2019 9:01 AM CDT) Ejection Fraction [facility] ECHO HEARTLAB [facility] Specimen Narrative Performed At Stress Echocardiography Report [facility]CHO [facility]ART[facility] Demographics [facility] Patient Name ANDIE BARTLETT Date of Study 02/02/2019 [place] [id number] GenderFemal e Visit Number [id number] RaceUnk nown [id number] Room Number OP Number Date of Birth1955 Referring Physician Kianna augustin Age63 year(s) 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 Signature Performing Organization Address City/State[facility] Number [facility] ECHO HEART[facility] [employer] [facility] * 2D Echo W/Doppler(CW/PW/Color) (02/02/2019 8:16 AM CDT) Ejection Fraction [facility]ART[facility] [employer] [facility] Specimen Narrative Performed At Transthoracic Echocardiography Report (TTE) [facility] ECH O HEARTLAB Demographics [employer] [facility] Patient Name ANDIE BARTLETT Date of Study 02/02/2019 [place] [id number] GenderFemal e Visit Number [id number] Maribel key [id number] Room Number OP Number Date of Birth1955 Referring Physician Kianna Mi Age63 year(s) 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 Mitral Valve [id number] MV leaflet thickening. Mild thickening of the [...] TR Gradient: 43.65 mmHg Performing Organization Address City/State/[facility] Ph one Number [facility] ECHO HEARTLAB [facility] [place] [employer] [facility] [employer] [facility] * ECG 12 lead (02/02/2019 7:43 AM CDT) Specimen Narrative Performed At Ventricular Rate 70 BPM GE MUSE Atrial Rate 70 BPM P-R Interval 160 ms QRS Duration 88 ms Q-T Interval 434 ms QTC Calculation(Bazett) 468 ms P [place] 69 degrees R [place] 21 degrees T [place] 101 degrees Normal sinus rhythm Nonspecific T wave abnormality Abnormal ECG No previous ECGs available Confirmed by MD Hankins Roberto ([id number]) on 02/02/2019 2:20:01 PM Procedure Note Interface, External Ris In - 02/02/2019 2:20 PM CDT Ventricular Rate 70 BPM Atrial Rate 70 BPM P-R Interval 160 ms QRS Duration 88 ms Q-T Interval 434 ms QTC Calculation(Bazett) 468 ms P [place] 69 degrees R [place] 21 degrees T [place] 101 degrees Normal sinus rhythm Nonspecific T wave abnormality Abnormal ECG No previous ECGs available Confirmed by MD Hankins Roberto ([id number]) on 02/02/2019 2:20:01 PM Performing Organization Address [facility] one Number GE MUSE * FLOW PRA CLASS II WITH REFLEX TO ANTIBODY SPECIFICITY (02/02/2019 7:04 AM CDT) Flow Class II Percent 0 [facility] HLA TESTI NG Positive Specimen Blood Narrative Performed At Disclaimer: [facility] TEST[facility] This test was developed and its perform ance characteristics determined by the [facility] Laboratory. It has not been cleared or [...] complexity clinical laboratory testing. Performing Organization Address [facility] one Number [facility] TEST[facility] ONE Joey Shira, MS: [id number], [place] [address] CLIA#[id number] CAP#[id number] UNOS#[id number] * FLOW PRA CLASS I WITH REFLEX TO ANTIBODY SPECIFICITY (02/02/2019 7:04 AM CDT) Flow Class I Percent 13 [facility] HLA TESTIN G Positive Specimen Blood Narrative Performed At Disclaimer: [facility] TEST[facility] This test was developed and its perform ance characteristics determined by the [facility] Laboratory. It has not been cleared or [...] complexity clinical laboratory testing. Performing Organization Address [facility] one Number [facility] TEST[facility] ONE Joey Silva, MS: [id number], [place] [address] CLIA#[id number] CAP#[id number] UNOS#[id number] * AB SPECIFICITY CLASS I (02/02/2019 7:04 AM CDT) AB Specificity Class I NO CLASS I ANTIBODY DETECTED [facility] TEST[facility] WITH MFIs > 4000 Specimen Blood Narrative Performed At Disclaimer: [facility] TEST[facility] This test was developed and its perform ance characteristics determined by the [facility] Laboratory. It has not been cleared or [...] complexity clinical laboratory testing. Performing Organization Address City/[facility] Ph one Number [facility] HLA TEST[facility] ONE Joey Silva, MS: [id number], [place] [id number] CLIA#[id number] CAP#[id number] UNOS#[id number] * PT/aPTT (02/02/2019 7:04 AM CDT) Protime 13.4 11.9 - 14.2 seconds [facility] INR 1.1 <=5.9 [facility] PTT 37.7 (H) 22.5 - 36.0 seconds [facility] Specimen Blood Narrative Performed At Effective 08/31/2018: PT Reference Range Change [facility] New: 11.9-14.2Previous: 11.7-14.7 [facility] MEDICAL CE NTER RECOMMENDED COUMADIN/WARFARIN INR THERA PY RANGES STANDARD DOSE: 2.0-3.0Includes: PRO PHYLAXIS for venous thrombosis, systemic embolization; TREATMENT for venous thro mbosis and/or pulmonary embolus. HIGH RISK: Target INR is 2.5-3.5 for pa tients wiht mechanical heart valves. Performing Organization Address City/[facility] Ph one Number [address] [facility] [facility]ENTER * CBC with platelet count + automated diff (02/02/2019 7:04 AM CDT) WBC 7.1 3.5 - 10.5 K/L [facility] RBC 3.89 (L) 3.93 - 5.22 M/L [facility] Hemoglobin 12.1 11.2 - 15.7 GM/DL [facility] Hematocrit 38.3 34.1 - 44.9 % [facility] MCV 98.5 (H) 79.4 - 94.8 fL [facility] MCH 31.1 25.6 - 32.2 pg [facility] MCHC 31.6 (L) 32.2 - 35.5 GM/DL [facility] RDW 14.1 11.7 - 14.4 % [facility] Platelets 192 150 - 450 K/CU MM [facility] MPV 10.1 9.4 - 12.3 fL [facility] nRBC 0 0 - 0 /100 WBC [facility] % Neutros 64 % [facility] % Lymphs 25 % [facility] % Monos 9 % [facility] % Eos 2 % [facility] % Baso 1 % [facility] # Neutros 4.54 1.56 - 6.13 K/L [facility] # Lymphs 1.73 1.18 - 3.74 K/L [facility] # Monos 0.60 (H) 0.24 - 0.36 K/L [facility] # Eos 0.14 0.04 - 0.36 K/L [facility] # Baso 0.04 0.01 - 0.08 K/L [facility] Immature 0 0 - 1 % [facility] Granulocytes-Relative [facility] Specimen Blood Performing Organization Address City/[facility] Ph one Number [place] [phone] [place] [address] * Cytomegalovirus antibody, IgM (02/02/2019 7:04 AM CDT) CMV IGM Negative Negative, Equivocal [facility] Specimen Blood Narrative Performed At CMV IgM Result Interpretation: [facility] </= 0.8 Al Negative [facility] 0.9-1.0 Al Equivocal >/= 1.1 Al Positive Performing Organization Address [facility] one Number [place] [phone] [place] [address] * EBV-VCA antibody, IgM (02/02/2019 7:04 AM CDT) PILAR DICKENS VIRAL CAPSID Negative Negative, Equivocal [facility] ANTIGEN IGM [facility] Specimen Blood Narrative Performed At [facility] Viral Capsid Antigen IgM Result Interpre tation: [facility] </= 0.8 Al Negative [facility] 0.9-1.0 Al Equivocal >/= 1.1 Al Positive Performing Organization Address City/[facility] one Number [place] [address] [address] [phone] [place] [address] * EBV-VCA antibody, IgG (02/02/2019 7:04 AM CDT) [facility]IR[facility] CAPSID Positive (A) Negative, Equivocal [facility] ANTIGEN IGG [facility] Specimen Blood Narrative Performed At [facility] Viral Capsid Antigen IgG Result Interpre tation: [facility] </= 0.8 Al Negative [facility] 0.9-1.0 Al Equivocal >/= 1.1 Al Positive Performing Organization Address City/[facility] one Number [place] [address] [facility] * RPR (02/02/2019 7:04 AM CDT) RPR Nonreactive Nonreactive [facility] Specimen Blood Performing Organization Address [facility] Ph one Number [address] 0 [phone] [place] [address] * Cytomegalovirus antibody, IgG (02/02/2019 7:04 AM CDT) CYTOMEGALOVIRUS, IGG Positive (A) Negative, Equivocal [facility] Specimen Blood Narrative Performed At CMV IgG Result Interpretation: [facility] </= 0.8 Al Negative [facility] 0.9-1.0 Al Equivocal >/=1.1 AlPositive Performing Organization Address [facility] one Number [address] 7[address] 0 [phone] [place] [address] * Hemoglobin A1c (02/02/2019 7:04 AM CDT) Hemoglobin A1C 6.7 (H) 4.3 - 6.1 % [facility] Specimen Blood Performing Organization Address City/[facility] Ph one Number [address] [facility] * HLA TYPING CII (02/02/2019 7:03 AM CDT) HLA-DR AG1 14 [facility] HLA-DR AG2 8 [facility] HLA-DR AG3-1 52 [facility] HLA-DQA1 AG 1-1 05 [facility] HLA-DQA1 AG 1-2 04 [facility] HLA-DQB1 AG 1-1 7 [facility] HLA-DQB1 AG 1-2 4 [facility] HLA-DPA1 AG 1-1 01 [facility] HLA-DPA1 AG 1-2 01 [facility] HLA-DPB1 AG 1-1 04:02 [facility] HLA-DPB1 AG 1-2 03:01 [facility] Specimen Blood Narrative Performed At Disclaimer: [facility] This test was developed and its perform ance characteristics determined by the [facility]. It has not been cleared or [...] complexity clinical laboratory testing. Performing Organization Address City/State/[facility] Ph one Number [facility] ONE Joey Silva, MS: [id number], [place] [address] CLIA#[id number] CAP#[id number] UNOS#[id number] * HLA TYPING CI (02/02/2019 7:03 AM CDT) HLA-A AG1 2 [facility] HLA-A AG2 2 [facility] HLA-B AG1 52 [facility] HLA-B AG2 61 [facility] HLA-C AG1 9 [facility] HLA-C AG2 10 [facility] HLA-B BW1 4 [facility] HLA-B BW2 6 [facility] Specimen Blood Narrative Performed At Disclaimer: [facility] This test was developed and its perform ance characteristics determined by the [facility]. It has not been cleared or [...] complexity clinical laboratory testing. Performing Organization Address City/[facility] Ph one Number [facility] ONE Joey Silva, MS: [id number], [place] [address] CLIA#[id number] CAP#[id number] UNOS#[id number] * T Spot TB (02/02/2019 7:03 [...] is n ot available. Performing Organization Address City/State/[facility] Ph one Number [facility], [address] * HIV-1 Antigen with HIV-1/2 Antibody (02/02/2019 7:03 AM CDT) HIV-1 Antigen with HIV Nonreactive Nonreactive [facility] 1&2 Antibody [facility] Specimen Blood Performing Organization Address City/[facility] one [address] [facility] * Hepatitis C Antibody (02/02/2019 7:03 AM CDT) Hepatitis C Ab Nonreactive Nonreactive [facility] Specimen Blood Performing Organization Address [facility] Ph one [address] [facility] * Hepatitis B core antibody, IgM (02/02/2019 7:03 AM CDT) Hep B C IgM Nonreactive Nonreactive [facility] Specimen Blood Performing Organization Address [facility] Ph one [address] [facility] * Hepatitis B surface antibody (02/02/2019 7:03 AM CDT) Hep B S Ab 31.7 (H) <8.0 mIU/mL [facility] Specimen Blood Performing Organization Address City/[facility] Ph one [address] [facility] * Hepatitis B surface antigen (02/02/2019 7:03 AM CDT) HBsAg Screen Nonreactive Nonreactive [facility] Specimen Blood Performing Organization Address [facility] Ph one [address] [facility] * Varicella Zoster Antibody, IgG (02/02/2019 7:03 AM CDT) Varicella IgG 4.0 [facility] Specimen Blood Narrative Performed At VARICELLA ZOSTER RESULT INTERPRETATIONS: [facility] <=0.8 AlNo nreactive:Presumed non-immune to VZV [facility] 0.9-1.0 AlEqui vocal >=1.1 AlRe active:Presumed immune to VZV Performing Organization Address [facility] one Number [address] [facility] * Uric Acid (02/02/2019 7:03 AM CDT) Uric Acid 3.1 2.6 - 7.2 mg/dL [facility] Specimen Blood Performing Organization Address [facility] one Number [address] [facility] * Phosphorus (02/02/2019 7:03 AM CDT) Phosphorus 4.8 (H) 2.3 - 4.7 mg/dL [facility] Specimen Blood Performing Organization Address [facility] one Number [address] [facility] * PTH, Intact (02/02/2019 7:03 AM CDT) PTH 422.7 (H) 8.5 - 72.5 pg/mL [facility] Specimen Blood Performing Organization Address [facility] one Number [address] [facility] * Lactate Dehydrogenase (LDH) (02/02/2019 7:03 AM CDT) LDH 237 (H) 125 - 220 U/L [facility] Specimen Blood Performing Organization Address [facility] one Number [address] [facility] * Gamma Glutamyl Transferase (GGT) (02/02/2019 7:03 AM CDT) GGT 19 9 - 64 U/L [facility] Specimen Blood Performing Organization Address [facility] one Number [address] 0 [phone] [place] [address] * Lipid panel (02/02/2019 7:03 AM CDT) Triglycerides 68 mg/dL [facility] Cholesterol 143 mg/dL [facility] HDL 51 mg/dL [facility] LDL Calculated 78 mg/dL [facility] Specimen Blood Narrative Performed At Triglyceride Reference Range: [facility] Low Risk <150 [facility] [id number] High Risk 200-499 Very High Risk>=500 Cholesterol Reference Range: Low Risk <200 [id number] High Risk>240 HDL Cholesterol Reference Range: Low Risk >=60 High Risk <40 LDL Cholesterol Reference Range: Optimal<100 Near [id number] Very High >=190 Performing Organization Address [facility] one Number [place] [address] [address] [phone] [place] [address] * Comprehensive metabolic panel (02/02/2019 7:03 AM CDT) Protein, Total 7.4 6.0 - 8.3 gm/dL [facility] Albumin 4.0 3.5 - 5.0 g/dL [facility] Alkaline Phosphatase 78 40 - 150 U/L [facility] Total Bilirubin 0.5 0.2 - 1.2 mg/dL [facility] Sodium 135 (L) 136 - 145 meq/L [facility] Potassium 4.1 3.5 - 5.1 meq/L [facility] Chloride 95 (L) 98 - 107 meq/L [facility] CO2 34 (H) 22 - 29 meq/L [facility] BUN 23 (H) 7 - 21 mg/dL [facility] Creatinine 4.25 (H) 0.57 - 1.25 mg/dL [facility] Glucose 148 (H) 70 - 105 mg/dL [facility] Calcium 9.4 8.4 - 10.2 mg/dL [facility] AST 14 5 - 34 U/L [facility] ALT 12 6 - 55 U/L [facility] EGFR 11Comment: ESTIMATED GFR IS mL/min/1.[address] [facility] NOT ACCURATE CREATININE [facility] CLEARANCE IN PREDICTING GLOMERULAR FILTRATION RATE. ESTIMATED GFR IS NOT APPLICABLE FOR DIALYSIS PATIENTS. Specimen Blood Performing Organization Address [facility] one [address] [facility] * Direct AHG (PARAG)/Direct Luna (02/02/2019 7:00 AM CDT) Direct AHG-IGG NEGATIVEComment: saline [facility] control-negative [facility] Direct AHG-C3B, C3D NEGATVIE [facility] Specimen Blood Performing Organization Address [facility] one [address] [address] [facility] * Blood typing, automated (02/02/2019 6:35 AM CDT) ABO/RH AUTOMATED (BEAKER) O POSITIVE [facility] Specimen Blood Performing Organization Address [facility] one [address] [address] [facility] after 01/10/2019 Insurance Payer Benefit Subscriber ID Type Phone Address Plan / Group [employer] - [facility] [place] xxxxxxxxx [facility] [place] RESOURCES [employer] - [employer] xxxxxxxxx Trans plant MEDICARE MGD CARE [facility] ONLY [facility] REPL MEDICAID MEDICAID xxxxxxxxx [place] [id number]
--- OUTSIDE RECORDS SUMMARY | 2020-01-11 19:01 | XMS REPORT | Continuity of Care Document ---
Author Author [facility] t Organization [facility] Address [address] [place] [address] Phone Unavailable Care Team Providers Care Tailings Man Name Role Phone EVELYN CRUZ MD PCP SERINA MCKINNON Attphys Unavailable Cheryl Graves Attphys Unavailable Aston Cabrales Attphys Unavailable Provider , Fidencio Attphys Clarence Ward Attphys Unavailable Terenec Mi MD Attphys Annie Ren MD Attphys Terence MI Attphys Unavailable EVELYN CRUZ Attphyjoey Unavailable Payers Payer Name Policy Type Policy Number Effective Date Expiration Date S ourjp [facility] - [facility] CAREUNITED HEALTHCARExxxxxxxxx xxx xxxxxx [facility] UNITED RESOURCES NETWK - MEDICARE MGD CA REOPTUM UNITED ONLY MCR REPLxxxxxxxxxTransplants xxxxxxxxx [facility] MED[place]icaid xxxxxxxxx [facility] Care Improvement Plus [id number] 2016 00:00:00 [facility] [id number] 2015 00:00 :00 [facility] [id number] [facility] Problems Condition Name Condition Details Condition Category Status Onset Date Resolution Date Last Treatment Date Treating Clinician Comments Source Osteomyelitis of right foot Osteomyelitis of right foot Disease Active 2015-12-03 00:00:00 [facility] Psoriasis Psoriasis Disease Active 2015-12-03 00:00:00 [facility] End-stage renal disease on hemodialysis ESRD on hemodialysis Proble m Active 2015-09-10 00:00:00 [facility] Local infection of wound Infected wound Problem Active 2015-09-10 00:00 :00 [facility] Screening for diabetes mellitus DM (diabetes mellitus screen) Probl em Active 2015-09-10 00:00:00 [facility] Sacral ulcer Sacral ulcer Disease Active 2015-07-26 00:00:00 [facility] ESRD (end stage renal disease) on dialysis - Mo/We/Fri ESRD (end stage renal disease) on dialysis - Mo/We/Fri Disease Active 2015-07-02 00:00:00 [facility] Hypotension, unspecified Hypotension, unspecified Disease Acti ve 2015-06-18 00:00:00 [facility] CAD in koi artery- s/p PCI and LUIS CARLOS to LAD 05/21 [place] CAD in koi artery- s/p PCI and LUIS CARLOS to LAD 05/21 [facility] Disease Active 2015-06-03 00:00:00 [facility] PVD (peripheral vascular disease)- right SFA athrectomyand angioplasty and stent placment PVD (peripheral vascular disease)- right SFA athrectomyand angioplasty and stent placment Disease Active 2015-06-03 00:00:00 [place]: [facility] Anemia of chronic kidney failure Anemia of chronic kidney failur e Disease Active 2015-01-29 00:00:00 [facility] Diabetes mellitus- nephropathy; neuropat hy, prof diab retinopathy, NPH 25 units bid Diabetes mellitus- nephropathy; neuropat hy, prof diab retinopathy, NPH 25 units bid Disease Active 2013-02-09 00:00:[address] [facility] Statin myopathy- restarted lipitor 40mg as pt had cad and s/p PCI Statin myopathy- restarted lipitor 40mg as pt had cad and s/p PCI Disease Active 2012-04-24 00:00:00 Overview: On lipitor and fenofibrate at the time of myopathy [facility] Diabetic foot ulcer Diabetic foot ulcer Disease Active 2010-10-17 00:00 :00 [facility] Diabetic neuropathy- gabapentin Diabetic neuropathy- gabapentin Di sease Active 2010-10-17 00:00:00 [facility] Hyperlipidemia Hyperlipidemia Disease Active [facility] Microalbuminuria Microalbuminuria Disease Active [facility] Hypothyroidism- synthroid 100mcg Hypothyroidism- synthroid 100mc g Disease Active [facility] Vitamin D insufficiency Vitamin D insufficiency Disease Active [facility] Allergies, Adverse Reactions, Alerts Allergy Name Allergy Type Status Severity Reaction(s) Onset Date Inacti ve Date Treating Clinician Comments Source atorvastatin DA Active 2019-04-27 00:00:00 [facility] atorvastatin DA Active [place] 2017-05-27 00:00:[address] [facility] insulin regular DA Active [place] 2017-05-27 00:00:[address] [facility] pioglitazone DA Active [place] 2017-05-27 00:00:[address] [facility] insulin regular Allergy to Substance Active SEVERE CHIN 2016-05-06 3 00:00:00 [facility] Atorvastatin Propensity to adverse reactions to drug Active 2015-07-24 00:00:00 numbness [facility] Family History Family Member Diagnosis Comments Start Date Stop Date Source Natural mother Heart [facility] Natural mother Alzheimer's disease C [facility] Natural mother Coronary artery disease [facility] Natural mother Diabetes [facility] Natural sister Glaucoma [facility] Natural sister Diabetes [facility] Natural sister Heart attack [facility] Natural brother Diabetes [facility] Natural father Coronary artery disease [facility] Natural father Diabetes [facility] Social History Social Habit Start Date Stop Date Quantity Comments Source Tobacco Comment Non Smoker [facility] Sex Assigned At [facility] Alcohol intake 2016-03-03 00:00:00 2016-03-03 00:00:00 Current non-drinker of alcohol (finding) [facility] Smoking Status Start Date Stop Date Source Never smoker [facility] Medications Ordered Medication Name Filled Medication Name Start Date Stop Da te Current Medication? Ordering Clinician Indication Dosage Frequency Signature (SIG) Comments Components Source carvedilol (COREG) 25 MG tablet 2019-02-02 15:44:58 Yes 25mg Q.5D 25 mg 2 (two) times daily. [facility] clopidogrel (PLAVIX) 75 mg tablet 2019-02-02 15:44:58 Yes 75mg QD 75 mg daily. [facility] gabapentin (NEURONTIN) 300 MG capsule 2019-02-02 15:44:57 Yes 300mg [id number] 300 mg 3 (three) times daily. [facility] lisinopril (PRINIVIL,ZESTRIL) 40 MG tablet 2019-02-02 15:44:57 Yes 40mg Q.5D 40 mg 2 (two) times daily. [facility] lidocaine-prilocaine (EMLA) 2.5-2.5 % cream 2019-01-18 00:00:00 Yes APPLY SMALL AMOUNT TO ACCESS SITE (AVF) 3 TIMES A WEEK 1 HOUR BEFORE DIALYSIS. COVER WITH OCCLUSIVE DRESSING (SARAN WRAP) [facility] levothyroxine (SYNTHROID, LEVOTHROID) 100 MCG tablet 2 00:00:00 Yes 100ug QD 100 mcg daily. [facility] atorvastatin (LIPITOR) 40 MG tablet 2018-11-24 00:00:00 Yes 40mg QD 40 mg daily. [facility] hydrALAZINE (APRESOLINE) 100 MG tablet 2018-11-24 00:00:00 Yes 100mg Q.5D 100 mg 2 (two) times daily. [facility] HUMULIN N NPH U-100 INSULIN 100 unit/mL injection 2018-11-24 00:00:00 Yes 25 units in am and 15 units in pm. [facility] SORILUX 0.005 % Foam 2018-11-24 00:00:00 Yes APPLY TO AFFECTED AREA DAILY FOR PSORIASIS. [facility] clobetasol (TEMOVATE) 0.05 % external solution 2018-11-24 00:00: 00 Yes APPLY TO AFFECTED AREA 2 TIMES A DAY TO RASH IN SCALP. [facility] DUOBRII 0.01-0.045 % Lotn 2018-11-24 00:00:00 Yes APPLY TO AFFECTED AREA DAILY FOR PSORIASIS ON ARMS, LEGS AND BODY. [facility] adalimumab (HUMIRA PEN) 40 mg/0.8 mL pen kit injection 2016-03-03 00:00:00 Yes Psoriasis vulgaris Day 1: in ject 2 syringes (80mg). Day 8: Then 1 syringe (40mg) SC q2wk. inbasket sent to 03/03/16 for [facility]cc (dermatology) [facility] clobetasol propionate (TEMOVATE E) 0.05 % emollient cream 2016-01-24 00:00:00 Yes Psoriasis Apply to areas of psoriasis only, not normal skin, 2 times per day Wednesday through Wednesday. Do not apply to face, underarms, or groin.. [facility] fluocinonide (LIDEX) 0.05 % external solution 2016-01-24 00: 00:00 Yes Psoriasis Apply to scalp 2 katt es a day; do not apply to face, axillae, groin. [facility] hydrocortisone 2.5 % topical cream 2016-01-24 00:00:00 Yes Psoriasis Apply to face, axillae, groin 2 times a day as needed. [facility] calcipotriene (DOVONEX) 0.005 % topical cream 2016-01-24 00: 00:00 Yes Psoriasis Apply to psoriasis twice daily Wednesday and Wed.. [facility] ketoconazole (NIZORAL) 2 % shampoo 2016-01-24 00:00:00 Yes Psoriasis Wash scalp 3times per week; leave on 5 minutes before rinsing. [facility] ammonium lactate (LAC-HYDRIN) 12 % lotion 2016-01-17 00:00:00 Yes Q.5D Apply to affected area 2 times daily. [facility] lancets 28 gauge 2015-11-15 00:00:00 Yes Diabetes mellitus Check blood sugar 3 times a day. [facility] ammonium lactate (AL12) 12 % lotion 2015-11-14 00:00:00 Yes Xerosis cutis Q.5D Apply to affected area 2 times daily. [facility] INSULIN SYRINGE 0.5mL 30GX5/16" (ULTRA COMFORT) syringe-need le 2015-11-14 00:00:00 Yes Type II diabetes mellitus Use to inject medication 2 times a day. Use a new syringe each time. [facility] hydrALAZINE (APRESOLINE) 10 mg tablet 2015-07-31 00:00:00 Yes Essential hypertension, benign 10mg Take 1 tablet by mouth 3 times daily. [facility] acetaminophen-codeine (TYLENOL/CODEINE #3) 300-30 mg per tab let 2015-07-31 00:00:00 Yes Chronic pain of both lower extremities 1 {tbl} Take 1 tablet by mouth 3 times daily as needed for Pain. [facility] zinc oxide 20 % ointment 2015-07-26 00:00:00 Yes Sacral ulcer, with unspecified severity Apply to affected area see administration instruction. [facility] insulin NPH (NOVOLIN N) 100 unit/mL injection 2015-07-26 00:00:0 0 Yes Inject 25 units under the skin every morning and 15 units every evening. [facility] levothyroxine (SYNTHROID) 100 mcg tablet 2015-07-12 00:00:00 Yes Hypothyroidism 100ug QD Take 1 tablet by jovi th every morning (before breakfast). [facility] blood glucose (PRECISION XTRA TEST STRIPS) test strips 2015-07-10 00:00:00 Yes Type 2 diabetes mellitus with complication Use as directed to check blood sugars 2 times daily.. [facility] atorvastatin (LIPITOR) 40 mg tablet 2015-07-02 00:00:00 Yes PVD (peripheral vascular disease) 40mg Take 1 tablet by m outh at bedtime nightly. [facility] clopidogrel (PLAVIX) 75 mg tablet 2015-07-02 00:00:00 Yes PVD (peripheral vascular disease) 75mg QD Take 1 tablet by mouth daily. [facility] gabapentin (NEURONTIN) 300 mg capsule 2015-07-02 00:00:00 Yes Leg pain, bilateral 300mg Take 1 capsule by mouth every other day At bedt teo. [facility] carvedilol (COREG) 25 mg tablet 2015-07-02 00:00:00 Yes Essential hypertension, benign 25mg Take 1 tablet by mouth 2 ti mes daily (with meals). [facility] Wheel Chair Dolores 2015-05-09 00:00:00 Yes Mahamed n in both lower extremities by Misc.(Non-Drug; Combo Route) route. [facility] ergocalciferol (VITAMIN D2) 50,000 unit capsule 2015-04-02 0 0:00:00 Yes Vitamin D deficiency 29916F Take 1 capsule by mouth weekly. [facility] albuterol (PROVENTIL HFA) 90 mcg/actuation inhaler 2015-01 00:00:00 Yes Community acquired pneumonia 2{puff} Inh trinity 2 Puffs by mouth 4 times daily as needed for Wheezing. [facility] triamcinolone (KENALOG) 0.025 % topical cream 2014-11-07 00: 00:00 Yes Lipodermatosclerosis Apply to affected a reas on body only 2 times a day; not for face, axillae, groin. [facility] mupirocin (BACTROBAN) 2 % ointment 2014-07-30 00:00:00 Yes Diabetic Foot Ulcers Apply a small amount to wound daily and cover with gauze, needs appointment prior to next refill. [facility] ASPIRIN EC (ASPIR-LOW) 81 mg delayed release tablet 09-05 00:00:00 Yes Diabetes mellitus type II 81mg QD Take 1 tablet by mouth simi mathew. [facility] Ivxyt-3-QPF-EPA-Fish Oil 1,000 (120-180) mg cap 2012-06-17 0 0:00:00 Yes Hyperlipidemia 1000mg QD Take 1,000 mg by mouth daily. [facility] Aspirin (Aspir 81) 81 Mg Tablet. Aspirin (Aspir 81) 81 Mg Tablet. Yes 81 Daily [facility] Carvedilol 25 Mg Tablet Carvedilol 25 Mg Tablet Yes 25 Twice A Day [facility] Clopidogrel Bisulfate (Clopidogrel) 75 Mg Tablet Clopi dogrel Bisulfate (Clopidogrel) 75 Mg Tablet Yes 75 Daily [facility] Gabapentin 300 Mg Capsule Gabapentin 300 Mg Capsule Yes 300 Qodhs [facility] Levothyroxine Sodium (Synthroid) 100 Mcg Tab Levothyro xine Sodium (Synthroid) 100 Mcg Tab Yes 100 Daily [facility] Lisinopril (Prinivil) 20 Mg Tablet Lisinopril (Prinivil) 20 Mg Tablet Yes 20 Bedtime [facility] Acetaminophen With Codeine (Tylenol With Codeine #3 Tablet) 1 Each Tablet, 300 Mg Oral Acetaminophen With Codeine (Tylenol With Codeine #3 Tablet) 1 Each Tablet, 300 Mg Oral 2016-05-18 00:00:00 No 300 Three Times A Day as needed for Pain [facility] Carvedilol 12.5 Mg Tablet, 12.5 Mg Oral Carvedilol 12.5 Mg T ablet, 12.5 Mg Oral 2016-05-18 00:00:00 No 12.5 Twice A Day [facility] Clindamycin Hcl 150 Mg Capsule, 300 Clindamycin Hcl 150 Mg Capsu le, 300 2016-05-18 00:00:00 No 300 Three Times A Day [facility] Hydralazine Hcl 10 Mg Tablet, 10 Mg Oral Hydralazine H cl 10 Mg Tablet, 10 Mg Oral 2016-05-18 00:00:00 No 10 Three Times A Day [facility] Insulin Human Isophan/Regular (Novolin 7 0-30 100 Unit/Ml Vial) 100 Units/Ml Ml, 30 Units Insulin Human Isophan/Regular (Novolin 7 0-30 100 Unit/Ml Vial) 100 Units/Ml Ml, 30 Units 2016-05-18 00:00:00 No 30 Be fore Breakfast [facility] Insulin Human Isophan/Regular (Novolin 7 0-30 100 Unit/Ml Vial) 100 Units/Ml Ml, 15 Insulin Human Isophan/Regular (Novolin 7 0-30 100 Unit/Ml Vial) 100 Units/Ml Ml, 15 2016-05-18 00:00:00 No 15 Bedtime [facility] Losartan Potassium 50 Mg Tablet, Losartan Potassium 50 Mg Tablet , 2016-05-18 00:00:00 No Daily [facility] Promethazine Hcl 25 Mg Tablet, 25 Mg Oral Promethazine Hcl 25 Mg Tablet, 25 Mg Oral 2016-05-18 00:00:00 No 25 Every 8 Hours as n eeded for Nausea [facility] Immunizations Ordered Immunization Name Filled Immunization Name Date Status Comments Source Tropicamide 0.5% Eye-Jane 15ml 2015-08-15 00:00:00 Complete d [facility] ARANESP 60 MCG/0.3 ML INJ 2015-04-08 00:00:00 Completed [facility] ARANESP 60 MCG/0.3 ML INJ 2015-03-11 00:00:00 Completed [facility] ARANESP 60 MCG/0.3 ML INJ 2015-02-11 00:00:00 Completed [facility] Influenza Vaccine 2015-01-09 00:00:00 Completed [facility] Influenza Vaccine 2014-01-09 00:00:00 Completed [facility] Lidocaine 1% 5ml Inj 2013-10-25 00:00:00 Completed [facility] Influenza Vaccine 2013-01-09 00:00:00 Completed [facility] Influenza Vaccine 2012-03-03 00:00:00 Completed [facility] Influenza Vaccine 2011-01-02 00:00:00 Completed [facility] Influenza Vaccine 2010-01-10 00:00:00 Completed [facility] PPV 23 Pneumococcal Polysaccaride 2009-11-26 00:00:00 Comp leted [facility] Tdap Tetanus, diphtheria, acellular pertussis Vaccine 2009-11-25 00:00:00 Completed [facility] Vital Signs Vital Name Observation Time Observation Value Comments Source Systolic blood pressure 2019-02-02 14:15:00 136 mm[Hg] [facility] Diastolic blood pressure 2019-02-02 14:15:00 69 mm[Hg] [facility] Heart rate 2019-02-02 14:15:00 73 /min [facility] Body temperature 2019-02-02 14:15:00 36.39 Neha [facility] Respiratory rate 2019-02-02 14:15:00 20 /min [facility] Body height 2019-02-02 14:15:00 165.1 cm [facility] Body weight Measured 2019-02-02 14:15:00 85.73 kg [facility] BMI 2019-02-02 14:15:00 31.45 kg/m2 [facility] Oxygen saturation in Arterial blood by Pulse oximetry 2018-04 09:00:00 98 /min [facility] r Procedures Procedure Date / Time Performed Performing Clinician [facility] e TRANSFUSION SERVICE REPORT - SCAN 2019-02-03 18:04:19 Provid er, Default Scanning [facility] ECHOCARDIOGRAM REPORT - SCAN 2019-02-02 21:24:02 ProviderAlesia lt Scanning [facility] PERIPHERAL VASCULAR REPORT - SCAN 2019-02-02 21:23:56 Provid er, Default Scanning [facility] US ABDOMEN COMPLETE 2019-02-02 12:04:00 Kianna Mi [facility] XR CHEST 2 VIEWS 2019-02-02 11:10:00 Kianna Mi [facility] STRESS ECHO 2019-02-02 09:01:58 Kianna Mi [facility] 2D ECHO W/ DOPPLER (CW/PW/COLOR) 2019-02-02 08:16:28 Parminder Mi [facility] ECG 12-LEAD 2019-02-02 07:43:34 Unknown, Hl7 Doctor [facility] CYTOMEGALOVIRUS ANTIBODY, IGG 2019-02-02 07:04:00 [facility] CYTOMEGALOVIRUS ANTIBODY, IGM 2019-02-02 07:04:00 Nery Mi [facility] EBV ANTIBODY, IGM 2019-02-02 07:04:00 [facility] PT/APTT 2019-02-02 07:04[facility]00 [facility] RPR 2019-02-02 07:04:00 [facility] HEMOGLOBIN A1C 2019-02-02 07:04:00 [facility] FLOW PRA CLASS I WITH REFLEX TO ANTIBODY SPECIFICITY 2019-01 07:04:00 [facility] FLOW PRA CLASS II WITH REFLEX TO ANTIBODY SPECIFICITY 2018-04 07:04:00 Kianna Mi [facility] AB SPECIFICITY CLASS I 2019-02-02 07:04:00 [facility]oya[facility]judy [facility] CBC W/PLT COUNT & AUTO DIFFERENTIAL 2019-02-02 07:04:00 Kianna Mi [facility] COMPREHENSIVE METABOLIC PANEL 2019-02-02 07:03:00 TimminNery cook [facility] GAMMA GLUTAMYL TRANSFERASE (GGT) 2019-02-02 07:03:00 TimminParminder [facility] HEPATITIS B SURFACE ANTIBODY 2019-02-02 07:03:00 [facility]minHilario [facility] HEPATITIS B SURFACE ANTIGEN 2019-02-02 07:03:00 TimminRosalina cook [facility] HEPATITIS B CORE ANTIBODY, IGM 2019-02-02 07:03:00 Timmins, Page astorga [facility] HEPATITIS C ANTIBODY 2019-02-02 07:03:00 TimminKianna cook [facility] HIV-1 ANTIGEN WITH HIV-1/2 ANTIBODY 2019-02-02 07:03:00 TimKianna montoya [facility] LACTATE DEHYDROGENASE (LDH) 2019-02-02 07:03:00 TimRosalina montoya [facility] PHOSPHORUS 2019-02-02 07:03:00 [facility] PTH, INTACT 2019-02-02 07:03:00 Kianna Mi [facility] T SPOT TB 2019-02-02 07:03:00 Kianna Mi [facility] URIC ACID 2019-02-02 07:03:00 Kianna Mi [facility] VARICELLA ZOSTER ANTIBODY, IGG 2019-02-02 07:03:00 TimminPage cook [facility] LIPID PANEL 2019-02-02 07:03:00 Kianna Mi [facility] HLA TYPING CI 2019-02-02 07:03:00 TimKianna montoya [facility] HLA TYPING CII 2019-02-02 07:03:00 [facility] DIRECT AHG (PARAG)/DIRECT ALECIA 2019-02-02 07:00:00 Page Mi [facility] BLOOD TYPING, AUTOMATED 2019-02-02 06:35:00 Kianna Mi [facility] Plan of Care Planned Activity Planned Date Details Comments Source Future Scheduled Test 2022-02-02 00:00:00 Lipid panel (proce dure) [code = 12284071] [facility] Scheduled Test 2020-12-01 00:00:00 Screening for estefani gnant neoplasm of breast (procedure) [code = 198324481] [facility] Future Scheduled Test 2019-12-05 00:00:00 INFLUENZA VACCINE (#1) [code = INFLUENZA VACCINE (#1)] [facility] Scheduled Test 2019-08-03 00:00:00 Hemoglobin A1c alicia surement (procedure) [code = 06183130] [facility] Scheduled Test 2018-01-15 00:00:00 MEDICARE ANNUAL WE LLNESS (YEAR 2 or FIRST YEAR if no IPPE) [code = MEDICARE ANNUAL WELLNESS (YEAR 2 or FIRST YEAR if no IPPE)] [facility] Scheduled Test 2017-04-16 00:00:00 Urine screening fo r protein (procedure) [code = 492069628] [facility] Scheduled Test 2016-11-21 00:00:00 DM Retinal Exam (Y early) [code = DM Retinal Exam (Yearly)] [facility] Scheduled Test 2016-08-13 00:00:00 Breast Cancer Scrn (Yearly) [code = Breast Cancer Scrn (Yearly)] [facility] Scheduled Test 2016-06-24 00:00:00 Hemoglobin A1c alicia surement (procedure) [code = 44633465] [facility] Scheduled Test 2015-12-09 00:00:00 Screening for estefani gnant neoplasm of colon (procedure) [code = 324548925] [facility] Scheduled Test 2014-02-09 00:00:00 DM Foot Exam (Year ly) [code = DM Foot Exam (Yearly)] [facility] Scheduled Test 1978 00:00:00 Screening for estefani gnant neoplasm of cervix (procedure) [code = 205377566] [facility] Future Scheduled Test 1967-12-30 00:00:00 DIABETIC EYE EXAM [code = DIABETIC EYE EXAM] [facility] Future Scheduled Test 1967-12-30 00:00:00 Diabetic foot exam ination (regime/therapy) [code = 658107445] [facility] Future Scheduled Test 1967-12-30 00:00:00 Urine screening fo r protein (procedure) [code = 273600227] [facility] Future Scheduled Test 1963-12-30 00:00:00 PNEUMOCOCCAL VACCI NE 2-64 YEARS AT RISK (1 of 1 - PPSV23) [code = PNEUMOCOCCAL VACCINE 2-64 YEARS AT RISK (1 of 1 - PPSV23)] [facility] r Future Scheduled Test 1957 00:00:00 Screening for estefani gnant neoplasm of colon (procedure) [code = 986685686] [facility] Encounters Start Date/Time End Date/Time Encounter Type Admission Type Attendi [facility] Care Department Encounter ID Source 2019-04-20 13:46:00 2019-04-20 14:30:00 Departed Emergency Room [facility] [id number] [facility] 2018-12-01 14:31:00 2018-12-01 14:31:00 Registered Clinic 3 EVELYN CRUZ [facility] [id number] [facility] 2017-07-15 12:34:00 2017-07-15 14:05:00 Departed Emergency Room [facility] [id number] [facility] 2016-10-13 10:37:00 2016-10-13 10:37:00 Registered Clinic [place] NANCY EVELYN [facility] [id number] [facility] Results Test Description Test Time Test Comments Results Result Comments Source CXR 1 VEW - HOPD 2020-01-11 17:57:00 [place] [id number] Patient Name: ANDIE ZABALA MR #: [id number] : 1955 Age/Sex: 64/F Req #: [id number] [facility] Physician: Ordered by: SERINA MCKINNON MD Report #: [id number] Location: [facility] Room/Bed: Procedure: [birth year] HOPD/CXR 1 VEW - HOPD Exam Date: [...] 116 MG/DL 70-110 H Performed by certified shirt folding machine operator at [facility] [id number] 05:50:00* Test Item Value Reference Range Interpretation Comments GLUBED (test code = GLUBED) 92 MG/DL 70-110 N Performed by certified shirt folding machine operator at [facility] [id number] 20:14:00* Test Item Value Reference Range Interpretation Comments GLUBED (test code = GLUBED) 127 MG/DL 70-110 H Performed by certified shirt folding machine operator at [facility] [id number] 18:04:00* Test Item Value Reference Range Interpretation Comments GLUBED (test code = GLUBED) 151 MG/DL 70-110 H Performed by certified shirt folding machine operator at [facility] [id number] 18:04:00* Test Item Value Reference Range Interpretation Comments GLUBED (test code = GLUBED) 149 MG/DL 70-110 H Performed by certified shirt folding machine operator at [facility] [id number] 11:06:00* Test Item Value Reference Range Interpretation Comments GLUBED (test code = GLUBED) 130 MG/DL 70-110 H Performed by certified shirt folding machine operator at [facility] [id number] 05:47:00* Test Item Value Reference Range Interpretation Comments GLUBED (test code = GLUBED) 97 MG/DL 70-110 N Performed by certified shirt folding machine operator at [facility] [id number] 19:47:00* Test Item Value Reference Range Interpretation Comments GLUBED (test code = GLUBED) 136 MG/DL 70-110 H Performed by certified shirt folding machine operator at [facility] [id number] 16:57:00* Test Item Value Reference Range Interpretation Comments GLUBED (test code = GLUBED) 114 MG/DL 70-110 H Performed by certified shirt folding machine operator at [facility] [id number] 11:35:00* Test Item Value Reference Range Interpretation Comments GLUBED (test code = GLUBED) 169 MG/DL 70-110 H Performed by certified shirt folding machine operator at [facility] [id number] 20:58:00* Test Item Value Reference Range Interpretation Comments GLUBED (test code = GLUBED) 105 MG/DL 70-110 N Performed by certified shirt folding machine operator at [facility] [id number] 16:35:00* Test Item Value Reference Range Interpretation Comments GLUBED (test code = GLUBED) 104 MG/DL 70-110 N Performed by certified shirt folding machine operator at [facility] [id number] 11:04:00* Test Item Value Reference Range Interpretation Comments GLUBED (test code = GLUBED) 184 MG/DL 70-110 H Performed by certified shirt folding machine operator at [facility] [id number] 05:50:00* Test Item Value Reference Range Interpretation Comments GLUBED (test code = GLUBED) 98 MG/DL 70-110 N Performed by certified shirt folding machine operator at [facility] [id number] 20:42:00* Test Item Value Reference Range Interpretation Comments GLUBED (test code = GLUBED) 113 MG/DL 70-110 H Performed by certified shirt folding machine operator at [facility] [id number] 19:24:00* Test Item Value Reference Range Interpretation Comments GLUBED (test code = GLUBED) 131 MG/DL 70-110 H Performed by certified shirt folding machine operator at [facility] RENAL FUNCTION [id number] 13:54:00* Test Item Value Reference Range Interpretation [...] PHOS) 5.0 MG/DL 2.5-4.9 H CBC W/AUTO [id number] 13:42:00* Test Item Value Reference Range Interpretation [...] DIFF REQUIRED (test code = MDIFF) NO [id number] 11:50:00* Test Item Value Reference Range Interpretation Comments GLUBED (test code = GLUBED) 108 MG/DL 70-110 N Performed by certified shirt folding machine operator at [facility] [id number] 06:03:00* Test Item Value Reference Range Interpretation Comments GLUBED (test code = GLUBED) 91 MG/DL 70-110 N Performed by certified shirt folding machine operator at [facility] [id number] 20:12:00* Test Item Value Reference Range Interpretation Comments GLUBED (test code = GLUBED) 183 MG/DL 70-110 H Performed by certified shirt folding machine operator at [facility] [id number] 16:32:00* Test Item Value Reference Range Interpretation Comments GLUBED (test code = GLUBED) 144 MG/DL 70-110 H Performed by certified shirt folding machine operator at [facility] [id number] 11:21:00* Test Item Value Reference Range Interpretation Comments GLUBED (test code = GLUBED) 128 MG/DL 70-110 H Performed by certified shirt folding machine operator at [facility] [id number] 06:13:00* Test Item Value Reference Range Interpretation Comments GLUBED (test code = GLUBED) 90 MG/DL 70-110 N Performed by certified shirt folding machine operator at [facility] [id number] 20:08:00* Test Item Value Reference Range Interpretation Comments GLUBED (test code = GLUBED) 125 MG/DL 70-110 H Performed by certified shirt folding machine operator at [facility] [id number] 16:34:00* Test Item Value Reference Range Interpretation Comments GLUBED (test code = GLUBED) 155 MG/DL 70-110 H Performed by certified shirt folding machine operator at [facility] RENAL FUNCTION [id number] 14:10:00* Test Item Value Reference Range Interpretation [...] code = PHOS) 5.4 MG/DL 2.5-4.9 H [id number] 11:23:00* Test Item Value Reference Range Interpretation Comments GLUBED (test code = GLUBED) 141 MG/DL 70-110 H Performed by certified shirt folding machine operator at [facility] [id number] 06:23:00* Test Item Value Reference Range Interpretation Comments GLUBED (test code = GLUBED) 100 MG/DL 70-110 N Performed by certified shirt folding machine operator at [facility] [id number] 20:17:00* Test Item Value Reference Range Interpretation Comments GLUBED (test code = GLUBED) 161 MG/DL 70-110 H Performed by certified shirt folding machine operator at [facility] [id number] 16:56:00* Test Item Value Reference Range Interpretation Comments GLUBED (test code = GLUBED) 116 MG/DL 70-110 H Performed by certified shirt folding machine operator at [facility] [id number] 11:14:00* Test Item Value Reference Range Interpretation Comments GLUBED (test code = GLUBED) 127 MG/DL 70-110 H Performed by certified shirt folding machine operator at [facility] [id number] 11:04:00* Test Item Value Reference Range Interpretation Comments GLUBED (test code = GLUBED) 128 MG/DL 70-110 H Performed by certified shirt folding machine operator at [facility] [id number] 05:52:00* Test Item Value Reference Range Interpretation Comments GLUBED (test code = GLUBED) 98 MG/DL 70-110 N Performed by certified shirt folding machine operator at [facility] RENAL FUNCTION [id number] 16:52:00* Test Item Value Reference Range Interpretation [...] PHOS) 6.6 MG/DL 2.5-4.9 H CBC W/AUTO [id number] 16:35:00* Test Item Value Reference Range Interpretation [...] DIFF REQUIRED (test code = MDIFF) NO [id number] 12:11:00* Test Item Value Reference Range Interpretation Comments GLUBED (test code = GLUBED) 117 MG/DL 70-110 H Performed by certified shirt folding machine operator at [facility] [id number] 06:33:00* Test Item Value Reference Range Interpretation Comments GLUBED (test code = GLUBED) 85 MG/DL 70-110 N Performed by certified shirt folding machine operator at [facility] [id number] 20:57:00* Test Item Value Reference Range Interpretation Comments GLUBED (test code = GLUBED) 134 MG/DL 70-110 H Performed by certified shirt folding machine operator at [facility] [id number] 16:48:00* Test Item Value Reference Range Interpretation Comments GLUBED (test code = GLUBED) 118 MG/DL 70-110 H Performed by certified shirt folding machine operator at [facility] [id number] 11:59:00* Test Item Value Reference Range Interpretation Comments GLUBED (test code = GLUBED) 138 MG/DL 70-110 H Performed by certified shirt folding machine operator at [facility] [id number] 05:51:00* Test Item Value Reference Range Interpretation Comments GLUBED (test code = GLUBED) 81 MG/DL 70-110 N Performed by certified shirt folding machine operator at [facility] [id number] 20:38:00* Test Item Value Reference Range Interpretation Comments GLUBED (test code = GLUBED) 117 MG/DL 70-110 H Performed by certified shirt folding machine operator at [facility] [id number] 16:39:00* Test Item Value Reference Range Interpretation Comments GLUBED (test code = GLUBED) 129 MG/DL 70-110 H Performed by certified shirt folding machine operator at [facility] [id number] 11:44:00* Test Item Value Reference Range Interpretation Comments GLUBED (test code = GLUBED) 144 MG/DL 70-110 H Performed by certified shirt folding machine operator at [facility] [id number] 06:48:00* Test Item Value Reference Range Interpretation Comments GLUBED (test code = GLUBED) 170 MG/DL 70-110 H Performed by certified shirt folding machine operator at [facility] [id number] 06:00:00* Test Item Value Reference Range Interpretation Comments GLUBED (test code = GLUBED) 127 MG/DL 70-110 H Performed by certified shirt folding machine operator at [facility] [id number] 19:27:00* Test Item Value Reference Range Interpretation Comments GLUBED (test code = GLUBED) 186 MG/DL 70-110 H Performed by certified shirt folding machine operator at [facility] BASIC METABOLIC [id number] 15:10:00* Test Item Value Reference Range Interpretation [...] CA) 9.0 mg/dL 8.0-10.5 N CBC W/AUTO [id number] 14:49:00* Test Item Value Reference Range Interpretation [...] DIFF REQUIRED (test code = MDIFF) NO [id number] 12:01:00* Test Item Value Reference Range Interpretation Comments GLUBED (test code = GLUBED) 130 MG/DL 70-110 H Performed by certified shirt folding machine operator at [facility] [id number] 06:24:00* Test Item Value Reference Range Interpretation Comments GLUBED (test code = GLUBED) 92 MG/DL 70-110 N Performed by certified shirt folding machine operator at [facility] [id number] 20:49:00* Test Item Value Reference Range Interpretation Comments GLUBED (test code = GLUBED) 112 MG/DL 70-110 H Performed by certified shirt folding machine operator at [facility] [id number] 16:51:00* Test Item Value Reference Range Interpretation Comments GLUBED (test code = GLUBED) 121 MG/DL 70-110 H Performed by certified shirt folding machine operator at [facility] [id number] 12:15:00* Test Item Value Reference Range Interpretation Comments GLUBED (test code = GLUBED) 125 MG/DL 70-110 H Performed by certified shirt folding machine operator at [facility] [id number] 05:54:00* Test Item Value Reference Range Interpretation Comments GLUBED (test code = GLUBED) 86 MG/DL 70-110 N Performed by certified shirt folding machine operator at [facility] [id number] 19:43:00* Test Item Value Reference Range Interpretation Comments GLUBED (test code = GLUBED) 130 MG/DL 70-110 H Performed by certified shirt folding machine operator at [facility] [id number] 16:41:00* Test Item Value Reference Range Interpretation Comments GLUBED (test code = GLUBED) 147 MG/DL 70-110 H Performed by certified shirt folding machine operator at [facility] SERUM [id number] 13:57:00* Test Item Value Reference Range Interpretation [...] COMMENTS: TO BE DRAWN IN DIALYSISBASIC METABOLIC [id number] 13:34:00* Test Item Value Reference Range Interpretation [...] code = CA) 9.2 mg/dL 8.0-10.5 N [id number] 13:34:00* Test Item Value Reference Range Interpretation Comments PHOSPHOROUS (test code = PHOS) 6.7 MG/DL 2.5-4.9 H CBC W/AUTO [id number] 13:16:00* Test Item Value Reference Range Interpretation [...] DIFF REQUIRED (test code = MDIFF) NO [id number] 11:39:00* Test Item Value Reference Range Interpretation Comments GLUBED (test code = GLUBED) 88 MG/DL 70-110 N Performed by certified shirt folding machine operator at [facility] [id number] 11:39:00* Test Item Value Reference Range Interpretation Comments GLUBED (test code = GLUBED) 105 MG/DL 70-110 N Performed by certified shirt folding machine operator at [facility] [id number] 05:41:00* Test Item Value Reference Range Interpretation Comments GLUBED (test code = GLUBED) 48 MG/DL 70-110 L Performed by certified shirt folding machine operator at [facility] [id number] 20:45:00* Test Item Value Reference Range Interpretation Comments GLUBED (test code = GLUBED) 139 MG/DL 70-110 H Performed by certified shirt folding machine operator at [facility] [id number] 19:42:00* Test Item Value Reference Range Interpretation Comments GLUBED (test code = GLUBED) 68 MG/DL 70-110 L Performed by certified shirt folding machine operator at [facility] [id number] 16:43:00* Test Item Value Reference Range Interpretation Comments GLUBED (test code = GLUBED) 78 MG/DL 70-110 N Performed by certified shirt folding machine operator at [facility] [id number] 12:45:00* Test Item Value Reference Range Interpretation Comments GLUBED (test code = GLUBED) 129 MG/DL 70-110 H Performed by certified shirt folding machine operator at [facility] [id number] 12:09:00* Test Item Value Reference Range Interpretation Comments GLUBED (test code = GLUBED) 99 MG/DL 70-110 N Performed by certified shirt folding machine operator at [facility] [id number] 10:30:00* Test Item Value Reference Range Interpretation Comments GLUBED (test code = GLUBED) 120 MG/DL 70-110 H Performed by certified shirt folding machine operator at [facility] [id number] 06:04:00* Test Item Value Reference Range Interpretation Comments GLUBED (test code = GLUBED) 69 MG/DL 70-110 L Performed by certified shirt folding machine operator at [facility] [id number] 06:04:00* Test Item Value Reference Range Interpretation Comments GLUBED (test code = GLUBED) 51 MG/DL 70-110 L Performed by certified shirt folding machine operator at [facility] [id number] 19:59:00* Test Item Value Reference Range Interpretation Comments GLUBED (test code = GLUBED) 94 MG/DL 70-110 N Performed by certified shirt folding machine operator at [facility] BASIC METABOLIC [id number] 13:51:00* Test Item Value Reference Range Interpretation [...] code = CA) 8.6 mg/dL 8.0-10.5 N [id number] 13:51:00* Test Item Value Reference Range Interpretation Comments PHOSPHOROUS (test code = PHOS) 8.1 MG/DL 2.5-4.9 H CBC W/AUTO [id number] 13:36:00* Test Item Value Reference Range Interpretation [...] DIFF REQUIRED (test code = MDIFF) NO [id number] 11:23:00* Test Item Value Reference Range Interpretation Comments GLUBED (test code = GLUBED) 141 MG/DL 70-110 H Performed by certified shirt folding machine operator at [facility] [id number] 07:37:00* Test Item Value Reference Range Interpretation Comments GLUBED (test code = GLUBED) 75 MG/DL 70-110 N Performed by certified shirt folding machine operator at [facility] [id number] 06:37:00* Test Item Value Reference Range Interpretation Comments GLUBED (test code = GLUBED) 38 MG/DL 70-110 L Performed by certified shirt folding machine operator at [facility] [id number] 22:25:00* Test Item Value Reference Range Interpretation Comments GLUBED (test code = GLUBED) 145 MG/DL 70-110 H Performed by certified shirt folding machine operator at [facility] [id number] 16:54:00* Test Item Value Reference Range Interpretation Comments GLUBED (test code = GLUBED) 75 MG/DL 70-110 N Performed by certified shirt folding machine operator at [facility] [id number] 16:35:00* Test Item Value Reference Range Interpretation Comments GLUBED (test code = GLUBED) 57 MG/DL 70-110 L Performed by certified shirt folding machine operator at [facility] [id number] 11:37:00* Test Item Value Reference Range Interpretation Comments GLUBED (test code = GLUBED) 90 MG/DL 70-110 N Performed by certified shirt folding machine operator at [facility] [id number] 05:59:00* Test Item Value Reference Range Interpretation Comments GLUBED (test code = GLUBED) 83 MG/DL 70-110 N Performed by certified shirt folding machine operator at [facility] [id number] 20:25:00* Test Item Value Reference Range Interpretation Comments GLUBED (test code = GLUBED) 197 MG/DL 70-110 H Performed by certified shirt folding machine operator at [facility] [id number] 17:01:00* Test Item Value Reference Range Interpretation Comments GLUBED (test code = GLUBED) 125 MG/DL 70-110 H Performed by certified shirt folding machine operator at [facility] [id number] 11:21:00* Test Item Value Reference Range Interpretation Comments GLUBED (test code = GLUBED) 129 MG/DL 70-110 H Performed by certified shirt folding machine operator at [facility] VITAMIN [id number] 08:19:00* Test Item Value Reference Range Interpretation Comments VITAMIN B12 (test code = VITB12) 635 pg/mL 193-986 N Indication for Test: Osteopenia/Bone Dis RiskFOLIC [id number] 08:19:00* Test Item Value Reference Range Interpretation Comments FOLIC ACID (test code = FOL) 5.1 ng/mL 3.1-17.5 N Indication for Test: Osteopenia/Bone Dis RiskTHYROID STIMULATING HORMONE 2019-12-23 08:19:00* Test Item Value Reference Range Interpretation Comments THYROID STIMULATING HORMONE (test code = TSH) 5.43 0.42-5.4 7 N Results in dianne- International Units/mL Indication for Test: Osteopenia/Bone Dis RiskVITAMIN D [id number] 08:19:00* Test Item Value Reference Range Interpretation Comments VITAMIN D 25-HYDROXY (test code = VITD25) 20.4 ng/mL 30-100 L Indication for Test: Osteopenia/Bone Dis [id number] 06:26:00* Test Item Value Reference Range Interpretation Comments GLUBED (test code = GLUBED) 90 MG/DL 70-110 N Performed by certified shirt folding machine operator at [facility] [id number] 20:28:00* Test Item Value Reference Range Interpretation Comments GLUBED (test code = GLUBED) 91 MG/DL 70-110 N Performed by certified shirt folding machine operator at [facility] [id number] 16:11:00* Test Item Value Reference Range Interpretation Comments GLUBED (test code = GLUBED) 215 MG/DL 70-110 H Performed by certified shirt folding machine operator at [facility] HGB [id number] 13:25:00* Test Item Value Reference Range Interpretation Comments HEMOGLOBIN (test code = HGB) 8.3 g/dL 11.0-15.0 L HEMATOCRIT (test code = HCT) 26.9 % 33.0-45.0 L CBC W/AUTO [id number] 12:18:00* Test Item Value Reference Range Interpretation [...] DIFF REQUIRED (test code = MDIFF) NO [id number] 08:41:00* Test Item Value Reference Range Interpretation Comments GLUBED (test code = GLUBED) 97 MG/DL 70-110 N Performed by certified shirt folding machine operator at [facility] [id number] 20:40:00* Test Item Value Reference Range Interpretation Comments GLUBED (test code = GLUBED) 214 MG/DL 70-110 H Performed by certified shirt folding machine operator at [facility] [id number] 18:14:00* Test Item Value Reference Range Interpretation Comments GLUBED (test code = GLUBED) 127 MG/DL 70-110 H Performed by certified shirt folding machine operator at [facility] [id number] 13:32:00* Test Item Value Reference Range Interpretation Comments GLUBED (test code = GLUBED) 175 MG/DL 70-110 H Performed by certified shirt folding machine operator at [facility] CBC W/AUTO [id number] 11:10:00* Test Item Value Reference Range Interpretation [...] REQUIRED (test code = MDIFF) NO RBC [id number] 11:10:00* Test Item Value Reference Range Interpretation Comments ANISOCYTOSIS (test code = ANISO) CBC W/AUTO [id number] 11:10:00* Test Item Value Reference Range Interpretation [...] REQUIRED (test code = MDIFF) NO RBC [id number] 11:10:00* Test Item Value Reference Range Interpretation Comments ANISOCYTOSIS (test code = ANISO) 2+ MACROCYTOSIS (test code = MACR) 2+ [id number] 08:49:00* Test Item Value Reference Range Interpretation Comments GLUBED (test code = GLUBED) 134 MG/DL 70-110 H Performed by certified shirt folding machine operator at [facility] CBC W/AUTO [id number] 06:11:00* Test Item Value Reference Range Interpretation [...] REQUIRED (test code = MDIFF) NO RBC [id number] 06:11:00* Test Item Value Reference Range Interpretation Comments ANISOCYTOSIS (test code = ANISO) CBC W/AUTO [id number] 06:11:00* Test Item Value Reference Range Interpretation [...] REQUIRED (test code = MDIFF) NO RBC [id number] 06:11:00* Test Item Value Reference Range Interpretation Comments ANISOCYTOSIS (test code = ANISO) [id number] 21:56:00* Test Item Value Reference Range Interpretation Comments GLUBED (test code = GLUBED) 193 MG/DL 70-110 H Performed by certified shirt folding machine operator at [facility] [id number] 17:01:00* Test Item Value Reference Range Interpretation Comments GLUBED (test code = GLUBED) 192 MG/DL 70-110 H Performed by certified shirt folding machine operator at [facility] SURGICAL PATH [id number] 15:10:00 RUN DATE: 12/20/19 [facility] *LIVE* PAGE 1 RUN TIME: 1510 Specimen Inqui ry RUN USER: INTERFACE PATIENT: ANDEI ZABALA ACCT #: [id number] LOC: DavidCVN1 U #: [id number] AGE/SX: 63/F ROOM: [facility] [place] RE12/12/19REG DR: Leo Fung MD : 59 BED: 1 DIS: STATUS: ADM IN TLOC: SPEC #: [id number] RECD: 12/18/19 STATUS: JEWELL REQ #: [id number] TOMMIE: 12/18/[address]: Leo Fung MD ENTERED: 12/20/19 SP TYPE: SURG SPEC OTHR DR: Xiomara hernández or Family Physician Self Referred Abr suzanne,Xiang Alonzo MD, MD, D ebbie G MD Reyhani, Se an A DPM Rosenblatt, Michael MD Boccardo- Sabaini,Evelyn E MDORDERED: [id number] CODES: [id number] - EXTREMITY, NOS COPIES TO: No Primary or Family Physician Self Referred Jadon Simpson MD [address] [place] [address] Xiang Lord MD [address] [place] [address] Gisselle Roche MD [address] [place] [address] Marcus Rivers DPM [address] [facility] [address] [place] [address] [email or web address] Issac Kearns MD [address] [place] [address] CONTINUED ON NEXT PAGE ---- --------RUN DATE: 12/20/19 [facility] *LIVE* PAGE 2 RUN TIME: 1510 Specimen Inquiry RUN USER: INTERFACE SPEC #: [id number] PATIENT: ANDIE ZABALA #[id number] (Continued) COPIES TO: (Continued) Leo Fung MD [address] [place] [address] Evelyn Belcher MD [address] [place] [address] PROCEDURES: GM [id number] (Incomplete) TISSUES: 1. EXTREM ITY, NOS - [...] is missing. The forefoot shows gangrenous necrosis. Cost Recovery Technician sections are submitted as (A)-skin and soft [...] Signed SIGNATURE ON FILE Reed Vinson 12/20/19 1600 END OF REPORT CBC W/AUTO [id number] 14:38:00* Test Item Value Reference Range Interpretation [...] REVIEWED, CONSISTENT WITH AUTO DIFF. RENAL FUNCTION [id number] 14:35:00* Test Item Value Reference Range Interpretation [...] PHOS) 3.3 MG/DL 2.5-4.9 N CBC W/AUTO [id number] 14:15:00* Test Item Value Reference Range Interpretation [...] MANUAL DIFF REQUIRED (test code = MDIFF) [id number] 12:16:00* Test Item Value Reference Range Interpretation Comments GLUBED (test code = GLUBED) 146 MG/DL 70-110 H Performed by certified shirt folding machine operator at [facility] [id number] 08:14:00* Test Item Value Reference Range Interpretation Comments GLUBED (test code = GLUBED) 71 MG/DL 70-110 N Performed by certified shirt folding machine operator at [facility] [id number] 20:32:00* Test Item Value Reference Range Interpretation Comments GLUBED (test code = GLUBED) 183 MG/DL 70-110 H Performed by certified shirt folding machine operator at [facility] [id number] 17:38:00* Test Item Value Reference Range Interpretation Comments GLUBED (test code = GLUBED) 198 MG/DL 70-110 H Performed by certified shirt folding machine operator at [facility] CBC W/AUTO [id number] 11:53:00* Test Item Value Reference Range Interpretation [...] MDIFF) YES COMMENTS: Daily while on HeparinWBC [id number] 11:53:00* Test Item Value Reference Range Interpretation [...] AGGREGATES GIANT PLTS COMMENTS: Daily while on [id number] 08:17:00* Test Item Value Reference Range Interpretation Comments GLUBED (test code = GLUBED) 159 MG/DL 70-110 H Performed by certified shirt folding machine operator at [facility] CBC W/AUTO [id number] 08:00:00* Test Item Value Reference Range Interpretation [...] MDIFF) YES COMMENTS: Daily while on HeparinWBC [id number] 08:00:00* Test Item Value Reference Range Interpretation Comments BAND NEUTROPHIL (test code = BAND) % 0.0-10.0 ANISOCYTOSIS (test code = ANISO) PLATELET ESTIMATE (test code = PLTEST) THOUSAND ADEQUATE COMMENTS: Daily while on HeparinCBC W/AUTO [id number] 08:00:00* Test Item Value Reference Range Interpretation [...] MDIFF) YES COMMENTS: Daily while on HeparinWBC [id number] 08:00:00* Test Item Value Reference Range Interpretation Comments BAND NEUTROPHIL (test code = BAND) % 0.0-10.0 ANISOCYTOSIS (test code = ANISO) PLATELET ESTIMATE (test code = PLTEST) THOUSAND ADEQUATE COMMENTS: Daily while on [id number] 21:16:00* Test Item Value Reference Range Interpretation Comments GLUBED (test code = GLUBED) 206 MG/DL 70-110 H Performed by certified shirt folding machine operator at [facility] [id number] 19:59:00* Test Item Value Reference Range Interpretation Comments GLUBED (test code = GLUBED) 184 MG/DL 70-110 H Performed by certified shirt folding machine operator at [facility] [id number] 12:55:00* Test Item Value Reference Range Interpretation Comments GLUBED (test code = GLUBED) 192 MG/DL 70-110 H Performed by certified shirt folding machine operator at [facility] [id number] 09:53:00* Test Item Value Reference Range Interpretation Comments GLUBED (test code = GLUBED) 147 MG/DL 70-110 H Performed by certified shirt folding machine operator at [facility] CBC W/AUTO [id number] 04:18:00* Test Item Value Reference Range Interpretation [...] = MDIFF) NO COMMENTS: Daily while on [id number] 21:26:00* Test Item Value Reference Range Interpretation Comments GLUBED (test code = GLUBED) 177 MG/DL 70-110 H Performed by certified shirt folding machine operator at [facility] [id number] 17:58:00* Test Item Value Reference Range Interpretation Comments GLUBED (test code = GLUBED) 259 MG/DL 70-110 H Performed by certified shirt folding machine operator at [facility] [id number] 12:48:00* Test Item Value Reference Range Interpretation Comments GLUBED (test code = GLUBED) 302 MG/DL 70-110 H Performed by certified shirt folding machine operator at [facility] [id number] 08:43:00* Test Item Value Reference Range Interpretation Comments GLUBED (test code = GLUBED) 295 MG/DL 70-110 H Performed by certified shirt folding machine operator at [facility] CBC W/AUTO [id number] 08:36:00* Test Item Value Reference Range Interpretation [...] NO COMMENTS: Daily while on HeparinBASIC METABOLIC [id number] 08:34:00* Test Item Value Reference Range Interpretation [...] code = CA) 9.1 mg/dL 8.0-10.5 N [id number] 19:34:00* Test Item Value Reference Range Interpretation Comments GLUBED (test code = GLUBED) 415 MG/DL 70-110 H Performed by certified shirt folding machine operator at [facility] [id number] 11:47:00* Test Item Value Reference Range Interpretation Comments GLUBED (test code = GLUBED) 265 MG/DL 70-110 H Performed by certified shirt folding machine operator at [facility] BASIC METABOLIC [id number] 05:00:00* Test Item Value Reference Range Interpretation [...] CA) 8.7 mg/dL 8.0-10.5 N CBC W/AUTO [id number] 04:46:00* Test Item Value Reference Range Interpretation [...] = MDIFF) NO COMMENTS: Daily while on [id number] 21:06:00* Test Item Value Reference Range Interpretation Comments GLUBED (test code = GLUBED) 223 MG/DL 70-110 H Performed by certified shirt folding machine operator at [facility] [id number] 17:41:00* Test Item Value Reference Range Interpretation Comments GLUBED (test code = GLUBED) 164 MG/DL 70-110 H Performed by certified shirt folding machine operator at [facility] [id number] 12:22:00* Test Item Value Reference Range Interpretation Comments GLUBED (test code = GLUBED) 168 MG/DL 70-110 H Performed by certified shirt folding machine operator at [facility] CBC W/AUTO [id number] 08:12:00* Test Item Value Reference Range Interpretation [...] = MDIFF) NO COMMENTS: Daily while on [id number] 08:01:00* Test Item Value Reference Range Interpretation Comments GLUBED (test code = GLUBED) 137 MG/DL 70-110 H Performed by certified shirt folding machine operator at [facility] BASIC METABOLIC [id number] 07:30:00* Test Item Value Reference Range Interpretation [...] code = CA) 9.1 mg/dL 8.0-10.5 N [id number] 07:30:00* Test Item Value Reference Range Interpretation Comments PHOSPHOROUS (test code = PHOS) 2.9 MG/DL 2.5-4.9 N ACUTE HEPATITIS [id number] 07:15:00* Test Item Value Reference Range Interpretation [...] COMMENTS: At start of hemodialysisAB HEPATITIS B [id number] 07:15:00* Test Item Value Reference Range Interpretation Comments AB HEPATITIS B SURFACE (test code = HBSAB) < 3.1 mIU/mL Immunity>9. 9 L Status of Immunity Anti-HBs Level Inconsistent with Immunity 0.0 - 9.9Consistent with Immunity >9.9Performed At: [facility] [id number] Kyle L MD Ph:[phone] COMMENTS: At start of hemodialysisTHROMBOPLASTIN TIME [id number] 06:55:00 * Test Item Value Reference Range Interpretation Comments THROMBOPLASTIN TIME PARTIAL (test code = PTT) 52.1 Seconds 25.0-39. 5 H Therapeutic Range: 50.4 - 88.3 Seconds Effective 07/19/2018 THROMBOPLASTIN TIME [id number] 01:29:00* Test Item Value Reference Range Interpretation Comments THROMBOPLASTIN TIME PARTIAL (test code = PTT) 56.3 Seconds 25.0-39. 5 H Therapeutic Range: 50.4 - 88.3 Seconds Effective 07/19/2018 [id number] 21:11:00* Test Item Value Reference Range Interpretation Comments GLUBED (test code = GLUBED) 164 MG/DL 70-110 H Performed by certified shirt folding machine operator at [facility] COVID 19 Asymptomatic IH [id number] 18:43:00* Test Item Value Reference Range Interpretation [...] moderate, high or waivedcomplexity tests. THROMBOPLASTIN TIME [id number] 18:16:00* Test Item Value Reference Range Interpretation Comments THROMBOPLASTIN TIME PARTIAL (test code = PTT) 46.9 Seconds 25.0-39. 5 H Therapeutic Range: 50.4 - 88.3 Seconds Effective 07/19/2018 [id number] 17:36:00* Test Item Value Reference Range Interpretation Comments GLUBED (test code = GLUBED) 205 MG/DL 70-110 H Performed by certified shirt folding machine operator at [facility] [id number] 12:39:00* Test Item Value Reference Range Interpretation Comments GLUBED (test code = GLUBED) 177 MG/DL 70-110 H Performed by certified shirt folding machine operator at [facility] THROMBOPLASTIN TIME [id number] 10:02:00* Test Item Value Reference Range Interpretation Comments THROMBOPLASTIN TIME PARTIAL (test code = PTT) 52.2 Seconds 25.0-39. 5 H Therapeutic Range: 50.4 - 88.3 Seconds Effective 07/19/2018 CBC W/AUTO [id number] 08:56:00* Test Item Value Reference Range Interpretation [...] = MDIFF) NO COMMENTS: Daily while on [id number] 08:19:00* Test Item Value Reference Range Interpretation Comments GLUBED (test code = GLUBED) 129 MG/DL 70-110 H Performed by certified shirt folding machine operator at [facility] BASIC METABOLIC [id number] 07:51:00* Test Item Value Reference Range Interpretation [...] CA) 9.0 mg/dL 8.0-10.5 N THROMBOPLASTIN TIME [id number] 01:37:00* Test Item Value Reference Range Interpretation Comments THROMBOPLASTIN TIME PARTIAL (test code = PTT) 47.9 Seconds 25.0-39. 5 H Therapeutic Range: 50.4 - 88.3 Seconds Effective 07/19/2018 [id number] 22:51:00* Test Item Value Reference Range Interpretation Comments GLUBED (test code = GLUBED) 241 MG/DL 70-110 H Performed by certified shirt folding machine operator at [facility] THROMBOPLASTIN TIME [id number] 18:40:00* Test Item Value Reference Range Interpretation Comments THROMBOPLASTIN TIME PARTIAL (test code = PTT) 41.1 Seconds 25.0-39. 5 H Therapeutic Range: 50.4 - 88.3 Seconds Effective 07/19/2018 [id number] 16:20:00* Test Item Value Reference Range Interpretation Comments GLUBED (test code = GLUBED) 167 MG/DL 70-110 H Performed by certified shirt folding machine operator at [facility] ACUTE HEPATITIS [id number] 14:22:00* Test Item Value Reference Range Interpretation [...] COMMENTS: At start of hemodialysisAB HEPATITIS B [id number] 14:22:00* Test Item Value Reference Range Interpretation Comments AB HEPATITIS B SURFACE (test code = HBSAB) COMMENTS: At start of [id number] 12:41:00* Test Item Value Reference Range Interpretation Comments GLUBED (test code = GLUBED) 156 MG/DL 70-110 H Performed by certified shirt folding machine operator at [facility] [id number] 11:36:00* Test Item Value Reference Range Interpretation Comments TROPONIN-I (test code = TROPI) 0.557 ng/mL 0.000-0.045 H Negative: <= 0.045 Positive: >= 0.046 Correlation with serial results, other cardiac markers andclinical findings is necessary to determine the clinicalsignificance of this result. Results using different methodologies should not be comparedto one another as quantitative results may vary by method. CBC W/AUTO [id number] 09:18:00* Test Item Value Reference Range Interpretation [...] MDIFF) NO COMMENTS: Daily while on HeparinRBC [id number] 09:18:00* Test Item Value Reference Range Interpretation Comments POLYCHROMASIA (test code = POLC) SLIGHT POIKILOCYTOSIS (test code = POIK) SLIGHT ANISOCYTOSIS (test code = ANISO) 1+ MACROCYTOSIS (test code = MACR) 1+ TARGET CELLS (test code = TGT) SEEN OVALOCYTES (test code = OVAL) FEW COMMENTS: Daily while on HeparinBASIC METABOLIC [id number] 08:29:00* Test Item Value Reference Range Interpretation [...] code = CA) 9.0 mg/dL 8.0-10.5 N [id number] 08:29:00* Test Item Value Reference Range Interpretation Comments PHOSPHOROUS (test code = PHOS) 3.6 MG/DL 2.5-4.9 N [id number] 08:29:00* Test Item Value Reference Range Interpretation Comments MAGNESIUM (test code = MAG) 2.14 mg/dL 1.8-2.4 N [id number] 08:24:00* Test Item Value Reference Range Interpretation Comments GLUBED (test code = GLUBED) 130 MG/DL 70-110 H Performed by certified shirt folding machine operator at [facility] CBC W/AUTO [id number] 07:50:00* Test Item Value Reference Range Interpretation [...] MDIFF) NO COMMENTS: Daily while on HeparinRBC [id number] 07:50:00* Test Item Value Reference Range Interpretation Comments ANISOCYTOSIS (test code = ANISO) COMMENTS: Daily while on HeparinCBC W/AUTO [id number] 07:50:00* Test Item Value Reference Range Interpretation [...] MDIFF) NO COMMENTS: Daily while on HeparinRBC [id number] 07:50:00* Test Item Value Reference Range Interpretation Comments ANISOCYTOSIS (test code = ANISO) COMMENTS: Daily while on HeparinTHROMBOPLASTIN TIME [id number] 06:49:00* Test Item Value Reference Range Interpretation Comments THROMBOPLASTIN TIME PARTIAL (test code = PTT) 31.7 Seconds 25.0-39. 5 Therapeutic Range: 50.4 - 88.3 Seconds Effective 07/19/2018 THROMBOPLASTIN TIME [id number] 20:50:00* Test Item Value Reference Range Interpretation Comments THROMBOPLASTIN TIME PARTIAL (test code = PTT) 23.7 Seconds 25.0-39. 5 L Therapeutic Range: 50.4 - 88.3 Seconds Effective 07/19/2018 COMMENTS: DRAW PTT 6 HOURS AFTER INITIATION OF HEPARIN- DUP LE ART UNI/LTD 2019-12-12 16:51:00 Name: ANDIE ZABALA [facility] : 1955 Age/S: 63 / F [address] [place] [address] Unit #: [id number] Loc: [place] [address] Phys: Gela Robles [employer] [employer] Acct: [id number] Dis Date: Status: ADM IN PHONE #: [phone] Exam Date: 12/12/2019 1640 FAX #: [phone] Reason: recent toe amputatiomn increased foot pain, EXAMS: CPT CODE: [id number] DUP LE ART UNI/LTD 14221 Clinical Indication: Recent right toe amputation. Increased foot pain Comparison: 04/29/2019. TECHNIQUE: Right lower extremity arterial Doppler evaluation without ABIs was performed with winters scale, color scale and Doppler waveforms evaluation. 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 SFA: [...] posterior tibial, and dorsalis pedis arteries. SL: [id number] at 1651 Reported and signed by: Alice Doran M.D. CC: Gela Robles NP; Evelyn Belcher MD Technologist: [facility] Date/Time: 12/12/2019 (1650) t.[id number].KM28 Orig Print D/T: S: 12/12/2019 (750) Probe: PAGE 1 Signed Report [id number] 16:31:00* Test Item Value Reference Range Interpretation Comments GLUBED (test code = GLUBED) 143 MG/DL 70-110 H Performed by certified shirt folding machine operator at [facility] BASIC METABOLIC [id number] 14:17:00* Test Item Value Reference Range Interpretation [...] CA) 9.3 mg/dL 8.0-10.5 N HEPATIC FUNCTION [id number] 14:17:00* Test Item Value Reference Range Interpretation [...] code = ALKP) 69 IUnit/L 20-125 N [id number] 14:17:00* Test Item Value Reference Range Interpretation Comments TROPONIN-I (test code = TROPI) 1.177 ng/mL 0.000-0.045 HH Negative: <= 0.045 Positive: >= 0.046 Correlation with serial results, other cardiac markers andclinical findings is necessary to determine the clinicalsignificance of this result. Results using different methodologies should not be comparedto one another as quantitative results may vary by method. LACTIC [id number] 14:12:00* Test Item Value Reference Range Interpretation Comments LACTIC ACID (test code = LACT) 1.1 mmol/L 0.4-1.9 N - XR FOOT 2 VIEWS [id number] 13:54:00 FAX: Gela Robles NP [place]: St: PRE FAX: Dary Hughes [phone] Name: ANDIE ZABALA [facility] [place] : 1955 Age/S: 63/F [address] [place] [address] Unit #: [id number] Loc: [place] [address] Phys: Gela Robles NEFTALY Acct: [id number] Dis Date: Status: PRE ER PHONE #: [phone] Exam Date: 12/12/2019 1344 FAX #: [phone] Reason: recent toe amputation increased pain EXAMS: CPT CODE: [id number] XR FOOT [address] [place] [address] - XR FOOT 2 VIEWS RT, 12/12/2019 [...] further as sessed with follow-up MRI. Location: [facility] at 2904 Re ported and signed by: Denis Valenzuela M.D. CC: Gela Hines on [employer]; Evelyn Belcher MD Technologist: Angely Jackson, RT(R) Trnscrd Date/Time/By: 12/12/2019 (1629) : By: Steff SÁNCHEZCN5 Orig Print D/T: S: 12/12/2019 (8434) CEZAR CARRION 1 Signed Report CBC W/AUTO [id number] 13:47:00* Test Item Value Reference Range Interpretation [...] (test code = MDIFF) NO SURGICAL PATH [id number] 09:47:00 RUN DATE: 12/12/19 [place] [facility] *LIVE* PAGE 1 RUN TIME: 946 Specimen Inqui ry RUN USER: INTERFACE PATIENT: ANDIE ZABALA ACCT #: [id number] LOC: [facility] U #: [id number] AGE/SX: 63/F ROOM: RE12/05/19REG DR: Luke Boykin DPM : 59 BED: DIS: STATUS: [facility] [place] TLOC: SPEC #: [id number] RECD: 12/06/19 STATUS: JEWELL GR #: [id number] TOMMIE: 12/06/[address]: Luke Boykin DPM ENTERED: 12/11/19 SP TYPE: SURG SPEC OTHR DR: No Candi edgar or Family Physician Evelyn Belcher MDORDERED: GROSS AND MICRO CODES: [id number] - 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 [...] tissue resection margin foc ally (inked black). Cost Recovery Technician sections submitted: (A) soft tissue kathie n, perpendicular; (B) longitudinal section of the bone for decal. MICROSCOPIC EXAMINATION: A microscopic examination was performed to a rrive at the diagnostic conclusion reported. CONTINUED ON NEXT PAGE R UN DATE: 12/12/19 [facility] *LIVE* PAGE 2 RUN TIME: 946 Specimen Inquiry RUN USER: INTERFACE SPEC #: [id number] PATIENT: ANDIE ZABALA #[id number] (Continued) POST-OP DIAGNOSIS None gi florencio PRE-OP [...] SARS-CoV-2 virusand/or diagnosis of COVID-19 infection under hxitdhe710(b)(1) of the Act, 21 U.S.C. 360bbb-3(b) (1), [...] negative(not detected) result in this assay.Performed At: [address] [id number] Lima MD Ph:[phone] Novel Coronavirus 14:10:00* Test Item Value Reference Range Interpretation Comments Novel Coronavirus 2019 nCoV (test code = COVID19) Not Detected Not Detected Testing was performed using the Aptima SARS-CoV-2 assay.This nucleic acid amplification test was developed and itsperfomance characteristics determined by [facility]. Nucleic acid amplification tests include PCRand TMA. This test has not been FDA cleared or approved.This test has been authorized by FDA under an Emergency UseAuthorization (EUA). This test is only authorized forthe duration of time the declaration that circumstancesexist justifying the authorization of the emergency use ofin vitro diagnostic tests for detection of SARS-CoV-2 virusand/or diagnosis of COVID-19 infection under pfrmjai135(b)(1) of the Act, 21 U.S.C. 360bbb-3(b) (1), [...] negative(not detected) result in this assay.Performed At: [facility] [place], [place] [id number] Lima MD Ph:[phone] [facility] (test code = LCAIP) [id number] 18:27:00* Test Item Value Reference Range Interpretation Comments GLUBED (test code = GLUBED) 96 MG/DL 70-110 N Performed by certified shirt folding machine operator at [facility] BASIC METABOLIC [id number] 13:35:00* Test Item Value Reference Range Interpretation [...] code = CA) 9.6 mg/dL 8.0-10.5 N [id number] 13:28:00* Test Item Value Reference Range Interpretation Comments GLUBED (test code = GLUBED) 159 MG/DL 70-110 H Performed by certified shirt folding machine operator at [facility] CBC W/AUTO [id number] 13:23:00* Test Item Value Reference Range Interpretation [...] code = MDIFF) NO Novel Coronavirus 2019 [id number] 01:53:00* Test Item Value Reference Range Interpretation Comments Novel Coronavirus 2019 Inhouse (test code = COVNONPUI) Negative Negative BASIC METABOLIC [id number] 13:58:00* Test Item Value Reference Range Interpretation [...] mg/dL 8.0-10.5 N - XR CHEST 2 [id number] 13:54:00 FAX: Luke Hernandez [facility] [phone] [place]: St: PRE [phone] FAX: Cheryl Mack N Name: ANDIE ZABALA ALICIA [facility] : 1955 Age/S: 63/F [address] [place] [address] Unit #: [id number] Loc: [place] [address] Phys: Cheryl Mack NP Acct: [id number] Dis Date: Status: PRE SDC PH ONE #: [phone] Exam Date: 11/28/2019 1315 FAX #: [phone] Reason: PREOP EXAMS: CPT CODE: [id number] XR CHEST 2 V 69749 Study: - XR C HEST 2 V 11/28/2019 11:36 AM Patient Name: ANDIE ZABALA MR: G [id number] : 1955; Age: 63 years y/o Female [...] No acute abnormality as above discussed. SL: [id number] at 5909 Reported and si gned by: Manish Elizabeth M.D. CC: Luke Boykin DPM; Evelyn mccray MD; Cheryl Mack NP Technologist: RT Mari(Jos) Trnscrd Date/Time/By: 11/28/2019 (4888) : By: ArielleAP24 Orig Print D/ T: S: 11/28/2019 (1807) PAGE 1 Si gned Report CBC W/AUTO [id number] 13:09:00* Test Item Value Reference Range Interpretation [...] DIFF REQUIRED (test code = MDIFF) NO [id number] 18:26:00* Test Item Value Reference Range Interpretation Comments GLUBED (test code = GLUBED) 102 MG/DL 70-110 N Performed by certified shirt folding machine operator at [facility] [id number] 13:05:00* Test Item Value Reference Range Interpretation Comments GLUBED (test code = GLUBED) 110 MG/DL 70-110 N Performed by certified shirt folding machine operator at [facility] [id number] 09:27:00* Test Item Value Reference Range Interpretation Comments GLUBED (test code = GLUBED) 90 MG/DL 70-110 N Performed by certified shirt folding machine operator at [facility] [id number] 07:27:00* Test Item Value Reference Range Interpretation Comments GLUBED (test code = GLUBED) 93 MG/DL 70-110 N Performed by certified shirt folding machine operator at [facility] [id number] 07:27:00* Test Item Value Reference Range Interpretation Comments GLUBED (test code = GLUBED) 47 MG/DL 70-110 L Performed by certified shirt folding machine operator at [facility] [id number] 17:16:00* Test Item Value Reference Range Interpretation Comments GLUBED (test code = GLUBED) 102 MG/DL 70-110 N Performed by certified shirt folding machine operator at [facility] [id number] 12:29:00* Test Item Value Reference Range Interpretation Comments GLUBED (test code = GLUBED) 158 MG/DL 70-110 H Performed by certified shirt folding machine operator at [facility] [id number] 09:31:00* Test Item Value Reference Range Interpretation Comments GLUBED (test code = GLUBED) 92 MG/DL 70-110 N Performed by certified shirt folding machine operator at [facility] CBC W/AUTO [id number] 08:59:00* Test Item Value Reference Range Interpretation [...] (test code = MDIFF) NO BASIC METABOLIC [id number] 08:09:00* Test Item Value Reference Range Interpretation [...] code = CA) 9.1 mg/dL 8.0-10.5 N [id number] 08:09:00* Test Item Value Reference Range Interpretation Comments PHOSPHOROUS (test code = PHOS) 6.0 MG/DL 2.5-4.9 H [id number] 20:44:00* Test Item Value Reference Range Interpretation Comments GLUBED (test code = GLUBED) 162 MG/DL 70-110 H Performed by certified shirt folding machine operator at [facility] [id number] 18:08:00* Test Item Value Reference Range Interpretation Comments GLUBED (test code = GLUBED) 106 MG/DL 70-110 N Performed by certified shirt folding machine operator at [facility] [id number] 13:04:00* Test Item Value Reference Range Interpretation Comments GLUBED (test code = GLUBED) 99 MG/DL 70-110 N Performed by certified shirt folding machine operator at [facility] [id number] 08:04:00* Test Item Value Reference Range Interpretation Comments GLUBED (test code = GLUBED) 167 MG/DL 70-110 H Performed by certified shirt folding machine operator at [facility] [id number] 21:31:00* Test Item Value Reference Range Interpretation Comments GLUBED (test code = GLUBED) 183 MG/DL 70-110 H Performed by certified shirt folding machine operator at [facility] [id number] 18:26:00* Test Item Value Reference Range Interpretation Comments GLUBED (test code = GLUBED) 142 MG/DL 70-110 H Performed by certified shirt folding machine operator at [facility] [id number] 15:40:00* Test Item Value Reference Range Interpretation Comments GLUBED (test code = GLUBED) 162 MG/DL 70-110 H Performed by certified shirt folding machine operator at [facility] [id number] 08:46:00* Test Item Value Reference Range Interpretation Comments GLUBED (test code = GLUBED) 74 MG/DL 70-110 N Performed by certified shirt folding machine operator at [facility] CBC W/AUTO [id number] 08:12:00* Test Item Value Reference Range Interpretation [...] (test code = MDIFF) NO BASIC METABOLIC [id number] 07:43:00* Test Item Value Reference Range Interpretation [...] code = CA) 9.0 mg/dL 8.0-10.5 N [id number] 07:43:00* Test Item Value Reference Range Interpretation Comments PHOSPHOROUS (test code = PHOS) 6.8 MG/DL 2.5-4.9 H [id number] 07:08:00* Test Item Value Reference Range Interpretation Comments GLUBED (test code = GLUBED) 184 MG/DL 70-110 H Performed by certified shirt folding machine operator at [facility] [id number] 20:58:00* Test Item Value Reference Range Interpretation Comments GLUBED (test code = GLUBED) 166 MG/DL 70-110 H Performed by certified shirt folding machine operator at [facility] [id number] 18:14:00* Test Item Value Reference Range Interpretation Comments GLUBED (test code = GLUBED) 119 MG/DL 70-110 H Performed by certified shirt folding machine operator at [facility] [id number] 12:22:00* Test Item Value Reference Range Interpretation Comments GLUBED (test code = GLUBED) 192 MG/DL 70-110 H Performed by certified shirt folding machine operator at [facility] [id number] 08:42:00* Test Item Value Reference Range Interpretation Comments GLUBED (test code = GLUBED) 58 MG/DL 70-110 L Performed by certified shirt folding machine operator at [facility] [id number] 06:18:00* Test Item Value Reference Range Interpretation Comments VANCOMYCIN (test code = VANCO) 22.1 mcg/mL [id number] 17:46:00* Test Item Value Reference Range Interpretation Comments GLUBED (test code = GLUBED) 188 MG/DL 70-110 H Performed by certified shirt folding machine operator at [facility] [id number] 12:50:00* Test Item Value Reference Range Interpretation Comments GLUBED (test code = GLUBED) 140 MG/DL 70-110 H Performed by certified shirt folding machine operator at [facility] [id number] 08:36:00* Test Item Value Reference Range Interpretation Comments GLUBED (test code = GLUBED) 111 MG/DL 70-110 H Performed by certified shirt folding machine operator at [facility] [id number] 20:11:00* Test Item Value Reference Range Interpretation Comments GLUBED (test code = GLUBED) 225 MG/DL 70-110 H Performed by certified shirt folding machine operator at [facility] [id number] 18:13:00* Test Item Value Reference Range Interpretation Comments GLUBED (test code = GLUBED) 112 MG/DL 70-110 H Performed by certified shirt folding machine operator at [facility] [id number] 13:51:00* Test Item Value Reference Range Interpretation Comments GLUBED (test code = GLUBED) 165 MG/DL 70-110 H Performed by certified shirt folding machine operator at [facility] [id number] 10:06:00* Test Item Value Reference Range Interpretation Comments VANCOMYCIN (test code = VANCO) 31.3 mcg/mL BASIC METABOLIC [id number] 10:05:00* Test Item Value Reference Range Interpretation [...] code = CA) 9.1 mg/dL 8.0-10.5 N [id number] 10:05:00* Test Item Value Reference Range Interpretation Comments PHOSPHOROUS (test code = PHOS) 6.7 MG/DL 2.5-4.9 H CBC W/AUTO [id number] 09:51:00* Test Item Value Reference Range Interpretation [...] DIFF REQUIRED (test code = MDIFF) NO [id number] 08:28:00* Test Item Value Reference Range Interpretation Comments GLUBED (test code = GLUBED) 104 MG/DL 70-110 N Performed by certified shirt folding machine operator at [facility] [id number] 20:07:00* Test Item Value Reference Range Interpretation Comments GLUBED (test code = GLUBED) 142 MG/DL 70-110 H Performed by certified shirt folding machine operator at [facility] - XR CHEST 1 [id number] 18:51:00 FAX: Raleigh Wong MD [phone] [place]: St: ADM FAX: Camelia Morgan [phone] Name: ANDIE ZABALA [facility] : 1955 Age/S: 63/F [address] [place] [address] Unit #: [id number] Loc: [place] [address] Phys: Raleigh Marshall MD Acct: [id number] Dis Date: Status: ADM IN PHONE #: [phone] Exam Date: 05/05/20191915 FAX #: [phone] Reason: line EXAMS: CPT CODE: [id number] XR CHEST 1 V 91780 Chest, single view dated 05/05/2019. HISTORY: Line [...] Marshall MD; Neha Morgan MD Technologist: Ann Crowell, RT(R)(M) Trnscrd Date/Time/By: 05/05/2019 (1850) : By: Erika Orig Print D/T: S: 05/05/2019 (1915) PAGE 1 Signed Report [id number] 16:40:00* Test Item Value Reference Range Interpretation Comments GLUBED (test code = GLUBED) 87 MG/DL 70-110 N Performed by certified shirt folding machine operator at [facility] [id number] 12:02:00* Test Item Value Reference Range Interpretation Comments GLUBED (test code = GLUBED) 91 MG/DL 70-110 N Performed by certified shirt folding machine operator at [facility] CBC W/AUTO [id number] 10:29:00* Test Item Value Reference Range Interpretation [...] (test code = MDIFF) NO BASIC METABOLIC [id number] 10:23:00* Test Item Value Reference Range Interpretation [...] code = CA) 9.5 mg/dL 8.0-10.5 N [id number] 08:39:00* Test Item Value Reference Range Interpretation Comments GLUBED (test code = GLUBED) 103 MG/DL 70-110 N Performed by certified shirt folding machine operator at [facility] [id number] 00:23:00* Test Item Value Reference Range Interpretation Comments GLUBED (test code = GLUBED) 170 MG/DL 70-110 H Performed by certified shirt folding machine operator at [facility] [id number] 17:49:00* Test Item Value Reference Range Interpretation Comments GLUBED (test code = GLUBED) 140 MG/DL 70-110 H Performed by certified shirt folding machine operator at [facility] [id number] 16:38:00* Test Item Value Reference Range Interpretation Comments GLUBED (test code = GLUBED) 177 MG/DL 70-110 H Performed by certified shirt folding machine operator at [facility] [id number] 07:52:00* Test Item Value Reference Range Interpretation Comments GLUBED (test code = GLUBED) 76 MG/DL 70-110 N Performed by certified shirt folding machine operator at [facility] BASIC METABOLIC [id number] 04:56:00* Test Item Value Reference Range Interpretation [...] code = CA) 9.1 mg/dL 8.0-10.5 N [id number] 20:23:00* Test Item Value Reference Range Interpretation Comments GLUBED (test code = GLUBED) 134 MG/DL 70-110 H Performed by certified shirt folding machine operator at [facility] [id number] 17:15:00* Test Item Value Reference Range Interpretation Comments GLUBED (test code = GLUBED) 98 MG/DL 70-110 N Performed by certified shirt folding machine operator at [facility] [id number] 12:27:00* Test Item Value Reference Range Interpretation Comments GLUBED (test code = GLUBED) 189 MG/DL 70-110 H Performed by certified shirt folding machine operator at [facility] [id number] 10:19:00* Test Item Value Reference Range Interpretation Comments GLUBED (test code = GLUBED) 90 MG/DL 70-110 N Performed by certified shirt folding machine operator at [facility] [id number] 20:38:00* Test Item Value Reference Range Interpretation Comments GLUBED (test code = GLUBED) 147 MG/DL 70-110 H Performed by certified shirt folding machine operator at [facility] [id number] 16:14:00* Test Item Value Reference Range Interpretation Comments GLUBED (test code = GLUBED) 154 MG/DL 70-110 H Performed by certified shirt folding machine operator at [facility] [id number] 13:03:00* Test Item Value Reference Range Interpretation Comments GLUBED (test code = GLUBED) 178 MG/DL 70-110 H Performed by certified shirt folding machine operator at [facility] [id number] 10:06:00* Test Item Value Reference Range Interpretation Comments GLUBED (test code = GLUBED) 82 MG/DL 70-110 N Performed by certified shirt folding machine operator at [facility] CBC W/AUTO [id number] 08:44:00* Test Item Value Reference Range Interpretation [...] (test code = MDIFF) NO BASIC METABOLIC [id number] 08:44:00* Test Item Value Reference Range Interpretation [...] code = CA) 8.6 mg/dL 8.0-10.5 N [id number] 08:44:00* Test Item Value Reference Range Interpretation Comments PHOSPHOROUS (test code = PHOS) 7.4 MG/DL 2.5-4.9 H [id number] 23:42:00* Test Item Value Reference Range Interpretation Comments GLUBED (test code = GLUBED) 218 MG/DL 70-110 H Performed by certified shirt folding machine operator at [facility] [id number] 15:00:00* Test Item Value Reference Range Interpretation Comments GLUBED (test code = GLUBED) 107 MG/DL 70-110 N Performed by certified shirt folding machine operator at [facility] [id number] 12:26:00* Test Item Value Reference Range Interpretation Comments GLUBED (test code = GLUBED) 103 MG/DL 70-110 N Performed by certified shirt folding machine operator at [facility] [id number] 10:31:00* Test Item Value Reference Range Interpretation Comments GLUBED (test code = GLUBED) 107 MG/DL 70-110 N Performed by certified shirt folding machine operator at [facility] [id number] 10:31:00* Test Item Value Reference Range Interpretation Comments GLUBED (test code = GLUBED) 211 MG/DL 70-110 H Performed by certified shirt folding machine operator at [facility] BASIC METABOLIC [id number] 08:46:00* Test Item Value Reference Range Interpretation [...] code = CA) 8.8 mg/dL 8.0-10.5 N [id number] 08:28:00* Test Item Value Reference Range Interpretation Comments GLUBED (test code = GLUBED) 125 MG/DL 70-110 H Performed by certified shirt folding machine operator at [facility] PROTHROMBIN [id number] 07:17:00* Test Item Value Reference Range Interpretation [...] Infarction (to prevent recurrent infarct). THROMBOPLASTIN TIME [id number] 07:17:00* Test Item Value Reference Range Interpretation Comments THROMBOPLASTIN TIME PARTIAL (test code = PTT) 31.0 Seconds 25.0-39. 5 N Therapeutic Range: 50.4 - 88.3 Seconds Effective 07/19/2018 CBC W/AUTO [id number] 07:16:00* Test Item Value Reference Range Interpretation [...] (test code = MDIFF) NO BASIC METABOLIC [id number] 20:56:00* Test Item Value Reference Range Interpretation [...] = CA) 9.2 mg/dL 8.0-10.5 N PROTHROMBIN [id number] 20:54:00* Test Item Value Reference Range Interpretation [...] Infarction (to prevent recurrent infarct). THROMBOPLASTIN TIME [id number] 20:54:00* Test Item Value Reference Range Interpretation Comments THROMBOPLASTIN TIME PARTIAL (test code = PTT) 34.4 Seconds 25.0-39. 5 N Therapeutic Range: 50.4 - 88.3 Seconds Effective 07/19/2018 BASIC METABOLIC [id number] 20:46:00* Test Item Value Reference Range Interpretation [...] CA) 9.2 mg/dL 8.0-10.5 N CBC W/AUTO [id number] 20:38:00* Test Item Value Reference Range Interpretation [...] DIFF REQUIRED (test code = MDIFF) NO [id number] 17:32:00* Test Item Value Reference Range Interpretation Comments GLUBED (test code = GLUBED) 138 MG/DL 70-110 H Performed by certified shirt folding machine operator at [facility] [id number] 12:17:00* Test Item Value Reference Range Interpretation Comments GLUBED (test code = GLUBED) 117 MG/DL 70-110 H Performed by certified shirt folding machine operator at [facility] - XR CHEST 1 [id number] 11:47:00 FAX: Taylor Childers [phone] [place]: St: [facility] FAX: Camelia Morgan [phone] Name: ANDIE ZABALA [facility] : 1955 Age/S: 63/F [address] [place] [address] Unit #: [id number] Loc: [address] [address] Phys: Taylor Childers CRNA Acct: [id number] Dis Date: Status: ADM IN PHONE #: [phone] Exam Date: 04/30/2019 1104 FAX #: [phone] Reason: PREOP EXAMS: CPT CODE: [id number] XR CHEST 1 V 09976 CLINICAL HISTORY:PREOP COMPARISON:NONE Frontal film of the [...] by: Phong Lemus M.D. CC: Taylor Childers DENTURE MODEL MAKER; Neha Morgan MD Technologist: Claudia Suarez RT(R) Trnscrd Date/Time/By: 04/30/2019 (1948) : By: Vadim Orig Print D/T: S: 04/30/2019 (9192) PAGE 1 Signed Report - XR CHEST 1 [id number] 11:47:00 FAX: Taylor Childers [phone] [place]: St: ADM FAX: Camelia Morgan [phone] Name: SAGRARIOANDIE CASAS [facility] : 1955 Age/S: 63/F [address] [place] [address] Unit #: [id number] Loc: G.4430 [facility] [place] [address] Phys: Taylor Childers CRNA Acct: [id number] Dis Date: Status: ADM IN PHONE #: [phone] Exam Date: 04/30/2019 1104 FAX #: [phone] Reason: PREOP EXAMS: CPT CODE: [id number] XR CHEST 1 V 37184 CLINICAL HISTORY:PREOP COMPARISON:NONE Frontal film of the [...] Technologist: Claudia Suarez RT(R) Trnscrd Date/Time/By: 04/30/2019 (8245) : By: Vadim Orig Print D/T : S: 04/30/2019 (5164) PAGE 1 Sig yaneth Report [id number] 08:34:00* Test Item Value Reference Range Interpretation Comments GLUBED (test code = GLUBED) 79 MG/DL 70-110 N Performed by certified shirt folding machine operator at [facility] [id number] 08:31:00* Test Item Value Reference Range Interpretation Comments GLUBED (test code = GLUBED) 59 MG/DL 70-110 L Performed by certified shirt folding machine operator at [facility] [id number] 20:37:00* Test Item Value Reference Range Interpretation Comments GLUBED (test code = GLUBED) 160 MG/DL 70-110 H Performed by certified shirt folding machine operator at [facility] - [facility]UP [facility] [id number] 12:15:00 Name: ANDIE ZABALA [facility] : 1955 Age/S: 63 / F [address] [place] [address] Unit #: [id number] Loc: [place] [address] Phys: Luke Boykin DPM Acct: [id number] Dis Date: Status: ADM IN PHONE #: [phone] Exam Date: 04/29/2019 1037 FAX #: [phone] Reason: ULCERS EXAMS: CPT CODE: [id number] DUP [place] ART JASPAL [address] PROCEDURE: BILATERAL LOWER EXTREMITY ARTERIAL DOPPLER INDICATION: [...] 1 Signed Report (CONTINUED) Name: ANDIE ZABALA [facility] : 1955 Age/S: 63 / F [address] [place], [place] [address] Unit #: [id number] Loc: [facility] JAYME [address] Phys: Luke Boykin DPM Acct: [id number] Dis Date: Status: ADM IN PHONE #: [phone] Exam Date: 04/29/2019 1037 FAX #: [phone] Reason: ULCERS EXAMS: CPT CODE: [id number] DUP [place] ART JASPAL [address]1873 <Continued> 1. Limited arterial Doppler demonstrating peripheral [...] 2 Signed Report - DUP [place] ART [id number] 12:15:00 Name: ANDIE ZABALA [facility] : 1955 Age/S: 63 / F [address] [place], [place] [address] Unit #: [id number] Loc: [place] [address] Phys: Luke Boykin [facility] Acct: [id number] Dis Date: Status: ADM IN PHONE #: [phone] Exam Date: 04/29/2019 1037 FAX #: [phone] Reason: ULCERS EXAMS: CPT CODE: [id number] DUP [place] JASPAL [address] PROCEDURE: BILATERAL LOWER EXTREMITY ARTERIAL DOPPLER INDICATION: [...] 1 Signed Report (CONTINUED) Name: ANDIE ZABALA [facility] : 1955 Age/S: 63 / F [address] [place] [address] Unit #: [id number] Loc: [place] [address] Phys: Luke Boykin [facility] Acct: [id number] Dis Date: Status: ADM IN PHONE #: [phone] Exam Date: 04/29/2019 1037 FAX #: [phone] Reason: ULCERS EXAMS: CPT CODE: [id number] DUP [place] ART JASPAL [address]309 <Continued> 1. Limited arterial Doppler demonstrating peripheral [...] (1215) Reg Orig Print D/T: S: 04/29/2019 (0699) Probe: PAGE 2 Signed Report GLUBED 2019-04-29 08:27:00* Test Item Value Reference Range Interpretation Comments GLUBED (test code = GLUBED) 97 MG/DL 70-110 N Performed by certified shirt folding machine operator at [facility] [id number] 08:27:00* Test Item Value Reference Range Interpretation Comments GLUBED (test code = GLUBED) 167 MG/DL 70-110 H Performed by certified shirt folding machine operator at [facility] [id number] 08:27:00* Test Item Value Reference Range Interpretation Comments GLUBED (test code = GLUBED) 139 MG/DL 70-110 H Performed by certified shirt folding machine operator at [facility] ACUTE HEPATITIS [id number] 08:10:00* Test Item Value Reference Range Interpretation [...] COMMENTS: At start of hemodialysisAB HEPATITIS B [id number] 08:10:00* Test Item Value Reference Range Interpretation Comments AB HEPATITIS B SURFACE (test code = HBSAB) 6.6 mIU/mL Immunity>9. 9 L Status of Immunity Anti-HBs Level Inconsistent with Immunity 0.0 - 9.9Consistent with Immunity >9.9Performed At: [facility] [address] [id number] Lima MD Ph:[phone] COMMENTS: At start of hemodialysis- MRI LOW EXT W/O CONT [id number] 21:04:00 FAX: Camelia Morgan [phone] [place]: St: ADM FAX: Juanpablo Mooney MD [phone] Name: ANDIE ZABALA [facility] : 1955 Age/S: 63/F [address] [place] [address] Unit #: [id number] Loc: G.[address] [place] [address] Phys: Juanpablo Bearden MD Acct: [id number] Dis Date: Status: ADM IN PHONE #: [phone] Exam Date: 04/28/20191945 FAX #: [phone] Reason: osteomyelitis EXAMS: CPT CODE: [id number] MRI LOW EXT W/[place] [address] MRI right foot without contrast INDICATION: Right [...] Signed Report (CONT INUED) FAX: Camelia Morgan [phone] [place]: St: ADM FA X: Juanpablo Mooney MD [phone] Name: ANDIE ZABALA [facility] : 1955 Age/S: 63/F [address] [place] [address] Unit #: [id number] Loc: [address] [address] Phys: Juanpablo Bearden MD Acct: [id number] Dis Date: Status: ADM IN PHONE #: [phone] Exam Date: 04/06 FAX #: [phone] Reason: osteomyelitis EXAMS: CPT CODE: [id number] MRI LOW EXT W/O CONT RT 73 [...] Report - MRI LOW EXT W/O CONT [id number] 21:04:00 FAX: Camelia Morgan [phone] [place]: St: ADM FAX: Juanpablo Mooney MD [phone] Name: ANDIE ZABALA [facility] : 1955 Age/S: 63/F [address] [place] [address] Unit #: [id number] Loc: G.4430 [place] [address] Phys: Juanpablo Bearden MD Acct: [id number] Dis Date: Status: ADM IN PHONE #: [phone] Exam Date: 04/28/20191945 FAX #: [phone] Reason: osteomyelitis EXAMS: CPT CODE: [id number] MRI LOW EXT W/[place] [address] MRI right foot without contrast INDICATION: Right [...] Signed Report (CONT INUED) FAX: Jus Morganyovany [phone] [place]: St: ADM FA X: Juanpablo Mooney MD [phone] Name: ANDIE ZABALA [facility] : 1955 Age/S: 63/F [address] [place] [address] Unit #: [id number] Loc: G.4430 [place] [address] Phys: Juanpablo Bearden MD Acct: [id number] Dis Date: Status: ADM IN PHONE #: [phone] Exam Date: 04/06 FAX #: [phone] Reason: osteomyelitis EXAMS: CPT CODE: [id number] MRI LOW EXT W/O CONT RT 73 [...] S: 04/28/2019 (2107) PAGE 2 Signed Report [id number] 16:34:00* Test Item Value Reference Range Interpretation Comments GLUBED (test code = GLUBED) 151 MG/DL 70-110 H Performed by certified shirt folding machine operator at [facility] ACUTE HEPATITIS [id number] 14:09:00* Test Item Value Reference Range Interpretation [...] COMMENTS: At start of hemodialysisAB HEPATITIS B [id number] 14:09:00* Test Item Value Reference Range Interpretation Comments AB HEPATITIS B SURFACE (test code = HBSAB) COMMENTS: At start of hemodialysisACUTE HEPATITIS [id number] 13:37:00* Test Item Value Reference Range Interpretation Comments AB HEPATITIS A IGM (test code = HAVMAB) INDEX NON REACT. AG HEPATITIS B SURFACE (test code = HBSAG) NON REACTIVE INDEX NonRe active AB HEPATITIS B CORE IGM (test code = HBCMAB) INDEX NON REACT . AB HEPATITIS C (test code = HCVAB) INDEX NON REACT. COMMENTS: At start of hemodialysisAB HEPATITIS B [id number] 13:37:00* Test Item Value Reference Range Interpretation Comments AB HEPATITIS B SURFACE (test code = HBSAB) COMMENTS: At start of hemodialysis- XR FOOT 3 + V [id number] 12:13:00 FAX: Camelia Morgan [phone] [place]: [address] St: ADM FAX: Y Luke Boykin DPM [phone] Name: ANDIE ZABALA [facility] : 1955 Age/S: 63/F [address] [place] [address] Unit #: [id number] Loc: [address] [place] [address] Phys: Luke Boykin DPM Acct: [id number] Dis Date: Status: ADM IN PHONE #: [phone] Exam Date: 04/28/2019920 FAX #: [phone] Reason: ULCERS EXAMS: CPT CODE: [id number] XR FOOT 3 + V RT [address] Study: - XR FOOT 3 + V RT 04/28/2019 8:27 AM Patient Name: ANDIE ZABALA MR: [id number] : 1955; Age: 63 years y/o Female [...] may be performed for further evaluation. SL: [id number] Electronically Signed by Katie Elizabeth on 04/06 at 1213 Reported and signed by: Oly Cannon CC: Neha Morgan MD; Luke Boykin DPM Technolo gist: Ifrah Holt, RT(R), RTT Trnscrd Date/Time/B y: 04/28/2019 (1213) : By: [email or web address] Orig Print D/T: S: 04/28/2019 (12 16) PAGE 1 Signed Report - XR FOOT 3 + V [id number] 12:13:00 FAX: Camelia Morgan [phone] [place]: St: ADM FAX: Luke Hernandez DPM [phone] Name: ANDIE ZABALA [facility] : 1955 Age/S: 63/F [address] [place] [address] Unit #: [id number] Loc: G.4430 [facility] [address] Phys: Luke Boykin DPM Acct: [id number] Dis Date: Status: ADM IN PHONE #: [phone] Exam Date: 04/28/2019920 FAX #: [phone] Reason: ULCERS EXAMS: CPT CODE: [id number] XR FOOT 3 + V RT [address] Study: - XR FOOT 3 + V RT 04/28/2019 8:27 AM Patient Name: ANDIE ZABALA MR: [id number] : 1955; Age: 63 years y/o Female [...] may be performed for further evaluation. SL: [id number] Electronically Signed by Katie Elizabeth on 04/06 at 1213 Reported and signed by: Oly Cannon CC: Neha Morgan MD; Luke Boykin DPM Technolo gist: Ifrah Holt, RT(R), RTT Trnscrd Date/Time/B y: 04/28/2019 (1213) : By: [email or web address] Orig Print D/T: S: 04/28/2019 (12 16) PAGE 1 Signed Report [id number] 12:01:00* Test Item Value Reference Range Interpretation Comments GLUBED (test code = GLUBED) 105 MG/DL 70-110 N Performed by certified shirt folding machine operator at [facility] BASIC METABOLIC [id number] 01:38:00* Test Item Value Reference Range Interpretation [...] CA) 9.4 mg/dL 8.0-10.5 N HEPATIC FUNCTION [id number] 01:38:00* Test Item Value Reference Range Interpretation [...] ALKP) 66 IUnit/L 20-125 N BASIC METABOLIC [id number] 01:31:00* Test Item Value Reference Range Interpretation [...] CA) 9.4 mg/dL 8.0-10.5 N HEPATIC FUNCTION [id number] 01:31:00* Test Item Value Reference Range Interpretation [...] code = ALKP) IUnit/L 20-125 CBC W/AUTO [id number] 01:29:00* Test Item Value Reference Range Interpretation [...] DIFF REQUIRED (test code = MDIFF) NO [id number] 00:19:00* Test Item Value Reference Range Interpretation Comments GLUBED (test code = GLUBED) 199 MG/DL 70-110 H Performed by certified shirt folding machine operator at [facility] HLA TYPING [id number] 23:21:00* Test Item Value Reference Range Interpretation [...] and its performance characteristics determined by the [facility] Laboratory. It has not been cleared [...] to perform high complexity clinical laboratory testing. [facility] [id number] 23:21:00* Test Item Value Reference Range Interpretation [...] and its performance characteristics determined by the [facility] Laboratory. It has not been cleared [...] to perform high complexity clinical laboratory testing. [facility] HospitalAB SPECIFICITY CLASS [id number] 15:54:00* Test Item Value Reference Range Interpretation Comments AB Specificity Class I (test code = 3457) NO CLASS I A NTIBODY DETECTED WITH MFIs > 4000 BLANCHE (test code = BLANCHE) Disclaimer: This test was de veloped and its performance characteristics determined by the [facility] Laboratory. It has not been cleared [...] to perform high complexity clinical laboratory testing. [facility] HospitalT Spot [id number] 18:22:00* Test Item Value Reference Range Interpretation Comments T-Spot TB (test code = 69522-1) Negative Neg Ctrl Spot Count (test code = 55554-0) 0 Panel A Spot (test code = 48028-8) 0 Panel B Spot (test code = 83333-8) [address] (test code = 34231-3) 0 Scan Result (test code = 5641108) [facility] HospitalFLOW PRA CLASS I WITH REFLEX TO ANTIBODY [id number] 11:34:00* Test Item Value Reference Range Interpretation Comments Flow Class I Percent Positive (test code = 3229) 13 BLANCHE (test code = BLANCHE) Disclaimer: This test was de veloped and its performance characteristics determined by the [facility]. It has not been cleared [...] to perform high complexity clinical laboratory testing. [facility] HospitalFLOW PRA CLASS II WITH REFLEX TO ANTIBODY [id number] 11:34:00* Test Item Value Reference Range Interpretation Comments Flow Class II Percent Positive (test code = 3231) 0 BLANCHE (test code = BLANCHE) Disclaimer: This test was de veloped and its performance characteristics determined by the [facility] Laboratory. It has not been cleared [...] to perform high complexity clinical laboratory testing. [facility] HospitalU/S, ABDOMINAL, [id number] 17:13:00Reason for Exam:->Kidney transplant evaluation; comment on [...] MDReport Verified Date/Time: 02/02/2019 17:13:31 Reading Location: [address] Radiology Reading Room abdomen [id number] 17:13:00Interface, External Ris In - 02/02/2019 5:15 [...] Verified Date/Ti me: 02/02/2019 17:13:31 Reading Location: [address] Radiology Reading Room [facility] 12 [id number] 14:20:07Interface, External Ris In - 02/02/2019 2:20 PM CDTVentricular Rate 70 BPMAtrial Rate 70 BPMP-R Interval 160 msQRS Duration 88 msQ-T Interval 434 msQTC Calculation(Bazett) 468 msP [place] 69 degreesR [place] 21 degreesT [place] 101 degreesNormal sinus rhythmNonspecific T wave abnormalityAbnormal ECGNo previous ECGs availableConfirmed by MD Hankins Roberto ([id number]) on 02/02/2019 2:20:01 PMCH[facility] CenterRPR 2019-02-02 12:00:00* Test Item Value Reference Range Interpretation Comments RPR (test code = 91278-4) Nonreactive Nonreactive Lab Interpretation (test code = 90108-7) Normal [facility] CenterRPR2019-10-31 12:00:00* Test Item Value Reference Range Interpretation Comments RPR SCREEN (BEAKER) (test code = 420) Nonreactive Nonreactive RAD, CHEST, 2 [id number] 11:27:00Pre-transplant evaluation for chronic kidney diseaseFINAL REPORT INDICATION: ESRD COMPARISON: None TECHNIQUE: Frontal and lateral views of the chest. FINDINGS: Lungs and pleura: Clear lungs. No effusion.Heart and mediastinum: Normal heart size. Unremarkable mediastinal contours.Osseous structures: No acute abnormality.Additional findings: None. IMPRESSION: No acute intrathoracic abnormality. Signed: Jammie Pham Verified Date/Time: 02/02/2019 11:27:11 Reading Location: [facility] Radiology Reading Room chest 2 views 2019-02-02 11:27:00Interface, External Ris In - 02/02/2019 11:31 AM CDTFINAL REPORT INDICATION: ESRD COMPARISON: None TECHNIQUE: Frontal and lateral views of the chest. FINDINGS: Lungs and pleura: Clear lungs. No effusion.Heart and mediastinum: Normal heart size. Unremarkable mediastinal contours.Osseous structures: No acute abnormality.Additional findings: None. IMPRESSION: No acute intrathoracic abnormality. 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 Signature [facility]2D Echo W/Doppler(CW/PW/Color)2019-02-02 11:25:01Ejection [facility]SST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 Mitral Valve Jshi-kh-ephxkkim MV leaflet thickening. Mild thickening of the [...] Velocity: 3.3 m/s TR Gradient: 43.65 mmHg [facility] HospitalVaricella Zoster Antibody, [id number] 11:02:00* Test Item Value Reference Range Interpretation Comments Varicella IgG (test code = 66141-1) 4.0 BLANCHE (test code = BLANCHE) VARICELLA ZOSTER RESULT INTE RPRETATIONS: <=0.8 Al Nonreactive: Presumed non-immune to VZV 0.9-1.0 Al Equivocal >=1.1 Al Reactive: Presumed immune to VZV [facility] HospitalCytomegalovirus antibody, [id number] 11:02:00* Test Item Value Reference Range Interpretation Comments CYTOMEGALOVIRUS, IGG (test code = 3429) Positive Negative, Equi vocal A BLANCHE (test code = BLANCHE) CMV IgG Result Interpretatio n: </= 0.8 Al Negative 0.9- 1.0 Al Equivocal >/=1.1 Al Positive Lab Interpretation (test code = 21078-9) Abnormal [facility] HospitalEBV-VCA antibody, [id number] 11:02:00* Test Item Value Reference Range Interpretation Comments PILAR VASQUEZ VIRAL CAPSID ANTIGEN IGG (test code = 3415) Pos itive Negative, Equivocal A BLANCHE (test code = BLANCHE) Pilar Vasquez Viral Capsid An tigen IgG Result Interpretation: </= 0.8 Al Negative 0.9-1.0 Al Equivocal >/= 1.1 Al Positive Lab Interpretation (test code = 64017-3) Abnormal [facility] HospitalEBV-VCA antibody, [id number] 11:02:00* Test Item Value Reference Range Interpretation Comments PILAR VASQUEZ VIRAL CAPSID ANTIGEN IGM (test code = 3418) Neg ative Negative, Equivocal BLANCHE (test code = BLANCHE) Pilar Vasquez Viral Capsid An tigen IgM Result Interpretation: </= 0.8 Al Negative 0.9-1.0 Al Equivocal >/= 1.1 Al Positive Lab Interpretation (test code = 74436-6) Normal [facility] HospitalCytomegalovirus antibody, [id number] 11:02:00* Test Item Value Reference Range Interpretation Comments CMV IGM (test code = 3437) Negative Negative, Equivocal BLANCHE (test code = BLANCHE) CMV IgM Result Interpretatio n: </= 0.8 Al Negative 0.9-1.0 Al Equivocal >/= 1.1 Al Positive Lab Interpretation (test code = 06200-5) Normal [facility] CenterCYTOMEGALOVIRUS ANTIBODY, [id number] 11:02:00* Test Item Value Reference Range Interpretation Comments CYTOMEGALOVIRUS, IGG (BEAKER) (test code = 3429) Positive Negat vidal, Equivocal A CMV IgG Result Interpretation: </= 0.8 Al Negative 0.9-1.0 Al Equivocal > /=1.1 Al PositiveCYTOMEGALOVIRUS ANTIBODY, [id number] 11:02:00* Test Item Value Reference Range Interpretation Comments CYTOMEGALOVIRUS IGM ANTIBODY (BEAKER) (test code = 3437) Neg ative Negative, Equivocal CMV IgM Result Interpretation: </= 0.8 Al Negative 0.9-1.0 Al Equivocal > /= 1.1 Al PositiveEBV ANTIBODY, [id number] 11:02:00* Test Item Value Reference Range Interpretation Comments PILAR VASQUEZ VIRAL CAPSID ANTIGEN IGG (BEAKER) (test code = 3415) Positive Negative, Equivocal A Pilar Vasquez Viral Capsid Antigen IgG Result Interpretation: </= 0.8 Al Negative 0.9-1.0 Al Equivocal >/= 1.1 Al PositiveEBV ANTIBODY, [id number] 11:02:00* Test Item Value Reference Range Interpretation Comments PILAR VASQUEZ VIRAL CAPSID ANTIGEN IGM (BEAKER) (test code = 3418) Negative Negative, Equivocal Pilar Vasquez Viral Capsid Antigen IgM Result Interpretation: </= 0.8 Al Negative 0.9-1.0 Al Equivocal >/= 1.1 Al PositiveVARICELLA ZOSTER ANTIBODY, [id number] 11:02:00* Test Item Value Reference Range Interpretation Comments VARICELLA ZOSTER IGG (AL) (BEAKER) (test code = 3197) 4.0 VARICELLA ZOSTER RESULT INTERPRETATIONS: <=0.8 Al Nonreactive: Presumed non-immune to VZV 0.9-1.0 Al Equivocal >=1.1 Al Reactive: Presumed immune to VZVHemoglobin [id number] 08:38:00* Test Item Value Reference Range Interpretation Comments Hemoglobin A1C (test code = 4548-4) 6.7 % 4.3-6.1 H Lab Interpretation (test code = 41940-1) Abnormal [facility] HospitalHEMOGLOBIN [id number] 08:38:00* Test Item Value Reference Range Interpretation Comments HEMOGLOBIN A1C (BEAKER) (test code = 368) 6.7 % 4.3-6.1 H Direct AHG (PARAG)/Direct [id number] 08:33:00* Test Item Value Reference Range Interpretation Comments Direct AHG-IGG (test code = 1006-6) NEGATIVE saline control-negative Direct AHG-C3B, C3D (test code = 1003-3) NEGATVIE [facility] HospitalLactate Dehydrogenase (LDH)2019-02-02 08:15:00* Test Item Value Reference Range Interpretation Comments LDH (test code = 2532-0) 237 U/L 125-220 H Lab Interpretation (test code = 48499-2) Abnormal [facility] HospitalLACTATE DEHYDROGENASE (LDH)2019-02-02 08:15:00* Test Item Value Reference Range Interpretation Comments LACTATE DEHYDROGENASE (BEAKER) (test code = 635) 237 U/L 125-2 20 H Hepatitis B surface [id number] 08:06:00* Test Item Value Reference Range Interpretation Comments HBsAg Screen (test code = 5195-3) Nonreactive Nonreactive Lab Interpretation (test code = 02214-0) Normal [facility] HospitalHepatitis B surface dfixudrq8323-03-31 08:06:00* Test Item Value Reference Range Interpretation Comments Hep B S Ab (test code = 65659-9) 31.7 <8.0 mIU/mL H Lab Interpretation (test code = 82239-9) Abnormal [facility] HospitalHepatitis B core antibody, [id number] 08:06:00* Test Item Value Reference Range Interpretation Comments Hep B C IgM (test code = 61998-5) Nonreactive Nonreactive Lab Interpretation (test code = 48757-9) Normal [facility] HospitalHepatitis C Gmtdyxem7422-37-27 08:06:00* Test Item Value Reference Range Interpretation Comments Hepatitis C Ab (test code = 84315-9) Nonreactive Nonreactive Lab Interpretation (test code = 38959-4) Normal [facility] HospitalHIV-1 Antigen with HIV-1/2 Mrwsrply1395-31-07 08:06:00* Test Item Value Reference Range Interpretation Comments HIV-1 Antigen with HIV 1&2 Antibody (test code = 64967-5) No nreactive Nonreactive Lab Interpretation (test code = 34082-5) Normal [facility] HospitalHEPATITIS B SURFACE [id number] 08:06:00* Test Item Value Reference Range Interpretation Comments HEPATITIS B SURFACE ANTIGEN (2) (BEAKER) (test code = 2585) Nonreactive Nonreactive HEPATITIS B SURFACE [id number] 08:06:00* Test Item Value Reference Range Interpretation Comments HEPATITIS B SURFACE ANTIBODY (BEAKER) (test code = 647) 31.7 mIU/mL <8.0 H HEPATITIS B CORE ANTIBODY, [id number] 08:06:00* Test Item Value Reference Range Interpretation Comments HEPATITIS B CORE IGM ANTIBODY (BEAKER) (test code = 645) Non reactive Nonreactive HEPATITIS C [id number] 08:06:00* Test Item Value Reference Range Interpretation Comments HEPATITIS C ANTIBODY (BEAKER) (test code = 367) Nonreactive Nonrea ctive HIV-1 ANTIGEN WITH HIV-1/2 [id number] 08:06:00* Test Item Value Reference Range Interpretation Comments HIV-1 ANTIGEN WITH HIV 1\\T\\2 ANTIBODY (2) (BEAKER) (te st code = 2586) Nonreactive Nonreactive Blood typing, [id number] 08:03:00* Test Item Value Reference Range Interpretation Comments ABO/RH AUTOMATED (BEAKER) (test code = 2260) O POSITIVE [facility], [id number] 07:50:00* Test Item Value Reference Range Interpretation Comments PTH (test code = 2731-8) 422.7 pg/mL 8.5-72.5 H Lab Interpretation (test code = 29989-3) Abnormal [facility], [id number] 07:50:00* Test Item Value Reference Range Interpretation Comments PARATHYROID HORMONE INTACT (BEAKER) (test code = 577) 422.7 pg/mL 8.5-72.5 H Comprehensive metabolic [id number] 07:47:00* Test Item Value Reference Range Interpretation Comments Protein, Total (test code = 2885-2) 7.4 6.0- 8.3 gm/dL Albumin (test code = 58662-1) 4.0 g/dL 3.5-5 Alkaline Phosphatase (test code [...] mg/dL 70-105 H Calcium (test code = 53796-3) 9.4 mg/dL 8.4-10.2 AST (test code = 1920-8) 14 U/L 5-34 ALT (test code = 1742-6) 12 U/L 6-55 EGFR (test code = 23693-2) 11 mL/min/1.73 sq m ESTIMATED GFR IS NOT ACCURATE CREATININE CLEARANCE IN PREDICTING GLOMERULAR FILTRATION RATE. ESTIMATED GFR IS NOT APPLICABLE FOR DIALYSIS PATIENTS. Lab Interpretation (test code = 56034-6) Abnormal [facility] CenterCOMPREHENSIVE METABOLIC [id number] 07:47:00* Test Item Value Reference Range Interpretation [...] IS NOT APPLICABLE FOR DIALYSIS PATIENTS. Lipid [id number] 07:46:00* Test Item Value Reference Range Interpretation Comments Triglycerides (test code = 2571-8) 68 mg/dL Cholesterol (test code = 2093-3) 143 mg/dL HDL (test code = 2085-9) 51 mg/dL LDL Calculated (test code = 44162-5) 78 mg/dL BLANCHE (test code = BLANCHE) Triglyceride Reference Range : Low Risk <150 Borderline 150-199 High Risk 200-499 Very High Risk >=500 Cholesterol Reference Range: Low Risk <200 Borderline 200-239 High Risk >240 HDL Cholesterol Reference Range: Low Risk >=60 High Risk <40 LDL Cholesterol Reference Range: Optimal <100 Near Optimal 100-129 Borderline 130-159 High 160-189 Very High >=190 [facility] HospitalGamma Glutamyl Transferase (GGT)2019-02-02 07:46:00 * Test Item Value Reference Range Interpretation Comments GGT (test code = 2324-2) 19 U/L 9-64 Lab Interpretation (test code = 20787-9) Normal [facility] HospitalPhosphorus2019-10-31 07:46:00* Test Item Value Reference Range Interpretation Comments Phosphorus (test code = 2777-1) 4.8 mg/dL 2.3-4.7 H Lab Interpretation (test code = 79876-1) Abnormal [facility] HospitalUric [id number] 07:46:00* Test Item Value Reference Range Interpretation Comments Uric Acid (test code = 3084-1) 3.1 mg/dL 2.6-7.2 Lab Interpretation (test code = 73700-1) Normal [facility] HospitalURIC [id number] 07:46:00* Test Item Value Reference Range Interpretation Comments URIC ACID (BEAKER) (test code = 773) 3.1 mg/dL 2.6-7.2 [id number] 07:46:00* Test Item Value Reference Range Interpretation Comments PHOSPHORUS (BEAKER) (test code = 604) 4.8 mg/dL 2.3-4.7 H LIPID [id number] 07:46:00* Test Item Value Reference Range Interpretation [...] (test code = 364) 19 U/L 9-64 PT/[id number] 07:35:00* Test Item Value Reference Range Interpretation Comments Protime (test code = 5902-2) 13.4 11.9- 14.2 seconds INR (test code = 6301-6) 1.1 <=5.9 PTT (test code = 89314-4) 37.7 22.5- 36.0 seconds H BLANCHE (test code = BLANCHE) Effective 08/31/2018: PT Refe rence Range ChangeNew: 11.9- 14.2 Previous: 11.7-14.7 RECOMMENDED COUMADIN/WARFARIN INR THERAPY RANGESSTANDARD DOSE: 2.0-3.0 Includes: PROPHYLAXIS for venous thrombosis, sys temic embolization; TREATMENT for venous thrombosis and/or pulmonary embolus.HIGH RISK: Target INR is 2.5-3.5 for patients wiht mechanical heart valves. Lab Interpretation (test code = 19946-0) Abnormal [facility] HospitalPT/[id number] 07:35:00* Test Item Value Reference Range Interpretation [...] 450 K/CU MM MPV (test code = 38162-6) 10.1 fL 9.4-12.3 nRBC (test code = [...] % 0-1 Lab Interpretation (test code = 74300-3) Abnormal [facility] W/PLT COUNT & AUTO [id number] 07:28:00* Test Item Value Reference Range Interpretation [...] 2801) 0 % 0-1 BONE DXA DUAL [id number] 16:16:00 [place] [address] Patient Name: ANDIE ZABALA MR #: [id number] : 1955 Age/Sex: 62/F Req #: [id number] Adm Physician: Ordered by: EVELYN CRUZ MD Report #: [id number] Location: [facility] Room/Bed: Procedure: [id number] DX/ BONE DXA DUAL ENERGY Exam Date: [...] TO: EVELYN CRUZ MD MAMMOGRAPHY DIGITAL SCR [id number] 15:32:00 [place] [address] Patient Name: ANDIE ZABALA MR #: [id number] : 1955 Age/Sex: 62/F Req #: [id number] Adm Physician: Ordered by: EVELYN CRUZ MD Report #: [id number] Location: MAMMO Room/Bed: Procedure: [id number] MG/ MAMMOGRAPHY DIGITAL SCR BILAT Exam Date: 12/01/18 Ex am Time: 1453 REPORT STATUS: Signed #[id number] - MGSCRBIL #BILATERAL DIGITAL SCREENING MAMMOGRAM WITH C AD: 12/01/2018 CLINICAL: Routine screening. Comparison is made to exam d ated: 10/13/2016 mammogram - [facility]. Current tesfaye dy contains 4 films. There [...] 17:39:16 Imag ing Technologist: Mikayla Robles RT(R)(M), [facility] letter sent: Normal Exam Mammogram BI-RADS: 2 Benign Dictated By: BRITTANI GRIMM MD 38 Transcr ibed By: GLORIA on 12/02/181738 COPY TO: EVEYLN CRUZ MD MAMMOGRAPHY DIGITAL SCR BILAT [place] [address] Patient Name: ANDIE ZABALA MR #: [id number] : 1955 Age/Sex: 61/F Req #: [id number] Adm Physician: Ordered by: EVELYN CRUZ MD Report #: [id number] Location: MAMMO Room/Bed: Procedure: [id number] MG/MAMMOGRAPHY DIGITAL SCR BILAT Exam Date: 10/13/16 Exam Time: 1100 REPO RT STATUS: Signed THIS REPORT HAS BEEN AMENDED. #[id number] - MGSCRBIL #BILATERAL DIGITAL SCREENING MAMMOGRAM WITH [...] letter of the results. Sera davila/gloria:10/27/2016 09:13:50 Mig Welder: Mikayla Robles RT(R) (M), [facility] letter sent: Normal Exam Mammogram BI-RADS: 2 Benign AMENDMENT: 07/20/2017 Sera Palmer Jr., D.O. Comparison to outside mammograms dated 08/14/2015 from [facility] is now possible as they have become available. The dialysis catheter has been rem connor. There is no evidence of malignancy. Amended BI-RADS: [address] sent: Compared to Prior B9 Dictated By: SERA Mehta Signed By: SERA PALMER DO on 10/27/16 0913 Transcribed By: GLORIA on 07/04 10/20 1326 COPY TO: EVELYN CRUZ MD
[2020-01-11] MEDS: FUROSEMIDE INJ 10 MG/ML 4 ML VIAL IV SCH (19:25)
[2020-01-11] MEDS ORDERED: FUROSEMIDE INJ 10 MG/ML 4 ML VIAL ONE (19:42)
--- NOTE | 2020-01-11 19:58 | NUR ---
assissted pt with bedpan, no urine, small BM. pt cleaned up and placed in a gown. pt tolorated well. pt placed in a diaper per her request
[2020-01-11] MEDS ORDERED: IOPAMIDOL 370 MG/ML 200 ML INFUS..BTL INJ ONE (20:03)
[2020-01-11] MEDS ORDERED: SODIUM CHLORIDE 0.9% 50ML 50 ML ONE (20:03)
--- NOTE | 2020-01-11 20:31 | Diagnostic Imaging Report ---
EXAM: CT Chest WITH contrast (PE Protocol) INDICATION: DYSPNEA ELEVATED DDIMER suspicious for pulmonary embolism. COMPARISON: Same day chest radiograph. TECHNIQUE: Chest was scanned utilizing a multidetector helical scanner from the lung apex through the level of the diaphragm after administration of IV contrast. Thin section reconstructions were obtained with special concentration on the pulmonary arteries. Coronal and sagittal reformations were obtained. Pulmonary embolism protocol was performed. IV CONTRAST: 100 mL of Omnipaque 350 COMPLICATIONS: None RADIATION DOSE: Total DLP: 442 mGy*cm Estimated effective dose: (DLP x 0.014 x size factor) mSv CTDIvol has been reviewed. It is below the limits set by the Radiation Protocol Committee (RPC). Dose modulation, iterative reconstruction, and/or weight based adjustment of the mA/kV was utilized to reduce the radiation dose to as low as reasonably achievable. FINDINGS: VASCULAR: There are no filling defects within the pulmonary arteries to the segmental level. The pulmonary trunk is mildly dilated measuring 3.1 cm. Ascending and descending aorta have normal enhancement and caliber measuring 3.3 cm and 2.5 cm, respectively. There is atherosclerotic calcification of the thoracic aortic arch and its branch vessels. LINES/ TUBES: None. LUNGS AND AIRWAYS: Evaluation of the lungs is limited by respiratory motion artifact. There is diffuse patchy groundglass opacities throughout both lungs. There is bibasilar atelectasis. The central airways are patent and the trachea is midline. PLEURA: There is small bilateral pleural effusion. No pneumothorax. HEART AND MEDIASTINUM: The thyroid gland is normal. No mediastinal, hilar or axillary lymphadenopathy. The heart is enlarged with atherosclerotic ossification the coronary vessels. There is no pericardial effusion. UPPER ABDOMEN: There is severe atherosclerotic calcification of the proximal abdominal aorta and its branch vessels. There is a calcified stone in the partially imaged gallbladder. The remainder of the imaged upper abdomen is within normal limits. BONES: There are degenerative changes in the thoracic spine. SOFT TISSUES: Unremarkable. IMPRESSION: 1. No pulmonary emboli. Mildly dilated pulmonary trunk suggestive of pulmonary arterial hypertension. 2. Diffuse patchy groundglass opacity throughout both lungs which likely represents pulmonary edema and/or developing multifocal infection. 3. Small bilateral pleural effusion. 4. Cardiomegaly with extensive atherosclerotic calcification of coronary vessels. 5. Cholelithiasis without evidence of gastritis. Signed by: Baldev Hendrix MD on 01/11/2020 8:28 PM
[2020-01-11 21:05] VITALS: BP 185/66
[2020-01-11] MEDS ORDERED: CLOPIDOGREL75 MG PO (21:53)
[2020-01-11] MEDS ORDERED: VITAMIN D250 MCG PO (21:53)
[2020-01-11] MEDS ORDERED: HYDRALAZINE HC100 MG PO (21:53)
[2020-01-11] MEDS ORDERED: GABAPENTIN300 MG PO (21:53)
[2020-01-11] MEDS ORDERED: LABETALOL HCL100 MG PO (21:53)
[2020-01-11] MEDS ORDERED: DULOXETINE PO (21:53)
[2020-01-11] MEDS ORDERED: DIOVAN80 MG PO (21:53)
[2020-01-11 22:00] VITALS: BP 185/66
[2020-01-11 22:06] VITALS: BP 185/66
[2020-01-12] VITALS (8 sets, daily range): BP systolic 146–182; BP diastolic 50–77
[2020-01-12] MEDS ORDERED: HYDRALAZINE HCL 25 MG TAB PO ONE (00:30)
[2020-01-12] MEDS: LABETALOL HCL 100 MG TAB PO SCH ×3 (06:09→23:00)
[2020-01-12 06:13] LABS: BASOPHILS # (AUTO) 0.1 (0.0-0.1); BASOPHILS % 0.8 % (0.0-1.0); EOSINOPHILS # (AUTO) 0.2 (0.0-0.4); HEMATOCRIT 32.8 % (34.2-44.1); HEMOGLOBIN 10.1 g/dL (12.0-16.0); LYMPHOCYTES # (AUTO) 1.6 (1.0-3.2); LYMPHOCYTES % 26.5 % (18.0-39.1); MEAN CORPUSCULAR HEMOGLOBIN 30.9 pg (28-32); MEAN CORPUSCULAR HGB CONC 30.8 g/dL (31-35); MEAN CORPUSCULAR VOLUME 100.3 fL (81-99); MONOCYTES # (AUTO) 0.7 (0.2-0.8); MONOCYTES % 10.9 % (4.4-11.3); NEUTROPHILS # (AUTO) 3.5 (2.1-6.9); NEUTROPHILS % 58.6 % (38.7-80.0); PLATELET COUNT 255 x10e3/uL (140-360); RED BLOOD COUNT 3.27 x10e6/uL (3.6-5.1); RED CELL DISTRIBUTION WIDTH 15.4 % (11.7-14.4)
--- NOTE | 2020-01-12 06:19 | NUR ---
Call placed to Dr. Adame for cardiology consult, spoke directly to md. Also placed call to Dr. Fu office for consult and HD today. Left message and call return phone number at [phone] for online content developer MD. Call placed to primary md last evening for pt home med renewal, DM home med not available to give md. Will clarify with md / pass on to oncoming nurse. 2nd call placed to md with no return call for clarification.
[2020-01-12 06:35] LABS: ALBUMIN 2.7 g/dL (3.5-5.0); ALBUMIN/GLOBULIN RATIO 0.7 (0.8-2.0); ALKALINE PHOSPHATASE 62 IU/L (40-150); ANION GAP 15.2 mmol/L (8-16); BLOOD UREA NITROGEN 14 mg/dL (7-26); BUN/CREATININE RATIO 3 (6-25); CALCIUM 9.2 mg/dL (8.4-10.2); CARBON DIOXIDE 27 mmol/L (22-29); CHLORIDE 96 mmol/L (98-107); CREATININE, SERUM 4.69 mg/dL (0.57-1.11); EST GLOMERULAR FILTRATION RATE 9 ML/MIN (60-); GLUCOSE 123 mg/dL (74-118); POTASSIUM 4.2 mmol/L (3.5-5.1); SODIUM 134 mmol/L (136-145)
[2020-01-12 06:38] LABS: ALANINE AMINOTRANSFERASE < 6 IU/L (0-55)
--- NOTE | 2020-01-12 06:50 | NUR ---
SBAR BEDSIDE REPORT RECEIVED FROM PM SHIFT RN. PATIENT FOUND LYING IN BED IN NO ACUTE DISTRESS. PATIENT IS AAOX4 AND ABLE TO MAKE NEEDS KNOWN. PATIENT IS PRIMARILY YEMENI SPEAKING BUT CAN CONVERSE WELL IN CZE[place]. CALL LIGHT AND BELONGINGS PLACED NEARBY. WILL CONTINUE TO MONITOR.
--- NOTE | 2020-01-12 07:00 | NUR ---
CALL PLACED TO DR. SOLIZ REQUESTING DIALYSIS ORDERS. LEFT FOR RETURN CALL.
--- NOTE | 2020-01-12 07:50 | NUR ---
CALL RECEIVED FROM DR. WEST WHO SEES THE PATIENT AND REQUESTED CONSULTATION. CONSULT PLACED.
--- NOTE | 2020-01-12 08:30 | NUR ---
HOME INSULIN VERIFIED AND DOCUMENTED. CALL PLACED TO DR. CRUZ FOR SLIDING SCALE INSULIN ORDERS.
[2020-01-12] MEDS ORDERED: NOVOLIN N100 UNIT/1 SC (08:41)
[2020-01-12] MEDS: DULOXETINE HCL 30 MG DELAYED RELEASE PO SCH (09:00)
[2020-01-12] MEDS: VALSARTAN 80 MG TAB PO SCH (09:00)
[2020-01-12] MEDS ORDERED: FUROSEMIDE INJ 10 MG/ML 4 ML VIAL IV SCH (09:00)
[2020-01-12] MEDS: GABAPENTIN 300 MG CAP PO SCH ×2 (09:00→17:00)
[2020-01-12] MEDS: FUROSEMIDE INJ 10 MG/ML 4 ML VIAL IV SCH ×2 (09:00→21:33)
[2020-01-12] MEDS: HYDRALAZINE HCL 100 MG TABLET PO SCH ×3 (09:00→21:33)
[2020-01-12] MEDS ORDERED: DEXTROSE 50% SYRINGE 50 ML IV PRN (09:45)
[2020-01-12] MEDS ORDERED: CLOPIDOGREL BISULFATE 300 MG TAB-DO NOT STOCK PO NR (10:00)
[2020-01-12] MEDS: INSULIN LISPRO 100 UNIT/1 ML 3ML VIAL SQ SCH ×3 (11:30→21:30)
--- NOTE | 2020-01-12 11:51 | Consultation ---
DATE OF CONSULTATION: 01/12/2020 CARDIAC CONSULTATION: REASON FOR CONSULTATION: Volume overload, shortness of breath. HISTORY OF PRESENT ILLNESS: The patient is poorly historian. She is 64-year-old diabetic of many years duration, end-stage renal disease, on hemodialysis; peripheral arterial vascular disease, hypertension, coronary artery disease, status post several intervention of the lower extremities, most recently she had right below-knee amputation at [facility]. She was dismissed home and she is supposed to have rehabilitation at home. She is usually dialyzed Wednesday, Wednesday, Wednesday. After her dialysis on Wednesday her blood pressure was high, she took her medication and continued to be high and then she started having shortness of breath. Her shortness of breath is very severe and for that reason, she came to the emergency room. There are no cardiac enzymes done and no BMP done. Chest x-ray showed cardiomegaly and haziness in the lung bases. CT chest showed no pulmonary embolism and findings to be consistent with multilobar pulmonary edema with extensive calcification of the coronary arteries. Cholelithiasis is noted. There is no evidence of cholecystitis as per report. Cardiac consult is obtained. The patient having problem breathing for the last few days, although she had her dialysis, but it seems "does not taken off fluid." So, she started having shortness of breath, but her blood pressure was very high. Usually, she is known to have very severe hypertension on several agents for that. Cardiac lebron, she cannot recall details, but we will manage to get some records from [facility], which showed the patient had prior PCI in 2016 with LAD stent. Definitely on CT scan, she does have calcified coronary. The patient denied having any chest pain. Regarding her diabetes, her diabetes is very severe with severe end-organ damage affecting her retina, her kidney, her peripheral neuropathy and severe peripheral arterial vascular disease. The patient had several intervention on her lower extremities. Despite all this intervention, and she had possibly bypass from her left femoral to tibial. The patient ended with right below-knee amputation for gangrene of the right toes. This was done a couple of weeks ago or so. REVIEW OF SYSTEMS: Extensive to all system and very prolonged visit as well as reviewed old record from [facility] computer etc. will be summarized for clarity. GENERAL: No fever, no chills. HEENT: Remarkable for decreased vision, decreased hearing. PULMONARY: Volume overload symptoms with shortness of breath. Orthopnea. No paroxysmal nocturnal dyspnea. CARDIAC: No angina. Prior CAD and stent in 2016. GI: Bloating, indigestion. No hematemesis. No melena. : No hematuria. No dysuria. MUSCULOSKELETAL: Aches and pain. PERIPHERAL VASCULAR: Multiple procedure of the lower extremities by several physicians including cardiology in the past, vascular surgeon and ended with right below-knee amputation. NEUROLOGY: Neurological evidence of very severe peripheral neuropathy. There is no seizure. No localized finding. ENDOCRINE: The patient is brittle diabetic. SKIN: Psoriasis. OTHERS: The patient has severe hypertension on several medication. SOCIAL HISTORY: She is . She is nonsmoker and non-alcohol drinker. PAST MEDICAL HISTORY: 1. Diabetes mellitus, severe end-organ damage. 2. End-stage renal disease on dialysis. 3. Retinopathy. 4. Peripheral neuropathy. 5. Severe peripheral vascular disease, status post several intervention and right below-knee amputation recently evidence of prior left bypass on the left lower extremity also in addition to several intervention. 6. Coronary. The patient is known with PCI in 2016 with severe calcified coronary is noted on CT scan. 7. Severe hypertension on multiple agents. 8. Volume overload, several times admission with volume overload. 9. Gastroparesis at time. 10. Repeated UTI. 11. Severe hypertension. 12. Cholelithiasis. FAMILY HISTORY: Father and mother were diabetic, several members of the family diabetic with coronary artery disease. PHYSICAL EXAMINATION: VITAL SIGNS: Height of 5 feet 5 inches, weight of 168 pounds, blood pressure 180/60, heart rate of 60, respiratory rate of 18. HEENT: Decreased vision is noted. Decreased hearing. NECK: No elevation of jugular venous pulsation. CHEST: Few basal crackles. HEART: PMI 5th left intercostal space. Normal first and second heart sound. Ejection systolic murmur is noted. ABDOMEN: Soft with good bowel sounds. EXTREMITIES: Dressing over at the site of right below-knee amputation there is evidence of scar just below the left knee and there is tiny scar in the left groin. There is area of hardening and I cannot feel any distal pulses. There are evidence of chronic ischemic changes of the left foot. NEUROLOGIC: Awake, alert, able to move her extremities. OTHER FINDINGS: Skin lesion of psoriasis and several lesion of fungus infection in the groin and under breasts. LABORATORY DATA: Sodium of 134, potassium 4.2, BUN of 14, creatinine of 4.7. White blood cell count of 6000, hemoglobin of 10.1, hematocrit 33%, platelet count of 265,00. EKG normal sinus rhythm, nonspecific ST-T changes. CT scan volume overload. No pulmonary embolism. HOME MEDICATIONS: Include Plavix 75 mg a day, labetalol 100 mg t.i.d., Diovan 80 mg a day, hydralazine 100 mg t.i.d., vitamin D, gabapentin 300 mg twice a day, duloxetine 30 mg a day, NPH insulin. ALLERGIES: ACTOS, REGULAR INSULIN, ATORVASTATIN, METFORMIN. IMPRESSION: 1. Admission with volume overload most likely because of the end-stage renal disease and the fact the patient is severely hypertensive indicating diastolic dysfunction of the left ventricle. 2. Coronary artery disease, status post prior percutaneous coronary intervention. 3. No active angina. 4. End-stage renal disease, on hemodialysis. 5. Diabetes mellitus with severe end-organ damage. 6. Extensive vascular disease, right below-knee amputation, possible occluded left leg graft for femoral possible to tibial. 7. Evidence of ischemic changes of the left lower extremity, chronic. 8. Severe hypertension and diastolic dysfunction. 9. High probability of coronary artery disease. 10. No pulmonary embolism as recommended by scan. RECOMMENDATIONS: Hemodialysis is needed. Active control of blood pressure. Continuation of antiplatelet agent, unfortunately the patient is allergic to statin. The case discussed and explained for with the patient. The patient need to follow a junior analyst regularly where she need definitely to have further cardiac workup. But for the time being, dialysis and controlling blood pressure and antiplatelet agent and appropriate medication. Once this is resolved, the patient can be home and to be followed as an outpatient. MD NASH Gaston/CLIVE /[id number]
--- NOTE | 2020-01-12 12:56 | Consultation ---
DATE OF CONSULTATION: 01/12/2020 HISTORY OF PRESENT ILLNESS: Ms. Fabby Bartlett is a pleasant 64-year-old lady with underlying history of diabetes, end-organ damage due to diabetes, retinopathy, neuropathy, cardiovascular disease, peripheral neuropathy, kidney failure, end-stage renal disease, who has been admitted to the hospital. Renal has been consulted for management of underlying kidney failure. The patient otherwise comfortable, resting, in no apparent distress. She has prior history of sepsis, foot infections, has an AV fistula, and had ulceration right foot, peripheral vascular disease. Currently denies nausea, vomiting, chest pain, shortness of breath. ALLERGIES: 1. ATORVASTATIN. 2. INSULIN. 3. METFORMIN. 4. PIOGLITAZONE. MEDICATIONS: Please see MAR for details. Currently on: 1. Labetalol 100 mg p.o. q.8h. 2. Furosemide IV, which was stopped. 3. Gabapentin 300 mg b.i.d. 4. Insulin. 5. Hydralazine 100 mg p.o. t.i.d. 6. Albuterol/Atrovent nebulizer. 7. Plavix 75 mg daily. 8. Cymbalta 30 mg daily. 9. Valsartan 320/25 mg daily. SOCIAL HISTORY: Does not smoke or drink. FAMILY HISTORY: Significant for diabetes. PHYSICAL EXAMINATION: GENERAL: Awake, alert, oriented x3, lying supine, in no apparent distress. VITAL SIGNS: Blood pressure 179/68, pulse 86, afebrile, oxygen saturation 100% on 2 L nasal cannula. HEAD and NECK: Cornea clear. Mucosa moist. LUNGS: Bibasilar rales. HEART: S1, S2 audible. ABDOMEN: Soft and nontender. EXTREMITIES: No edema. IMPRESSION: End-stage renal disease, mild fluid overload, anemia, chronic kidney disease. Hemoglobin 10.1, potassium 4.2, creatinine 4.7, LFTs noted underlying peripheral neuropathy, diabetes, end-organ damage. PLAN: Hemodialysis, renal diet, fluid restriction. Please see orders. Augusto Mcdowell MD SAK/MODL /[id number]
[2020-01-12] MEDS ORDERED: SODIUM CHLORIDE 0.9% 1000ML 2,000 ML ONE (13:56)
--- NOTE | 2020-01-12 19:51 | NUR ---
Received pt in bed sleeping, easily aroused, post HD with 4L reported off. Pt with no c/o at this time, no s/sx of acute distress noted. Bed in low and locked position with call light and personal items within reach. Bedside report completed.
[2020-01-12] MEDS ORDERED: CLOPIDOGREL BISULFATE 75 MG TAB PO SCH (21:00)
[2020-01-13] VITALS (7 sets, daily range): BP systolic 145–175; BP diastolic 56–64
--- NOTE | 2020-01-13 02:05 | NUR ---
Received patient from out going nurse.
--- NOTE | 2020-01-13 05:50 | NUR ---
Patient resting quitly at this time.
[2020-01-13] MEDS: LABETALOL HCL 100 MG TAB PO SCH (05:52)
[2020-01-13 06:41] LABS: BASOPHILS % 0.6 % (0.0-1.0); EOSINOPHILS # (AUTO) 0.2 (0.0-0.4); EOSINOPHILS % 3.7 % (0.0-6.0); HEMATOCRIT 33.7 % (34.2-44.1); HEMOGLOBIN 10.3 g/dL (12.0-16.0); LYMPHOCYTES % 31.6 % (18.0-39.1); MEAN CORPUSCULAR HEMOGLOBIN 30.7 pg (28-32); MEAN CORPUSCULAR HGB CONC 30.6 g/dL (31-35); MEAN CORPUSCULAR VOLUME 100.6 fL (81-99); MONOCYTES # (AUTO) 0.7 (0.2-0.8); MONOCYTES % 10.9 % (4.4-11.3); NEUTROPHILS # (AUTO) 3.3 (2.1-6.9); PLATELET COUNT 275 x10e3/uL (140-360); RED BLOOD COUNT 3.35 x10e6/uL (3.6-5.1); RED CELL DISTRIBUTION WIDTH 15.6 % (11.7-14.4)
[2020-01-13 07:09] LABS: ALBUMIN 2.8 g/dL (3.5-5.0); ALBUMIN/GLOBULIN RATIO 0.6 (0.8-2.0); ALKALINE PHOSPHATASE 62 IU/L (40-150); ANION GAP 17.2 mmol/L (8-16); BLOOD UREA NITROGEN 10 mg/dL (7-26); BUN/CREATININE RATIO 3 (6-25); CALCIUM 9.5 mg/dL (8.4-10.2); CARBON DIOXIDE 27 mmol/L (22-29); CHLORIDE 97 mmol/L (98-107); CHOL/HDL RATIO 3.3 (3.0-3.6); CHOLESTEROL 169 MD/DL (0-199); CREATININE, SERUM 3.71 mg/dL (0.57-1.11); EST GLOMERULAR FILTRATION RATE 12 ML/MIN (60-); GLUCOSE 95 mg/dL (74-118); HDL CHOLESTEROL 51 MG/DL (40-60); LDL CHOLESTEROL 102 MG/DL (60-130); POTASSIUM 4.2 mmol/L (3.5-5.1); SODIUM 137 mmol/L (136-145); TRIGLYCERIDES 82 MG/DL (0-149)
[2020-01-13 07:10] LABS: ALANINE AMINOTRANSFERASE < 6 IU/L (0-55)
[2020-01-13 07:12] LABS: THYROID STIMULATING HORMONE 3.735 uIU/mL (0.350-4.940)
[2020-01-13] MEDS: INSULIN LISPRO 100 UNIT/1 ML 3ML VIAL SQ SCH ×3 (07:30→17:11)
[2020-01-13] MEDS ORDERED: CLOPIDOGREL BISULFATE 75 MG TAB PO SCH (09:00)
[2020-01-13] MEDS: DULOXETINE HCL 30 MG DELAYED RELEASE PO SCH (10:09)
[2020-01-13] MEDS: HYDRALAZINE HCL 100 MG TABLET PO SCH ×2 (10:10→14:17)
[2020-01-13] MEDS: VALSARTAN 80 MG TAB PO SCH (10:10)
[2020-01-13] MEDS: GABAPENTIN 300 MG CAP PO SCH ×2 (10:17→17:42)
[2020-01-13] MEDS: FUROSEMIDE INJ 10 MG/ML 4 ML VIAL IV SCH (10:27)
--- NOTE | 2020-01-13 12:53 | NUR ---
Nutrition Intervention Note RD Recommendation(s) for Physician: -Continue renal/ ADA diet as ordered -Rec Nepro BID to increase protein calorie intake (HD, amputation) Plan of Care: RD following, monitoring for tolerance and adequacy Nutrition reason for involvement: MST/ Diagnosis RD Assessment (01/12) 64yo F, who was admitted for volume overload. Pt has been on HD for over 4 years. Pt was [facility] for R [facility] and discharged a few days ago. Pt reports fair appetite with ~50% meal intake, sometimes less than 50%. Pt complains of nausea but no vomiting episode. LBM 01/11. Pt denies any chewing or swallowing difficulty. Weights have fluctuated in the past few weeks. Pt is open to oral nutrition supplements. Principal Problems/Diagnoses: Volume overload secondary to ESRD PMH: 1. Diabetes mellitus, severe end-organ damage. 2. End-stage renal disease on dialysis. 3. Retinopathy. 4. Peripheral neuropathy. 5. Severe peripheral vascular disease, status post several intervention and right below-knee amputation recently evidence of prior left bypass on the left lower extremity also in addition to several intervention. 6. CAD 7. Severe hypertension on multiple agents. 8. Volume overload, several times admission with volume overload. 9. Gastroparesis at time. 10. Repeated UTI. 11. Severe hypertension. 12. Cholelithiasis. I/O: reviewed GI: abdomen soft, non-tender, round, + flatus Skin: R BKA dressing intact Labs: (01/12) Creatinine 3.71 H, GFR 12 L Meds: (01/12) lasix, plavix, gabapentin, insulin, renvela Ht: 65in Wt: 168.44lb BMI: 28kg/m2 IBW: 118lb +/- (adjusted for R BKA) Malnutrition Evaluation (01/13/20) The patient does not meet criteria for a specified degree of malnutrition at this time. Will re-evaluate at follow-up as appropriate. Energy intake: <75% of estimated energy requirements for >3 months Weight loss: Inconsistent weights reported, + HD, recent R BKA, unable to determine how much # of weight loss Fat loss: no loss identified Muscle loss: no loss identified Supporting Evidence: Fluid accumulation: Moderate Functional Status: No change per pt Nutrition Prescription (Diet Order): renal/ cardiac/ ADA diet Estimated Nutritional Needs: (R BKA, HD) Calories: 1900 2280kcal (25-30kcal/kg CBW) Protein : 91 114g (1.2-1.5g/kg CBW) Diet Adequacy: Not meeting calorie needs, Not meeting protein needs Tolerance: Tolerating PO Diet Education Needs Assessment: Diet education not indicated. Nutrition Care Level: moderate Nutrition Diagnosis: Increased nutrient needs (protein) related to kidney dysfunction as evidenced by HD and recent amputation. Goal: Patient will meet 75-100% of estimated needs by follow up Progress: Progressing Interventions: Mineral/ carb-modified diet, Commercial beverage Monitoring/Evaluation: Total energy intake, Total protein intake, Modified diet, Liquid supplement, Weight change Signed: Spring Ochoa, MS, RD, LD
--- NOTE | 2020-01-13 13:21 | Progress Note ---
DATE: 01/13/2020 SUBJECTIVE: Feeling much better. About 4 L of fluid removed. She is status post right BKA. OBJECTIVE: GENERAL: Sitting up, no distress. VITAL SIGNS: Blood pressure 151/56, temperature 98.7, pulse 78. Has a large glass of ice. CHEST: Clear. EXTREMITIES: No edema on the left leg. NEUROLOGIC: Alert, appropriate. ASSESSMENT: 1. End-stage renal disease. 2. Diabetic nephropathy. 3. Fluid overload. 4. Hypertension. PLAN: Continue the ARB. She had dialysis yesterday. We will re-adjust her dry weight to the so we do not get more fluid overload again. We will follow along. At least from a renal standpoint, she possibly could go home. I did admonish her to avoid ice and keep fluid restricted. MD SHARON Segundo/CLIVE /[id number]
[2020-01-13] MEDS ORDERED: LABETALOL HCL 100 MG TAB PO SCH (14:00)
[2020-01-13] MEDS ORDERED: SEVELAMER CARBONATE 800 MG TAB PO SCH (17:00)
[2020-01-13] MEDS ORDERED: LABETALOL HCL200 MG PO (18:15)
--- NOTE | 2020-01-13 18:33 | NUR ---
Patient will benefit from a RW for home use during pre-gait training ex. Addendum: 01/13/20 at 1834 by Darrel Benitez PT Amended: Links added.
--- NOTE | 2020-01-13 20:53 | Discharge Summary ---
HOSPITAL COURSE: The patient is a 64-year-old Counts Include [address] Beds At [facility] female with past medical history positive for hypertension, history of end-stage renal disease, on dialysis. History of the chronic diastolic congestive heart failure, coronary artery disease, status post stent placement; history of diabetes mellitus, came here because of shortness of breath. She was found to have [id number] diastolic congestive heart failure. She was started on dialysis. She is feeling great. She has no shortness of breath anymore. Cardiology is on the patient, also director of curriculum of the patient already recommended the patient might be able to go home today. Next, dialysis on Wednesday. Chest CT shows CHF, has also bilateral pleural effusion, which is more cardiomegaly, cholelithiasis without cholecystitis. PHYSICAL EXAMINATION: HEART: Showed regular rhythm. Normal S1, S2 sound. LUNGS: Clear bilaterally. ABDOMEN: Soft. EXTREMITIES: Show no edema. VITAL SIGNS: Blood pressure 151/59, temperature 37.8, heart rate 85 per minute, respiratory rate 20 per minute, and O2 saturation 97%. LABORATORY STUDIES: CBC; white blood count 6.24, hemoglobin 10.3, hematocrit 33.7, and platelet count 275,000. On the BMP; sodium 137, potassium 4.2, chloride 97, CO2 of 27, BUN 10, creatinine 3.71, glucose 95, calcium 9.5, total bilirubin 0.6, AST 19, ALT 6, alkaline phosphatase 62, total protein 7.3, albumin 2.8, globulin 4.5, cholesterol 169. LDL cholesterol 102, HDL cholesterol 51. TSH 3.735. FINAL IMPRESSION: 1. Anasarca. 2. Coronary artery disease, status post stent placement. 3. [id number] diastolic congestive heart failure. 4. End-stage renal disease, on dialysis. 5. Peripheral vascular disease, status post right above-knee amputation. 6. Uncontrolled hypertension. 7. Uncontrolled diabetes mellitus type 2 with end-stage renal disease. PLAN OF TREATMENT: The patient has been released already by Cardiology, director of curriculum. She went home today. She going to have dialysis on Wednesday. She is going to be discharged on Plavix 75 mg daily. Continue Cymbalta 30 mg daily. She is taking furosemide 80 mg twice a day, gabapentin 300 mg twice a day. Continue hydralazine 100 mg three times a day, labetalol 200 mg q.8 hours, sevelamer 1600 mg three times a week, Diovan 320 mg daily. Diet is diabetic and renal diet. The patient is going home today. She is feeling do really good and she want to have dialysis on Wednesday. MD NANETTE Putnam/MODL /[id number]
== END 2020-01-13 19:34 | disposition home or self-care (01) | DRG 291 ==
LOC: FSED 17:25 → ERHOLD 18:44 → MED/SURG2 20:44
PROVIDERS: ADMIT Internal Medicine; ATTEND Internal Medicine
DX: I13.2 Hypertensive heart and chronic kidney disease with heart failure and with stage 5 chronic kidney disease, or end stage renal disease (principal); I50.33 Acute on chronic diastolic (congestive) heart failure; N18.6 End stage renal disease; N39.0 Urinary tract infection, site not specified; E11.22 Type 2 diabetes mellitus with diabetic chronic kidney disease; Z99.2 Dependence on renal dialysis; Z79.899 Other long term (current) drug therapy; E11.43 Type 2 diabetes mellitus with diabetic autonomic (poly)neuropathy; K31.84 Gastroparesis; I25.10 Atherosclerotic heart disease of native coronary artery without angina pectoris; E11.319 Type 2 diabetes mellitus with unspecified diabetic retinopathy without macular edema; K80.20 Calculus of gallbladder without cholecystitis without obstruction; E11.42 Type 2 diabetes mellitus with diabetic polyneuropathy; Z11.59 Encounter for screening for other viral diseases
CPT/HCPCS: 36415; 71045; 71260; 80053; 80061; 82553; 82948; 83036; 83880; 84443; 84484; 85025; 85379; 86704; 86705; 86706; 87340; 93005; 93306; 96360; 96372; 99284; J1940; J7030; Q9967

== ENCOUNTER 2020-03-10 23:23 | Inpatient (IN) | payer MEDICARE ==
[~2020-03-10] VITALS: Ht 165.1 cm; Wt 76.2 kg
[~2020-03-10 23:23] MED LIST changes: +DIOVAN80 MG PO; +DULOXETINE PO; +HYDRALAZINE HC100 MG PO; +LABETALOL HCL100 MG PO; +LABETALOL HCL200 MG PO; +NOVOLIN N100 UNIT/1 SC; +VITAMIN D250 MCG PO
[2020-03-10] MEDS ORDERED: VANCOMYCIN 1GM/NS 250 ML 250 ML IV STA (23:41)
[2020-03-10] MEDS ORDERED: CEFEPIME 1GM/NS 0.9% 50 ML 50 ML IV STA (23:41)
[2020-03-11] VITALS (10 sets, daily range): BP systolic 120–199; BP diastolic 54–102
[2020-03-11 01:11] LABS: BASOPHILS % 0.5 % (0.0-1.0); EOSINOPHILS # (AUTO) 0.3 (0.0-0.4); EOSINOPHILS % 3.8 % (0.0-6.0); HEMATOCRIT 33.4 % (34.2-44.1); HEMOGLOBIN 10.2 g/dL (12.0-16.0); MEAN CORPUSCULAR HEMOGLOBIN 30.3 pg (28-32); MEAN CORPUSCULAR HGB CONC 30.5 g/dL (31-35); MEAN CORPUSCULAR VOLUME 99.1 fL (81-99); MONOCYTES # (AUTO) 0.6 (0.2-0.8); MONOCYTES % 7.8 % (4.4-11.3); NEUTROPHILS # (AUTO) 5.2 (2.1-6.9); NEUTROPHILS % 63.5 % (38.7-80.0); PLATELET COUNT 221 x10e3/uL (140-360); RED BLOOD COUNT 3.37 x10e6/uL (3.6-5.1); RED CELL DISTRIBUTION WIDTH 14.9 % (11.7-14.4)
[2020-03-11 01:34] LABS: CREATINE KINASE MB 2.4 ng/mL (0-5.0)
[2020-03-11 01:38] LABS: ALBUMIN 3.8 g/dL (3.5-5.0); ALBUMIN/GLOBULIN RATIO 0.8 (0.8-2.0); CALCIUM 9.4 mg/dL (8.4-10.2); CREATININE, SERUM 6.99 mg/dL (0.57-1.11)
[2020-03-11 01:53] LABS: ANION GAP 21.7 mmol/L (8-16)
[2020-03-11 01:56] LABS: POTASSIUM 5.7 mmol/L (3.5-5.1)
[2020-03-11] MEDS ORDERED: CLONIDINE HCL 0.2 MG TAB PO ONE (03:00)
[2020-03-11] MEDS ORDERED: CLONIDINE HCL 0.2 MG TAB ONE (03:12)
[2020-03-11 07:45] LABS: BASOPHILS % 0.6 % (0.0-1.0); EOSINOPHILS # (AUTO) 0.3 (0.0-0.4); EOSINOPHILS % 4.7 % (0.0-6.0); HEMATOCRIT 29.5 % (34.2-44.1); HEMOGLOBIN 8.8 g/dL (12.0-16.0); LYMPHOCYTES # (AUTO) 2.2 (1.0-3.2); LYMPHOCYTES % 30.9 % (18.0-39.1); MEAN CORPUSCULAR HEMOGLOBIN 29.6 pg (28-32); MEAN CORPUSCULAR HGB CONC 29.8 g/dL (31-35); MEAN CORPUSCULAR VOLUME 99.3 fL (81-99); MONOCYTES # (AUTO) 0.6 (0.2-0.8); MONOCYTES % 8.4 % (4.4-11.3); NEUTROPHILS # (AUTO) 3.9 (2.1-6.9); NEUTROPHILS % 55.1 % (38.7-80.0); PLATELET COUNT 179 x10e3/uL (140-360); RED BLOOD COUNT 2.97 x10e6/uL (3.6-5.1); RED CELL DISTRIBUTION WIDTH 14.9 % (11.7-14.4)
[2020-03-11 08:26] LABS: ALBUMIN 3.1 g/dL (3.5-5.0); ANION GAP 15.2 mmol/L (8-16); CALCIUM 8.4 mg/dL (8.4-10.2); CREATININE, SERUM 7.39 mg/dL (0.57-1.11); POTASSIUM 4.2 mmol/L (3.5-5.1)
[2020-03-11] MEDS ORDERED: DEXTROSE 50% SYRINGE 50 ML IV PRN ×2 (10:30→19:30)
[2020-03-11] MEDS: INSULIN REGULAR, HUMAN 100 UNIT/1 ML 3ML VIAL SQ SCH ×3 (11:30→21:00)
[2020-03-11] MEDS: SEVELAMER CARBONATE 800 MG TAB PO SCH ×2 (12:00→17:29)
[2020-03-11] MEDS ORDERED: EPOETIN ALFA-EPBX 10,000 UNIT/ML VIAL SC SCH (12:30)
[2020-03-11] MEDS ORDERED: SODIUM CHLORIDE 0.9% 1000ML 2,000 ML ONE (13:20)
[2020-03-11] MEDS: LABETALOL HCL 200 MG TAB PO SCH ×3 (14:00→23:00)
[2020-03-11] MEDS: HYDRALAZINE HCL 100 MG TABLET PO SCH ×2 (16:00→21:14)
[2020-03-11] MEDS: GABAPENTIN 300 MG CAP PO SCH (17:29)
[2020-03-11] MEDS ORDERED: CEFEPIME 1GM/NS 0.9% 50 ML 50 ML IV SCH (17:45)
[2020-03-11] MEDS ORDERED: VANCOMYCIN 1GM/NS 250 ML 250 ML IV SCH (17:45)
[2020-03-11] MEDS: CLOPIDOGREL BISULFATE 75 MG TAB PO SCH (21:14)
[2020-03-11] MEDS: CEFEPIME 1GM/NS 0.9% 50 ML 50 ML IV SCH (21:34)
[2020-03-11] MEDS ORDERED: SODIUM CHLORIDE 0.9% 250ML 250 ML ONE (21:44)
[2020-03-12] VITALS (8 sets, daily range): BP systolic 105–163; BP diastolic 47–91
[2020-03-12] MEDS: LABETALOL HCL 200 MG TAB PO SCH ×3 (06:01→22:33)
[2020-03-12 06:46] LABS: BASOPHILS % 0.7 % (0.0-1.0); EOSINOPHILS # (AUTO) 0.3 (0.0-0.4); EOSINOPHILS % 4.9 % (0.0-6.0); HEMATOCRIT 29.1 % (34.2-44.1); HEMOGLOBIN 8.9 g/dL (12.0-16.0); LYMPHOCYTES # (AUTO) 1.6 (1.0-3.2); LYMPHOCYTES % 26.6 % (18.0-39.1); MEAN CORPUSCULAR HGB CONC 30.6 g/dL (31-35); MONOCYTES # (AUTO) 0.6 (0.2-0.8); MONOCYTES % 10.5 % (4.4-11.3); NEUTROPHILS # (AUTO) 3.5 (2.1-6.9); PLATELET COUNT 172 x10e3/uL (140-360); RED BLOOD COUNT 2.97 x10e6/uL (3.6-5.1); RED CELL DISTRIBUTION WIDTH 14.8 % (11.7-14.4)
[2020-03-12 07:12] LABS: ANION GAP 13.2 mmol/L (8-16); CALCIUM 8.7 mg/dL (8.4-10.2); CREATININE, SERUM 4.72 mg/dL (0.57-1.11); POTASSIUM 4.2 mmol/L (3.5-5.1)
[2020-03-12] MEDS: INSULIN REGULAR, HUMAN 100 UNIT/1 ML 3ML VIAL SQ SCH ×4 (07:30→21:00)
[2020-03-12] MEDS: GABAPENTIN 300 MG CAP PO SCH ×2 (08:32→17:56)
[2020-03-12] MEDS: SEVELAMER CARBONATE 800 MG TAB PO SCH ×3 (08:32→17:56)
[2020-03-12] MEDS: VALSARTAN 160 MG TAB PO SCH (08:34)
[2020-03-12] MEDS: HYDRALAZINE HCL 100 MG TABLET PO SCH ×3 (08:35→21:15)
[2020-03-12] MEDS ORDERED: VALSARTAN 80 MG TAB PO SCH (09:00)
[2020-03-12] MEDS: CLOPIDOGREL BISULFATE 75 MG TAB PO SCH (21:15)
[2020-03-12] MEDS: CEFEPIME 1GM/NS 0.9% 50 ML 50 ML IV SCH (21:15)
[2020-03-13] VITALS (8 sets, daily range): BP systolic 102–166; BP diastolic 43–61
[2020-03-13] MEDS: LABETALOL HCL 200 MG TAB PO SCH ×3 (05:45→20:44)
[2020-03-13] MEDS: INSULIN REGULAR, HUMAN 100 UNIT/1 ML 3ML VIAL SQ SCH ×4 (07:30→20:44)
[2020-03-13] MEDS: GABAPENTIN 300 MG CAP PO SCH ×2 (08:55→17:00)
[2020-03-13] MEDS: SEVELAMER CARBONATE 800 MG TAB PO SCH ×3 (08:55→17:00)
[2020-03-13] MEDS: VALSARTAN 160 MG TAB PO SCH (09:00)
[2020-03-13] MEDS: HYDRALAZINE HCL 100 MG TABLET PO SCH ×3 (09:00→20:43)
[2020-03-13] MEDS ORDERED: SODIUM CHLORIDE 0.9% 1000ML 2,000 ML ONE (09:55)
[2020-03-13] MEDS ORDERED: SODIUM CHLORIDE 0.9% 1000ML 2,000 ML IV PRN (12:30)
[2020-03-13] MEDS ORDERED: VANCOMYCIN 1GM/NS 250 ML 250 ML IV SCH (17:00)
[2020-03-13] MEDS: CEFEPIME 1GM/NS 0.9% 50 ML 50 ML IV SCH (20:43)
[2020-03-13] MEDS: CLOPIDOGREL BISULFATE 75 MG TAB PO SCH (20:43)
[2020-03-14 00:04] VITALS: BP 155/52
[2020-03-14 04:33] VITALS: BP 171/66
[2020-03-14] MEDS: LABETALOL HCL 200 MG TAB PO SCH (05:34)
[2020-03-14] MEDS: INSULIN REGULAR, HUMAN 100 UNIT/1 ML 3ML VIAL SQ SCH ×2 (07:30→11:30)
[2020-03-14 07:53] VITALS: BP 157/55
[2020-03-14 07:59] VITALS: BP 157/55
[2020-03-14] MEDS: SEVELAMER CARBONATE 800 MG TAB PO SCH ×2 (09:14→12:56)
[2020-03-14] MEDS: HYDRALAZINE HCL 100 MG TABLET PO SCH (09:15)
[2020-03-14] MEDS: VALSARTAN 160 MG TAB PO SCH (09:15)
[2020-03-14] MEDS: GABAPENTIN 300 MG CAP PO SCH (09:16)
[2020-03-14] MEDS: ACETAMINOPHEN 325 MG TAB PO PRN ×2 (10:02→10:23)
[2020-03-14 11:53] VITALS: BP 122/80
[2020-03-14 16:00] VITALS: BP 148/76
[2020-03-14] MEDS ORDERED: CIPRO500 MG PO (16:10)
[2020-03-14] MEDS ORDERED: DOXYCYCLINE HY100 MG PO (16:10)
[2020-03-15] MEDS ORDERED: COLLAGENASE OINTMENT 30 GM TUBE TP SCH (09:00)
== END 2020-03-14 16:47 | disposition home or self-care (01) | DRG 602 ==
LOC: ER 23:40 → ERHOLD 03-11 01:44 → MED/SURG3 03-11 03:26
PROVIDERS: ADMIT Internal Medicine; ATTEND Internal Medicine
DX: L03.113 Cellulitis of right upper limb (principal); N18.6 End stage renal disease; I12.0 Hypertensive chronic kidney disease with stage 5 chronic kidney disease or end stage renal disease; E11.22 Type 2 diabetes mellitus with diabetic chronic kidney disease; Z99.2 Dependence on renal dialysis; E78.5 Hyperlipidemia, unspecified
CPT/HCPCS: 36415; 80048; 80053; 82550; 82553; 82948; 83605; 84484; 85025; 86705; 86706; 87040; 87340; 99251; 99284; J0692; J3370; J7030; J7050; J7799; U0002

== ENCOUNTER 2020-04-10 21:10 | Inpatient (IN) | payer MEDICARE, OTHER ==
[~2020-04-10] VITALS: Ht 165.1 cm; Wt 66.7 kg
[~2020-04-10 21:10] MED LIST changes: +CIPRO500 MG PO; +DOXYCYCLINE HY100 MG PO
[2020-04-10] MEDS ORDERED: ACETAMINOPHEN 325 MG TAB ONE (21:41)
[2020-04-10] MEDS ORDERED: DEXAMETHASONE SOD PHOS 10 MG/1 ML VIAL IV ONE (21:45)
[2020-04-10] MEDS ORDERED: ACETAMINOPHEN 325 MG TAB PO ONE (21:45)
[2020-04-10 22:08] LABS: ALBUMIN 2.6 g/dL (3.5-5.0); ALBUMIN/GLOBULIN RATIO 0.5 (0.8-2.0); ANION GAP 20.4 mmol/L (8-16); CALCIUM 8.5 mg/dL (8.4-10.2); CREATININE, SERUM 5.58 mg/dL (0.57-1.11); EOSINOPHILS % 0.3 % (0.0-6.0); HEMATOCRIT 37.7 % (34.2-44.1); HEMOGLOBIN 11.6 g/dL (12.0-16.0); LYMPHOCYTES # (AUTO) 0.7 (1.0-3.2); LYMPHOCYTES % 19.3 % (18.0-39.1); MEAN CORPUSCULAR HEMOGLOBIN 29.4 pg (28-32); MEAN CORPUSCULAR HGB CONC 30.8 g/dL (31-35); MEAN CORPUSCULAR VOLUME 95.4 fL (81-99); MONOCYTES # (AUTO) 0.2 (0.2-0.8); MONOCYTES % 4.9 % (4.4-11.3); NEUTROPHILS # (AUTO) 2.6 (2.1-6.9); NEUTROPHILS % 74.6 % (38.7-80.0); PLATELET COUNT 258 x10e3/uL (140-360); POTASSIUM 4.4 mmol/L (3.5-5.1); RED BLOOD COUNT 3.95 x10e6/uL (3.6-5.1); RED CELL DISTRIBUTION WIDTH 15.9 % (11.7-14.4)
[2020-04-10] MEDS ORDERED: ASPIRIN 81 MG CHEW TAB PO ONE (23:30)
[2020-04-11] VITALS (9 sets, daily range): BP systolic 110–202; BP diastolic 38–71
[2020-04-11] MEDS ORDERED: ONDANSETRON HCL INJ 2MG/ML 2ML 2 MG/ML VIAL IV PRN (03:45)
[2020-04-11] MEDS ORDERED: ZOLPIDEM TARTRATE 5 MG TAB PO PRN (03:45)
[2020-04-11] MEDS ORDERED: DEXTROSE 50% SYRINGE 50 ML IV PRN ×2 (03:45)
[2020-04-11] MEDS ORDERED: LEVOTHYROXINE100 MC2 PO (04:28)
[2020-04-11] MEDS ORDERED: ATORVASTATIN CA20 MG PO (04:28)
[2020-04-11] MEDS ORDERED: HUMULIN N100 UNITS/ SQ ×2 (04:28)
[2020-04-11] MEDS: CEFTRIAXONE SOD 1 GM/NS 50 ML 50 ML IV SCH (04:41)
[2020-04-11 04:56] LABS: BASOPHILS % 0.3 % (0.0-1.0); EOSINOPHILS % 0.6 % (0.0-6.0); HEMATOCRIT 33.6 % (34.2-44.1); HEMOGLOBIN 10.5 g/dL (12.0-16.0); LYMPHOCYTES # (AUTO) 0.7 (1.0-3.2); MEAN CORPUSCULAR HGB CONC 31.3 g/dL (31-35); MONOCYTES # (AUTO) 0.2 (0.2-0.8); MONOCYTES % 5.1 % (4.4-11.3); NEUTROPHILS # (AUTO) 2.3 (2.1-6.9); NEUTROPHILS % 71.7 % (38.7-80.0); PLATELET COUNT 218 x10e3/uL (140-360); RED CELL DISTRIBUTION WIDTH 15.7 % (11.7-14.4)
[2020-04-11 05:22] LABS: CALCIUM 8.1 mg/dL (8.4-10.2); CREATININE, SERUM 5.7 mg/dL (0.57-1.11)
[2020-04-11] MEDS: LABETALOL HCL 100 MG TAB PO SCH ×3 (05:27→22:00)
[2020-04-11] MEDS: LEVOTHYROXINE SODIUM 100 MCG TAB PO SCH (05:33)
[2020-04-11] MEDS: AZITHROMYCIN 500MG/NS 250 ML 250 ML IV SCH (05:36)
[2020-04-11] MEDS ORDERED: LABETALOL HCL 100 MG TAB PO SCH ×2 (06:00→09:00)
[2020-04-11] MEDS: INSULIN LISPRO 100 UNIT/1 ML 3ML VIAL SQ SCH ×4 (07:30→20:26)
[2020-04-11] MEDS ORDERED: SODIUM CHLORIDE 0.9% 1000ML 2,000 ML IV PRN (08:15)
[2020-04-11] MEDS ORDERED: VALSARTAN 80 MG TAB PO SCH ×2 (09:00)
[2020-04-11] MEDS: DEXAMETHASONE SOD PHOS 10 MG/1 ML VIAL IV SCH (12:40)
[2020-04-11] MEDS: HEPARIN SOD (PORCINE) 5,000 UNIT/ML VIAL SC SCH ×2 (12:41→20:26)
[2020-04-11] MEDS: ZINC SULFATE 220 MG CAP PO SCH (12:41)
[2020-04-11] MEDS: GABAPENTIN 300 MG CAP PO SCH ×2 (12:41→17:09)
[2020-04-11] MEDS ORDERED: REMDESIVIR 100MG/NS 100ML 100 MG in SODIUM CHLORIDE 0.9% 100 ML 100 ML IV SCH (16:15)
[2020-04-11] MEDS: VALSARTAN 80 MG TAB PO SCH (16:27)
[2020-04-11] MEDS: BALSAM PERU/CASTOR OIL 60 GM OINT...G. TP SCH (16:28)
[2020-04-11] MEDS: COLLAGENASE 5 GM TUBE TOP SCH (16:28)
[2020-04-11] MEDS: NPH, HUMAN INSULIN ISOPHANE 100 UNIT/1 ML 3ML VIAL SQ SCH (16:53)
[2020-04-11] MEDS: CLOPIDOGREL BISULFATE 75 MG TAB PO SCH (20:26)
[2020-04-11] MEDS ORDERED: NPH, HUMAN INSULIN ISOPHANE 100 UNIT/1 ML 3ML VIAL SQ SCH (21:00)
[2020-04-11] MEDS ORDERED: GUAIFENESIN 200 MG/10 ML UDC PO PRN ×2 (21:15→22:00)
[2020-04-11] MEDS ORDERED: REMDESIVIR 200MG/NS 100ML 200 MG in SODIUM CHLORIDE 0.9% 100 ML 100 ML IV ONE (23:00)
[2020-04-11] MEDS ORDERED: REMDESIVIR 100MG/NS 100ML 100 MG in SODIUM CHLORIDE 0.9% 100 ML 100 ML IV ONE (23:30)
[2020-04-12] VITALS: BP 139/52
[2020-04-12] MEDS ORDERED: SODIUM CHLORIDE 0.9% 250ML 250 ML ONE ×2 (00:05→17:05)
[2020-04-12] MEDS: CEFTRIAXONE SOD 1 GM/NS 50 ML 50 ML IV SCH (03:30)
[2020-04-12 04:00] VITALS: BP 162/56
[2020-04-12] MEDS: AZITHROMYCIN 500MG/NS 250 ML 250 ML IV SCH (04:00)
[2020-04-12] MEDS: LEVOTHYROXINE SODIUM 100 MCG TAB PO SCH (06:00)
[2020-04-12] MEDS: LABETALOL HCL 100 MG TAB PO SCH ×3 (06:00→20:41)
[2020-04-12 08:37] VITALS: BP 139/67
[2020-04-12] MEDS: DEXAMETHASONE SOD PHOS 10 MG/1 ML VIAL IV SCH (08:55)
[2020-04-12] MEDS: ZINC SULFATE 220 MG CAP PO SCH (08:56)
[2020-04-12] MEDS: GABAPENTIN 300 MG CAP PO SCH ×2 (08:56→17:22)
[2020-04-12] MEDS: VALSARTAN 80 MG TAB PO SCH (08:56)
[2020-04-12] MEDS: INSULIN LISPRO 100 UNIT/1 ML 3ML VIAL SQ SCH ×4 (08:57→20:46)
[2020-04-12] MEDS: NPH, HUMAN INSULIN ISOPHANE 100 UNIT/1 ML 3ML VIAL SQ SCH ×2 (08:57→20:45)
[2020-04-12] MEDS: BALSAM PERU/CASTOR OIL 60 GM OINT...G. TP SCH (08:58)
[2020-04-12] MEDS: HEPARIN SOD (PORCINE) 5,000 UNIT/ML VIAL SC SCH ×2 (08:58→20:39)
[2020-04-12] MEDS: COLLAGENASE 5 GM TUBE TOP SCH (08:58)
[2020-04-12 12:30] LABS: BASOPHILS % 0.2 % (0.0-1.0); HEMATOCRIT 36.6 % (34.2-44.1); HEMOGLOBIN 11.2 g/dL (12.0-16.0); LYMPHOCYTES # (AUTO) 0.6 (1.0-3.2); LYMPHOCYTES % 10.1 % (18.0-39.1); MEAN CORPUSCULAR HEMOGLOBIN 29.4 pg (28-32); MEAN CORPUSCULAR HGB CONC 30.6 g/dL (31-35); MEAN CORPUSCULAR VOLUME 96.1 fL (81-99); MONOCYTES # (AUTO) 0.2 (0.2-0.8); MONOCYTES % 4.1 % (4.4-11.3); NEUTROPHILS # (AUTO) 4.7 (2.1-6.9); NEUTROPHILS % 84.9 % (38.7-80.0); PLATELET COUNT 231 x10e3/uL (140-360); RED BLOOD COUNT 3.81 x10e6/uL (3.6-5.1); RED CELL DISTRIBUTION WIDTH 15.9 % (11.7-14.4)
[2020-04-12] MEDS: REMDESIVIR 100MG/NS 100ML 100 MG IV SCH (17:22)
[2020-04-12 20:00] VITALS: BP 171/63
[2020-04-12] MEDS: CLOPIDOGREL BISULFATE 75 MG TAB PO SCH (20:37)
[2020-04-12 21:28] VITALS: BP 171/63
[2020-04-12 23:30] VITALS: BP 183/64
[2020-04-13] VITALS (7 sets, daily range): BP systolic 101–180; BP diastolic 45–71
[2020-04-13] MEDS: HYDRALAZINE HCL 25 MG TAB PO SCH ×3 (00:40→17:00)
[2020-04-13] MEDS: HYDROCODONE/CHLORPHENIRAMINE 5 ML LIQCR PO PRN ×2 (00:41→13:51)
[2020-04-13] MEDS: CEFTRIAXONE SOD 1 GM/NS 50 ML 50 ML IV SCH (03:30)
[2020-04-13] MEDS: AZITHROMYCIN 500MG/NS 250 ML 250 ML IV SCH (04:32)
[2020-04-13] MEDS: LEVOTHYROXINE SODIUM 100 MCG TAB PO SCH (05:28)
[2020-04-13] MEDS: LABETALOL HCL 100 MG TAB PO SCH ×3 (05:29→22:03)
[2020-04-13 06:58] LABS: HEMATOCRIT 34.5 % (34.2-44.1); HEMOGLOBIN 10.8 g/dL (12.0-16.0); MEAN CORPUSCULAR HEMOGLOBIN 29.7 pg (28-32); MEAN CORPUSCULAR HGB CONC 31.3 g/dL (31-35); MEAN CORPUSCULAR VOLUME 94.8 fL (81-99); PLATELET COUNT 256 x10e3/uL (140-360); RED BLOOD COUNT 3.64 x10e6/uL (3.6-5.1)
[2020-04-13 07:18] LABS: ANION GAP 19.7 mmol/L (8-16); CALCIUM 8.2 mg/dL (8.4-10.2); CREATININE, SERUM 6.16 mg/dL (0.57-1.11); POTASSIUM 4.7 mmol/L (3.5-5.1)
[2020-04-13 07:49] LABS: BAND NEUTROPHILS % (MANUAL) 2 %; LYMPHOCYTES % (MANUAL) 8 % (19-48); MONOCYTES % (MANUAL) 3 % (3.4-9.0); NEUTROPHILS % (MANUAL) 87 % (40-74)
[2020-04-13 07:51] LABS: PLATELET ESTIMATE ADEQUATE; PLATELET MORPHOLOGY COMMENT NORMAL; RBC MORPHOLOGY COMMENT NORMAL
[2020-04-13] MEDS: DEXAMETHASONE SOD PHOS 10 MG/1 ML VIAL IV SCH (08:28)
[2020-04-13] MEDS: GABAPENTIN 300 MG CAP PO SCH ×2 (08:29→17:00)
[2020-04-13] MEDS: COLLAGENASE 5 GM TUBE TOP SCH (08:29)
[2020-04-13] MEDS: VALSARTAN 80 MG TAB PO SCH (08:29)
[2020-04-13] MEDS: ZINC SULFATE 50 MG CAP PO SCH (08:29)
[2020-04-13] MEDS: NPH, HUMAN INSULIN ISOPHANE 100 UNIT/1 ML 3ML VIAL SQ SCH ×2 (08:30→22:05)
[2020-04-13] MEDS: INSULIN LISPRO 100 UNIT/1 ML 3ML VIAL SQ SCH ×4 (08:30→22:06)
[2020-04-13] MEDS: BALSAM PERU/CASTOR OIL 60 GM OINT...G. TP SCH (08:31)
[2020-04-13] MEDS: HEPARIN SOD (PORCINE) 5,000 UNIT/ML VIAL SC SCH ×3 (08:32→22:06)
[2020-04-13] MEDS ORDERED: GUAIFENESIN/DEXTROMETHORPHAN LIQD 5 ML UDC PO PRN (13:45)
[2020-04-13] MEDS: REMDESIVIR 100MG/NS 100ML 100 MG IV SCH (18:24)
[2020-04-13] MEDS: CLOPIDOGREL BISULFATE 75 MG TAB PO SCH (22:02)
[2020-04-14] VITALS (10 sets, daily range): BP systolic 126–173; BP diastolic 43–77
[2020-04-14] MEDS: CEFTRIAXONE SOD 1 GM/NS 50 ML 50 ML IV SCH (03:09)
[2020-04-14] MEDS: AZITHROMYCIN 500MG/NS 250 ML 250 ML IV SCH (06:00)
[2020-04-14] MEDS: LEVOTHYROXINE SODIUM 100 MCG TAB PO SCH (06:02)
[2020-04-14] MEDS: LABETALOL HCL 100 MG TAB PO SCH ×3 (06:03→21:18)
[2020-04-14] MEDS: INSULIN LISPRO 100 UNIT/1 ML 3ML VIAL SQ SCH ×4 (08:00→21:46)
[2020-04-14] MEDS: DEXAMETHASONE SOD PHOS 10 MG/1 ML VIAL IV SCH (08:20)
[2020-04-14] MEDS: GABAPENTIN 300 MG CAP PO SCH ×2 (08:21→17:09)
[2020-04-14] MEDS: COLLAGENASE 5 GM TUBE TOP SCH (08:21)
[2020-04-14] MEDS: BALSAM PERU/CASTOR OIL 60 GM OINT...G. TP SCH (08:21)
[2020-04-14] MEDS: ZINC SULFATE 50 MG CAP PO SCH (08:21)
[2020-04-14] MEDS: VALSARTAN 80 MG TAB PO SCH (08:43)
[2020-04-14] MEDS: HYDRALAZINE HCL 25 MG TAB PO SCH ×2 (08:43→17:09)
[2020-04-14] MEDS: HEPARIN SOD (PORCINE) 5,000 UNIT/ML VIAL SC SCH ×4 (08:44→21:47)
[2020-04-14] MEDS: NPH, HUMAN INSULIN ISOPHANE 100 UNIT/1 ML 3ML VIAL SQ SCH ×2 (08:46→21:47)
[2020-04-14] MEDS: REMDESIVIR 100MG/NS 100ML 100 MG IV SCH (18:34)
[2020-04-14] MEDS: CLOPIDOGREL BISULFATE 75 MG TAB PO SCH (21:17)
[2020-04-14] MEDS ORDERED: MAGNESIUM HYDROXIDE 30 ML UDC PO ONE (21:45)
[2020-04-14] MEDS: ACETAMINOPHEN 325 MG TAB PO PRN (22:21)
[2020-04-15] VITALS (8 sets, daily range): BP systolic 113–159; BP diastolic 44–113
[2020-04-15] MEDS: AZITHROMYCIN 500MG/NS 250 ML 250 ML IV SCH (04:03)
[2020-04-15] MEDS: CEFTRIAXONE SOD 1 GM/NS 50 ML 50 ML IV SCH (04:04)
[2020-04-15] MEDS: LEVOTHYROXINE SODIUM 100 MCG TAB PO SCH (06:36)
[2020-04-15] MEDS: LABETALOL HCL 100 MG TAB PO SCH ×3 (06:37→22:14)
[2020-04-15] MEDS: INSULIN LISPRO 100 UNIT/1 ML 3ML VIAL SQ SCH ×4 (07:30→21:54)
[2020-04-15] MEDS: HEPARIN SOD (PORCINE) 5,000 UNIT/ML VIAL SC SCH ×4 (08:21→21:55)
[2020-04-15] MEDS: DEXAMETHASONE SOD PHOS 10 MG/1 ML VIAL IV SCH (08:58)
[2020-04-15] MEDS: NPH, HUMAN INSULIN ISOPHANE 100 UNIT/1 ML 3ML VIAL SQ SCH ×2 (08:58→21:54)
[2020-04-15] MEDS: ZINC SULFATE 50 MG CAP PO SCH (08:59)
[2020-04-15] MEDS: HYDRALAZINE HCL 25 MG TAB PO SCH ×2 (08:59→17:36)
[2020-04-15] MEDS: COLLAGENASE 5 GM TUBE TOP SCH (08:59)
[2020-04-15] MEDS: GABAPENTIN 300 MG CAP PO SCH ×2 (08:59→17:36)
[2020-04-15] MEDS: VALSARTAN 80 MG TAB PO SCH (08:59)
[2020-04-15] MEDS: BALSAM PERU/CASTOR OIL 60 GM OINT...G. TP SCH (08:59)
[2020-04-15] MEDS: CIPROFLOXACIN (OPTH SOLN) 5 ML BTL OP SCH ×2 (15:15→21:49)
[2020-04-15] MEDS ORDERED: METHYLPREDNISOLONE SOD SUCC 125 MG/2ML VIAL IV ONE (17:15)
[2020-04-15] MEDS: REMDESIVIR 100MG/NS 100ML 100 MG IV SCH (17:37)
[2020-04-15] MEDS: CLOPIDOGREL BISULFATE 75 MG TAB PO SCH (21:49)
[2020-04-16] MEDS: CIPROFLOXACIN (OPTH SOLN) 5 ML BTL OP SCH ×6 (02:01→21:45)
[2020-04-16] MEDS: CEFTRIAXONE SOD 1 GM/NS 50 ML 50 ML IV SCH (03:00)
[2020-04-16] MEDS ORDERED: SODIUM CHLORIDE 0.9% 250ML 250 ML ONE (03:15)
[2020-04-16 04:00] VITALS: BP 148/45
[2020-04-16] MEDS: AZITHROMYCIN 500MG/NS 250 ML 250 ML IV SCH (05:00)
[2020-04-16] MEDS: LABETALOL HCL 100 MG TAB PO SCH ×3 (06:00→21:45)
[2020-04-16] MEDS: LEVOTHYROXINE SODIUM 100 MCG TAB PO SCH (06:19)
[2020-04-16 07:43] VITALS: BP 122/42
[2020-04-16] MEDS: NPH, HUMAN INSULIN ISOPHANE 100 UNIT/1 ML 3ML VIAL SQ SCH ×2 (08:39→21:49)
[2020-04-16] MEDS: DEXAMETHASONE SOD PHOS 10 MG/1 ML VIAL IV SCH (08:39)
[2020-04-16] MEDS: INSULIN LISPRO 100 UNIT/1 ML 3ML VIAL SQ SCH ×4 (08:39→21:49)
[2020-04-16] MEDS: HEPARIN SOD (PORCINE) 5,000 UNIT/ML VIAL SC SCH ×2 (08:39→21:50)
[2020-04-16] MEDS: HYDRALAZINE HCL 25 MG TAB PO SCH ×2 (08:40→16:54)
[2020-04-16] MEDS: COLLAGENASE 5 GM TUBE TOP SCH (08:40)
[2020-04-16] MEDS: VALSARTAN 80 MG TAB PO SCH ×2 (08:40→16:54)
[2020-04-16] MEDS: BALSAM PERU/CASTOR OIL 60 GM OINT...G. TP SCH (08:40)
[2020-04-16] MEDS: GABAPENTIN 300 MG CAP PO SCH ×2 (08:40→16:54)
[2020-04-16 09:27] VITALS: BP 167/57
[2020-04-16 11:44] LABS: BASOPHILS % 0.2 % (0.0-1.0); EOSINOPHILS # (AUTO) 0.1 (0.0-0.4); EOSINOPHILS % 0.4 % (0.0-6.0); HEMATOCRIT 35.2 % (34.2-44.1); LYMPHOCYTES # (AUTO) 0.8 (1.0-3.2); LYMPHOCYTES % 6.8 % (18.0-39.1); MEAN CORPUSCULAR HEMOGLOBIN 29.3 pg (28-32); MEAN CORPUSCULAR HGB CONC 31.3 g/dL (31-35); MEAN CORPUSCULAR VOLUME 93.9 fL (81-99); MONOCYTES # (AUTO) 0.2 (0.2-0.8); MONOCYTES % 1.4 % (4.4-11.3); NEUTROPHILS # (AUTO) 10.9 (2.1-6.9); NEUTROPHILS % 90.1 % (38.7-80.0); PLATELET COUNT 281 x10e3/uL (140-360); RED BLOOD COUNT 3.75 x10e6/uL (3.6-5.1); RED CELL DISTRIBUTION WIDTH 17.5 % (11.7-14.4)
[2020-04-16 11:55] LABS: ALBUMIN 2.1 g/dL (3.5-5.0); ALBUMIN/GLOBULIN RATIO 0.5 (0.8-2.0); ANION GAP 24.1 mmol/L (8-16); CALCIUM 8.5 mg/dL (8.4-10.2); CREATININE, SERUM 7.13 mg/dL (0.57-1.11); POTASSIUM 5.1 mmol/L (3.5-5.1)
[2020-04-16 12:29] VITALS: BP 133/61
[2020-04-16] MEDS: ZINC SULFATE 50 MG CAP PO SCH (14:48)
[2020-04-16 17:00] VITALS: BP 146/49
[2020-04-16 20:00] VITALS: BP 141/63
[2020-04-16] MEDS: CLOPIDOGREL BISULFATE 75 MG TAB PO SCH (21:45)
[2020-04-17] VITALS (8 sets, daily range): BP systolic 111–163; BP diastolic 48–65
[2020-04-17] MEDS: CIPROFLOXACIN (OPTH SOLN) 5 ML BTL OP SCH ×6 (02:45→21:36)
[2020-04-17 04:58] LABS: BASOPHILS % 0.1 % (0.0-1.0); HEMATOCRIT 35.7 % (34.2-44.1); HEMOGLOBIN 11.2 g/dL (12.0-16.0); LYMPHOCYTES # (AUTO) 0.4 (1.0-3.2); MEAN CORPUSCULAR HEMOGLOBIN 29.2 pg (28-32); MEAN CORPUSCULAR HGB CONC 31.4 g/dL (31-35); MONOCYTES # (AUTO) 0.3 (0.2-0.8); MONOCYTES % 3.7 % (4.4-11.3); NEUTROPHILS # (AUTO) 8.4 (2.1-6.9); NEUTROPHILS % 91.1 % (38.7-80.0); PLATELET COUNT 218 x10e3/uL (140-360); RED BLOOD COUNT 3.84 x10e6/uL (3.6-5.1); RED CELL DISTRIBUTION WIDTH 18.1 % (11.7-14.4)
[2020-04-17 05:07] LABS: ALBUMIN/GLOBULIN RATIO 0.5 (0.8-2.0); ANION GAP 18.8 mmol/L (8-16); CALCIUM 8.3 mg/dL (8.4-10.2); CREATININE, SERUM 4.16 mg/dL (0.57-1.11); POTASSIUM 4.8 mmol/L (3.5-5.1)
[2020-04-17] MEDS: LABETALOL HCL 100 MG TAB PO SCH ×3 (05:11→21:36)
[2020-04-17] MEDS: LEVOTHYROXINE SODIUM 100 MCG TAB PO SCH (05:11)
[2020-04-17] MEDS: VALSARTAN 80 MG TAB PO SCH (09:02)
[2020-04-17] MEDS: GABAPENTIN 300 MG CAP PO SCH ×2 (09:02→17:28)
[2020-04-17] MEDS: ZINC SULFATE 50 MG CAP PO SCH (09:02)
[2020-04-17] MEDS: HYDRALAZINE HCL 25 MG TAB PO SCH ×2 (09:02→17:28)
[2020-04-17] MEDS: DEXAMETHASONE SOD PHOS 10 MG/1 ML VIAL IV SCH (09:02)
[2020-04-17] MEDS: INSULIN LISPRO 100 UNIT/1 ML 3ML VIAL SQ SCH ×4 (09:09→21:38)
[2020-04-17] MEDS: NPH, HUMAN INSULIN ISOPHANE 100 UNIT/1 ML 3ML VIAL SQ SCH ×2 (09:09→21:38)
[2020-04-17] MEDS: COLLAGENASE 5 GM TUBE TOP SCH (09:10)
[2020-04-17] MEDS: HEPARIN SOD (PORCINE) 5,000 UNIT/ML VIAL SC SCH ×2 (09:10→21:38)
[2020-04-17] MEDS: BALSAM PERU/CASTOR OIL 60 GM OINT...G. TP SCH (09:10)
[2020-04-17] MEDS: CLOPIDOGREL BISULFATE 75 MG TAB PO SCH (21:36)
[2020-04-18] VITALS (11 sets, daily range): BP systolic 103–167; BP diastolic 47–70
[2020-04-18] MEDS: CIPROFLOXACIN (OPTH SOLN) 5 ML BTL OP SCH ×6 (01:08→22:12)
[2020-04-18] MEDS: LEVOTHYROXINE SODIUM 100 MCG TAB PO SCH (05:26)
[2020-04-18] MEDS: LABETALOL HCL 100 MG TAB PO SCH ×3 (05:26→22:00)
[2020-04-18] MEDS: INSULIN LISPRO 100 UNIT/1 ML 3ML VIAL SQ SCH ×4 (07:30→20:35)
[2020-04-18] MEDS: VALSARTAN 80 MG TAB PO SCH (08:12)
[2020-04-18] MEDS: HYDRALAZINE HCL 25 MG TAB PO SCH ×2 (08:12→16:20)
[2020-04-18] MEDS: GABAPENTIN 300 MG CAP PO SCH ×2 (08:13→17:16)
[2020-04-18] MEDS: BALSAM PERU/CASTOR OIL 60 GM OINT...G. TP SCH (08:13)
[2020-04-18] MEDS: COLLAGENASE 5 GM TUBE TOP SCH (08:13)
[2020-04-18] MEDS: ZINC SULFATE 220 MG CAP PO SCH (08:13)
[2020-04-18] MEDS: NPH, HUMAN INSULIN ISOPHANE 100 UNIT/1 ML 3ML VIAL SQ SCH ×2 (09:00→20:35)
[2020-04-18] MEDS ORDERED: HEPARIN SOD (PORCINE) 1000 UNIT/ML SDV IV PRN (09:30)
[2020-04-18] MEDS ORDERED: ALBUMIN 25% 12.5GM 0.25 GM/ML BTL IV PRN (09:30)
[2020-04-18] MEDS ORDERED: SODIUM CHLORIDE 0.9% 250ML 250 ML IV PRN (09:30)
[2020-04-18] MEDS ORDERED: EPINEPHRINE HCL 1:1000 1ML 1 MG/ML AMP ONE (13:31)
[2020-04-18] MEDS ORDERED: SODIUM BICARBONATE 8.4% 50 ML VIAL ONE (13:31)
[2020-04-18] MEDS ORDERED: EPINEPHRINE HCL SYRINGE ONE (15:01)
[2020-04-18] MEDS ORDERED: SODIUM BICARBONATE 8.4% INJ 50 ML SYR ONE (15:01)
[2020-04-18] MEDS ORDERED: ATROPINE SULFATE 0.1 MG/ML 10ML SYR ONE (15:01)
[2020-04-18] MEDS ORDERED: SODIUM CHLORIDE FLUSH 10 ML SYR ONE (15:01)
[2020-04-18] MEDS ORDERED: NOREPINEPHRINE 8 MG/D5W 250 ML 250 ML ONE (18:02)
[2020-04-18] MEDS: CLOPIDOGREL BISULFATE 75 MG TAB PO SCH (20:35)
[2020-04-18] MEDS: PIPERACILLIN/TAZO 2.25 GM 50 ML IV SCH (20:57)
[2020-04-19] VITALS (22 sets, daily range): BP systolic 80–166; BP diastolic 44–68
[2020-04-19] MEDS: CIPROFLOXACIN (OPTH SOLN) 5 ML BTL OP SCH ×7 (02:02→22:09)
[2020-04-19] MEDS: PIPERACILLIN/TAZO 2.25 GM 50 ML IV SCH ×3 (04:34→21:24)
[2020-04-19] MEDS: LABETALOL HCL 100 MG TAB PO SCH ×3 (05:32→22:00)
[2020-04-19] MEDS: LEVOTHYROXINE SODIUM 100 MCG TAB PO SCH (05:32)
[2020-04-19] MEDS: INSULIN LISPRO 100 UNIT/1 ML 3ML VIAL SQ SCH ×4 (07:30→21:00)
[2020-04-19 07:48] LABS: BASOPHILS % 0.2 % (0.0-1.0); HEMATOCRIT 36.9 % (34.2-44.1); HEMOGLOBIN 12.1 g/dL (12.0-16.0); LYMPHOCYTES # (AUTO) 0.4 (1.0-3.2); LYMPHOCYTES % 3.5 % (18.0-39.1); MEAN CORPUSCULAR HEMOGLOBIN 29.7 pg (28-32); MEAN CORPUSCULAR HGB CONC 32.8 g/dL (31-35); MEAN CORPUSCULAR VOLUME 90.4 fL (81-99); MONOCYTES # (AUTO) 0.2 (0.2-0.8); NEUTROPHILS # (AUTO) 10.3 (2.1-6.9); NEUTROPHILS % 93.5 % (38.7-80.0); PLATELET COUNT 202 x10e3/uL (140-360); RED BLOOD COUNT 4.08 x10e6/uL (3.6-5.1); RED CELL DISTRIBUTION WIDTH 18.5 % (11.7-14.4)
[2020-04-19] MEDS: HYDRALAZINE HCL 25 MG TAB PO SCH ×2 (07:57→16:37)
[2020-04-19] MEDS: ZINC SULFATE 220 MG CAP PO SCH (07:58)
[2020-04-19] MEDS: VALSARTAN 80 MG TAB PO SCH (07:58)
[2020-04-19] MEDS: GABAPENTIN 300 MG CAP PO SCH ×2 (07:58→16:38)
[2020-04-19 08:10] LABS: ANION GAP 21.8 mmol/L (8-16); CALCIUM 9.3 mg/dL (8.4-10.2); CREATININE, SERUM 3.87 mg/dL (0.57-1.11)
[2020-04-19 08:12] LABS: POTASSIUM 5.8 mmol/L (3.5-5.1)
[2020-04-19] MEDS: NPH, HUMAN INSULIN ISOPHANE 100 UNIT/1 ML 3ML VIAL SQ SCH ×2 (09:00→21:00)
[2020-04-19] MEDS: COLLAGENASE 5 GM TUBE TOP SCH (09:06)
[2020-04-19] MEDS: BALSAM PERU/CASTOR OIL 60 GM OINT...G. TP SCH (09:06)
[2020-04-19] MEDS: PROPOFOL IV EMULSION 10MG/ML 100 ML IV PRN ×2 (10:00→18:46)
[2020-04-19 11:38] LABS: ABG HCO3 29 mmol/L (22-26); ABG PCO2 35 mmHg (35-45); ABG PH 7.53 (7.35-7.45); ABG PO2 55 mmHg (80-105); ABG TCO2 30
[2020-04-19] MEDS ORDERED: HYDRALAZINE HCL 20 MG/ML VIAL IV PRN (17:15)
[2020-04-19] MEDS: HEPARIN SOD (PORCINE) 5,000 UNIT/ML VIAL SC SCH ×2 (21:00→22:00)
[2020-04-19] MEDS: CLOPIDOGREL BISULFATE 75 MG TAB PO SCH (21:00)
[2020-04-20] VITALS (22 sets, daily range): BP systolic 93–130; BP diastolic 41–58
[2020-04-20] MEDS: CIPROFLOXACIN (OPTH SOLN) 5 ML BTL OP SCH ×6 (02:26→21:24)
[2020-04-20] MEDS: ACETAMINOPHEN 325 MG TAB PO PRN ×2 (03:24→20:10)
[2020-04-20] MEDS: PIPERACILLIN/TAZO 2.25 GM 50 ML IV SCH ×3 (04:00→21:16)
[2020-04-20] MEDS: PROPOFOL IV EMULSION 10MG/ML 100 ML IV PRN ×3 (05:00→21:26)
[2020-04-20] MEDS: LEVOTHYROXINE SODIUM 100 MCG TAB PO SCH (05:08)
[2020-04-20] MEDS: LABETALOL HCL 100 MG TAB PO SCH ×3 (05:08→21:24)
[2020-04-20 05:39] LABS: BASOPHILS % 0.1 % (0.0-1.0); EOSINOPHILS % 0.1 % (0.0-6.0); HEMATOCRIT 31.2 % (34.2-44.1); HEMOGLOBIN 9.8 g/dL (12.0-16.0); LYMPHOCYTES # (AUTO) 0.5 (1.0-3.2); LYMPHOCYTES % 3.4 % (18.0-39.1); MEAN CORPUSCULAR HEMOGLOBIN 28.8 pg (28-32); MEAN CORPUSCULAR HGB CONC 31.4 g/dL (31-35); MEAN CORPUSCULAR VOLUME 91.8 fL (81-99); MONOCYTES # (AUTO) 0.3 (0.2-0.8); MONOCYTES % 2.5 % (4.4-11.3); NEUTROPHILS # (AUTO) 12.7 (2.1-6.9); NEUTROPHILS % 93.5 % (38.7-80.0); PLATELET COUNT 177 x10e3/uL (140-360); RED CELL DISTRIBUTION WIDTH 19.1 % (11.7-14.4)
[2020-04-20 06:04] LABS: ALBUMIN 2.9 g/dL (3.5-5.0); ALBUMIN/GLOBULIN RATIO 0.7 (0.8-2.0); CREATININE, SERUM 3.58 mg/dL (0.57-1.11)
[2020-04-20] MEDS ORDERED: MANNITOL 25% 12.5GM/50ML 100 ML ONE (08:35)
[2020-04-20] MEDS ORDERED: HEPARIN SOD (PORCINE) 1000 UNIT/ML SDV ONE (08:35)
[2020-04-20] MEDS ORDERED: ALBUMIN 25% 12.5GM 50ML 100 ML IV ONE (08:36)
[2020-04-20] MEDS: INSULIN LISPRO 100 UNIT/1 ML 3ML VIAL SQ SCH ×4 (08:37→21:23)
[2020-04-20] MEDS: VALSARTAN 80 MG TAB PO SCH (09:37)
[2020-04-20] MEDS: ZINC SULFATE 220 MG CAP PO SCH (09:37)
[2020-04-20] MEDS: GABAPENTIN 300 MG CAP PO SCH ×2 (09:37→17:45)
[2020-04-20] MEDS: HYDRALAZINE HCL 25 MG TAB PO SCH ×2 (09:37→17:44)
[2020-04-20] MEDS: COLLAGENASE 5 GM TUBE TOP SCH (09:38)
[2020-04-20] MEDS: HEPARIN SOD (PORCINE) 5,000 UNIT/ML VIAL SC SCH ×2 (09:38→21:18)
[2020-04-20] MEDS: BALSAM PERU/CASTOR OIL 60 GM OINT...G. TP SCH (09:38)
[2020-04-20] MEDS: NPH, HUMAN INSULIN ISOPHANE 100 UNIT/1 ML 3ML VIAL SQ SCH ×2 (09:39→21:24)
[2020-04-20 10:49] LABS: ABG HCO3 27 mmol/L (22-26); ABG PCO2 40 mmHg (35-45); ABG PH 7.44 (7.35-7.45); ABG PO2 81 mmHg (80-105); ABG TCO2 28
[2020-04-20] MEDS: CLOPIDOGREL BISULFATE 75 MG TAB PO SCH (21:17)
[2020-04-21] VITALS (24 sets, daily range): BP systolic 88–122; BP diastolic 42–58
[2020-04-21] MEDS: CIPROFLOXACIN (OPTH SOLN) 5 ML BTL OP SCH ×6 (01:18→22:27)
[2020-04-21] MEDS: PIPERACILLIN/TAZO 2.25 GM 50 ML IV SCH ×3 (03:10→21:27)
[2020-04-21 04:47] LABS: BASOPHILS % 0.2 % (0.0-1.0); EOSINOPHILS % 0.1 % (0.0-6.0); HEMATOCRIT 32.3 % (34.2-44.1); HEMOGLOBIN 9.9 g/dL (12.0-16.0); LYMPHOCYTES # (AUTO) 0.7 (1.0-3.2); LYMPHOCYTES % 4.4 % (18.0-39.1); MEAN CORPUSCULAR HGB CONC 30.7 g/dL (31-35); MEAN CORPUSCULAR VOLUME 94.7 fL (81-99); MONOCYTES # (AUTO) 0.5 (0.2-0.8); MONOCYTES % 2.7 % (4.4-11.3); NEUTROPHILS # (AUTO) 15.3 (2.1-6.9); NEUTROPHILS % 91.9 % (38.7-80.0); PLATELET COUNT 167 x10e3/uL (140-360); RED BLOOD COUNT 3.41 x10e6/uL (3.6-5.1); RED CELL DISTRIBUTION WIDTH 18.8 % (11.7-14.4)
[2020-04-21 05:17] LABS: ALBUMIN 2.4 g/dL (3.5-5.0); ALBUMIN/GLOBULIN RATIO 0.5 (0.8-2.0); ANION GAP 20.7 mmol/L (8-16); CALCIUM 9.3 mg/dL (8.4-10.2); CREATININE, SERUM 2.99 mg/dL (0.57-1.11); POTASSIUM 4.7 mmol/L (3.5-5.1)
[2020-04-21] MEDS: LEVOTHYROXINE SODIUM 100 MCG TAB PO SCH (05:44)
[2020-04-21] MEDS: LABETALOL HCL 100 MG TAB PO SCH ×3 (05:45→22:26)
[2020-04-21] MEDS: HYDRALAZINE HCL 25 MG TAB PO SCH ×2 (07:54→16:23)
[2020-04-21] MEDS: COLLAGENASE 5 GM TUBE TOP SCH (07:55)
[2020-04-21] MEDS: VALSARTAN 80 MG TAB PO SCH (07:55)
[2020-04-21] MEDS: BALSAM PERU/CASTOR OIL 60 GM OINT...G. TP SCH (07:55)
[2020-04-21] MEDS: ZINC SULFATE 220 MG CAP PO SCH (07:56)
[2020-04-21 09:02] LABS: ABG HCO3 31 mmol/L (22-26); ABG PCO2 50 mmHg (35-45); ABG PH 7.39 (7.35-7.45); ABG PO2 150 mmHg (80-105); ABG TCO2 32
[2020-04-21] MEDS: NPH, HUMAN INSULIN ISOPHANE 100 UNIT/1 ML 3ML VIAL SQ SCH ×2 (09:22→22:01)
[2020-04-21] MEDS: HEPARIN SOD (PORCINE) 5,000 UNIT/ML VIAL SC SCH ×2 (09:22→22:28)
[2020-04-21] MEDS: INSULIN LISPRO 100 UNIT/1 ML 3ML VIAL SQ SCH ×2 (11:45→18:37)
[2020-04-21] MEDS: ACETAMINOPHEN 325 MG TAB PO PRN (20:26)
[2020-04-21] MEDS ORDERED: FAMOTIDINE 20 MG/2 ML VIAL IV ONE (21:15)
[2020-04-21] MEDS: CLOPIDOGREL BISULFATE 75 MG TAB PO SCH (21:27)
[2020-04-21 21:32] LABS: BASOPHILS % 0.2 % (0.0-1.0); EOSINOPHILS # (AUTO) 0.1 (0.0-0.4); EOSINOPHILS % 0.5 % (0.0-6.0); HEMATOCRIT 30.3 % (34.2-44.1); HEMOGLOBIN 9.6 g/dL (12.0-16.0); LYMPHOCYTES # (AUTO) 0.9 (1.0-3.2); LYMPHOCYTES % 4.4 % (18.0-39.1); MEAN CORPUSCULAR HEMOGLOBIN 29.5 pg (28-32); MEAN CORPUSCULAR HGB CONC 31.7 g/dL (31-35); MEAN CORPUSCULAR VOLUME 93.2 fL (81-99); MONOCYTES # (AUTO) 0.7 (0.2-0.8); MONOCYTES % 3.4 % (4.4-11.3); NEUTROPHILS # (AUTO) 18.6 (2.1-6.9); NEUTROPHILS % 90.7 % (38.7-80.0); PLATELET COUNT 196 x10e3/uL (140-360); RED BLOOD COUNT 3.25 x10e6/uL (3.6-5.1); RED CELL DISTRIBUTION WIDTH 18.6 % (11.7-14.4)
[2020-04-22] VITALS (16 sets, daily range): BP systolic 84–126; BP diastolic 44–64
[2020-04-22] MEDS: INSULIN LISPRO 100 UNIT/1 ML 3ML VIAL SQ SCH ×4 (00:05→18:00)
[2020-04-22] MEDS: CIPROFLOXACIN (OPTH SOLN) 5 ML BTL OP SCH ×3 (02:33→09:24)
[2020-04-22] MEDS: PIPERACILLIN/TAZO 2.25 GM 50 ML IV SCH ×3 (04:48→21:00)
[2020-04-22 05:53] LABS: BASOPHILS % 0.2 % (0.0-1.0); EOSINOPHILS % 0.1 % (0.0-6.0); HEMATOCRIT 29.7 % (34.2-44.1); HEMOGLOBIN 9.4 g/dL (12.0-16.0); LYMPHOCYTES # (AUTO) 0.8 (1.0-3.2); LYMPHOCYTES % 4.1 % (18.0-39.1); MEAN CORPUSCULAR HEMOGLOBIN 29.4 pg (28-32); MEAN CORPUSCULAR HGB CONC 31.6 g/dL (31-35); MEAN CORPUSCULAR VOLUME 92.8 fL (81-99); MONOCYTES # (AUTO) 0.7 (0.2-0.8); MONOCYTES % 3.6 % (4.4-11.3); NEUTROPHILS # (AUTO) 17.4 (2.1-6.9); NEUTROPHILS % 90.9 % (38.7-80.0); PLATELET COUNT 196 x10e3/uL (140-360); RED CELL DISTRIBUTION WIDTH 18.4 % (11.7-14.4)
[2020-04-22] MEDS: LABETALOL HCL 100 MG TAB PO SCH ×3 (06:00→21:16)
[2020-04-22] MEDS: LEVOTHYROXINE SODIUM 100 MCG TAB PO SCH (06:07)
[2020-04-22 06:11] LABS: ALBUMIN 2.1 g/dL (3.5-5.0); ALBUMIN/GLOBULIN RATIO 0.4 (0.8-2.0); ANION GAP 24.7 mmol/L (8-16); CALCIUM 9.6 mg/dL (8.4-10.2); CREATININE, SERUM 4.61 mg/dL (0.57-1.11); POTASSIUM 5.7 mmol/L (3.5-5.1)
[2020-04-22] MEDS: VALSARTAN 80 MG TAB PO SCH (09:22)
[2020-04-22] MEDS: ZINC SULFATE 220 MG CAP PO SCH (09:22)
[2020-04-22] MEDS: HEPARIN SOD (PORCINE) 5,000 UNIT/ML VIAL SC SCH ×2 (09:23→21:00)
[2020-04-22] MEDS: NPH, HUMAN INSULIN ISOPHANE 100 UNIT/1 ML 3ML VIAL SQ SCH ×2 (09:23→21:00)
[2020-04-22] MEDS: BALSAM PERU/CASTOR OIL 60 GM OINT...G. TP SCH (09:24)
[2020-04-22] MEDS: HYDRALAZINE HCL 25 MG TAB PO SCH ×2 (09:24→16:56)
[2020-04-22] MEDS: COLLAGENASE 5 GM TUBE TOP SCH (09:24)
[2020-04-22] MEDS ORDERED: PROPOFOL IV EMULSION 10 MG/ML 50 ML VIAL IV ONE (13:40)
[2020-04-22] MEDS ORDERED: FENTANYL 2,000 MCG/250 ML BAG ONE ×2 (13:40→14:07)
[2020-04-22] MEDS ORDERED: MIDAZOLAM HCL 5MG/ML 10ML VIAL 100 ML BAG IV ONE ×2 (13:40→14:07)
[2020-04-22] MEDS ORDERED: PROPOFOL IV EMULSION 10MG/ML 100ML BTL ONE (14:07)
[2020-04-22] MEDS: FAMOTIDINE 20 MG/2 ML VIAL IV SCH (16:56)
[2020-04-22] MEDS ORDERED: FAMOTIDINE 20 MG/2 ML VIAL IV SCH (17:00)
[2020-04-22] MEDS: ACETAMINOPHEN 325 MG TAB PO PRN (20:33)
[2020-04-22] MEDS: PROPOFOL IV EMULSION 10MG/ML 100 ML IV PRN (20:55)
[2020-04-22] MEDS: CLOPIDOGREL BISULFATE 75 MG TAB PO SCH (21:00)
[2020-04-23] VITALS (24 sets, daily range): BP systolic 92–137; BP diastolic 45–62
[2020-04-23] MEDS: INSULIN LISPRO 100 UNIT/1 ML 3ML VIAL SQ SCH ×4 (00:38→18:04)
[2020-04-23] MEDS: PIPERACILLIN/TAZO 2.25 GM 50 ML IV SCH ×3 (04:18→20:46)
[2020-04-23] MEDS: FAMOTIDINE 20 MG/2 ML VIAL IV SCH ×2 (04:18→15:45)
[2020-04-23 05:23] LABS: BASOPHILS % 0.2 % (0.0-1.0); EOSINOPHILS % 0.2 % (0.0-6.0); HEMATOCRIT 30.6 % (34.2-44.1); HEMOGLOBIN 9.4 g/dL (12.0-16.0); LYMPHOCYTES # (AUTO) 0.9 (1.0-3.2); LYMPHOCYTES % 5.2 % (18.0-39.1); MEAN CORPUSCULAR HEMOGLOBIN 29.1 pg (28-32); MEAN CORPUSCULAR HGB CONC 30.7 g/dL (31-35); MEAN CORPUSCULAR VOLUME 94.7 fL (81-99); MONOCYTES # (AUTO) 0.7 (0.2-0.8); MONOCYTES % 3.7 % (4.4-11.3); NEUTROPHILS % 89.4 % (38.7-80.0); PLATELET COUNT 191 x10e3/uL (140-360); RED BLOOD COUNT 3.23 x10e6/uL (3.6-5.1); RED CELL DISTRIBUTION WIDTH 18.1 % (11.7-14.4)
[2020-04-23] MEDS: LABETALOL HCL 100 MG TAB PO SCH ×3 (05:36→21:21)
[2020-04-23] MEDS: LEVOTHYROXINE SODIUM 100 MCG TAB PO SCH (05:36)
[2020-04-23 05:42] LABS: ALBUMIN 2.7 g/dL (3.5-5.0); ALBUMIN/GLOBULIN RATIO 0.6 (0.8-2.0); ANION GAP 27.6 mmol/L (8-16); CALCIUM 9.5 mg/dL (8.4-10.2); CREATININE, SERUM 3.34 mg/dL (0.57-1.11); POTASSIUM 4.6 mmol/L (3.5-5.1)
[2020-04-23] MEDS: VALSARTAN 80 MG TAB PO SCH (08:48)
[2020-04-23] MEDS: ZINC SULFATE 220 MG CAP PO SCH (08:49)
[2020-04-23] MEDS: HYDRALAZINE HCL 25 MG TAB PO SCH ×2 (08:50→16:41)
[2020-04-23] MEDS: NPH, HUMAN INSULIN ISOPHANE 100 UNIT/1 ML 3ML VIAL SQ SCH ×2 (08:52→21:20)
[2020-04-23] MEDS: HEPARIN SOD (PORCINE) 5,000 UNIT/ML VIAL SC SCH ×2 (08:56→21:17)
[2020-04-23] MEDS: BALSAM PERU/CASTOR OIL 60 GM OINT...G. TP SCH (09:25)
[2020-04-23] MEDS: COLLAGENASE 5 GM TUBE TOP SCH (11:10)
[2020-04-23] MEDS: ACETAMINOPHEN 325 MG TAB PO PRN ×3 (15:45→21:45)
[2020-04-23] MEDS: CLOPIDOGREL BISULFATE 75 MG TAB PO SCH (21:02)
[2020-04-23] MEDS: PROPOFOL IV EMULSION 10MG/ML 100 ML IV PRN (23:00)
[2020-04-24] VITALS (22 sets, daily range): BP systolic 88–131; BP diastolic 42–86
[2020-04-24] MEDS: INSULIN LISPRO 100 UNIT/1 ML 3ML VIAL SQ SCH ×4 (00:25→17:58)
[2020-04-24] MEDS: FAMOTIDINE 20 MG/2 ML VIAL IV SCH ×2 (04:00→15:05)
[2020-04-24] MEDS: PIPERACILLIN/TAZO 2.25 GM 50 ML IV SCH ×3 (04:10→20:00)
[2020-04-24] MEDS: LEVOTHYROXINE SODIUM 100 MCG TAB PO SCH (05:05)
[2020-04-24] MEDS: LABETALOL HCL 100 MG TAB PO SCH ×3 (05:09→22:00)
[2020-04-24 06:00] LABS: ALBUMIN 2.2 g/dL (3.5-5.0); ALBUMIN/GLOBULIN RATIO 0.5 (0.8-2.0); ANION GAP 27.1 mmol/L (8-16); CALCIUM 10.1 mg/dL (8.4-10.2); CREATININE, SERUM 4.91 mg/dL (0.57-1.11); POTASSIUM 5.1 mmol/L (3.5-5.1)
[2020-04-24 06:26] LABS: BASOPHILS # (AUTO) 0.1 (0.0-0.1); BASOPHILS % 0.4 % (0.0-1.0); EOSINOPHILS # (AUTO) 0.1 (0.0-0.4); EOSINOPHILS % 0.3 % (0.0-6.0); HEMATOCRIT 32.2 % (34.2-44.1); HEMOGLOBIN 9.9 g/dL (12.0-16.0); LYMPHOCYTES # (AUTO) 1.5 (1.0-3.2); LYMPHOCYTES % 7.2 % (18.0-39.1); MEAN CORPUSCULAR HEMOGLOBIN 29.1 pg (28-32); MEAN CORPUSCULAR HGB CONC 30.7 g/dL (31-35); MEAN CORPUSCULAR VOLUME 94.7 fL (81-99); MONOCYTES # (AUTO) 0.7 (0.2-0.8); MONOCYTES % 3.6 % (4.4-11.3); NEUTROPHILS # (AUTO) 17.9 (2.1-6.9); NEUTROPHILS % 87.2 % (38.7-80.0); PLATELET COUNT 230 x10e3/uL (140-360); RED CELL DISTRIBUTION WIDTH 17.8 % (11.7-14.4)
[2020-04-24] MEDS: HYDRALAZINE HCL 25 MG TAB PO SCH ×2 (08:12→16:22)
[2020-04-24] MEDS: VALSARTAN 80 MG TAB PO SCH (08:13)
[2020-04-24] MEDS: BALSAM PERU/CASTOR OIL 60 GM OINT...G. TP SCH (08:14)
[2020-04-24] MEDS: COLLAGENASE 5 GM TUBE TOP SCH (08:14)
[2020-04-24] MEDS: ZINC SULFATE 220 MG CAP PO SCH (08:14)
[2020-04-24] MEDS: HEPARIN SOD (PORCINE) 5,000 UNIT/ML VIAL SC SCH ×2 (08:20→21:20)
[2020-04-24] MEDS: NPH, HUMAN INSULIN ISOPHANE 100 UNIT/1 ML 3ML VIAL SQ SCH ×2 (08:20→21:21)
[2020-04-24 17:24] LABS: ABG HCO3 28 mmol/L (22-26); ABG PCO2 35 mmHg (35-45); ABG PH 7.53 (7.35-7.45); ABG PO2 53 mmHg (80-105); ABG TCO2 29
[2020-04-24] MEDS: CLOPIDOGREL BISULFATE 75 MG TAB PO SCH (21:17)
[2020-04-25] VITALS (25 sets, daily range): BP systolic 73–147; BP diastolic 48–67
[2020-04-25] MEDS: INSULIN LISPRO 100 UNIT/1 ML 3ML VIAL SQ SCH ×5 (00:12→23:55)
[2020-04-25] MEDS: FAMOTIDINE 20 MG/2 ML VIAL IV SCH ×2 (02:48→15:33)
[2020-04-25] MEDS: ACETAMINOPHEN 325 MG TAB PO PRN ×2 (03:15→15:34)
[2020-04-25] MEDS: PIPERACILLIN/TAZO 2.25 GM 50 ML IV SCH ×3 (04:00→21:01)
[2020-04-25 05:07] LABS: BASOPHILS % 0.2 % (0.0-1.0); EOSINOPHILS % 0.1 % (0.0-6.0); HEMATOCRIT 31.3 % (34.2-44.1); HEMOGLOBIN 9.6 g/dL (12.0-16.0); LYMPHOCYTES # (AUTO) 1.8 (1.0-3.2); LYMPHOCYTES % 9.7 % (18.0-39.1); MEAN CORPUSCULAR HEMOGLOBIN 29.4 pg (28-32); MEAN CORPUSCULAR HGB CONC 30.7 g/dL (31-35); MEAN CORPUSCULAR VOLUME 95.7 fL (81-99); MONOCYTES % 5.2 % (4.4-11.3); NEUTROPHILS % 82.7 % (38.7-80.0); PLATELET COUNT 250 x10e3/uL (140-360); RED BLOOD COUNT 3.27 x10e6/uL (3.6-5.1); RED CELL DISTRIBUTION WIDTH 18.1 % (11.7-14.4)
[2020-04-25 05:45] LABS: ALBUMIN 2.5 g/dL (3.5-5.0); ALBUMIN/GLOBULIN RATIO 0.5 (0.8-2.0); ANION GAP 26.4 mmol/L (8-16); CALCIUM 9.7 mg/dL (8.4-10.2); CREATININE, SERUM 3.27 mg/dL (0.57-1.11); POTASSIUM 4.4 mmol/L (3.5-5.1)
[2020-04-25] MEDS: LABETALOL HCL 100 MG TAB PO SCH ×3 (06:00→22:00)
[2020-04-25] MEDS: LEVOTHYROXINE SODIUM 100 MCG TAB PO SCH (06:08)
[2020-04-25] MEDS: HYDRALAZINE HCL 25 MG TAB PO SCH ×2 (08:13→14:44)
[2020-04-25] MEDS: VALSARTAN 80 MG TAB PO SCH (08:13)
[2020-04-25] MEDS: ZINC SULFATE 220 MG CAP PO SCH (09:58)
[2020-04-25] MEDS: HEPARIN SOD (PORCINE) 5,000 UNIT/ML VIAL SC SCH ×2 (09:58→20:48)
[2020-04-25] MEDS: COLLAGENASE 5 GM TUBE TOP SCH (09:59)
[2020-04-25] MEDS: BALSAM PERU/CASTOR OIL 60 GM OINT...G. TP SCH (09:59)
[2020-04-25] MEDS: NPH, HUMAN INSULIN ISOPHANE 100 UNIT/1 ML 3ML VIAL SQ SCH ×2 (09:59→20:49)
[2020-04-25] MEDS: VASOPRESSIN 60 UNIT in DEXTROSE 5% 50ML 57 ML IV PRN (18:48)
[2020-04-25] MEDS: CLOPIDOGREL BISULFATE 75 MG TAB PO SCH (20:48)
[2020-04-26] VITALS (25 sets, daily range): BP systolic 86–138; BP diastolic 47–68
[2020-04-26] MEDS: ACETAMINOPHEN 325 MG TAB PO PRN (00:28)
[2020-04-26] MEDS: FAMOTIDINE 20 MG/2 ML VIAL IV SCH ×2 (02:57→17:18)
[2020-04-26] MEDS: PIPERACILLIN/TAZO 2.25 GM 50 ML IV SCH ×3 (04:00→20:42)
[2020-04-26 04:59] LABS: BASOPHILS # (AUTO) 0.1 (0.0-0.1); BASOPHILS % 0.4 % (0.0-1.0); EOSINOPHILS % 0.1 % (0.0-6.0); HEMATOCRIT 31.6 % (34.2-44.1); HEMOGLOBIN 9.5 g/dL (12.0-16.0); LYMPHOCYTES # (AUTO) 2.6 (1.0-3.2); LYMPHOCYTES % 11.8 % (18.0-39.1); MEAN CORPUSCULAR HEMOGLOBIN 29.5 pg (28-32); MEAN CORPUSCULAR HGB CONC 30.1 g/dL (31-35); MEAN CORPUSCULAR VOLUME 98.1 fL (81-99); MONOCYTES # (AUTO) 1.1 (0.2-0.8); MONOCYTES % 5.1 % (4.4-11.3); NEUTROPHILS # (AUTO) 17.7 (2.1-6.9); NEUTROPHILS % 80.2 % (38.7-80.0); PLATELET COUNT 258 x10e3/uL (140-360); RED BLOOD COUNT 3.22 x10e6/uL (3.6-5.1); RED CELL DISTRIBUTION WIDTH 18.4 % (11.7-14.4)
[2020-04-26 05:30] LABS: ANION GAP 31.4 mmol/L (8-16); CALCIUM 9.4 mg/dL (8.4-10.2); CREATININE, SERUM 4.89 mg/dL (0.57-1.11); POTASSIUM 5.4 mmol/L (3.5-5.1)
[2020-04-26] MEDS: LABETALOL HCL 100 MG TAB PO SCH ×3 (06:00→22:00)
[2020-04-26] MEDS: INSULIN LISPRO 100 UNIT/1 ML 3ML VIAL SQ SCH ×3 (06:10→17:19)
[2020-04-26] MEDS: LEVOTHYROXINE SODIUM 100 MCG TAB PO SCH (06:15)
[2020-04-26 06:31] LABS: LYMPHOCYTES % (MANUAL) 6 % (19-48); METAMYELOCYTES % (MANUAL) 2 % (0-0); MONOCYTES % (MANUAL) 1 % (3.4-9.0); MYELOCYTES % (MANUAL) 1 % (0-0); NEUTROPHILS % (MANUAL) 88 % (40-74); SMUDGE CELLS FEW
[2020-04-26 06:32] LABS: ANISOCYTOSIS SLIG; PLATELET ESTIMATE ADEQUATE; PLATELET MORPHOLOGY COMMENT FEW LARGE; POIKILOCYTOSIS SLIGHT
[2020-04-26] MEDS: ZINC SULFATE 220 MG CAP PO SCH (08:22)
[2020-04-26] MEDS: HYDRALAZINE HCL 25 MG TAB PO SCH ×2 (08:22→17:00)
[2020-04-26] MEDS: VALSARTAN 80 MG TAB PO SCH (08:22)
[2020-04-26] MEDS: NPH, HUMAN INSULIN ISOPHANE 100 UNIT/1 ML 3ML VIAL SQ SCH ×2 (08:23→22:01)
[2020-04-26] MEDS: HEPARIN SOD (PORCINE) 5,000 UNIT/ML VIAL SC SCH (08:23)
[2020-04-26] MEDS: COLLAGENASE 5 GM TUBE TOP SCH (08:24)
[2020-04-26] MEDS: BALSAM PERU/CASTOR OIL 60 GM OINT...G. TP SCH (08:24)
[2020-04-26] MEDS ORDERED: DILTIAZEM HCL 5 MG/ML 5 ML VIAL IV ONE (11:00)
[2020-04-26] MEDS: DILTIAZEM HCL 125 ML IV SCH (12:27)
[2020-04-26] MEDS: CLOPIDOGREL BISULFATE 75 MG TAB PO SCH (21:54)
[2020-04-27] VITALS (23 sets, daily range): BP systolic 82–160; BP diastolic 46–82
[2020-04-27] MEDS: INSULIN LISPRO 100 UNIT/1 ML 3ML VIAL SQ SCH ×4 (00:35→18:12)
[2020-04-27] MEDS: DILTIAZEM HCL 125 ML IV SCH (03:35)
[2020-04-27] MEDS: PIPERACILLIN/TAZO 2.25 GM 50 ML IV SCH ×3 (04:00→20:13)
[2020-04-27] MEDS: FAMOTIDINE 20 MG/2 ML VIAL IV SCH ×2 (04:00→14:58)
[2020-04-27] MEDS: LEVOTHYROXINE SODIUM 100 MCG TAB PO SCH (05:24)
[2020-04-27] MEDS: LABETALOL HCL 100 MG TAB PO SCH ×3 (05:24→22:00)
[2020-04-27 06:23] LABS: BASOPHILS % 0.2 % (0.0-1.0); EOSINOPHILS # (AUTO) 0.1 (0.0-0.4); EOSINOPHILS % 0.2 % (0.0-6.0); HEMATOCRIT 28.7 % (34.2-44.1); HEMOGLOBIN 8.4 g/dL (12.0-16.0); LYMPHOCYTES # (AUTO) 1.7 (1.0-3.2); LYMPHOCYTES % 8.3 % (18.0-39.1); MEAN CORPUSCULAR HEMOGLOBIN 29.4 pg (28-32); MEAN CORPUSCULAR HGB CONC 29.3 g/dL (31-35); MEAN CORPUSCULAR VOLUME 100.3 fL (81-99); MONOCYTES # (AUTO) 0.8 (0.2-0.8); NEUTROPHILS # (AUTO) 17.5 (2.1-6.9); NEUTROPHILS % 85.9 % (38.7-80.0); PLATELET COUNT 225 x10e3/uL (140-360); RED BLOOD COUNT 2.86 x10e6/uL (3.6-5.1); RED CELL DISTRIBUTION WIDTH 18.8 % (11.7-14.4)
[2020-04-27 06:41] LABS: ALBUMIN 2.9 g/dL (3.5-5.0); ALBUMIN/GLOBULIN RATIO 0.7 (0.8-2.0); ANION GAP 27.8 mmol/L (8-16); CALCIUM 9.7 mg/dL (8.4-10.2); CREATININE, SERUM 3.95 mg/dL (0.57-1.11); POTASSIUM 4.8 mmol/L (3.5-5.1)
[2020-04-27] MEDS: BALSAM PERU/CASTOR OIL 60 GM OINT...G. TP SCH (08:52)
[2020-04-27] MEDS: HYDRALAZINE HCL 25 MG TAB PO SCH ×2 (08:52→16:43)
[2020-04-27] MEDS: COLLAGENASE 5 GM TUBE TOP SCH (08:52)
[2020-04-27] MEDS: ZINC SULFATE 220 MG CAP PO SCH (08:52)
[2020-04-27] MEDS: VALSARTAN 80 MG TAB PO SCH (08:52)
[2020-04-27] MEDS: NPH, HUMAN INSULIN ISOPHANE 100 UNIT/1 ML 3ML VIAL SQ SCH ×2 (08:53→22:12)
[2020-04-27 11:39] LABS: ANISOCYTOSIS MODERATE; MICROCYTOSIS MODERATE
[2020-04-27 11:40] LABS: PLATELET ESTIMATE ADEQUATE; RBC MORPHOLOGY COMMENT ABNORMAL
[2020-04-27 11:41] LABS: PLATELET MORPHOLOGY COMMENT FEW LARGE
[2020-04-27] MEDS ORDERED: MIDAZOLAM HCL 2 MG/2 ML VIAL IV NR (15:30)
[2020-04-27 17:29] LABS: ABG HCO3 22 mmol/L (22-26); ABG PCO2 33 mmHg (35-45); ABG PH 7.43 (7.35-7.45); ABG PO2 108 mmHg (80-105); ABG TCO2 23
[2020-04-27] MEDS: CLOPIDOGREL BISULFATE 75 MG TAB PO SCH (22:08)
[2020-04-28] VITALS (24 sets, daily range): BP systolic 88–130; BP diastolic 45–73
[2020-04-28] MEDS: INSULIN LISPRO 100 UNIT/1 ML 3ML VIAL SQ SCH ×3 (00:27→13:16)
[2020-04-28] MEDS: FAMOTIDINE 20 MG/2 ML VIAL IV SCH ×2 (04:07→14:23)
[2020-04-28] MEDS: PIPERACILLIN/TAZO 2.25 GM 50 ML IV SCH ×2 (04:07→14:23)
[2020-04-28] MEDS: LABETALOL HCL 100 MG TAB PO SCH ×3 (05:55→22:00)
[2020-04-28] MEDS: LEVOTHYROXINE SODIUM 100 MCG TAB PO SCH (05:55)
[2020-04-28 06:50] LABS: BASOPHILS % 0.2 % (0.0-1.0); EOSINOPHILS # (AUTO) 0.1 (0.0-0.4); EOSINOPHILS % 0.4 % (0.0-6.0); HEMATOCRIT 29.7 % (34.2-44.1); HEMOGLOBIN 8.9 g/dL (12.0-16.0); LYMPHOCYTES # (AUTO) 1.6 (1.0-3.2); MEAN CORPUSCULAR HEMOGLOBIN 29.7 pg (28-32); MONOCYTES # (AUTO) 1.1 (0.2-0.8); MONOCYTES % 4.1 % (4.4-11.3); NEUTROPHILS # (AUTO) 23.2 (2.1-6.9); PLATELET COUNT 269 x10e3/uL (140-360); RED CELL DISTRIBUTION WIDTH 19.7 % (11.7-14.4)
[2020-04-28 07:43] LABS: ALBUMIN 2.4 g/dL (3.5-5.0); ALBUMIN/GLOBULIN RATIO 0.6 (0.8-2.0); ANION GAP 32.5 mmol/L (8-16); CALCIUM 9.6 mg/dL (8.4-10.2); CREATININE, SERUM 5.15 mg/dL (0.57-1.11); POTASSIUM 5.5 mmol/L (3.5-5.1)
[2020-04-28] MEDS: HYDRALAZINE HCL 25 MG TAB PO SCH ×2 (08:15→17:00)
[2020-04-28] MEDS: VALSARTAN 80 MG TAB PO SCH (08:16)
[2020-04-28] MEDS: BALSAM PERU/CASTOR OIL 60 GM OINT...G. TP SCH (09:27)
[2020-04-28] MEDS: ZINC SULFATE 220 MG CAP PO SCH (09:27)
[2020-04-28] MEDS: COLLAGENASE 5 GM TUBE TOP SCH (09:27)
[2020-04-28] MEDS: NPH, HUMAN INSULIN ISOPHANE 100 UNIT/1 ML 3ML VIAL SQ SCH (09:29)
[2020-04-28] MEDS ORDERED: MIDAZOLAM HCL 5MG/ML 10ML VIAL 100 ML BAG IV ONE (12:25)
[2020-04-28] MEDS ORDERED: FENTANYL 2,000 MCG/250 ML BAG ONE (12:25)
[2020-04-28] MEDS: DILTIAZEM HCL 125 ML IV SCH (13:44)
[2020-04-28 15:43] LABS: INR 1.27; PROTHROMBIN TIME 16.8 seconds (11.9-14.5)
[2020-04-28] MEDS ORDERED: DEXTROSE 50% SYRINGE 50 ML IV PRN (17:30)
[2020-04-28] MEDS: INSULIN REGULAR, HUMAN 3ML VL 100 UNIT in SODIUM CHLORIDE 0.45% 100 ML 100 ML IV SCH ×2 (17:47)
[2020-04-28] MEDS ORDERED: NPH, HUMAN INSULIN ISOPHANE 100 UNIT/1 ML 3ML VIAL SQ SCH (21:00)
[2020-04-28] MEDS: CLOPIDOGREL BISULFATE 75 MG TAB PO SCH (22:08)
[2020-04-29] VITALS (23 sets, daily range): BP systolic 85–143; BP diastolic 44–100
[2020-04-29] MEDS: FAMOTIDINE 20 MG/2 ML VIAL IV SCH ×2 (04:31→16:55)
[2020-04-29 05:17] LABS: BASOPHILS # (AUTO) 0.1 (0.0-0.1); BASOPHILS % 0.3 % (0.0-1.0); EOSINOPHILS # (AUTO) 0.1 (0.0-0.4); EOSINOPHILS % 0.2 % (0.0-6.0); HEMATOCRIT 29.3 % (34.2-44.1); HEMOGLOBIN 8.9 g/dL (12.0-16.0); LYMPHOCYTES # (AUTO) 1.5 (1.0-3.2); LYMPHOCYTES % 5.3 % (18.0-39.1); MEAN CORPUSCULAR HEMOGLOBIN 30.2 pg (28-32); MEAN CORPUSCULAR HGB CONC 30.4 g/dL (31-35); MEAN CORPUSCULAR VOLUME 99.3 fL (81-99); MONOCYTES # (AUTO) 1.2 (0.2-0.8); MONOCYTES % 4.3 % (4.4-11.3); NEUTROPHILS # (AUTO) 25.1 (2.1-6.9); NEUTROPHILS % 87.8 % (38.7-80.0); PLATELET COUNT 309 x10e3/uL (140-360); RED BLOOD COUNT 2.95 x10e6/uL (3.6-5.1); RED CELL DISTRIBUTION WIDTH 20.6 % (11.7-14.4)
[2020-04-29] MEDS: LEVOTHYROXINE SODIUM 100 MCG TAB PO SCH (05:34)
[2020-04-29] MEDS: LABETALOL HCL 100 MG TAB PO SCH ×3 (05:38→22:00)
[2020-04-29 05:56] LABS: ALBUMIN 2.1 g/dL (3.5-5.0); ALBUMIN/GLOBULIN RATIO 0.5 (0.8-2.0); ANION GAP 35.1 mmol/L (8-16); CALCIUM 8.8 mg/dL (8.4-10.2); CREATININE, SERUM 6.21 mg/dL (0.57-1.11)
[2020-04-29 06:11] LABS: POTASSIUM 6.1 mmol/L (3.5-5.1)
[2020-04-29] MEDS: HYDRALAZINE HCL 25 MG TAB PO SCH ×2 (08:24→16:54)
[2020-04-29] MEDS: VALSARTAN 80 MG TAB PO SCH (08:24)
[2020-04-29] MEDS: VASOPRESSIN 60 UNIT in DEXTROSE 5% 50ML 57 ML IV PRN (09:00)
[2020-04-29] MEDS ORDERED: NPH, HUMAN INSULIN ISOPHANE 100 UNIT/1 ML 3ML VIAL SQ SCH (09:00)
[2020-04-29] MEDS: COLLAGENASE 5 GM TUBE TOP SCH (09:38)
[2020-04-29] MEDS: BALSAM PERU/CASTOR OIL 60 GM OINT...G. TP SCH (09:38)
[2020-04-29] MEDS: ZINC SULFATE 220 MG CAP PO SCH (09:49)
[2020-04-29] MEDS: CLOPIDOGREL BISULFATE 75 MG TAB PO SCH ×2 (21:00→22:02)
[2020-04-29] MEDS: DILTIAZEM HCL 125 ML IV SCH (23:06)
[2020-04-30] VITALS (26 sets, daily range): BP systolic 90–136; BP diastolic 43–70
[2020-04-30] MEDS: FAMOTIDINE 20 MG/2 ML VIAL IV SCH ×2 (02:39→16:08)
[2020-04-30 05:00] LABS: BASOPHILS # (AUTO) 0.1 (0.0-0.1); BASOPHILS % 0.3 % (0.0-1.0); HEMATOCRIT 27.2 % (34.2-44.1); HEMOGLOBIN 8.3 g/dL (12.0-16.0); LYMPHOCYTES # (AUTO) 0.9 (1.0-3.2); LYMPHOCYTES % 3.7 % (18.0-39.1); MEAN CORPUSCULAR HEMOGLOBIN 30.5 pg (28-32); MEAN CORPUSCULAR HGB CONC 30.5 g/dL (31-35); MONOCYTES # (AUTO) 1.1 (0.2-0.8); MONOCYTES % 4.5 % (4.4-11.3); NEUTROPHILS # (AUTO) 21.6 (2.1-6.9); NEUTROPHILS % 90.2 % (38.7-80.0); PLATELET COUNT 321 x10e3/uL (140-360); RED BLOOD COUNT 2.72 x10e6/uL (3.6-5.1); RED CELL DISTRIBUTION WIDTH 20.9 % (11.7-14.4)
[2020-04-30 05:19] LABS: ALBUMIN 2.7 g/dL (3.5-5.0); ALBUMIN/GLOBULIN RATIO 0.6 (0.8-2.0); CALCIUM 9.7 mg/dL (8.4-10.2); CREATININE, SERUM 3.69 mg/dL (0.57-1.11)
[2020-04-30] MEDS: LEVOTHYROXINE SODIUM 100 MCG TAB PO SCH (06:00)
[2020-04-30] MEDS: LABETALOL HCL 100 MG TAB PO SCH ×3 (06:00→22:00)
[2020-04-30] MEDS: INSULIN REGULAR, HUMAN 3ML VL 100 UNIT in SODIUM CHLORIDE 0.45% 100 ML 100 ML IV SCH ×2 (07:08)
[2020-04-30] MEDS: HYDRALAZINE HCL 25 MG TAB PO SCH ×2 (09:00→16:08)
[2020-04-30] MEDS: ZINC SULFATE 220 MG CAP PO SCH (09:00)
[2020-04-30] MEDS: VALSARTAN 80 MG TAB PO SCH (09:00)
[2020-04-30] MEDS: COLLAGENASE 5 GM TUBE TOP SCH (09:49)
[2020-04-30] MEDS: BALSAM PERU/CASTOR OIL 60 GM OINT...G. TP SCH (09:50)
[2020-04-30] MEDS: DILTIAZEM HCL 125 ML IV SCH (14:12)
[2020-04-30] MEDS: PROPOFOL IV EMULSION 10MG/ML 100 ML IV PRN (15:00)
[2020-04-30] MEDS: CLOPIDOGREL BISULFATE 75 MG TAB PO SCH (21:41)
[2020-05-01] VITALS (27 sets, daily range): BP systolic 87–148; BP diastolic 47–75
[2020-05-01] MEDS: FAMOTIDINE 20 MG/2 ML VIAL IV SCH ×2 (03:54→18:29)
[2020-05-01] MEDS: LABETALOL HCL 100 MG TAB PO SCH ×3 (06:00→22:00)
[2020-05-01 06:22] LABS: BASOPHILS # (AUTO) 0.1 (0.0-0.1); BASOPHILS % 0.3 % (0.0-1.0); EOSINOPHILS % 0.2 % (0.0-6.0); HEMATOCRIT 27.8 % (34.2-44.1); HEMOGLOBIN 8.4 g/dL (12.0-16.0); LYMPHOCYTES # (AUTO) 1.1 (1.0-3.2); MEAN CORPUSCULAR HEMOGLOBIN 30.4 pg (28-32); MEAN CORPUSCULAR HGB CONC 30.2 g/dL (31-35); MEAN CORPUSCULAR VOLUME 100.7 fL (81-99); MONOCYTES # (AUTO) 1.1 (0.2-0.8); MONOCYTES % 6.1 % (4.4-11.3); NEUTROPHILS # (AUTO) 16.2 (2.1-6.9); NEUTROPHILS % 86.5 % (38.7-80.0); PLATELET COUNT 394 x10e3/uL (140-360); RED BLOOD COUNT 2.76 x10e6/uL (3.6-5.1); RED CELL DISTRIBUTION WIDTH 20.4 % (11.7-14.4)
[2020-05-01] MEDS: LEVOTHYROXINE SODIUM 100 MCG TAB PO SCH (06:59)
[2020-05-01 07:09] LABS: ALBUMIN 2.2 g/dL (3.5-5.0); ALBUMIN/GLOBULIN RATIO 0.5 (0.8-2.0); ANION GAP 30.2 mmol/L (8-16); CALCIUM 8.7 mg/dL (8.4-10.2); CREATININE, SERUM 4.98 mg/dL (0.57-1.11)
[2020-05-01 07:23] LABS: POTASSIUM 6.2 mmol/L (3.5-5.1)
[2020-05-01] MEDS: HYDRALAZINE HCL 25 MG TAB PO SCH ×2 (09:00→16:10)
[2020-05-01] MEDS: VALSARTAN 80 MG TAB PO SCH (09:00)
[2020-05-01] MEDS: COLLAGENASE 5 GM TUBE TOP SCH (09:15)
[2020-05-01] MEDS: BALSAM PERU/CASTOR OIL 60 GM OINT...G. TP SCH (09:15)
[2020-05-01] MEDS: ZINC SULFATE 220 MG CAP PO SCH (09:15)
[2020-05-01] MEDS: PROPOFOL IV EMULSION 10MG/ML 100 ML IV PRN (09:57)
[2020-05-01] MEDS: DILTIAZEM HCL 125 ML IV SCH (11:15)
[2020-05-01 15:58] LABS: ABG HCO3 30 mmol/L (22-26); ABG PCO2 35 mmHg (35-45); ABG PH 7.54 (7.35-7.45); ABG PO2 81 mmHg (80-105); ABG TCO2 31
[2020-05-01] MEDS: CLOPIDOGREL BISULFATE 75 MG TAB PO SCH (21:27)
[2020-05-02] VITALS (30 sets, daily range): BP systolic 77–115; BP diastolic 29–69
[2020-05-02] MEDS ORDERED: DILTIAZEM HCL IV 5MG/ML 25 ML VIAL ONE (01:47)
[2020-05-02] MEDS ORDERED: SODIUM CHLORIDE 0.9% 100 ML ONE ×2 (02:28→03:32)
[2020-05-02] MEDS: DILTIAZEM HCL 125 ML IV SCH (02:47)
[2020-05-02] MEDS: FAMOTIDINE 20 MG/2 ML VIAL IV SCH ×2 (03:00→14:41)
[2020-05-02] MEDS: PROPOFOL IV EMULSION 10MG/ML 100 ML IV PRN (05:09)
[2020-05-02] MEDS: INSULIN REGULAR, HUMAN 3ML VL 100 UNIT in SODIUM CHLORIDE 0.45% 100 ML 100 ML IV SCH ×2 (05:09)
[2020-05-02] MEDS: LABETALOL HCL 100 MG TAB PO SCH ×3 (06:00→22:00)
[2020-05-02 06:20] LABS: BASOPHILS # (AUTO) 0.1 (0.0-0.1); BASOPHILS % 0.3 % (0.0-1.0); EOSINOPHILS # (AUTO) 0.1 (0.0-0.4); EOSINOPHILS % 0.3 % (0.0-6.0); HEMATOCRIT 29.9 % (34.2-44.1); HEMOGLOBIN 8.8 g/dL (12.0-16.0); LYMPHOCYTES # (AUTO) 0.9 (1.0-3.2); LYMPHOCYTES % 4.9 % (18.0-39.1); MEAN CORPUSCULAR HEMOGLOBIN 29.9 pg (28-32); MEAN CORPUSCULAR HGB CONC 29.4 g/dL (31-35); MEAN CORPUSCULAR VOLUME 101.7 fL (81-99); MONOCYTES # (AUTO) 1.2 (0.2-0.8); MONOCYTES % 6.6 % (4.4-11.3); NEUTROPHILS # (AUTO) 15.6 (2.1-6.9); NEUTROPHILS % 86.9 % (38.7-80.0); PLATELET COUNT 423 x10e3/uL (140-360); RED BLOOD COUNT 2.94 x10e6/uL (3.6-5.1); RED CELL DISTRIBUTION WIDTH 19.9 % (11.7-14.4)
[2020-05-02] MEDS: LEVOTHYROXINE SODIUM 100 MCG TAB PO SCH (06:28)
[2020-05-02 06:46] LABS: ALBUMIN 2.1 g/dL (3.5-5.0); ALBUMIN/GLOBULIN RATIO 0.4 (0.8-2.0); ANION GAP 21.4 mmol/L (8-16); CALCIUM 8.3 mg/dL (8.4-10.2); CREATININE, SERUM 2.89 mg/dL (0.57-1.11); POTASSIUM 5.4 mmol/L (3.5-5.1)
[2020-05-02] MEDS: HYDRALAZINE HCL 25 MG TAB PO SCH ×2 (08:16→16:28)
[2020-05-02] MEDS: VALSARTAN 80 MG TAB PO SCH (08:16)
[2020-05-02] MEDS: COLLAGENASE 5 GM TUBE TOP SCH (08:17)
[2020-05-02] MEDS: BALSAM PERU/CASTOR OIL 60 GM OINT...G. TP SCH (08:17)
[2020-05-02] MEDS: ZINC SULFATE 220 MG CAP PO SCH (08:17)
[2020-05-02 08:58] LABS: HYPOCHROMASIA SLIGHT
[2020-05-02 08:59] LABS: ANISOCYTOSIS SLIGHT; PLATELET ESTIMATE SLIGHTLY INCREASED; PLATELET MORPHOLOGY COMMENT FEW EDTA CLUMPING; RBC MORPHOLOGY COMMENT NORMAL
[2020-05-02] MEDS ORDERED: LACTULOSE SYRUP 20 GM/30 ML UDC PO ONE (11:00)
[2020-05-02] MEDS ORDERED: SOD POLYSTYRENE SULFONATE SUSP 15 GM/60 ML BTL PO ONE (11:00)
[2020-05-02] MEDS: CLOPIDOGREL BISULFATE 75 MG TAB PO SCH (21:51)
[2020-05-02] MEDS: ACETAMINOPHEN 325 MG TAB PO PRN (23:52)
[2020-05-03] VITALS (29 sets, daily range): BP systolic 10–109; BP diastolic 46–81
[2020-05-03] MEDS ORDERED: DILTIAZEM HCL IV 5MG/ML 25 ML VIAL ONE (02:17)
[2020-05-03] MEDS ORDERED: SODIUM CHLORIDE 0.9% 100 ML ONE ×2 (02:17→02:50)
[2020-05-03] MEDS: DILTIAZEM HCL 125 ML IV SCH ×3 (02:32→15:06)
[2020-05-03] MEDS ORDERED: INSULIN REGULAR, HUMAN 100 UNIT/1 ML 3ML VIAL ONE (02:51)
[2020-05-03] MEDS: INSULIN REGULAR, HUMAN 3ML VL 100 UNIT in SODIUM CHLORIDE 0.45% 100 ML 100 ML IV SCH ×2 (03:01)
[2020-05-03] MEDS: FAMOTIDINE 20 MG/2 ML VIAL IV SCH ×2 (03:23→14:59)
[2020-05-03] MEDS: LABETALOL HCL 100 MG TAB PO SCH ×3 (06:00→22:00)
[2020-05-03 06:05] LABS: BASOPHILS % 0.2 % (0.0-1.0); EOSINOPHILS # (AUTO) 0.1 (0.0-0.4); EOSINOPHILS % 0.4 % (0.0-6.0); HEMATOCRIT 27.8 % (34.2-44.1); HEMOGLOBIN 8.3 g/dL (12.0-16.0); LYMPHOCYTES # (AUTO) 1.3 (1.0-3.2); LYMPHOCYTES % 6.8 % (18.0-39.1); MEAN CORPUSCULAR HEMOGLOBIN 30.1 pg (28-32); MEAN CORPUSCULAR HGB CONC 29.9 g/dL (31-35); MEAN CORPUSCULAR VOLUME 100.7 fL (81-99); MONOCYTES # (AUTO) 1.1 (0.2-0.8); MONOCYTES % 6.1 % (4.4-11.3); NEUTROPHILS # (AUTO) 15.6 (2.1-6.9); NEUTROPHILS % 85.4 % (38.7-80.0); PLATELET COUNT 414 x10e3/uL (140-360); RED BLOOD COUNT 2.76 x10e6/uL (3.6-5.1); RED CELL DISTRIBUTION WIDTH 19.6 % (11.7-14.4)
[2020-05-03] MEDS: LEVOTHYROXINE SODIUM 100 MCG TAB PO SCH (06:09)
[2020-05-03 06:27] LABS: ALBUMIN 1.9 g/dL (3.5-5.0); ALBUMIN/GLOBULIN RATIO 0.4 (0.8-2.0); ANION GAP 27.5 mmol/L (8-16); CALCIUM 8.2 mg/dL (8.4-10.2); CREATININE, SERUM 4.34 mg/dL (0.57-1.11); POTASSIUM 4.5 mmol/L (3.5-5.1)
[2020-05-03] MEDS: VALSARTAN 80 MG TAB PO SCH (09:00)
[2020-05-03] MEDS: HYDRALAZINE HCL 25 MG TAB PO SCH ×2 (09:00→17:00)
[2020-05-03] MEDS: COLLAGENASE 5 GM TUBE TOP SCH (09:47)
[2020-05-03] MEDS: ZINC SULFATE 220 MG CAP PO SCH (09:47)
[2020-05-03] MEDS: BALSAM PERU/CASTOR OIL 60 GM OINT...G. TP SCH (09:47)
[2020-05-03] MEDS: CLOPIDOGREL BISULFATE 75 MG TAB PO SCH (21:00)
[2020-05-03] MEDS: ACETAMINOPHEN 325 MG TAB PO PRN (22:51)
[2020-05-04] VITALS (9 sets, daily range): BP systolic 82–112; BP diastolic 48–61
[2020-05-04] MEDS: FAMOTIDINE 20 MG/2 ML VIAL IV SCH (03:00)
[2020-05-04] MEDS: LABETALOL HCL 100 MG TAB PO SCH (06:00)
[2020-05-04] MEDS: LEVOTHYROXINE SODIUM 100 MCG TAB PO SCH (06:08)
[2020-05-04 06:17] LABS: BASOPHILS % 0.2 % (0.0-1.0); EOSINOPHILS # (AUTO) 0.1 (0.0-0.4); EOSINOPHILS % 0.4 % (0.0-6.0); HEMATOCRIT 28.2 % (34.2-44.1); HEMOGLOBIN 8.4 g/dL (12.0-16.0); LYMPHOCYTES # (AUTO) 0.9 (1.0-3.2); LYMPHOCYTES % 5.2 % (18.0-39.1); MEAN CORPUSCULAR HEMOGLOBIN 29.8 pg (28-32); MEAN CORPUSCULAR HGB CONC 29.8 g/dL (31-35); MONOCYTES # (AUTO) 0.9 (0.2-0.8); MONOCYTES % 5.2 % (4.4-11.3); NEUTROPHILS # (AUTO) 15.8 (2.1-6.9); NEUTROPHILS % 87.8 % (38.7-80.0); PLATELET COUNT 447 x10e3/uL (140-360); RED BLOOD COUNT 2.82 x10e6/uL (3.6-5.1); RED CELL DISTRIBUTION WIDTH 18.8 % (11.7-14.4)
[2020-05-04 07:04] LABS: ALBUMIN 1.8 g/dL (3.5-5.0); ALBUMIN/GLOBULIN RATIO 0.4 (0.8-2.0); ANION GAP 28.7 mmol/L (8-16); CALCIUM 8.3 mg/dL (8.4-10.2); CREATININE, SERUM 5.15 mg/dL (0.57-1.11); POTASSIUM 4.7 mmol/L (3.5-5.1)
[2020-05-04] MEDS: HYDRALAZINE HCL 25 MG TAB PO SCH (08:37)
[2020-05-04] MEDS: VALSARTAN 80 MG TAB PO SCH (08:37)
[2020-05-04] MEDS: ZINC SULFATE 220 MG CAP PO SCH (08:38)
[2020-05-04] MEDS ORDERED: MORPHINE SULFATE INJ 2 MG/ML SYR IV PRN (13:00)
[2020-05-04] MEDS ORDERED: LORAZEPAM INJ 2 MG/ML VIAL IV PRN (13:00)
== END 2020-05-04 15:54 | disposition expired | DRG 870 ==
LOC: ER 21:31 → ERHOLD 23:45 → IMCU 04-11 01:10 → COVIDICU 04-19 21:50
PROVIDERS: ADMIT Internal Medicine; ATTEND Internal Medicine
PROC: 3E0333Z Introduction of Anti-inflammatory into Peripheral Vein, Percutaneous Approach (ICD-10-PCS; 2020-04-10)
PROC: 5A1D70Z Performance of Urinary Filtration, Intermittent, Less than 6 Hours Per Day (ICD-10-PCS; 2020-04-11)
PROC: XW033E5 Introduction of Remdesivir Anti-infective into Peripheral Vein, Percutaneous Approach, New Technology Group 5 (ICD-10-PCS; 2020-04-11)
PROC: 5A1D70Z Performance of Urinary Filtration, Intermittent, Less than 6 Hours Per Day (ICD-10-PCS; 2020-04-13)
PROC: 5A1D70Z Performance of Urinary Filtration, Intermittent, Less than 6 Hours Per Day (ICD-10-PCS; 2020-04-16)
PROC: 5A1955Z Respiratory Ventilation, Greater than 96 Consecutive Hours (ICD-10-PCS; principal; 2020-04-18)
PROC: 0BH18EZ Insertion of Endotracheal Airway into Trachea, Via Natural or Artificial Opening Endoscopic (ICD-10-PCS; 2020-04-18)
PROC: 5A1D70Z Performance of Urinary Filtration, Intermittent, Less than 6 Hours Per Day (ICD-10-PCS; 2020-04-18)
PROC: 5A12012 Performance of Cardiac Output, Single, Manual (ICD-10-PCS; 2020-04-18)
PROC: 5A1D70Z Performance of Urinary Filtration, Intermittent, Less than 6 Hours Per Day (ICD-10-PCS; 2020-04-19)
PROC: 5A1D70Z Performance of Urinary Filtration, Intermittent, Less than 6 Hours Per Day (ICD-10-PCS; 2020-04-20)
PROC: 5A1D70Z Performance of Urinary Filtration, Intermittent, Less than 6 Hours Per Day (ICD-10-PCS; 2020-04-22)
PROC: 5A1D70Z Performance of Urinary Filtration, Intermittent, Less than 6 Hours Per Day (ICD-10-PCS; 2020-04-24)
PROC: 5A1D70Z Performance of Urinary Filtration, Intermittent, Less than 6 Hours Per Day (ICD-10-PCS; 2020-04-26)
PROC: 5A1D70Z Performance of Urinary Filtration, Intermittent, Less than 6 Hours Per Day (ICD-10-PCS; 2020-04-29)
PROC: 02H633Z Insertion of Infusion Device into Right Atrium, Percutaneous Approach (ICD-10-PCS; 2020-04-29)
PROC: B548ZZA Ultrasonography of Superior Vena Cava, Guidance (ICD-10-PCS; 2020-04-29)
PROC: 5A1D70Z Performance of Urinary Filtration, Intermittent, Less than 6 Hours Per Day (ICD-10-PCS; 2020-05-01)
DX: A41.89 Other specified sepsis (principal); U07.1 COVID-19; J12.82 Pneumonia due to coronavirus disease 2019; N18.6 End stage renal disease; J96.01 Acute respiratory failure with hypoxia; J15.9 Unspecified bacterial pneumonia; J69.0 Pneumonitis due to inhalation of food and vomit; I50.33 Acute on chronic diastolic (congestive) heart failure; I13.2 Hypertensive heart and chronic kidney disease with heart failure and with stage 5 chronic kidney disease, or end stage renal disease; N17.9 Acute kidney failure, unspecified; G93.1 Anoxic brain damage, not elsewhere classified; R65.20 Severe sepsis without septic shock; E11.22 Type 2 diabetes mellitus with diabetic chronic kidney disease; I25.2 Old myocardial infarction; E03.9 Hypothyroidism, unspecified; I25.10 Atherosclerotic heart disease of native coronary artery without angina pectoris; E78.5 Hyperlipidemia, unspecified; Z99.2 Dependence on renal dialysis; E11.42 Type 2 diabetes mellitus with diabetic polyneuropathy; Z89.511 Acquired absence of right leg below knee; Z88.8 Allergy status to other drugs, medicaments and biological substances; E11.319 Type 2 diabetes mellitus with unspecified diabetic retinopathy without macular edema; B99.9 Unspecified infectious disease; H10.89 Other conjunctivitis; I46.9 Cardiac arrest, cause unspecified; E87.5 Hyperkalemia; E11.65 Type 2 diabetes mellitus with hyperglycemia; D64.9 Anemia, unspecified
CPT/HCPCS: 31500; 36415; 36556; 36600; 70450; 70551; 71045; 74470; 76937; 77001; 80048; 80053; 82140; 82728; 82805; 82948; 83880; 84146; 84484; 85007; 85025; 85027; 85610; 86140; 86705; 86706; 87340; 90962; 92950; 93005; 93306; 94002; 94003; 95822; 96372; 99251; 99284; C1769; J0171; J0360; J0456; J0696; J1100; J1644; J1817; J2060; J2150; J2250; J2270; J2405; J2543; J2930; J7030; J7050; U0002